=== PATIENT | male | born 1960 | race Caucasian/White ===

== ENCOUNTER 2016-09-08 17:23 | Inpatient (IN) | payer OTHER ==
[~2016-09-08] VITALS: Ht 182.9 cm; Wt 59.3 kg
[2016-09-08 17:25] VITALS: BP 160/113; PULSE 103; RESP 24; TEMP 98; O2SAT 96
[2016-09-08] MEDS ORDERED: SODIUM CHLORIDE 0.9% FLUSH 5 ML FLUSH IVF PRN (20:30)
--- NOTE | 2016-09-08 20:49 | PD ---
HPI Chief Complaint: Abnormal Results Time Seen by Provider: 20:26 Travel History International Travel<30 days: No Contact w/Intl Traveler<30days: No Traveled to known affect area: No History of Present Illness HPI 55-year-old male presents to the emergency department for complaint of hoarseness and painful swallowing difficulty swallowing chest pain congestion shortness of breath and weight loss progressively worsening over the past 4 months. Patient estimates that he's lost at least 20 pounds in the past 2 months. Patient states that he has no chronic medical conditions that he is aware of it she has not seen a physician since childhood. Patient takes no medications on a regular basis. Patient's had previous tonsillectomy but no other surgeries. Patient does admit to tobacco use on a daily basis and alcohol use on a daily basis. PFSH Past Medical History Medical History: Denies Significant Hx Past Surgical History Tonsillectomy: Yes Social History Alcohol Use: Yes Tobacco Use: Yes (1PPD) Substance Use: No Allergies-Medications (Allergen,Severity, Reaction): Coded Allergies: No Known Allergies (Unverified , 09/08/16) Reported Meds & Prescriptions Reported Meds & Active Scripts Active No Active Prescriptions or Reported Medications Review of Systems Except as stated in HPI: all other systems reviewed are Neg General / Constitutional: Positive: Weight Loss, No: Fever Eyes: No: Visual changes HENT: Positive: Neck Pain, No: Headaches Cardiovascular: No: Chest Pain or Discomfort Respiratory: Positive: Shortness of Breath Gastrointestinal: Positive: Dysphagia, No: Vomiting Genitourinary: No: Flank Pain Musculoskeletal: No: Myalgias, Arthralgias Skin: No Rash Neurologic: No: Weakness Psychiatric: Positive: Anxiety Hematologic/Lymphatic: Positive: Lymph Node Enlargement Physical Exam Narrative GENERAL: Well-developed well-nourished pleasant male in no acute distress no respiratory distress with hoarseness without stridor SKIN: Warm and dry. HEAD: Normocephalic. EYES: No scleral icterus. No injection or drainage. NECK: Supple, trachea midline. No JVD; mild palpable lymphadenopathy. No thyromegaly. CARDIOVASCULAR: Regular rate and rhythm without murmurs, gallops, or rubs. RESPIRATORY: Breath sounds equal bilaterally. No accessory muscle use. GASTROINTESTINAL: Abdomen soft, non-tender, nondistended. MUSCULOSKELETAL: No cyanosis, or edema. BACK: Nontender without obvious deformity. No CVA tenderness. Data Data Last Documented VS Vital Signs Date Time Temp Pulse Resp B/P Pulse Ox O2 Delivery O2 Flow Rate FiO2 09/08/16 19:59 85 16 99 Room Air 09/08/16 17:25 98.0 160/113 Orders Complete Blood Count With Diff (09/08/16 20:26) Comprehensive Metabolic Panel (09/08/16 20:26) Act Partial Throm Time (Ptt) (09/08/16 20:26) Prothrombin Time / Inr (Pt) (09/08/16 20:26) Magnesium (Mg) (09/08/16 20:26) Troponin I (09/08/16 20:26) Urinalysis - C+S If Indicated (09/08/16 20:26) Iv Access Insert/Monitor (09/08/16 20:26) Electrocardiogram (09/08/16 20:26) Ecg Monitoring (09/08/16 20:26) Oximetry (09/08/16 20:26) Oxygen Administration (09/08/16 20:26) Chest, Single Ap (09/08/16 20:26) Sodium Chloride 0.9% Flush (Ns Flush) (09/08/16 20:30) Thyroid Stimulating Hormone (09/08/16 20:26) Albuterol-Ipratropium Neb (Duoneb Neb) (09/08/16 22:00) Pantoprazole Inj (Protonix Inj) (09/08/16 22:00) Ct Soft Tiss Neck W Iv Cont (09/08/16 ) Iohexol 350 Inj (Omnipaque 350 Inj) (09/08/16 22:56) Place In Observation (09/09/16 ) Vital Signs (Adult) Q4H (09/09/16 01:00) Activity Oob With Assistance (09/09/16 01:00) ^ Glove Stitcher / Telemetry .CONTINUOUS (09/09/16 01:00) Diet Npo (09/09/16 Breakfast) D5-1/2 Ns + Kcl 20 Meq Inj (D5-1/2 Ns + (09/09/16 01:00) Sodium Chloride 0.9% Flush (Ns Flush) (09/09/16 01:00) Sodium Chloride 0.9% Flush (Ns Flush) (09/09/16 09:00) Case Management Consult (09/09/16 01:00) Enoxaparin Inj (Lovenox Inj) (09/09/16 09:00) Naloxone Inj (Narcan Inj) (09/09/16 01:00) Consult Ent (09/09/16 ) Albuterol-Ipratropium Neb (Duoneb Neb) (09/09/16 01:15) Dexamethasone Inj (Decadron Inj) (09/09/16 01:30) Admit Order (Ed Use Only) (09/09/16 ) ^ Saline Lock (09/09/16 01:27) Resp Oxygen Wilmer C Titrat 1-4 L (09/09/16 ) ^ Notify Dr: Other (09/09/16 01:27) Sodium Chloride 0.9% Flush (Ns Flush) (09/09/16 09:00) Sodium Chloride 0.9% Flush (Ns Flush) (09/09/16 01:30) Labs Laboratory Tests Test 09/08/16 20:32 White Blood Count 11.5 TH/MM3 Red Blood Count 4.67 MIL/MM3 Hemoglobin 14.2 GM/DL Hematocrit 42.8 % Mean Corpuscular Volume 91.7 FL Mean Corpuscular Hemoglobin 30.5 PG Mean Corpuscular Hemoglobin 33.3 % Concent Red Cell Distribution Width 13.3 % Platelet Count 297 TH/MM3 Mean Platelet Volume 8.4 FL Neutrophils (%) (Auto) 78.7 % Lymphocytes (%) (Auto) 11.3 % Monocytes (%) (Auto) 8.7 % Eosinophils (%) (Auto) 0.8 % Basophils (%) (Auto) 0.5 % Neutrophils # (Auto) 9.1 TH/MM3 Lymphocytes # (Auto) 1.3 TH/MM3 Monocytes # (Auto) 1.0 TH/MM3 Eosinophils # (Auto) 0.1 TH/MM3 Basophils # (Auto) 0.1 TH/MM3 CBC Comment DIFF FINAL Differential Comment Prothrombin Time 10.5 SEC Prothromb Time International 1.0 RATIO Ratio Activated Partial 26.9 SEC Thromboplast Time Sodium Level 139 MEQ/L Potassium Level 4.2 MEQ/L Chloride Level 99 MEQ/L Carbon Dioxide Level 31.8 MEQ/L Anion Gap 8 MEQ/L Blood Urea Nitrogen 23 MG/DL Creatinine 0.77 MG/DL Estimat Glomerular Filtration 105 ML/MIN Rate Random Glucose 89 MG/DL Calcium Level 10.1 MG/DL Magnesium Level 2.1 MG/DL Total Bilirubin 0.4 MG/DL Aspartate Amino Transf 14 U/L (AST/SGOT) Alanine Aminotransferase 24 U/L (ALT/SGPT) Alkaline Phosphatase 67 U/L Troponin I LESS THAN 0.02 NG/ML Total Protein 8.7 GM/DL Albumin 3.9 GM/DL Thyroid Stimulating Hormone 1.170 uIU/ML 3rd [facility] Medical Decision Making Medical Screen Exam Complete: Yes Emergency Medical Condition: Yes Medical Record Reviewed: Yes Interpretation(s) Last Impressions Chest X-Ray 09/08/162025 Signed Impressions: Service Date/Time: Thursday, September 08, 2016 20:33 - CONCLUSION: Hyperinflation suggesting COPD. No acute infiltrate or effusion. Graham Ayoub Jr., MD Neck CT 09/08/16 0000 Signed Impressions: Service Date/Time: Thursday, September 08, 2016 22:53 - CONCLUSION: Large malignant appearing mass or in the region of the false vocal cord on the right side with necrotic lymph nodes in bilateral neck highly suspicious for metastatic adenopathy. Cielo Lassiter MD Differential Diagnosis Laryngitis, paratracheal mass, esophageal mass, abscess, COPD Narrative Course IV access obtained specimens collected and sent for resulting Chest x-ray reveals no acute abnormality CT soft tissue of the neck with IV contrast ordered CT soft tissue of the neck identifies large mass with necrotic lymph nodes concerning for malignancy with metastatic disease Case discussed with on-call medicine for admission to expedite resources involving ENT, GI, oncology Case discussed with on-call ENT will see patient in consultation Physician Communication Physician Communication discussed with Dr Sofia --admission-obs; discussed with Dr Saab will see in consultation agrees w steroid therapy, rec notifying anesthesiology about patient as may require their airway assistance overnight; discussed with anesthesiology, Dr Hanson, regarding possible elective intubation ---aware; rec's defer at this time as clinically asymptomatic Diagnosis Primary Impression: Neck malignant neoplasm Scripts No Active Prescriptions or Reported Meds Paige Hernandez MD Sep 08, 2016 20:49
[2016-09-08 21:08] LABS: APTT (PATIENT) 26.9 SEC (24.3-30.1); PROTHROMBIN TIME - PATIENT 10.5 SEC (9.8-11.6)
[2016-09-08 21:09] LABS: AUTOMATED NEUTROPHIL # 9.1 TH/MM3 (1.8-7.7); BASOPHIL # 0.1 TH/MM3 (0-0.2); BASOPHIL % 0.5 % (0.0-2.0); EOSINOPHIL # 0.1 TH/MM3 (0-0.4); EOSINOPHIL % 0.8 % (0.0-4.0); HEMATOCRIT 42.8 % (39.0-51.0); HEMO FLAGS DIFF FINAL; LYMPH % 11.3 % (9.0-44.0); LYMPHOCYTE # 1.3 TH/MM3 (1.0-4.8); MEAN CELL VOLUME 91.7 FL (80.0-100.0); MEAN CORPUSCULAR HEMOGLOBIN 30.5 PG (27.0-34.0); MEAN CORPUSCULAR HGB CONC 33.3 % (32.0-36.0); MONO % 8.7 % (0.0-8.0); NEUT % 78.7 % (16.0-70.0); PLATELET COUNT 297 TH/MM3 (150-450); RED BLOOD COUNT 4.67 MIL/MM3 (4.50-5.90); RED CELL DISTRIBUTION WIDTH 13.3 % (11.6-17.2); WHITE BLOOD COUNT 11.5 TH/MM3 (4.0-11.0)
--- NOTE | 2016-09-08 21:15 | RADRPT ---
EXAM DATE/TIME: 09/08/2016 20:33 [facility] COMPARISON: No previous studies available for comparison. INDICATIONS : Chest and throat pain. Congestion. MEDICAL HISTORY : None. SURGICAL HISTORY : None. ENCOUNTER: Initial ACUITY: 3 days PAIN SCORE: 5/10 LOCATION: chest FINDINGS: 2 frontal views of the chest show the lungs to be hyperaerated. No infiltrate or effusion. Heart norm al in size. Old left-sided rib fractures noted. CONCLUSION: Hyperinflation suggesting COPD. No acute infiltrate or effusion. Graham Ayoub Jr., MD on September 08, 2016 at 21:13 Board Certified Radiologist. This report was verified electronically.
[2016-09-08 21:16] LABS: ANION GAP 8 MEQ/L (5-15); AST (GOT) 14 U/L (15-37); BICARBONATE 31.8 MEQ/L (21.0-32.0); BLOOD UREA NITROGEN 23 MG/DL (7-18); CHLORIDE 99 MEQ/L (98-107); GLOMERULAR FILTRATION RATE 105 ML/MIN (>89); MAGNESIUM 2.1 MG/DL (1.5-2.5); POTASSIUM 4.2 MEQ/L (3.5-5.1); SODIUM (NA) 139 MEQ/L (136-145)
[2016-09-08 21:28] LABS: ALKALINE PHOSPHATASE 67 U/L (45-117); ALT (GPT) 24 U/L (12-78); TOTAL BILIRUBIN ADULT 0.4 MG/DL (0.2-1.0)
[2016-09-08] MEDS ORDERED: RESP: ALBUTEROL 2.5 MG/IPRATROPIUM 0.5 MG NEB (SCH) NEB ONE (22:00)
[2016-09-08] MEDS ORDERED: PANTOPRAZOLE SODIUM 40 MG VIAL IV PUSH ONE (22:00)
[2016-09-08] MEDS ORDERED: IOHEXOL 350 MG/ML 10 ML VIAL (for RAD DIAG) IV ONE (22:56)
--- NOTE | 2016-09-08 23:29 | RADRPT ---
EXAM DATE/TIME: 09/08/2016 22:53 [facility] COMPARISON: No previous studies available for comparison. INDICATIONS : Sore throat, cough, congestion and weight loss past 5 months. IV CONTRAST: 60 cc Omnipaque 350 (iohexol) IV RADIATION DOSE: 14.51 CTDIvol (mGy) MEDICAL HISTORY : None SURGICAL HISTORY : Tonsillectomy. ENCOUNTER: Initial ACUITY: 4 - 6 months PAIN SCALE: 5/10 LOCATION: Bilateral neck TECHNIQUE: Volumetric scanning of the neck was performed. Using automated exposure control and adjustment of th e mA and/or kV according to patient size, radiation dose was kept as low as reasonably achievable to obtain optimal diagnostic quality images. FINDINGS: There is mild mucoperiosteal thickening within the maxillary sinuses. There is a large mass epic entered in the region of the false vocal cord on the right side compromising the lumen measuring almo st 3 cm in size highly suspicious for a malignant mass. There are necrotic lymph nodes in bilateral n beverly. On the right side the largest one measures 1.8 cm in size and on the left side the largest one m easures 1.1 cm in size. There are 2 separate necrotic lymph nodes on each side and there are tiny sub centimeter lymph nodes within the superior mediastinum. These latter lymph nodes are nonspecific. The re is scarring in bilateral lung apices. CONCLUSION: Large malignant appearing mass or in the region of the false vocal cord on the right side with necrot ic lymph nodes in bilateral neck highly suspicious for metastatic adenopathy. Cielo Lassiter MD on September 08, 2016 at 23:23 Board Certified Radiologist. This report was verified electronically.
[2016-09-09] VITALS (10 sets, daily range): BP systolic 132–151; BP diastolic 68–82; PULSE 77–99; RESP 16–20; TEMP 97.1–98.4; O2SAT 97–99
[2016-09-09] MEDS ORDERED: NALOXONE HCL 0.4 MG/ML AMP IV PRN (01:00)
[2016-09-09] MEDS ORDERED: SODIUM CHLORIDE 0.9% FLUSH 5 ML FLUSH FLUSH PRN (01:00)
[2016-09-09] MEDS ORDERED: RESP: ALBUTEROL 2.5 MG/IPRATROPIUM 0.5 MG NEB (PRN) NEB (01:15)
[2016-09-09] MEDS ORDERED: DEXAMETHASONE SOD PHOS 4 MG/ML VIAL IV PUSH ONE (01:30)
[2016-09-09] MEDS: D5-1/2 NS + KCL 20 MEQ INJ 1,000 ML IV SCH ×3 (02:21→21:09)
[2016-09-09] MEDS: DEXAMETHASONE SOD PHOS 4 MG/ML VIAL IV PUSH SCH ×3 (07:50→17:50)
[2016-09-09] MEDS: ENOXAPARIN SODIUM 40 MG/0.4 ML SYRINGE SQ SCH (08:03)
[2016-09-09] MEDS: SODIUM CHLORIDE 0.9% FLUSH 5 ML FLUSH IVF SCH ×2 (08:54→21:10)
[2016-09-09] MEDS ORDERED: SODIUM CHLORIDE 0.9% FLUSH 5 ML FLUSH FLUSH SCH (09:00)
[2016-09-09 10:52] LABS: BLOOD, URINE TRACE (NEG); GLUCOSE,URINE NEG (NEG); KETONE, URINE 40 mg/dL (NEG); MUCUS URINE FEW /lpf (OCC); NITRITE,URINE NEG (NEG); PH, URINE 5.5 (5.0-8.5); URINE COLOR YELLOW (YELLW/STRAW)
[2016-09-09 10:53] LABS: COMMENT (UR) CULT NOT INDICATED; CULTURE IF INDICATED CULT NOT INDICATED
--- NOTE | 2016-09-09 11:13 | HHI.HP ---
none [facility] No Primary Care Physician Admission Diagnosis neck mass/malignancy; copd Diagnoses: Chief Complaint: Hoarseness and weight loss Travel History International Travel<30 Days: No Contact w/Intl Traveler <30 Da: No Traveled to Known Affected Are: No History of Present Illness This patient is a 55-year-old gentleman with minimal past history who over the last 4 months has been having increased weight loss of about 45 pounds, increased hoarseness and chest congestion. Patient has not had any fevers or chills but did come to the emergency room several months ago for evaluation and was given a proton pump inhibitor for treatment of presumed dyspepsia. Patient' s symptoms never subsided and he became worse so he came to the hospital again. CT of the next was done and did show a rather large malignant-appearing mass on the right side with some necrotic lymph nodes. On my review it is quite suspicious for malignancy. Patient has not been hypoxemic, he has difficulty swallowing and has been quite dehydrated. For these reasons the patient was recommended for further evaluation and treatment in the hospital. Review of Systems Constitutional: COMPLAINS OF: Fatigue, Weight loss, Dizziness, DENIES: Diaphoretic episodes, Fever, Weight gain, Chills, Change in appetite, Night Sweats Endocrine: DENIES: Heat/cold intolerance, Polydipsia, Polyuria, Polyphagia Eyes: DENIES: Blurred vision, Diplopia, Eye inflammation, Eye pain, Vision loss , Photosensitivity, Double Vision Ears, nose, mouth, throat: DENIES: Tinnitus, Hearing loss, Vertigo, Nasal discharge, Oral lesions, Throat pain, Hoarseness, Ear Pain, Running Nose, Epistaxis, Sinus Pain, Toothache, Odynophagia Respiratory: COMPLAINS OF: Cough, DENIES: Apneas, Snoring, Wheezing, Hemoptysis, Sputum production, Shortness of breath Cardiovascular: DENIES: Chest pain, Palpitations, Syncope, Dyspnea on Exertion , PND, Lower Extremity Edema, Orthopnea, Claudication Gastrointestinal: DENIES: Abdominal pain, Black stools, Bloody stools, Constipation, Diarrhea, Nausea, Vomiting, Difficulty Swallowing, Anorexia Genitourinary: DENIES: Sexual dysfunction, Urinary frequency, Urinary incontinence, Urgency, Hematuria, Dysuria, Nocturia, Penile Discharge, Testicular Pain, Testicular Swelling Musculoskeletal: DENIES: Joint pain, Muscle aches, Stiffness, Joint Swelling, Back pain, Neck pain Integumentary: DENIES: Abnormal pigmentation, Nail changes, Pruritus, Rash Hematologic/lymphatic: DENIES: Bruising, Lymphadenopathy Immunologic/allergic: DENIES: Eczema, Urticaria Neurologic: DENIES: Abnormal gait, Headache, Localized weakness, Paresthesias, Seizures, Speech Problems, Tremor, Poor Balance Past Family Social History Past Medical History None Past Surgical History Tonsillectomy Reported Medications Omeprazole twice daily Allergies: Coded Allergies: No Known Allergies (Unverified , 09/08/16) Active Ordered Medications Reviewed in the medical record Family History Father of coronary related injuries, mother is healthy at 84, no malignancies Social History Patient smokes a pack a day, drinks beer frequently, lives alone, 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 Physical Exam Vital Signs Vital Signs Date Time Temp Pulse Resp B/P Pulse Ox O2 Delivery O2 Flow Rate FiO2 09/09/16 10:24 98.1 82 17 137/78 98 Room Air 09/09/16 09:57 99 Nasal Cannula 2.00 09/09/16 07:30 97 Room Air 09/09/16 07:30 20 97 Room Air 09/09/16 07:30 98.1 80 20 151/73 97 Room Air 09/09/16 07:30 20 97 Room Air 09/09/16 06:37 81 16 138/78 97 Room Air 09/09/16 02:48 16 09/09/16 02:48 89 16 141/82 97 Room Air 09/09/16 02:48 96 Room Air 09/09/16 01:41 21 09/08/16 19:59 85 16 99 Room Air 09/08/16 17:25 98.0 103 24 160/113 96 Room Air Physical Exam GENERAL: This is a thin, well-developed, hoarse gentleman SKIN: No rashes, ecchymoses or lesions. Cool and dry. HEAD: Atraumatic. Normocephalic. No temporal or scalp tenderness. EYES: Pupils equal round and reactive. Extraocular motions intact. No scleral icterus. No injection or drainage. ENT: Nose without bleeding, purulent drainage or septal hematoma. Throat without erythema, tonsillar hypertrophy or exudate. Uvula midline. Airway patent. NECK: Trachea midline. No JVD or lymphadenopathy. Supple, nontender, no meningeal signs. CARDIOVASCULAR: Regular rate and rhythm without murmurs, gallops, or rubs. RESPIRATORY: Clear to auscultation. Breath sounds equal bilaterally. No wheezes , rales, or rhonchi. GASTROINTESTINAL: Abdomen soft, non-tender, nondistended. No hepato-splenomegaly , or palpable masses. No guarding. MUSCULOSKELETAL: Extremities without clubbing, cyanosis, or edema. No joint tenderness, effusion, or edema noted. No calf tenderness. Negative Homans sign bilaterally. NEUROLOGICAL: Awake and alert. Cranial nerves II through XII intact. Motor and sensory grossly within normal limits. Five out of 5 muscle strength in all muscle groups. Normal speech. Laboratory Laboratory Tests Test 09/08/16 09/09/16 20:32 09:50 White Blood Count 11.5 Red Blood Count 4.67 Hemoglobin 14.2 Hematocrit 42.8 Mean Corpuscular Volume 91.7 Mean Corpuscular Hemoglobin 30.5 Mean Corpuscular Hemoglobin 33.3 Concent Red Cell Distribution Width 13.3 Platelet Count 297 Mean Platelet Volume 8.4 Neutrophils (%) (Auto) 78.7 Lymphocytes (%) (Auto) 11.3 Monocytes (%) (Auto) 8.7 Eosinophils (%) (Auto) 0.8 Basophils (%) (Auto) 0.5 Neutrophils # (Auto) 9.1 Lymphocytes # (Auto) 1.3 Monocytes # (Auto) 1.0 Eosinophils # (Auto) 0.1 Basophils # (Auto) 0.1 CBC Comment DIFF FINAL Differential Comment Prothrombin Time 10.5 Prothromb Time International 1.0 Ratio Activated Partial 26.9 Thromboplast Time Sodium Level 139 Potassium Level 4.2 Chloride Level 99 Carbon Dioxide Level 31.8 Anion Gap 8 Blood Urea Nitrogen 23 Creatinine 0.77 Estimat Glomerular Filtration 105 Rate Random Glucose 89 Calcium Level 10.1 Magnesium Level 2.1 Total Bilirubin 0.4 Aspartate Amino Transf 14 (AST/SGOT) Alanine Aminotransferase 24 (ALT/SGPT) Alkaline Phosphatase 67 Troponin I LESS THAN 0.02 Total Protein 8.7 Albumin 3.9 Thyroid Stimulating Hormone 1.170 3rd Gen Urine Color YELLOW Urine Turbidity CLEAR Urine pH 5.5 Urine Specific Ingalls 1.050 Urine Protein 30 Urine Glucose (UA) NEG Urine Ketones 40 Urine Occult Blood TRACE Urine Nitrite NEG Urine Bilirubin NEG Urine Urobilinogen LESS THAN 2.0 Urine Leukocyte Esterase NEG Urine RBC 1 Urine WBC 1 Urine Mucus FEW Microscopic Urinalysis Comment CULT NOT INDICATED Result Diagram: 09/08/16203109/08/162031 Assessment and Plan Problem List: (1) Neck malignant neoplasm ICD Code: C76.0 Status: Acute Plan: ENT follow-up pending Continue steroids IV hydration, speech therapy for swallow assessment CT chest abdomen and thorax rule out further spread Physician Certification 2 Midnight Certification Type: Admission for Inpatient Services Order for Inpatient Services The services are ordered in accordance with Medicare regulations or non- Medicare payer requirements, as applicable. In the case of services not specified as inpatient-only, they are appropriately provided as inpatient services in accordance with the 2-midnight benchmark. Estimated LOS (days): 4 4 days is the estimated time the patient will need to remain in the hospital, assuming treatment plan goals are met and no additional complications. Post-Hospital Plan: Home Anita Mathis MD Sep 09, 2016 11:12
[2016-09-09] MEDS: NICOTINE 21 MG/24 HR PATCH TD SCH (17:50)
[2016-09-09] MEDS ORDERED: MAGNESIUM HYDROXIDE SUSP 30 ML CUP PO PRN (18:30)
[2016-09-09] MEDS ORDERED: DOCUSATE SODIUM 100 MG CAP PO PRN (18:30)
[2016-09-09] MEDS ORDERED: ALUMINUM/MAGNESIUM/SIMETH 30 ML CUP PO PRN (18:30)
[2016-09-09] MEDS ORDERED: ONDANSETRON HCL 4 MG/2 ML VIAL IV PRN (18:30)
[2016-09-09] MEDS ORDERED: CALCIUM CARBONATE 500 MG CHEWABLE TAB CHEW PRN (18:30)
[2016-09-09] MEDS ORDERED: ACETAMINOPHEN 325 MG TAB PO PRN (18:30)
--- NOTE | 2016-09-09 20:37 | EKG ---
Date Performed: 09/08/2016 Time Performed: 20:45:12 PTAGE: 55 years EKG: Sinus rhythm WITH OCCASIONAL SUPRAVENTRICULAR PREMATURE COMPLEXES BORDERLINE ECG NO PREVIOUS TRACING DOCTOR: Qi Clinton Interpretating Date/Time 09/09/2016 20:35:03
--- NOTE | 2016-09-09 22:29 | MB ---
cc: PITER SAAB MD DATE OF CONSULTATION 09/09/16 CHIEF COMPLAINT Airway compromise Of note, my full dictation seems to have been lost in the system (Doc #[id number]). Of note, the patient is a pleasant 55 year old male who seemed otherwise healthy prior to the last four months where he has been having increased weight loss of approximately 40 pounds and increased throat hoarseness and chest tightness. Symptoms have worsened prior to being admitted to the emergency room. The CAT scan was done in the emergency room which showed a large malignant appearing right laryngeal mass obstructing the airway. Of note, the patient is a pack a day smoker. When I saw him this morning, he was in no acute distress on room air. However, on my flexible fiberoptic laryngeal examination his airway was quite severely compromised with a large fungating laryngeal malignant appearing lesion blocking the majority of his airway and there was only a small actual airway present at his laryngeal introitus with the airway being open on the left aspect of the larynx. There was a large amount of pooling of secretions and debris in his hypopharynx and his laryngeal area as well. However, after reintroducing the flexible fiberoptic laryngoscope into the left nasal cavity looking from this position, I was able to visualize the airway more definitively. However, even with this good visualization he did have severe airway compromise physically, although not clinically. Because of the extensiveness of his airway compromise, it was our recommendation this morning that the patient be admitted and to have general surgery consulted for possible bedside tracheostomy with the effective beside technique that they employ. 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 Once the airway was stable, with the tracheostomy performed by general surgery, then I would perform a controlled laryngeal biopsy, if needed by the oncologist. Of note, throughout the day the patient has improved considerably with the dosage of steroids. However, my recommendations remain the same as for the level of severity of his airway compromise. I see that anesthesia has already been consulted for assisting with the airway as able as well. I just spoke with the evening ____ who are attempting to retrieve my morning notes. I shall standby for further recommendations from the oncologist as well. Piter Saab MD CCP/ /9:58 PM /10:09 PM
[2016-09-10] VITALS (16 sets, daily range): BP systolic 122–164; BP diastolic 65–98; PULSE 60–98; RESP 16–36; TEMP 97.9–99.1; O2SAT 95–100
[2016-09-10] MEDS: DEXAMETHASONE SOD PHOS 4 MG/ML VIAL IV PUSH SCH ×4 (00:03→17:42)
[2016-09-10] MEDS ORDERED: CHLORHEXIDINE GLUCONATE 2 % 1 PACK (2 CLOTHS)(extra cloths) TOP PRN (00:15)
[2016-09-10] MEDS: CHLORHEXIDINE GLUCONATE 2 % 1 PACK (2 CLOTHS)(taper/protocol) TOP SCH (00:38)
[2016-09-10 05:00] LABS: HEMATOCRIT 38.6 % (39.0-51.0); MEAN CELL VOLUME 90.8 FL (80.0-100.0); MEAN CORPUSCULAR HGB CONC 34.1 % (32.0-36.0); PLATELET COUNT 283 TH/MM3 (150-450); RED BLOOD COUNT 4.25 MIL/MM3 (4.50-5.90); RED CELL DISTRIBUTION WIDTH 13.1 % (11.6-17.2); REVIEW FLAG FINAL; WHITE BLOOD COUNT 10.8 TH/MM3 (4.0-11.0)
[2016-09-10] MEDS ORDERED: IOHEXOL 350 MG/ML 10 ML VIAL (for RAD DIAG) IV ONE (05:38)
--- NOTE | 2016-09-10 06:19 | RADRPT ---
EXAM DATE/TIME: 09/10/2016 05:36 [facility] COMPARISON: No previous studies available for comparison. INDICATIONS : Weightloss for four months. Evaluate for mass. IV CONTRAST: 100 cc Omnipaque 350 (iohexol) IV ; Cumulative dose for multiple exams. ORAL CONTRAST: No oral contrast ingested. RADIATION DOSE: 5.02 CTDIvol (mGy) ; Combined studies - Thorax/Abdomen/Pelvis MEDICAL HISTORY : Chronic obstructive pulmonary disease. SURGICAL HISTORY : None. ENCOUNTER: Initial ACUITY: 4 - 6 months PAIN SCALE: 0/10 LOCATION: abdomen TECHNIQUE: Volumetric scanning of the abdomen and pelvis was performed. Using automated exposure control and ad justment of the mA and/or kV according to patient size, radiation dose was kept as low as reasonably achievable to obtain optimal diagnostic quality images. FINDINGS: LOWER LUNGS: The visualized lower lungs are clear. LIVER: There are a few subcentimeter low density masses in the liver likely represent cysts or small hemangi omas. The gallbladder is not distended. SPLEEN: Normal size without lesion. PANCREAS: Within normal limits. KIDNEYS: Normal in size and shape. There is no solid mass, stone or hydronephrosis. There is some cystic mao ge in the upper left kidney. ADRENAL GLANDS: The adrenal glands appear prominent likely resents a rib hypertrophy versus mild adenomas. VASCULAR: There is no aortic aneurysm. Scattered vascular calcifications are seen. BOWEL/MESENTERY: There does appear to be a target appearance to the small bowel in the right lower quadrant likely rep resents a degree of intussusception. Areas of intussusception frequently can have a lead mass. Signif icant dilatation of the bowels not seen. Evaluation of the small bowel would be recommended. ABDOMINAL WALL: Within normal limits. RETROPERITONEUM: There is no lymphadenopathy. BLADDER: No wall thickening or mass. REPRODUCTIVE: Within normal limits. INGUINAL: There is no lymphadenopathy or hernia. MUSCULOSKELETAL: Within normal limits for patient age. CONCLUSION: Suspected area of small bowel intussusception in the right lower quadrant. This is likely intermitten t as there is no associated dilatation of the small bowel. Intussusception can frequently had a lead mass. Evaluation of the small bowel would be recommended. Anjel Scanlon MD on September 10, 2016 at 6:10 Board Certified Radiologist. This report was verified electronically.
--- NOTE | 2016-09-10 06:23 | RADRPT ---
EXAM DATE/TIME: 09/10/2016 05:36 [facility] COMPARISON: No previous studies available for comparison. INDICATIONS : Short of breath for four months. Weightloss. Evaluate for mass. IV CONTRAST: 100 cc Omnipaque 350 (iohexol) IV ; Cumulative dose for multiple exams. RADIATION DOSE: 5.02 CTDIvol (mGy) ; Combined studies - Thorax/Abdomen/Pelvis MEDICAL HISTORY : Chronic obstructive pulmonary disease. SURGICAL HISTORY : None. ENCOUNTER: Initial ACUITY: 4 - 6 months PAIN SCALE: 0/10 LOCATION: chest TECHNIQUE: Volumetric scanning of the chest was performed. Using automated exposure control and adjustment of t he mA and/or kV according to patient size, radiation dose was kept as low as reasonably achievable to obtain optimal diagnostic quality images. FINDINGS: LUNGS: The lungs are hyperinflated. There some patchy areas of increased density seen at the lateral right u pper lung. There is minimal patchy density in the posterior lung apices. There is a calcified granulo ma at the left lung base. There is a small 4 mm nodule at the lateral left lower lung. PLEURA: There is no pleural thickening or pleural effusion. MEDIASTINUM: The heart and great vessels demonstrate no acute abnormality. There is no mediastinal or hilar lymph adenopathy. There is some increased density in the posterior right lateral aspect of the trachea just above kevin likely representing mucus. AXILLAE: Within normal limits. No lymphadenopathy. SKELETAL: Within normal limits for patient age. MISCELLANEOUS: The visualized upper abdominal organs demonstrate no acute abnormality. CONCLUSION: 1. Patchy areas of peripheral density in the upper lungs being more prominent right. These are nonspe cific. 2. 4 mm noncalcified nodule in the left lower lung. 3. It is thought both these above findings should be followed up with a noncontrast CT examination in 3-6 months. 4. Calcified granuloma right lung base. 5. Hyperinflated lungs. Anjel Scanlon MD on September 10, 2016 at 6:17 Board Certified Radiologist. This report was verified electronically.
[2016-09-10] MEDS: D5-1/2 NS + KCL 20 MEQ INJ 1,000 ML IV SCH ×2 (07:37→16:41)
[2016-09-10] MEDS: SODIUM CHLORIDE 0.9% FLUSH 5 ML FLUSH IVF SCH ×2 (08:47→20:24)
[2016-09-10] MEDS: NICOTINE 21 MG/24 HR PATCH TD SCH (08:47)
[2016-09-10] MEDS: REMOVE OLD NICODERM (NICOTINE) PATCH TD SCH (08:48)
[2016-09-10] MEDS ORDERED: PROPOFOL 200 MG/20 ML AMP IV ONE (11:46)
[2016-09-10] MEDS ORDERED: KETAMINE HCL 500 MG/5 ML VIAL ONE (14:13)
[2016-09-10] MEDS ORDERED: BUPIVACAINE/EPINEPHRINE 0.5% PF 30 ML VIAL ONE (14:18)
[2016-09-10] MEDS ORDERED: LIDOCAINE HCL 1% 50 ML VIAL ONE (14:18)
[2016-09-10] MEDS ORDERED: SODIUM BICARBONATE 8.4% INJ 50 ML ONE (14:18)
--- NOTE | 2016-09-10 15:10 | HHI.PR ---
Subjective Remarks Patient seen perioperatively for tracheostomy. No new complaints. Case discussed with Dr. So this morning. Objective Vitals Vital Signs Date Time Temp Pulse Resp B/P Pulse Ox O2 Delivery O2 Flow Rate FiO2 09/10/16 12:00 98.4 88 18 130/65 95 09/10/16 12:00 88 09/10/16 10:00 98 09/10/16 08:33 100 21 09/10/16 08:00 89 09/10/16 08:00 98.0 89 36 149/82 98 09/10/16 06:00 72 09/10/16 04:00 98.7 73 16 122/70 97 09/10/16 04:00 73 09/10/16 02:00 69 09/10/16 00:30 98.7 82 20 136/72 97 09/10/16 00:30 82 09/10/16 00:28 98.5 85 16 164/81 96 09/09/16 20:59 98.4 94 18 133/68 98 09/09/16 20:00 95 09/09/16 19:30 98 09/09/16 15:34 97.5 84 18 132/69 98 I/O 09/09/16 09/09/16 09/09/16 09/10/16 09/10/16 09/10/16 07:00 15:00 23:00 07:00 15:00 23:00 Intake Total 300 ml 450 ml Output Total 400 ml 400 ml Balance -100 ml 50 ml Intake Oral 300 ml IV Total 450 ml Output Urine Total 400 ml 400 ml Stool Total 0 ml # Voids 2 # Bowel Movements 0 Result Diagram: 09/10/1639909/08/162031 Imaging Last Impressions Chest CT 09/10/16599 Signed Impressions: Service Date/Time: Saturday, September 10, 2016 05:36 - CONCLUSION: 1. Patchy areas of peripheral density in the upper lungs being more prominent right. These are nonspecific. 2. 4 mm noncalcified nodule in the left lower lung. 3. It is thought both these above findings should be followed up with a noncontrast CT examination in 3-6 months. 4. Calcified granuloma right lung base. 5. Hyperinflated lungs. Anjel Scanlon MD Abdomen/Pelvis CT 09/10/16599 Signed Impressions: Service Date/Time: Saturday, September 10, 2016 05:36 - CONCLUSION: Suspected area of small bowel intussusception in the right lower quadrant. This is likely intermittent as there is no associated dilatation of the small bowel. Intussusception can frequently had a lead mass. Evaluation of the small bowel would be recommended. Anjel Scanlon MD Chest X-Ray 09/08/162025 Signed Impressions: Service Date/Time: Thursday, September 08, 2016 20:33 - CONCLUSION: Hyperinflation suggesting COPD. No acute infiltrate or effusion. Graham Ayoub Jr., MD Neck CT 09/08/16 0000 Signed Impressions: Service Date/Time: Thursday, September 08, 2016 22:53 - CONCLUSION: Large malignant appearing mass or in the region of the false vocal cord on the right side with necrotic lymph nodes in bilateral neck highly suspicious for metastatic adenopathy. Cielo Lassiter MD Objective Remarks GENERAL: This is a well-nourished, well-developed patient, in no apparent distress. CARDIOVASCULAR: Regular rate and rhythm without murmurs, gallops, or rubs. RESPIRATORY: Clear to auscultation. Breath sounds equal bilaterally. No wheezes , rales, or rhonchi. GASTROINTESTINAL: Abdomen soft, non-tender, nondistended. Normal active bowel sounds MUSCULOSKELETAL: Extremities without clubbing, cyanosis, or edema. NEURO: Alert & Oriented x4 to person, place, time, situation. 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
[2016-09-10] MEDS ORDERED: DO NOT ADM ANY ANTICOAGULANT DRUGS XX PRN (15:11)
[2016-09-10] MEDS ORDERED: MIDAZOLAM HCL 2 MG/2 ML VIAL ONE (15:17)
--- NOTE | 2016-09-10 17:11 | MB ---
cc: ANCELMO ESCOABR M.D. DATE OF CONSULTATION: 09/10/2016 REASON FOR CONSULTATION: Obstructing airway. CONSULTING PHYSICIAN: Dr. Dumas Ear, nose, and throat, HISTORY: This is a pleasant 55-year-old gentleman who was recently into the hospital. He has a airway compromise. He had admission to the intensive care unit. ENT is evaluated the patient and suggested a tracheostomy tube because of this obstructing laryngeal tumor. The patient states he has been having this problem for sometime be getting progressively worse to take a deep breath. He has had A fair amount of weight loss about 45 pounds over the last four or five months. His major complaint, presently he has a raspy voice, but he is able to talk. He is in minimal distress. PAST MEDICAL HISTORY: Negative for any other chronic medical problems except he says hypertension. PAST SURGICAL HISTORY: He has had a tonsillectomy in the past. MEDICATIONS: He takes some reflux medicine. PHYSICAL EXAMINATION: IN GENERAL: He is a very thin, hoarse gentleman. NECK: The neck is supple, palpable neck mass is appreciated, his trachea is easily palpated. He has no dilatation or enlargement of the thyroid, the chest is fairly clear. HEART: Regular rate, slightly tachycardic. ABDOMEN: Thin, soft, without rebound or guarding. EXTREMITIES: Moves all extremities well with no clubbing, cyanosis or edema. NEUROLOGIC: He is alert and oriented, again he has hoarse speech. LABORATORY DATA He had a white count of 10, H&H 13, 38. Chemistries essentially normal. Coags were normal. Urinalysis fairly clear. IMAGING STUDIES CT of the neck shows large malignant appearing mass and a with necrotic lymph nodes. 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 PLAN: This will be done in the operating room under controlled situation. This was discussed in detail with the patient. He appeared to understand and wishes to proceed. MD MAGY Street/kade /3:10 PM /4:48 PM
--- NOTE | 2016-09-10 19:21 | MB ---
cc: SRIKANTH PRITCHETT MD DATE OF CONSULTATION 09/10/16 DATE OF 58. REQUESTING PHYSICIAN Consult requested by the [facility] hospitalist service. REASON FOR CONSULTATION Patient with an obstructive laryngeal mass associated with cervical lymphadenopathy; findings concerning for a laryngeal malignancy. The oncology service has been consulted to coordinate further workup and treatment. Mr. Guzman communicated to me by writing down his answers. He is unable to speak. CHIEF COMPLAINT The patient reports having pain in his throat and difficulty speaking for the past 4-5 months. He reports having lost 35 pounds over this period of time due to difficulty swallowing as well. HISTORY OF PRESENT ILLNESS Mr. Guzman is a 55-year-old male who reports smoking a pack a day since the age of 13. He also reports being a heavy drinker. Mr. Guzman reports being in his usual state of health up until about four and a half months ago when he began to notice hoarseness in the voice and pain in his throat. He reports progressively not being able to speak and, on some days, was completely mute. He began to notice, in addition to this, difficulty swallowing. He reports attempting to swallow food, but it would immediately be regurgitated. Due to this, he lost about 35 pounds over the past four months. He presented to [place] emergency department last night with the above complaints. He underwent imaging studies including CT scan of the soft tissues of the neck, CT scan of the chest and CT scan of the abdomen and pelvis. The CT scan of the soft tissues of the neck revealed a near obstructing mass involving the larynx. The tumor appeared to be originating in the region of the false vocal cords and the bulk of the disease was on the right side. Necrotic and enlarged appearing lymph nodes appeared bilaterally on the neck which were concerning for metastatic adenopathy. CT scan of the chest and abdomen revealed no definite evidence of metastatic disease, although he did appear to have some inflammatory changes in his lungs. Due to his hoarseness and radiographic evidence of airway compromise, he did undergo tracheostomy earlier today. An ENT evaluation is pending at this time. PAST MEDICAL HISTORY The patient denies previous medical diagnoses. He reports being a smoker, one pack a day for the past 40 years almost. He also reports a history of heavy alcohol consumption. PAST SURGICAL HISTORY None. FAMILY HISTORY Denies oncologic diagnoses in the family. SOCIAL HISTORY He is not . He has a girlfriend. He is originally from [place], [place] and moved to [place] in the mid . He has no children of his own. 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 ALLERGIES NO KNOWN DRUG ALLERGIES. MEDICATIONS Current inpatient 1. Tylenol 650 mg q.6 h as needed for fever. 2. Zofran 4 mg IV q.6 h needed for nausea and vomiting. 3. Senna Colace one tablet p.o. b.i.d. as needed for constipation. 4. Calcium carbonate 1000 mg p.o. t.i.d. as needed for dyspepsia. 5. Nicotine patches 21 mg patch per 24 hours. 6. Dexamethasone 4 mg IV q.6 h. REVIEW OF SYSTEMS Review of systems as noted in HPI. He denies other complaints. Specifically, RAIL OPERATOR complaints, respiratory complaints, cardiovascular complaints, GI complaints. PHYSICAL EXAMINATION VITAL SIGNS: Temperature 97.9 degrees Fahrenheit, heart rate ranging between 60 and 80 beats a minute, blood pressure 138 x 98, O2 sats are 98% on trache collar. GENERAL APPEARANCE: Mr. Guzman is a middle-aged male. He is sitting up in bed. He has a tracheostomy. He is nonverbal. He appears to be emaciated. HEENT: Head atraumatic, normocephalic, conjunctivae are non pale, sclerae are anicteric, EOMI, PERRLA, oral exam no pharyngeal erythema. NECK: He does have prominent bilateral level II cervical lymph nodes. Recently created tracheostomy, no active bleeding noted. RESPIRATORY: Good air movement bilaterally. CARDIOVASCULAR: Regular rate and rhythm, S1-S2. No obvious murmurs, rubs or gallops. ABDOMEN: Thin belly, soft, nontender, nondistended, no palpable organ enlargement. EXTREMITIES: No pretibial edema, calf tenderness. RAIL OPERATOR: No focal sensory motor deficits. MUSCULOSKELETAL: Generally decreased muscle mass and tone. IMAGING STUDIES CT scan of the soft tissue neck dated 09/08/2016: Large malignant appearing mass in the region of the false vocal cord on the right side with necrotic lymph nodes on bilateral neck, concerning for metastatic disease. CT scan the chest dated 09/10/2016: Patchy areas of peripheral density in the upper lungs most prominent ON the right. These are nonspecific. A 4-mm noncalcified nodule in the right lower lung. Hyperinflated lungs. Calcific granuloma in the right lung base. CT scan of the abdomen dated 09/10/2016: Suspected area of small bowel intussusception in the right lower quadrant. This is likely intermittent. No associated dilatation. ASSESSMENT Mr. Guzman is a 55-year-old male with an extensive past history of tobaccoism and alcohol consumption. He presents to the hospital with a five-month history of increasing hoarseness of the voice, pain in the throat and difficulty swallowing. He has over the past several days been unable to talk at all and had increasing difficulty breathing. Imaging studies of his neck revealed a near obstruction of the upper airway at the level of the larynx. A large mass involving the false vocal cords appeared to be arising from the right side of the larynx and seemed to cross over the midline. Associated with this were multiple necrotic appearing lymph nodes along bilateral cervical lymph node chains. He has no definite evidence of pathologic disease within the lungs or mediastinum. Because of the impending upper airway obstruction, he did undergo a surgical airway creation on 09/10/2016. The oncology service has been consulted for further workup and management given the likely underlying diagnosis of a primary laryngeal malignancy. RECOMMENDATIONS 1. Laryngeal mass: Await ENT evaluation. We do need a tissue diagnosis. We have options when it comes to this. Specifically, he may undergo a biopsy of the laryngeal mass versus an image guided biopsy of one of the necrotic appearing lymph nodes. 2. Nutrition: He will require a feeding tube to be placed. He is quite protein calorie malnourished. 3. Given the likely diagnosis of laryngeal malignancy and lack of evidence of distal metastatic disease, I think this patient would be a good candidate for concurrent chemoradiotherapy. I will therefore request evaluation by radiation oncology early next week. The oncology service will follow along with you. MD LIZ Luque/ /6:28 PM /7:02 PM
[2016-09-11] VITALS (11 sets, daily range): BP systolic 112–151; BP diastolic 61–102; PULSE 52–75; RESP 18–24; TEMP 97.7–98.6; O2SAT 99–100
[2016-09-11] MEDS: DEXAMETHASONE SOD PHOS 4 MG/ML VIAL IV PUSH SCH ×4 (00:27→18:00)
[2016-09-11] MEDS: CHLORHEXIDINE GLUCONATE 2 % 1 PACK (2 CLOTHS)(taper/protocol) TOP SCH (04:00)
[2016-09-11] MEDS: REMOVE OLD NICODERM (NICOTINE) PATCH TD SCH (09:00)
--- NOTE | 2016-09-11 09:21 | HHI.PR ---
Subjective Remarks Patient seen and evaluated in follow-up for laryngeal mass. Case discussed with ENT yesterday. Patient did well post tracheostomy per general surgery. Seen in the room here and feeding tube discussed. 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 Objective Vitals Vital Signs Date Time Temp Pulse Resp B/P Pulse Ox O2 Delivery O2 Flow Rate FiO2 09/11/16 08:08 99 Trach Collar 28 09/11/16 06:00 54 09/11/16 04:00 53 09/11/16 04:00 98.0 54 18 114/61 99 09/11/16 02:00 61 09/11/16 00:00 100 Trach Collar 28 09/11/16 00:00 98.6 71 18 147/102 99 09/11/16 00:00 71 09/10/16 22:00 69 09/10/16 20:00 70 09/10/16 20:00 100 Trach Collar 28 09/10/16 20:00 99.1 70 18 144/72 100 09/10/16 19:55 98 Trach Collar 28 09/10/16 18:00 60 09/10/16 16:21 99 Trach Collar 6.00 28 09/10/16 16:00 91 16 137/79 99 Aerosol Mask 21 09/10/16 16:00 82 09/10/16 16:00 97.9 82 26 138/98 99 09/10/16 15:40 91 16 136/87 99 Aerosol Mask 09/10/16 15:25 87 16 130/75 99 Aerosol Mask 09/10/16 15:10 97.4 85 16 134/86 99 T-Piece 12 09/10/16 14:00 86 09/10/16 12:00 98.4 88 18 130/65 95 09/10/16 12:00 88 09/10/16 10:00 98 I/O 09/10/16 09/10/16 09/10/16 09/11/16 09/11/16 09/11/16 07:00 15:00 23:00 07:00 15:00 23:00 Intake Total 1234 ml 814 ml 406 ml Output Total 725 ml 235 ml 0 ml Balance 509 ml 579 ml 406 ml Intake Oral 150 ml 0 ml 0 ml IV Total 1084 ml 314 ml 406 ml Other 500 ml Output Urine Total 725 ml 225 ml 0 ml Stool Total 0 ml Estimated Blood Loss 10 ml # Bowel Movements 0 0 Result Diagram: 09/10/16 0400 09/08/162031 Imaging Last Impressions Chest CT 09/10/16599 Signed Impressions: Service Date/Time: Saturday, September 10, 2016 05:36 - CONCLUSION: 1. Patchy areas of peripheral density in the upper lungs being more prominent right. These are nonspecific. 2. 4 mm noncalcified nodule in the left lower lung. 3. It is thought both these above findings should be followed up with a noncontrast CT examination in 3-6 months. 4. Calcified granuloma right lung base. 5. Hyperinflated lungs. Anjel Scanlon MD Abdomen/Pelvis CT 09/10/16599 Signed Impressions: Service Date/Time: Saturday, September 10, 2016 05:36 - CONCLUSION: Suspected area of small bowel intussusception in the right lower quadrant. This is likely intermittent as there is no associated dilatation of the small bowel. Intussusception can frequently had a lead mass. Evaluation of the small bowel would be recommended. Anjel Scanlon MD Chest X-Ray 09/08/162025 Signed Impressions: Service Date/Time: Thursday, September 08, 2016 20:33 - CONCLUSION: Hyperinflation suggesting COPD. No acute infiltrate or effusion. Graham Ayoub Jr., MD Neck CT 09/08/16 0000 Signed Impressions: Service Date/Time: Thursday, September 08, 2016 22:53 - CONCLUSION: Large malignant appearing mass or in the region of the false vocal cord on the right side with necrotic lymph nodes in bilateral neck highly suspicious for metastatic adenopathy. Cielo Lassiter MD Objective Remarks GENERAL: This is a well-nourished, well-developed patient, in no apparent distress. CARDIOVASCULAR: Regular rate and rhythm without murmurs, gallops, or rubs. RESPIRATORY: Trach, Clear to auscultation. Breath sounds equal bilaterally. No wheezes, rales, or rhonchi. GASTROINTESTINAL: Abdomen soft, non-tender, nondistended. Normal active bowel sounds MUSCULOSKELETAL: Extremities without clubbing, cyanosis, or edema. NEURO: Alert & Oriented x4 to person, place, time, situation. 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
[2016-09-11] MEDS ORDERED: FLUMAZENIL 1 MG/10 ML VIAL IV PUSH PRN (12:15)
[2016-09-11] MEDS ORDERED: LORazepam 1 MG TAB PO PRN (12:15)
[2016-09-11] MEDS ORDERED: LORazepam 2 MG/ML VIAL IV PUSH PRN ×4 (12:15)
[2016-09-11] MEDS ORDERED: LORazepam 2 MG TAB PO PRN (12:15)
--- NOTE | 2016-09-11 12:30 | HHI.PR ---
Subjective Subjective Notes No issues with trach Objective Vitals/I&O Vital Signs Date Time Temp Pulse Resp B/P Pulse Ox O2 Delivery O2 Flow Rate FiO2 09/11/16 08:08 99 Trach Collar 28 09/11/16 06:00 54 09/11/16 04:00 98.0 18 114/61 09/10/16 16:21 6.00 Narrative Exam trach site clean without drainage; secure in place without leaks. A/P Assessment and Plan POD #1 tracheostomy; stable Plan Will sign off Gurmeet Miller MD Sep 11, 2016 12:30
[2016-09-11] MEDS: NICOTINE 21 MG/24 HR PATCH TD SCH (12:57)
[2016-09-11] MEDS: HYDROmorphone HCL PF 1 MG/ML VIAL IV PUSH PRN (12:57)
[2016-09-11] MEDS: SODIUM CHLORIDE 0.9% FLUSH 5 ML FLUSH IVF SCH (12:57)
[2016-09-11] MEDS: D5-1/2 NS + KCL 20 MEQ INJ 1,000 ML IV SCH ×2 (12:59→13:00)
--- NOTE | 2016-09-11 17:31 | MB ---
cc: PITER SAAB MD DATE OF CONSULTATION 09/09/16 DATE OF 58 CHIEF COMPLAINT Laryngeal throat mass. HISTORY OF PRESENT ILLNESS The patient is a 55 year old male who presented to the emergency room with hoarseness and difficulty swallowing, shortness of breath and 40 weight loss over two month period. The patient believed to have no other chronic medical illnesses that he was aware of. He does not see doctors very often. The patient is a positive heavy tobacco user as well as alcohol user. I was consulted after a greater than 3 cm mass was found on a CAT scan of right laryngeal area. The patient is currently in the emergency room breathing very well on no supplemental oxygen. His vital signs are currently stable. PHYSICAL EXAMINATION On examination, the patient is noted to have mild cervical adenopathy and bilateral level IV. Also on flexible fiberoptic laryngoscopy examination, he is noted to have a very large right laryngeal mass obstructing the laryngeal opening which is quite impressive. After doing the flexible fiberoptic laryngoscopy on the left nasal cavity of the larynx, I was able to get a good look. I should note that it was difficult to visualize the airway as there was copious secretions and mild debris as well in the hypopharyngeal as well as laryngeal area. However, I was able to see the opening of the laryngeal airway all the way to the extreme left lateral to where it should have been. The patient tolerated this examination which lasted roughly 90 seconds. 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 It is quite remarkable that the patient has minimal symptoms currently. However, I do recommend that patient get supplemental O2 to decrease the possibility of any sign of impending airway because of the level of obstruction present. I also recommend that consideration be made for the patient to be transferred to the Intensive Care Unit and have general surgery be consulted for a possible bedside tracheostomy using the Seldinger technique that is often used for this. Of course, I defer to the better judgment of the general surgeon regarding this. I also recommend to follow through with oncology who were consulted for the possible treatment of this. I am available for further consultation as well. Thank you for the consultation. Again, please consult general surgery for the possible bedside tracheotomy in the Intensive Care Unit. When patient is stable, I will certainly be available for doing a laryngeal biopsy of the lesion if definitive diagnosis is needed by the oncologist if there is not enough tissue available from the possible needle biopsy of the cervical adenopathy that was noted on CAT scan. Thank you very much for this consultation. Piter Saab MD CCP/ /8:47 AM /5:17 PM
--- NOTE | 2016-09-11 18:02 | RADRPT ---
EXAM DATE/TIME: 09/11/2016 16:47 [facility] COMPARISON: CHEST SINGLE AP, September 08, 2016, 20:33. INDICATIONS : Congestion. Verification of NG tube placement. MEDICAL HISTORY : Chronic obstructive pulmonary disease. SURGICAL HISTORY : None. ENCOUNTER: Subsequent ACUITY: 4 - 6 days PAIN SCORE: 0/10 LOCATION: Chest. FINDINGS: Tracheostomy tube is present in satisfactory position. NG tube is present with tip in the stomach. Th ere are old healed rib fractures in the left chest. The lungs are clear without infiltrate, nodule, o r mass. There is no appreciable pleural effusion for technique. Heart and mediastinum are unremarka ble. CONCLUSION: No acute cardiopulmonary disease. Cielo Lassiter MD on September 11, 2016 at 18:01 Board Certified Radiologist. This report was verified electronically.
[2016-09-12] VITALS (14 sets, daily range): BP systolic 124–179; BP diastolic 69–86; PULSE 49–84; RESP 17–23; TEMP 97.5–98.6; O2SAT 95–100
[2016-09-12] MEDS: SODIUM CHLORIDE 0.9% FLUSH 5 ML FLUSH IVF SCH ×3 (01:13→20:16)
[2016-09-12] MEDS: DEXAMETHASONE SOD PHOS 4 MG/ML VIAL IV PUSH SCH ×5 (01:14→23:23)
[2016-09-12] MEDS: D5-1/2 NS + KCL 20 MEQ INJ 1,000 ML IV SCH ×3 (03:45→14:22)
[2016-09-12] MEDS: CHLORHEXIDINE GLUCONATE 2 % 1 PACK (2 CLOTHS)(taper/protocol) TOP SCH (03:45)
[2016-09-12] MEDS: HYDROmorphone HCL PF 1 MG/ML VIAL IV PUSH PRN (05:53)
[2016-09-12] MEDS: REMOVE OLD NICODERM (NICOTINE) PATCH TD SCH (08:05)
[2016-09-12] MEDS: NICOTINE 21 MG/24 HR PATCH TD SCH (08:05)
--- NOTE | 2016-09-12 08:08 | HHI.PR ---
Subjective Remarks 55-year-old gentleman with several months of dysphasia and throat pain and hoarseness. Now found to have laryngeal mass with necrotic lymph nodes. Status post tracheostomy. Awaiting biopsy 09/12 Seen and evaluated in follow-up for laryngeal mass with dysphasia. No complaints. Resting well. Tube feeds without difficulty . Care plan discussed with patient and with TRANSCRIPTION TYPIST. Objective Vitals Vital Signs Date Time Temp Pulse Resp B/P Pulse Ox O2 Delivery O2 Flow Rate FiO2 09/12/16 07:30 16 09/12/16 06:00 70 09/12/16 04:00 97.6 49 23 124/71 99 09/12/16 04:00 49 09/12/16 02:00 49 09/12/16 00:00 97.5 51 17 125/69 100 09/12/16 00:00 51 09/11/16 22:00 52 09/11/16 20:12 99 Trach Collar 28 09/11/16 20:00 97.8 53 21 151/75 100 09/11/16 20:00 53 09/11/16 19:00 100 Trach Collar 28 09/11/16 16:00 75 24 151/74 100 09/11/16 12:00 98.0 53 24 129/70 99 09/11/16 08:08 99 Trach Collar 28 I/O 09/11/16 09/11/16 09/11/16 09/12/16 09/12/16 09/12/16 06:59 14:59 22:59 06:59 14:59 22:59 Intake Total 406 ml 906 ml 1052 ml Output Total 0 ml 850 ml 350 ml Balance 406 ml 56 ml 702 ml Intake Oral 0 ml IV Total 406 ml 782 ml 686 ml Tube Feeding 124 ml 366 ml Output Urine Total 0 ml 850 ml 350 ml # Bowel Movements 0 0 0 Result Diagram: 09/10/1639909/08/162031 Objective Remarks GENERAL: This is a well-nourished, well-developed patient, in no apparent distress. CARDIOVASCULAR: Regular rate and rhythm without murmurs, gallops, or rubs. RESPIRATORY: Trach, Clear to auscultation. Breath sounds equal bilaterally. No wheezes, rales, or rhonchi. GASTROINTESTINAL: Abdomen soft, non-tender, nondistended. Normal active bowel sounds MUSCULOSKELETAL: Extremities without clubbing, cyanosis, or edema. NEURO: Alert & Oriented x4 to person, place, time, situation. 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
[2016-09-13] VITALS (12 sets, daily range): BP systolic 117–140; BP diastolic 64–86; PULSE 53–97; RESP 19–23; TEMP 97.6–98.9; O2SAT 97–99
[2016-09-13] MEDS: CHLORHEXIDINE GLUCONATE 2 % 1 PACK (2 CLOTHS)(taper/protocol) TOP SCH (04:00)
[2016-09-13] MEDS: DEXAMETHASONE SOD PHOS 4 MG/ML VIAL IV PUSH SCH ×4 (05:07→23:07)
[2016-09-13] MEDS: D5-1/2 NS + KCL 20 MEQ INJ 1,000 ML IV SCH ×3 (05:07→23:08)
[2016-09-13] MEDS: REMOVE OLD NICODERM (NICOTINE) PATCH TD SCH (08:09)
[2016-09-13] MEDS: SODIUM CHLORIDE 0.9% FLUSH 5 ML FLUSH IVF SCH ×2 (08:09→21:00)
[2016-09-13] MEDS: NICOTINE 21 MG/24 HR PATCH TD SCH (08:10)
--- NOTE | 2016-09-13 10:53 | HHI.PR ---
Subjective Remarks Patient sitting in bed awake alert he is nonverbal due to tracheostomy and laryngeal cancer He waved to me as he is doing okay, and he was told about doing biopsy today Afebrile, NG tube in place, ENT has been consulted, oncology following Objective Vitals Vital Signs Date Time Temp Pulse Resp B/P Pulse Ox O2 Delivery O2 Flow Rate FiO2 09/13/16 08:08 99 Trach Collar 28 09/13/16 06:00 61 09/13/16 04:00 97 23 131/86 99 09/13/16 04:00 97 09/13/16 00:00 63 09/13/16 00:00 98.5 63 19 140/68 98 09/12/16 22:00 67 09/12/16 20:00 98.6 63 20 140/78 99 09/12/16 19:47 100 Trach Collar 28 09/12/16 19:47 95 09/12/16 19:00 Trach Collar 28 09/12/16 18:00 78 09/12/16 16:00 75 09/12/16 16:00 97.9 75 17 140/70 99 09/12/16 14:00 84 09/12/16 12:00 67 09/12/16 12:00 98.5 67 17 179/86 100 I/O 09/12/16 09/12/16 09/12/16 09/13/16 09/13/16 09/13/16 07:00 15:00 23:00 07:00 15:00 23:00 Intake Total 1052 ml 1338 ml 1269 ml 700 ml Output Total 350 ml 875 ml 250 ml 1000 ml Balance 702 ml 463 ml 1019 ml -300 ml IV Total 686 ml 846 ml 750 ml 700 ml Tube Feeding 366 ml 492 ml 519 ml Output Urine Total 350 ml 875 ml 250 ml 1000 ml # Bowel Movements 0 Result Diagram: 09/10/16 0400 Objective Remarks GENERAL: This is a well-nourished, well-developed patient, in no apparent distress. NECK: In place CARDIOVASCULAR: Regular rate and rhythm without murmurs, gallops, or rubs. RESPIRATORY: Fair air entry bilaterally. No wheezes, rales, or rhonchi. Tracheostomy in place GASTROINTESTINAL: Abdomen soft, non-tender, nondistended. Positive bowel sounds MUSCULOSKELETAL: Extremities without clubbing, cyanosis, or edema. Pedal pulses appreciated NEUROLOGICAL: Awake and alert. Moves all extremity. 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
[2016-09-13] MEDS ORDERED: fentaNYL CITRATE 250 MCG/5 ML AMP ONE ×2 (11:04→11:54)
[2016-09-13] MEDS ORDERED: MIDAZOLAM HCL 5 MG/5 ML VIAL ONE ×2 (11:04→11:55)
[2016-09-13] MEDS ORDERED: ceFAZolin 2 GM PREMIX 50 ML ONE (11:08)
[2016-09-13] MEDS ORDERED: GLUCAGON 1 MG/ML VIAL ONE (11:18)
--- NOTE | 2016-09-13 11:35 | PD.RAD ---
Post Procedure Progress Note Pre Procedure Diagnosis: (1) Neck malignant neoplasm Post Procedure Diagnosis: (1) Neck malignant neoplasm Procedure Date: Sep 13, 2016 Supervising Radiologist: Reginald Nolen Proceduralist/Assist: Dee Morris RT(R), RT Michael(R) Anesthesia: Conscious Sedation Plan of Activity Patient to Unit: Nursing Unit Patient Condition: Good See PACS Report for procedural detail/treatment Feeding Tube Gastrostomy Placement Reginald Nolen MD Sep 13, 2016 11:35
--- NOTE | 2016-09-13 13:41 | PD.ONC.PN ---
Subjective Subjective Remarks Afebrile overnight. Just back from CT guided LN biopsy as well as PEG tube placement. He is heavily sedated. Objective Data Date Time Temp Pulse Resp B/P Pulse Ox O2 Delivery O2 Flow Rate FiO2 09/13/16 10:00 86 09/13/16 08:08 99 Trach Collar 28 09/13/16 08:00 97.9 61 20 122/79 99 09/13/16 08:00 61 09/13/16 07:00 100 Trach Collar 28 09/13/16 06:00 61 09/13/16 04:00 97 23 131/86 99 09/13/16 04:00 97 09/13/16 00:00 63 09/13/16 00:00 98.5 63 19 140/68 98 09/12/16 22:00 67 09/12/16 20:00 98.6 63 20 140/78 99 09/12/16 19:47 100 Trach Collar 28 09/12/16 19:47 95 09/12/16 19:00 Trach Collar 28 09/12/16 18:00 78 09/12/16 16:00 75 09/12/16 16:00 97.9 75 17 140/70 99 09/12/16 14:00 84 Result Diagram: 09/10/16 0400 Imaging Studies Last Impressions Chest X-Ray 09/11/16 0000 Signed Impressions: Service Date/Time: Sunday, September 11, 2016 16:47 - CONCLUSION: No acute cardiopulmonary disease. Cielo Lassiter MD Chest CT 09/10/16 06 Signed Impressions: Service Date/Time: Saturday, September 10, 2016 05:36 - CONCLUSION: 1. Patchy areas of peripheral density in the upper lungs being more prominent right. These are nonspecific. 2. 4 mm noncalcified nodule in the left lower lung. 3. It is thought both these above findings should be followed up with a noncontrast CT examination in 3-6 months. 4. Calcified granuloma right lung base. 5. Hyperinflated lungs. Anjel Scanlon MD Abdomen/Pelvis CT 09/10/16 06 Signed Impressions: Service Date/Time: Saturday, September 10, 2016 05:36 - CONCLUSION: Suspected area of small bowel intussusception in the right lower quadrant. This is likely intermittent as there is no associated dilatation of the small bowel. Intussusception can frequently had a lead mass. Evaluation of the small bowel would be recommended. Anjel Scanlon MD Neck CT 09/08/16 0000 Signed Impressions: Service Date/Time: Thursday, September 08, 2016 22:53 - CONCLUSION: Large malignant appearing mass or in the region of the false vocal cord on the right side with necrotic lymph nodes in bilateral neck highly suspicious for metastatic adenopathy. Cielo Lassiter MD Administered Medications Medications (Trade) Dose Ordered Sig/Susan Route PRN Reason Start Time Stop Time Status Last Admin Dose Admin Potassium Chloride/Dextrose/ Sod Cl (D5-1/2 NS + KCl 20 Meq Inj) 1,000 ml @ 100 mls/hr Q10H IV 09/09/16 01:00 09/13/16 05:07 Enoxaparin Sodium (Lovenox Inj) 40 mg Q24H SQ 09/09/16 09:00 Hold 09/09/16 08:03 IV Flush (NS Flush) 2 ml BID IVF 09/09/16 09:00 09/13/16 08:09 Dexamethasone Sodium Phosphate (Decadron Inj) 4 mg Q6HR IV PUSH 09/09/16 07:15 09/13/16 05:07 Nicotine (Habitrol 21 Mg Patch.24 Hr) 1 patch DAILY TD 09/09/16 16:00 09/13/16 08:10 Miscellaneous Information 1 DAILY TD 09/10/16 09:00 09/13/16 08:09 Miscellaneous Information Patient in critical care unit? Ass... [id number] XX 09/10/16 00:15 09/10/16 00:15 Chlorhexidine Gluconate (Chlorhexidine 2% Cloth) 3 pack DAILY@04 TOP 09/10/16 04:00 09/14/16 04:01 09/12/16 03:45 Lorazepam (Ativan Inj) 1 mg Q4H PRN IV PUSH CIWA 8 - 10 09/11/16 12:15 09/11/16 13:27 Hydromorphone HCl (Dilaudid Pf Inj) 0.5 mg Q4H PRN IV PUSH pain 09/11/16 12:15 09/12/16 05:53 Objective Remarks GENERAL: Chronically ill appearing older male lying in bed sedated post- procedure. SKIN: Warm and dry. HEAD: Normocephalic. EYES: No injection or drainage. NECK: Tracheostomy midline. No oozing. Trach collar with 28% FiO2 CARDIOVASCULAR: +S1/S2. RESPIRATORY: anterior cuevas clear. GASTROINTESTINAL: soft, non-distended. G-tube in place. EXTREMITIES: No edema. NEUROLOGICAL: sedated. Assessment/Plan Problem List: (1) Laryngeal mass Status: Acute Plan: 09/13/16: PEG tube placement today as well as CT guided LN biopsy History/Workup --pain in his throat and difficulty speaking for the past 4-5 months. --35 pound weight loss + difficulty swallowing --42 pack year tobacco history + heavy alcohol use --CT soft tissues neck-->near obstructing mass involving the larynx. The tumor appeared to be originating in the region of the false vocal cords and the bulk of the disease was on the right side. Necrotic and enlarged appearing lymph nodes appeared bilaterally on the neck which were concerning for metastatic adenopathy. --CT C/A/P: no definite metastatic disease, --s/p trach placement --Given the likely diagnosis of laryngeal malignancy and lack of evidence of distal metastatic disease-->patient will likely be a good candidate for concurrent chemoradiotherapy. --fs faxed to new patient referrals. (2) Malnutrition Status: Acute Plan: 09/13/16: PEG tube placement today Assessment 55y/o male with obstructive laryngeal mass associated with cervical lymphadenopathy concerning for a laryngeal malignancy. Plan 1. await pathology 2. fs faxed to new patient referrals for follow up. Will need case management assistance with this as patient is self pay. 3. will need to consult invasive radiology for port placement as well as radiation oncology once biopsy returns. Tata Hopper Sep 13, 2016 13:41
[2016-09-13] MEDS ORDERED: fentaNYL CITRATE 250 MCG/5 ML AMP IV PUSH ONE (14:00)
[2016-09-13] MEDS ORDERED: MIDAZOLAM HCL 5 MG/ML VIAL (1 ML) IVP ONE (14:00)
[2016-09-13] MEDS ORDERED: IOHEXOL 350 MG/ML 50 ML BTL (for RAD DIAG) G-TUBE ONE (14:18)
[2016-09-13] MEDS ORDERED: IOHEXOL 350 MG/ML 10 ML VIAL (for RAD DIAG) IV ONE (14:38)
--- NOTE | 2016-09-13 15:43 | RADRPT ---
EXAM DATE/TIME: 09/13/2016 12:30 [facility] COMPARISON: No previous studies available for comparison. INDICATIONS : Right laryngeal mass. CONTRAST: 50 cc Omnipaque (iohexanol) 350 IV SEDATION TIME: 30 minutes BIOPSY SITE: Right neck lymph node MEDICATION(S): 1.) 3 mg midazolam (Versed) IV 2.) 150 mcg fentanyl (Sublimaze) PERFUSIONIST(s): Maren Villagran RN DEVICE(S): 1.) 18 gauge Temno core biopsy needle MEDICAL HISTORY : None. SURGICAL HISTORY : Tonsillectomy. ENCOUNTER: Initial ACUITY: 1 day PAIN SCORE: 0/10 LOCATION: Bilateral neck A total of two core specimen(s) were obtained and sent to the laboratory for pathologic evaluation. PROCEDURE: 1. CT guided lymph node biopsy. 2. Conscious sedation with continuous EKG and oximetry monitoring. 3. EKG and oximetry remained stable throughout the procedure. Prior to the procedure informed consent was obtained. Any appropriate prior imaging studies were rev iewed. The site was prepped in a sterile fashion. Full sterile technique was used, including cap, mask, che rile gloves and gown and a large sterile sheet. Hand hygiene and 2% chlorhexidine and/or betadine/al cohol prep was utilized per protocol for cutaneous antisepsis. The skin and subcutaneous tissues wer e infiltrated with local anesthetic solution. With CT guidance the previously identified target was localized. Biopsy was performed using the presc ribed needle as above. Adequate hemostasis was obtained with compression at the puncture site. Follow-up CT scan reveals no hemorrhage. The patient tolerated the procedure well and there were no complications. The patient was returned to the Radiology Outpatient Unit in stable condition. CONCLUSION: Uncomplicated CT guided biopsy. Hesham Mar MD on September 13, 2016 at 15:41 Board Certified Radiologist. This report was verified electronically.
--- NOTE | 2016-09-13 16:07 | RADRPT ---
EXAM DATE/TIME: 09/13/2016 11:53 [facility] COMPARISON: No previous studies available for comparison. INDICATIONS : Patient with laryngeal mass in need of G-tube placement. MEDICAL HISTORY : HTN COPD SURGICAL HISTORY : Tonsillectomy Tracheostomy ENCOUNTER: Initial ACUITY: 4-6 days PAIN SCORE: 0/10 FLUORO TIME: 1.2 minutes SEDATION TIME: 30 minutes CONTRAST: 15 cc Omnipaque (iohexol) 350 MEDICATION(S): 1.) 2 mg midazolam (Versed) IV 2.) 100 mcg Fentanyl (Sublimaze) IV DEVICE(S): 1.) 18 Fr gastrostomy tube PROCEDURE : 1. Limited abdominal ultrasound. 2. Fluoroscopically guided gastrostomy tube placement. 3. Conscious sedation with continuous EKG and oximetry monitoring. The risks, benefits and alternatives to the procedure were explained and verbal and written consent w as obtained. The site was prepped in sterile fashion. Full sterile technique was used, including ca p, mask, sterile gloves and gown and a large sterile sheet. Hand hygiene and 2% chlorhexidine and/or betadine/alcohol prep was utilized per protocol for cutaneous antisepsis. The skin and subcutaneous tissues were infiltrated with local anesthetic solution. Ultrasound was used to joanne the position of the liver. The stomach was insufflated with room air. Th ree percutaneous fasteners were placed to secure the anterior gastric wall. A small incision was made between the fasteners. The stomach was accessed with an 18 gauge needle. A n 0.035 wire was advanced into the small bowel. The tract was dilated. The gastrostomy tube was int roduced through a peel-away sheath. The position was confirmed with an injection of contrast. Conscious sedation was performed with the prescribed dosages and duration as above. The patient waqar ated the procedure well and there were no complications. EKG and oximetry remained stable throughout the procedure. The patient was sent to post anesthesia recovery in stable condition. CONCLUSION: Uncomplicated gastrostomy tube placement as above. Reginald Nolen MD on September 13, 2016 at 16:05 Board Certified Radiologist. This report was verified electronically.
[2016-09-13] MEDS: SODIUM CHLORIDE 0.9% FLUSH 5 ML FLUSH IVF PRN (23:07)
[2016-09-14] VITALS (15 sets, daily range): BP systolic 119–152; BP diastolic 61–75; PULSE 50–85; RESP 18–24; TEMP 97.5–99.4; O2SAT 93–100
[2016-09-14] MEDS: CHLORHEXIDINE GLUCONATE 2 % 1 PACK (2 CLOTHS)(taper/protocol) TOP SCH (04:00)
[2016-09-14] MEDS: DEXAMETHASONE SOD PHOS 4 MG/ML VIAL IV PUSH SCH ×4 (05:18→23:31)
[2016-09-14] MEDS: SODIUM CHLORIDE 0.9% FLUSH 5 ML FLUSH IVF PRN ×2 (05:18→23:31)
[2016-09-14] MEDS: REMOVE OLD NICODERM (NICOTINE) PATCH TD SCH (09:20)
[2016-09-14] MEDS: NICOTINE 21 MG/24 HR PATCH TD SCH (09:20)
[2016-09-14] MEDS: D5-1/2 NS + KCL 20 MEQ INJ 1,000 ML IV SCH ×2 (09:20→19:23)
[2016-09-14] MEDS: SODIUM CHLORIDE 0.9% FLUSH 5 ML FLUSH IVF SCH ×2 (09:20→19:23)
--- NOTE | 2016-09-14 10:01 | HHI.PR ---
Subjective Remarks resting comfortably on a chair he had PEG placement and CT guided bx of the LN afebrile , no sob , cp oncology ff for the path Objective Vitals Vital Signs Date Time Temp Pulse Resp B/P Pulse Ox O2 Delivery O2 Flow Rate FiO2 09/14/16 08:32 94 Trach Collar 5.00 28 09/14/16 06:00 52 09/14/16 04:00 98.6 53 21 127/70 93 09/14/16 04:00 55 09/14/16 02:00 64 09/14/16 00:00 57 09/14/16 00:00 97.5 58 20 119/65 94 09/13/16 22:00 58 09/13/16 20:22 97 Trach Collar 28 09/13/16 20:00 58 09/13/16 20:00 98.9 58 21 117/64 99 09/13/16 19:00 99 Trach Collar 28 09/13/16 18:00 64 09/13/16 16:00 97.6 61 22 134/64 98 09/13/16 16:00 61 09/13/16 14:00 53 09/13/16 10:00 86 I/O 09/13/16 09/13/16 09/13/16 09/14/16 09/14/16 09/14/16 06:59 14:59 22:59 06:59 14:59 22:59 Intake Total 700 ml 635 ml 919 ml 605 ml Output Total 1000 ml 1200 ml 750 ml 525 ml Balance -300 ml -565 ml 169 ml 80 ml IV Total 700 ml 555 ml 919 ml 605 ml Tube Feeding 80 ml Output Urine Total 1000 ml 1200 ml 750 ml 525 ml # Bowel Movements 0 0 Result Diagram: 09/10/16 0400 Objective Remarks GENERAL: This is a well-nourished, well-developed patient, in no apparent distress. NECK: In place CARDIOVASCULAR: Regular rate and rhythm without murmurs, gallops, or rubs. RESPIRATORY: Fair air entry bilaterally. No wheezes, rales, or rhonchi. Tracheostomy in place GASTROINTESTINAL: Abdomen soft, non-tender, nondistended. Positive bowel sounds MUSCULOSKELETAL: Extremities without clubbing, cyanosis, or edema. Pedal pulses appreciated NEUROLOGICAL: Awake and alert. Moves all extremity. 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
--- NOTE | 2016-09-14 13:42 | HHI.PR ---
Subjective Subjective Notes DAILY PROGRESS NOTE FOR SURGICAL ATTENDING, DR. STEFAN BILLY Up to chair Able to write questions Objective Vitals/I&O Vital Signs Date Time Temp Pulse Resp B/P Pulse Ox O2 Delivery O2 Flow Rate FiO2 09/14/16 12:00 100 Trach Collar 28 09/14/16 12:00 98.7 71 20 140/66 09/14/16 08:32 5.00 Cardiovascular: Regular Lungs: Clear Abdomen: Other (PEG in place ) Extremities: No edema Narrative Exam Trach in place without any complications A/P Assessment and Plan 55 year old male with laryngeal mass -S/p trach placement -Sputum culture -Plan to place port tomorrow -Obtain consents -Hold Lovenox -Okay to resume TF and hold at [place] for procedure -Discussed with AURORA Betancur Attending Statement NOTE FOR SURGICAL ATTENDING, DR. STEFAN BILLY I agree with above assessment and plan. Kari Stockton Sep 14, 2016 13:42 Stefan Billy MD Sep 15, 2016 21:08
--- NOTE | 2016-09-14 14:16 | MP ---
cc: ANCELMO BILLY M.D. DATE OF SURGERY: 09/10/2016 PREOPERATIVE DIAGNOSIS: Obstructing laryngeal cancer, needs protection of airway with an emergent tracheostomy. POSTOPERATIVE DIAGNOSIS: Obstructing laryngeal cancer, needs protection of airway with an emergent tracheostomy. OPERATION: Placement of a 8 Shiley percutaneous tracheostomy, using the blue rhino kit. ANESTHESIA Sedation SURGEON Dr. Billy TREE DRILLER: Miss Kari Stockton, advanced nurse practitioner. INDICATIONS A 55-year-old gentleman who recently admitted to the hospital with a airways compromise. Ear, nose, and throat is asking to place a tracheostomy to protect his airway. PROCEDURE The patient and placed in the position after sedation by anesthesia his neck is prepped with Betadine. He is very thin, two fingerbreadths above the sternal notch. After prepping and anesthetized the care with the Marcaine contained with the blue rhino kit. We are able to cannulate the trachea without difficulty. A guide wire is advanced causing coughing spell. The dilator is then place and over the guidewire and this was removed the blue rhino is placed without difficulty. This is removed and the tracheostomy tube is placed with the dilator over the guidewire with minimal difficulty into the trachea. We placed him on the ventilator, he has good CO2 and o2 oxygenation and we are in the trachea. Minimal if any bleeding. We then secure the trache with nylon suture contained within the CT scan the plate placed the tracheal tape to hold the trachea place. The patient tolerated procedure well had no immediate postop complication. MD MAGY Street/kade /3:07 PM /2:11 PM
[2016-09-15] VITALS (14 sets, daily range): BP systolic 130–144; BP diastolic 66–77; PULSE 52–79; RESP 18–25; TEMP 98.2–98.9; O2SAT 92–98
[2016-09-15 04:25] LABS: AUTOMATED NEUTROPHIL # 18.8 TH/MM3 (1.8-7.7); EOSINOPHIL % 0.1 % (0.0-4.0); HEMATOCRIT 35.5 % (39.0-51.0); HEMO FLAGS DIFF FINAL; LYMPH % 3.3 % (9.0-44.0); LYMPHOCYTE # 0.7 TH/MM3 (1.0-4.8); MEAN CELL VOLUME 88.8 FL (80.0-100.0); MEAN CORPUSCULAR HEMOGLOBIN 30.5 PG (27.0-34.0); MEAN CORPUSCULAR HGB CONC 34.4 % (32.0-36.0); MONO % 5.6 % (0.0-8.0); PLATELET COUNT 301 TH/MM3 (150-450); RED CELL DISTRIBUTION WIDTH 13.1 % (11.6-17.2); WHITE BLOOD COUNT 20.7 TH/MM3 (4.0-11.0)
[2016-09-15 04:45] LABS: BICARBONATE 28.3 MEQ/L (21.0-32.0)
[2016-09-15] MEDS: SODIUM CHLORIDE 0.9% FLUSH 5 ML FLUSH IVF PRN ×2 (05:20→23:39)
[2016-09-15] MEDS: D5-1/2 NS + KCL 20 MEQ INJ 1,000 ML IV SCH ×2 (05:20→16:53)
[2016-09-15] MEDS: DEXAMETHASONE SOD PHOS 4 MG/ML VIAL IV PUSH SCH ×4 (05:20→23:39)
[2016-09-15] MEDS ORDERED: LEVOFLOXACIN 750 MG/DEXTROSE 150 ML IV ONE (08:00)
--- NOTE | 2016-09-15 08:24 | RADRPT ---
EXAM DATE/TIME: 09/15/2016 07:52 [facility] COMPARISON: CHEST SINGLE AP, September 11, 2016, 16:47. INDICATIONS : Difficulty breathing. Increase in secretions from the tracheostomy. MEDICAL HISTORY : None. SURGICAL HISTORY : Tonsillectomy. Tracheostomy. ENCOUNTER: Subsequent ACUITY: 1 day PAIN SCORE: 0/10 LOCATION: Bilateral chest FINDINGS: The cardiac silhouette is enlarged in transverse diameter. The lungs are free of acute parenchymal op acity. No effusions are identified. A tracheostomy tube is in place in the midline. Old left rib frac tures are present. CONCLUSION: 1. No acute cardiopulmonary disease. Reginald Nolen MD on September 15, 2016 at 8:21 Board Certified Radiologist. This report was verified electronically.
[2016-09-15] MEDS: SODIUM CHLORIDE 0.9% FLUSH 5 ML FLUSH IVF SCH ×2 (08:53→21:00)
[2016-09-15] MEDS: NICOTINE 21 MG/24 HR PATCH TD SCH (08:53)
[2016-09-15] MEDS: REMOVE OLD NICODERM (NICOTINE) PATCH TD SCH (08:53)
--- NOTE | 2016-09-15 09:52 | HHI.PR ---
Subjective Remarks I was called earlier by the nurse informing about leukocytosis of 20 K with neutrophils of 90%, patient is afebrile no clear signs of infection except for acute or sputum from the track with changing color to greenish and brownish I ordered blood culture, chest x-ray, UA, 1 dose of Levaquin, patient has started on Decadron on the first, could be related to steroid or stress reaction post PEG tube placement, however due to the significant sputum changes , will workup to rule out any underlying infection, especially patient going for poor placement. Patient was laying in bed comfortably, he denied any chest anal fever or chills , sputum was dripping from the track, he was indeed thicker in consistency dark greenish Objective Vitals Vital Signs Date Time Temp Pulse Resp B/P Pulse Ox O2 Delivery O2 Flow Rate FiO2 09/15/16 08:47 98 Trach Collar 3.00 28 09/15/16 06:00 57 09/15/16 04:00 98.8 58 22 141/75 93 09/15/16 04:00 58 09/15/16 04:00 96 Trach Collar 21 09/15/16 02:00 57 09/15/16 00:00 96 Trach Collar 21 09/15/16 00:00 58 09/15/16 00:00 98.9 58 21 132/66 93 09/14/16 22:00 72 09/14/16 20:06 96 Trach Collar 6.00 28 09/14/16 20:00 96 Trach Collar 21 09/14/16 20:00 99.4 77 24 130/75 96 09/14/16 20:00 77 09/14/16 18:00 59 09/14/16 16:00 95 Trach Collar 21 09/14/16 16:00 69 09/14/16 16:00 98.8 69 20 152/66 95 09/14/16 14:45 97 Trach Collar 5.00 21 09/14/16 14:00 85 09/14/16 12:00 100 Trach Collar 28 09/14/16 12:00 98.7 71 20 140/66 100 09/14/16 12:00 71 09/14/16 10:00 58 I/O 09/14/16 09/14/16 09/14/16 09/15/16 09/15/16 09/15/16 07:00 15:00 23:00 07:00 15:00 23:00 Intake Total 605 ml 993 ml 808 ml 779 ml Output Total 525 ml 500 ml 625 ml 650 ml Balance 80 ml 493 ml 183 ml 129 ml IV Total 605 ml 873 ml 659 ml 733 ml Tube Feeding 149 ml 46 ml Other 120 ml Output Urine Total 525 ml 500 ml 625 ml 650 ml # Bowel Movements 0 0 0 Result Diagram: 09/15/1633909/15/16339 Objective Remarks GENERAL: This is a well-nourished, well-developed patient, in no apparent distress. NECK: In place CARDIOVASCULAR: Regular rate and rhythm without murmurs, gallops, or rubs. RESPIRATORY: Fair air entry bilaterally. No wheezes, rales, or rhonchi. Tracheostomy in place GASTROINTESTINAL: Abdomen soft, non-tender, nondistended. Positive bowel sounds MUSCULOSKELETAL: Extremities without clubbing, cyanosis, or edema. Pedal pulses appreciated NEUROLOGICAL: Awake and alert. Moves all extremity. 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 Status: Acute (2) Dysphagia ICD Code: R13.10 Status: Acute (3) ETOHism ICD Code: F10.20 Status: Acute Assessment and Plan - Neck malignant neoplasm Mostly laryngeal neoplasm Appreciate ENT consultation, and oncology follow up, may benefit short of chemotherapy and radiation Continue IV steroids, Tracheostomy placed he had PEG placement and CT guided bx of the LN on 09/13 Pathology for the lymph node showed fibroadipose tissue with skeletal muscles, did not show malignancy -Worsening leukocytosis with left shift Could be stress versus steroid-induced Will rule out underlying infection considering thicker and darker with a smell sputum Check chest x-ray, blood culture, UA Give 1 dose of Levaquin 750 mg, 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
--- NOTE | 2016-09-15 17:20 | HHI.PR ---
Subjective Subjective Notes DAILY PROGRESS NOTE FOR SURGICAL ATTENDING, DR. STEFAN BILLY Doing well; no complaints Objective Vitals/I&O Vital Signs Date Time Temp Pulse Resp B/P Pulse Ox O2 Delivery O2 Flow Rate FiO2 09/15/16 14:00 77 09/15/16 12:00 98.7 20 144/77 98 09/15/16 12:00 Trach Collar 28 09/15/16 08:47 3.00 Labs Laboratory Tests Test 09/15/16 03:40 White Blood Count 20.7 Red Blood Count 4.00 Hemoglobin 12.2 Hematocrit 35.5 Mean Corpuscular Volume 88.8 Mean Corpuscular Hemoglobin 30.5 Mean Corpuscular Hemoglobin 34.4 Concent Red Cell Distribution Width 13.1 Platelet Count 301 Mean Platelet Volume 8.5 Neutrophils (%) (Auto) 91.0 Lymphocytes (%) (Auto) 3.3 Monocytes (%) (Auto) 5.6 Eosinophils (%) (Auto) 0.1 Basophils (%) (Auto) 0.0 Neutrophils # (Auto) 18.8 Lymphocytes # (Auto) 0.7 Monocytes # (Auto) 1.2 Eosinophils # (Auto) 0.0 Basophils # (Auto) 0.0 CBC Comment DIFF FINAL Differential Comment Sodium Level 132 Potassium Level 4.0 Chloride Level 97 Carbon Dioxide Level 28.3 Anion Gap 7 Blood Urea Nitrogen 13 Creatinine 0.53 Estimat Glomerular Filtration 161 Rate Random Glucose 143 Calcium Level 8.7 Date/Time Procedure Status Source Growth 09/15/16 10:15 Urine Culture Received Urine Clean Catch Pending 09/15/16 07:53 Aerobic Blood Culture Received Blood Peripheral Pending 09/15/16 07:53 Anaerobic Blood Culture Received Blood Peripheral Pending 09/14/16 14:10 Gram Stain - Final Resulted Sputum Oral Tracheal Aspirate 09/14/16 14:10 Sputum Culture - Preliminary Resulted Sputum Oral Tracheal Aspirate HEAVY GROWTH NORMAL RESPIRATORY LUKAS... 09/14/16 14:10 Cancelled Sputum Oral Tracheal Aspirate Cardiovascular: Regular Lungs: Clear Abdomen: Other (PEG in place ) Narrative Exam Trach in place without any complications A/P Assessment and Plan 55 year old male with laryngeal mass -S/p trach placement -Sputum culture -Port on hold until infection cleared up -Restart TF and Lovenox -Discussed with AURORA Betancur Attending Statement NOTE FOR SURGICAL ATTENDING, DR. STEFAN BILLY I agree with above assessment and plan. Kari Stockton Sep 15, 2016 17:20 Stefan Billy MD Sep 15, 2016 21:08
--- NOTE | 2016-09-15 20:18 | MB ---
cc: LORI SANDOVAL M.D. DATE OF CONSULTATION: 09/15/2016 REASON FOR CONSULTATION: Head and neck cancer, post tracheostomy. HISTORY OF PRESENT ILLNESS Mr. Guzman is a 55-year-old male who presented to the emergency room with increasing hoarseness of voice, congestion and weight loss. CT of the neck had revealed large laryngeal mass. Because of airway compromise a tracheostomy was placed. The patient had a history of dysphagia for several weeks prior to his presenting to the emergency room. PAST MEDICAL HISTORY: No diabetes, no hypertension, no heart disease. History of acid reflux. T&A as a child. ALLERGIES None known to medication. MEDICATIONS AT HOME None. FAMILY HISTORY Father had coronary artery disease, . Mother age 84, "old age." SOCIAL HISTORY Smoked a pack a day for over 30 years. Drinks alcohol socially. 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 REVIEW OF SYSTEMS 12-point review of systems as per HPI and past history otherwise negative. PHYSICAL EXAMINATION: VITAL SIGNS: Temperature 98 degrees Fahrenheit. Pulse 80, respiratory rate 18, blood pressure 140/70. Oxygen saturation 98% on 28% inspired oxygen fraction. HEENT: Unremarkable. Neck: Tracheostomy in place, trache collar in place as well. Chest: Few scattered rhonchi bilaterally. Cardiac: PMI distant. S1-S2 audible. No murmur, no rub. Abdomen: Lax, bowel sounds audible. Extremities: No clubbing, cyanosis or edema. Skin: Normal. No lymphadenopathy. LABORATORY DATA White count 20,000, hemoglobin 12, hematocrit 35, platelets 301,000, sodium 132, potassium 4.0, BUN 13, creatinine 0.5, oxygen saturation 98% to 28% inspired oxygen fraction. IMPRESSION 1. Laryngeal cancer. 2. Status post tracheostomy. 3. Probable COPD. PLAN: 1. The patient will be maintained on oxygen therapy as needed. 2. Bronchodilator therapy will be given. 3. Pulmonary toilet undertaken. 4. Chest x-ray will be followed. Worthy to note, is that the chest CT done upon presentation revealed small nodularities subcentimeter which may be followed subsequently as needed. I do thank you for asking me to partake in Mr. Guzman's care. Lori Sandoval MD WWW/ZEINAB /5:20 PM /8:06 PM
[2016-09-16] VITALS (12 sets, daily range): BP systolic 112–145; BP diastolic 64–78; PULSE 51–82; RESP 19–24; TEMP 98.2–98.8; O2SAT 92–96
[2016-09-16] MEDS: D5-1/2 NS + KCL 20 MEQ INJ 1,000 ML IV SCH ×3 (03:38→23:28)
[2016-09-16 04:35] LABS: AUTOMATED NEUTROPHIL # 16.1 TH/MM3 (1.8-7.7); BASOPHIL # 0.1 TH/MM3 (0-0.2); BASOPHIL % 0.4 % (0.0-2.0); HEMATOCRIT 37.5 % (39.0-51.0); HEMO FLAGS DIFF FINAL; LYMPH % 3.1 % (9.0-44.0); LYMPHOCYTE # 0.5 TH/MM3 (1.0-4.8); MEAN CELL VOLUME 89.9 FL (80.0-100.0); MEAN CORPUSCULAR HEMOGLOBIN 29.9 PG (27.0-34.0); MEAN CORPUSCULAR HGB CONC 33.2 % (32.0-36.0); MONO % 3.7 % (0.0-8.0); NEUT % 92.8 % (16.0-70.0); PLATELET COUNT 329 TH/MM3 (150-450); RED BLOOD COUNT 4.17 MIL/MM3 (4.50-5.90); RED CELL DISTRIBUTION WIDTH 13.5 % (11.6-17.2); WHITE BLOOD COUNT 17.3 TH/MM3 (4.0-11.0)
[2016-09-16] MEDS: DEXAMETHASONE SOD PHOS 4 MG/ML VIAL IV PUSH SCH ×4 (05:38→23:29)
[2016-09-16] MEDS: SODIUM CHLORIDE 0.9% FLUSH 5 ML FLUSH IVF PRN (05:38)
[2016-09-16] MEDS: REMOVE OLD NICODERM (NICOTINE) PATCH TD SCH (09:00)
[2016-09-16] MEDS: SODIUM CHLORIDE 0.9% FLUSH 5 ML FLUSH IVF SCH ×2 (09:43→23:29)
[2016-09-16] MEDS: NICOTINE 21 MG/24 HR PATCH TD SCH (09:43)
--- NOTE | 2016-09-16 17:19 | PD.ONC.PN ---
Subjective Subjective Remarks The patient denies acute complaints. He's producing significant amounts of phlegm from his trach. He denies pain related to the trach or to the PEG tube. He is now on tube feeds. Objective Data Date Time Temp Pulse Resp B/P Pulse Ox O2 Delivery O2 Flow Rate FiO2 09/16/16 12:00 T-Piece 28 09/16/16 08:00 T-Piece 28 09/16/16 06:00 54 09/16/16 04:00 98.2 67 22 123/64 94 09/16/16 04:00 94 Trach Collar 28 09/16/16 04:00 67 09/16/16 02:00 51 09/16/16 00:00 61 09/16/16 00:00 98.6 61 21 112/71 92 09/16/16 00:00 92 Trach Collar 28 09/15/16 22:00 79 09/15/16 21:22 95 T-piece 5.00 28 09/15/16 20:00 92 Trach Collar 28 09/15/16 20:00 98.9 70 25 131/68 92 09/15/16 20:00 70 09/15/16 18:00 74 09/16/16 09/16/16 09/16/16 06:59 14:59 22:59 Intake Total 960 ml Output Total 350 ml Balance 610 ml Result Diagram: 09/16/16 0354 09/15/16 0340 Laboratory Results Laboratory Tests Test 09/16/16 03:54 White Blood Count 17.3 TH/MM3 Red Blood Count 4.17 MIL/MM3 Hemoglobin 12.4 GM/DL Hematocrit 37.5 % Mean Corpuscular Volume 89.9 FL Mean Corpuscular Hemoglobin 29.9 PG Mean Corpuscular Hemoglobin 33.2 % Concent Red Cell Distribution Width 13.5 % Platelet Count 329 TH/MM3 Mean Platelet Volume 8.4 FL Neutrophils (%) (Auto) 92.8 % Lymphocytes (%) (Auto) 3.1 % Monocytes (%) (Auto) 3.7 % Eosinophils (%) (Auto) 0.0 % Basophils (%) (Auto) 0.4 % Neutrophils # (Auto) 16.1 TH/MM3 Lymphocytes # (Auto) 0.5 TH/MM3 Monocytes # (Auto) 0.6 TH/MM3 Eosinophils # (Auto) 0.0 TH/MM3 Basophils # (Auto) 0.1 TH/MM3 CBC Comment DIFF FINAL Differential Comment Culture Results Microbiology Date/Time Procedure Status Source Growth 09/14/16 14:10 Cancelled Sputum Oral Tracheal Aspirate 09/14/16 14:10 Gram Stain - Final Complete Sputum Oral Tracheal Aspirate 09/14/16 14:10 Sputum Culture - Final Complete Moraxella Catarrahalis Beta Strep Not Group A 09/15/16 07:44 Aerobic Blood Culture - Preliminary Resulted Blood Peripheral NO GROWTH IN 1 DAY 09/15/16 07:44 Anaerobic Blood Culture - Preliminary Resulted Blood Peripheral NO GROWTH IN 1 DAY 09/15/16 07:53 Aerobic Blood Culture - Preliminary Resulted Blood Peripheral NO GROWTH IN 1 DAY 09/15/16 07:53 Anaerobic Blood Culture - Preliminary Resulted Blood Peripheral NO GROWTH IN 1 DAY 09/15/16 10:15 Urine Culture - Preliminary Resulted Urine Clean Catch NO GROWTH IN 24 HOURS. Administered Medications Medications (Trade) Dose Ordered Sig/Susan Route PRN Reason Start Time Stop Time Status Last Admin Dose Admin Potassium Chloride/Dextrose/ Sod Cl (D5-1/2 NS + KCl 20 Meq Inj) 1,000 ml @ 100 mls/hr Q10H IV 09/09/16 01:00 09/16/16 13:14 Enoxaparin Sodium (Lovenox Inj) 40 mg Q24H SQ 09/09/16 09:00 Hold 09/09/16 08:03 IV Flush (NS Flush) 2 ml BID IVF 09/09/16 09:00 09/16/16 09:43 IV Flush (NS Flush) 2 ml UNSCH PRN IVF FLUSH AFTER USING IV ACCESS 09/09/16 01:30 09/16/16 05:38 Dexamethasone Sodium Phosphate (Decadron Inj) 4 mg Q6HR IV PUSH 09/09/16 07:15 09/16/16 13:14 Nicotine (Habitrol 21 Mg Patch.24 Hr) 1 patch DAILY TD 09/09/16 16:00 09/16/16 09:43 Miscellaneous Information 1 DAILY TD 09/10/16 09:00 09/16/16 09:00 Acetaminophen (Tylenol) 650 mg Q4H PRN PO Temp > 100.4 09/09/16 18:30 09/14/16 14:31 Magnesium Hydroxide (Milk Of Magnesia Liq) 30 ml DAILY PRN PO for Severe Constipation 09/09/16 18:30 09/16/16 13:51 Miscellaneous Information Patient in critical care unit? Ass... [id number] XX 09/10/16 00:15 09/10/16 00:15 Lorazepam (Ativan Inj) 1 mg Q4H PRN IV PUSH CIWA 8 - 10 09/11/16 12:15 09/11/16 13:27 Hydromorphone HCl (Dilaudid Pf Inj) 0.5 mg Q4H PRN IV PUSH pain 09/11/16 12:15 09/12/16 05:53 Objective Remarks GENERAL APPEARANCE: Mr. Guzman is a middle-aged male. He is sitting up in bed. He has a tracheostomy. He is nonverbal. He appears to be emaciated. Strong odor consistent with anaerobic bacteria/infection in the room. HEENT: Head atraumatic, normocephalic, conjunctivae are non pale, sclerae are anicteric, EOMI, PERRLA, oral exam no pharyngeal erythema. NECK: He does have prominent bilateral level II cervical lymph nodes. Recently created tracheostomy, no active bleeding noted. RESPIRATORY: Good air movement bilaterally. CARDIOVASCULAR: Regular rate and rhythm, S1-S2. No obvious murmurs, rubs or gallops. ABDOMEN: Thin belly, soft, nontender, nondistended, no palpable organ enlargement. EXTREMITIES: No pretibial edema, calf tenderness. CHIEF ENTERPRISE ARCHITECT: No focal sensory motor deficits. MUSCULOSKELETAL: Generally decreased muscle mass and tone. Assessment/Plan Problem List: (1) Laryngeal mass Status: Acute Plan: 09/13/16: PEG tube placement today as well as CT guided LN biopsy History/Workup --pain in his throat and difficulty speaking for the past 4-5 months. --35 pound weight loss + difficulty swallowing --42 pack year tobacco history + heavy alcohol use --CT soft tissues neck-->near obstructing mass involving the larynx. The tumor appeared to be originating in the region of the false vocal cords and the bulk of the disease was on the right side. Necrotic and enlarged appearing lymph nodes appeared bilaterally on the neck which were concerning for metastatic adenopathy. --CT C/A/P: no definite metastatic disease, --s/p trach placement --Given the likely diagnosis of laryngeal malignancy and lack of evidence of distal metastatic disease-->patient will likely be a good candidate for concurrent chemoradiotherapy. --fs faxed to new patient referrals. (2) Malnutrition Status: Acute Plan: 09/13/16: PEG tube placement today Assessment Mr. Guzman is a 55-year-old male with an extensive past history of tobaccoism and alcohol consumption. He presents to the hospital with a five-month history of increasing hoarseness of the voice, pain in the throat and difficulty swallowing. He has over the past several days been unable to talk at all and had increasing difficulty breathing. Imaging studies of his neck revealed a near obstruction of the upper airway at the level of the larynx. A large mass involving the false vocal cords appeared to be arising from the right side of the larynx and seemed to cross over the midline. Associated with this were multiple necrotic appearing lymph nodes along bilateral cervical lymph node chains. He has no definite evidence of pathologic disease within the lungs or mediastinum. Because of the impending upper airway obstruction, he did undergo a surgical airway creation on 09/10/2016. The oncology service has been consulted for further workup and management given the likely underlying diagnosis of a primary laryngeal malignancy. Plan 1. CT-guided biopsy of a right-sided upper cervical lymph node was nondiagnostic. 2. I did talk to the patient about the results of this biopsy, I explained to him that this is most likely a false negative. At this point he has options with regards to how best to obtain a diagnostic biopsy. We can certainly reattempt a CT-guided needle biopsy of the right cervical lymph node however we will likely end up with the same nondiagnostic results. Alternatively we can attempt an excisional biopsy of the right upper cervical lymph node or a biopsy of the primary lesion within the larynx. I will be in contact directly with Dr. Saab of ENT surgery to discuss potential approaches. 3. Nutrition: Now status post feeding tube placement, tube feedings are going without complication. 4. I will request radiation oncology evaluation. Miguel Angel So MD Sep 16, 2016 17:19
--- NOTE | 2016-09-16 23:20 | HHI.PR ---
Subjective Remarks Patient awake alert resting in bed Continue to have excessive amount of phlegm from the track I discussed with surgery and with oncology regarding proceeding with poor placement, oncology recommending holding off for now until reassessment, I notified surgery Objective Vitals Vital Signs Date Time Temp Pulse Resp B/P Pulse Ox O2 Delivery O2 Flow Rate FiO2 09/16/16 22:15 67 09/16/16 20:30 T-Piece 28 09/16/16 20:30 78 09/16/16 20:00 98.7 82 24 145/77 94 09/16/16 19:48 95 T-piece 6.00 28 09/16/16 16:00 98.8 79 24 140/78 94 09/16/16 16:00 T-Piece 28 09/16/16 12:30 96 T-piece 5.00 28 09/16/16 12:00 98.5 75 19 123/73 95 09/16/16 12:00 T-Piece 28 09/16/16 08:00 T-Piece 28 09/16/16 08:00 98.3 52 19 128/72 96 09/16/16 06:00 54 09/16/16 04:00 98.2 67 22 123/64 94 09/16/16 04:00 94 Trach Collar 28 09/16/16 04:00 67 09/16/16 02:00 51 09/16/16 00:00 61 09/16/16 00:00 98.6 61 21 112/71 92 09/16/16 00:00 92 Trach Collar 28 I/O 09/15/16 09/15/16 09/15/16 09/16/16 09/16/16 09/16/16 07:00 15:00 23:00 07:00 15:00 23:00 Intake Total 779 ml 999 ml 790 ml 960 ml 1070 ml 1265 ml Output Total 650 ml 850 ml 250 ml 350 ml 600 ml 500 ml Balance 129 ml 149 ml 540 ml 610 ml 470 ml 765 ml Intake Oral 0 ml IV Total 733 ml 939 ml 626 ml 739 ml 810 ml 820 ml Tube Feeding 46 ml 164 ml 221 ml 260 ml 445 ml Other 60 ml 0 ml Output Urine Total 650 ml 850 ml 250 ml 350 ml 600 ml 500 ml Gastric Drainage Total 0 ml # Bowel Movements 0 0 0 0 0 Result Diagram: 09/16/16 0354 09/15/16 0340 Objective Remarks GENERAL: This is a well-nourished, well-developed patient, in no apparent distress. NECK: In place CARDIOVASCULAR: Regular rate and rhythm without murmurs, gallops, or rubs. RESPIRATORY: Fair air entry bilaterally. No wheezes, rales, or rhonchi. Tracheostomy in place GASTROINTESTINAL: Abdomen soft, non-tender, nondistended. Positive bowel sounds MUSCULOSKELETAL: Extremities without clubbing, cyanosis, or edema. Pedal pulses appreciated NEUROLOGICAL: Awake and alert. Moves all extremity. 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 Status: Acute (2) Dysphagia ICD Code: R13.10 Status: Acute (3) ETOHism ICD Code: F10.20 Status: Acute Assessment and Plan - Neck malignant neoplasm Mostly laryngeal neoplasm Appreciate ENT consultation, and oncology follow up, may benefit short of chemotherapy and radiation Continue IV steroids, Tracheostomy placed he had PEG placement and CT guided bx of the LN on 09/13 Pathology for the lymph node showed fibroadipose tissue with skeletal muscles, did not show malignancy D/W oncology Dr. So, he would like to reassess and discuss with the patient further workup for diagnostic measures since the biopsy was nondiagnostic Plan for port late and by surgery has been hold I discussed with surgery GEOPHYSICIST, notify them about this -Acute leukocytosis with left shift: Started to trend down Could be stress versus steroid-induced Will rule out underlying infection considering thicker and darker with a smell sputum which came back positive for Moraxella catarrhalis and nongroup Streptococcus Negative chest x-ray, blood culture, UA Continue Levaquin 750 mg, - Dysphagia s/p PEG 09/13 , start feeding , monitor Monitor BMP - -ETOHism On CIWA protocol minimal use of mediations at this time Julissa Santizo MD Sep 16, 2016 23:20
[2016-09-16] MEDS: LEVOFLOXACIN 750 MG PREMIX INJ 150 ML IV SCH (23:29)
[2016-09-16] MEDS ORDERED: Custom Consult Pharmacy 1 EA OTHER SCH (23:30)
[2016-09-17] VITALS (12 sets, daily range): BP systolic 127–157; BP diastolic 67–78; PULSE 52–80; RESP 18–25; TEMP 98.1–98.9; O2SAT 95–98
[2016-09-17] MEDS: DEXAMETHASONE SOD PHOS 4 MG/ML VIAL IV PUSH SCH ×4 (06:00→23:34)
[2016-09-17 07:29] LABS: AUTOMATED NEUTROPHIL # 13.2 TH/MM3 (1.8-7.7); BASOPHIL % 0.2 % (0.0-2.0); HEMATOCRIT 34.9 % (39.0-51.0); HEMO FLAGS DIFF FINAL; LYMPH % 4.5 % (9.0-44.0); LYMPHOCYTE # 0.7 TH/MM3 (1.0-4.8); MEAN CELL VOLUME 89.1 FL (80.0-100.0); MEAN CORPUSCULAR HEMOGLOBIN 30.2 PG (27.0-34.0); MEAN CORPUSCULAR HGB CONC 33.9 % (32.0-36.0); NEUT % 84.3 % (16.0-70.0); PLATELET COUNT 339 TH/MM3 (150-450); RED BLOOD COUNT 3.92 MIL/MM3 (4.50-5.90); RED CELL DISTRIBUTION WIDTH 13.3 % (11.6-17.2); WHITE BLOOD COUNT 15.6 TH/MM3 (4.0-11.0)
[2016-09-17] MEDS: REMOVE OLD NICODERM (NICOTINE) PATCH TD SCH (09:00)
[2016-09-17] MEDS: DOCUSATE SODIUM 50 MG/SENNA 8.6 MG TAB PO PRN (09:28)
[2016-09-17] MEDS: NICOTINE 21 MG/24 HR PATCH TD SCH (09:29)
[2016-09-17] MEDS: D5-1/2 NS + KCL 20 MEQ INJ 1,000 ML IV SCH ×2 (09:29→18:42)
[2016-09-17] MEDS: SODIUM CHLORIDE 0.9% FLUSH 5 ML FLUSH IVF SCH ×2 (09:29→23:39)
--- NOTE | 2016-09-17 13:34 | HHI.PR ---
Subjective Remarks Patient sleeping in bed, woke up to verbal stimuli Still having profuse secretion through the track grew Moraxella catarrhalis Afebrile, reviewed old records and notes by oncology and surgery Plan for direct biopsy from the primary source by ENT on 09/21 Objective Vitals Vital Signs Date Time Temp Pulse Resp B/P Pulse Ox O2 Delivery O2 Flow Rate FiO2 09/17/16 12:00 T-Piece 28 09/17/16 11:44 96 T-piece 28.00 09/17/16 08:00 T-Piece 28 09/17/16 06:00 56 09/17/16 04:15 60 09/17/16 04:15 T-Piece 28 09/17/16 04:00 98.2 54 21 157/71 96 09/17/16 02:00 59 09/17/16 00:00 98.4 63 25 136/67 96 09/17/16 00:00 64 09/17/16 00:00 T-Piece 28 09/16/16 22:15 67 09/16/16 20:30 T-Piece 28 09/16/16 20:30 78 09/16/16 20:00 98.7 82 24 145/77 94 09/16/16 19:48 95 T-piece 6.00 28 09/16/16 16:00 98.8 79 24 140/78 94 09/16/16 16:00 T-Piece 28 I/O 09/16/16 09/16/16 09/16/16 09/17/16 09/17/16 09/17/16 07:00 15:00 23:00 07:00 15:00 23:00 Intake Total 960 ml 1070 ml 1265 ml 1102 ml Output Total 350 ml 600 ml 500 ml 400 ml Balance 610 ml 470 ml 765 ml 702 ml Intake Oral 0 ml 0 ml IV Total 739 ml 810 ml 820 ml 708 ml Tube Feeding 221 ml 260 ml 445 ml 394 ml Other 0 ml 0 ml Output Urine Total 350 ml 600 ml 500 ml 400 ml Gastric Drainage Total 0 ml # Bowel Movements 0 0 0 0 Result Diagram: 09/17/16 0649 09/15/16 7760 Objective Remarks GENERAL: This is a well-nourished, well-developed patient, in no apparent distress. NECK: In place CARDIOVASCULAR: Regular rate and rhythm without murmurs, gallops, or rubs. RESPIRATORY: Fair air entry bilaterally. No wheezes, rales, or rhonchi. Tracheostomy in place GASTROINTESTINAL: Abdomen soft, non-tender, nondistended. Positive bowel sounds MUSCULOSKELETAL: Extremities without clubbing, cyanosis, or edema. Pedal pulses appreciated NEUROLOGICAL: Awake and alert. Moves all extremity. 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 Status: Acute (2) Dysphagia ICD Code: R13.10 Status: Acute (3) ETOHism ICD Code: F10.20 Status: Acute Assessment and Plan - Neck malignant neoplasm Mostly laryngeal neoplasm Appreciate ENT consultation, and oncology follow up, may benefit short of chemotherapy and radiation Continue IV steroids, Tracheostomy placed he had PEG placement and CT guided bx of the LN on 09/13 Pathology for the lymph node showed fibroadipose tissue with skeletal muscles, did not show malignancy D/W oncology Dr. So, who did discuss with the ENT, plan for direct biopsy from the source on 09/21 Hold off on port placement until other recommendation by oncology -Acute leukocytosis with left shift: Trending down Could be stress versus steroid-induced Will rule out underlying infection considering thicker and darker with a smell sputum which came back positive for Moraxella catarrhalis and nongroup Streptococcus Negative chest x-ray, blood culture, UA Continue Levaquin 750 mg, - Dysphagia s/p PEG 09/13 , start feeding , monitor Monitor BMP - -ETOHism On CIWA protocol minimal use of mediations at this time Julissa Santizo MD Sep 17, 2016 13:34
[2016-09-17] MEDS: LEVOFLOXACIN 750 MG PREMIX INJ 150 ML IV SCH (23:34)
[2016-09-18] VITALS (14 sets, daily range): BP systolic 123–153; BP diastolic 65–80; PULSE 54–79; RESP 19–26; TEMP 98–98.9; O2SAT 93–97
[2016-09-18] MEDS: DEXAMETHASONE SOD PHOS 4 MG/ML VIAL IV PUSH SCH ×4 (05:21→23:03)
[2016-09-18] MEDS: D5-1/2 NS + KCL 20 MEQ INJ 1,000 ML IV SCH ×2 (05:21→23:03)
[2016-09-18] MEDS: SODIUM CHLORIDE 0.9% FLUSH 5 ML FLUSH IVF SCH ×2 (09:00→23:03)
[2016-09-18] MEDS: REMOVE OLD NICODERM (NICOTINE) PATCH TD SCH (09:00)
[2016-09-18] MEDS: NICOTINE 21 MG/24 HR PATCH TD SCH (10:58)
--- NOTE | 2016-09-18 12:15 | HHI.PR ---
Subjective Remarks Sitting on the chair resting comfortably He continued to have fused dark greenish phlegm Is concerned about the future plan, explained to him in the presence of the nurse in details and extensively, and explain why the biopsy from the source is the third then going to the lymph node. He is grateful for the explanation Objective Vitals Vital Signs Date Time Temp Pulse Resp B/P Pulse Ox O2 Delivery O2 Flow Rate FiO2 09/18/16 10:27 57 09/18/16 08:12 96 Trach Collar 6.00 28 09/18/16 08:00 98.0 58 22 153/70 94 09/18/16 08:00 58 09/18/16 08:00 T-Piece 28 09/18/16 06:00 56 09/18/16 04:00 98.4 54 19 123/65 93 09/18/16 04:00 T-Piece 28 09/18/16 04:00 63 09/18/16 02:00 60 09/18/16 00:00 T-Piece 28 09/18/16 00:00 98.9 73 26 137/80 97 09/18/16 00:00 77 09/17/16 22:00 73 09/17/16 20:30 80 09/17/16 20:30 T-Piece 28 09/17/16 20:00 98.8 73 23 127/75 96 09/17/16 16:00 98.8 78 25 132/77 98 09/17/16 16:00 T-Piece 28 I/O 09/17/16 09/17/16 09/17/16 09/18/16 09/18/16 09/18/16 06:59 14:59 22:59 06:59 14:59 22:59 Intake Total 1102 ml 1350 ml 1338 ml 1238 ml Output Total 400 ml 900 ml 0 ml Balance 702 ml 450 ml 1338 ml 1238 ml Intake Oral 0 ml 0 ml 0 ml IV Total 708 ml 825 ml 869 ml 677 ml Tube Feeding 394 ml 425 ml 469 ml 561 ml Tube Irrigant 100 ml Other 0 ml 0 ml Output Urine Total 400 ml 900 ml 0 ml # Voids 2 # Bowel Movements 0 0 1 0 Result Diagram: 09/17/16 0649 09/15/16 0340 Objective Remarks GENERAL: This is a well-nourished, well-developed patient, in no apparent distress. NECK: In place CARDIOVASCULAR: Regular rate and rhythm without murmurs, gallops, or rubs. RESPIRATORY: Fair air entry bilaterally. No wheezes, rales, or rhonchi. Tracheostomy in place GASTROINTESTINAL: Abdomen soft, non-tender, nondistended. Positive bowel sounds MUSCULOSKELETAL: Extremities without clubbing, cyanosis, or edema. Pedal pulses appreciated NEUROLOGICAL: Awake and alert. Moves all extremity. 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 Status: Acute (2) Dysphagia ICD Code: R13.10 Status: Acute (3) ETOHism ICD Code: F10.20 Status: Acute Assessment and Plan 09/18: Continue current management, Levaquin, trach management per pulmonology, plan for laryngeal biopsy on 09/21 A/P: - Neck malignant neoplasm Mostly laryngeal neoplasm Appreciate ENT consultation, and oncology follow up, may benefit short of chemotherapy and radiation Continue IV steroids, Tracheostomy placed he had PEG placement and CT guided bx of the LN on 09/13 Pathology for the lymph node showed fibroadipose tissue with skeletal muscles, did not show malignancy D/W oncology Dr. So, who did discuss with the ENT, plan for direct biopsy from the laryngeal source on 09/21 Hold off on port placement until other recommendation by oncology -Acute leukocytosis with left shift: Mostly acute bronchitis with Moraxella WBC Trending down Could be stress versus steroid-induced Sputum positive for Moraxella catarrhalis and nongroup Streptococcus Negative chest x-ray, blood culture, UA Continue Levaquin 750 mg, - Dysphagia s/p PEG 09/13 , start feeding , monitor Monitor BMP - -ETOHism On CIWA protocol minimal use of mediations at this time Julissa Santizo MD Sep 18, 2016 12:15
[2016-09-18] MEDS: LEVOFLOXACIN 750 MG PREMIX INJ 150 ML IV SCH (23:03)
[2016-09-19] VITALS (13 sets, daily range): BP systolic 117–143; BP diastolic 68–79; PULSE 57–89; RESP 18–24; TEMP 98.2–99; O2SAT 94–99
[2016-09-19] MEDS: DEXAMETHASONE SOD PHOS 4 MG/ML VIAL IV PUSH SCH ×4 (06:00→23:24)
[2016-09-19] MEDS: NICOTINE 21 MG/24 HR PATCH TD SCH (07:46)
[2016-09-19] MEDS: SODIUM CHLORIDE 0.9% FLUSH 5 ML FLUSH IVF SCH ×2 (07:46→21:00)
[2016-09-19] MEDS: REMOVE OLD NICODERM (NICOTINE) PATCH TD SCH (07:46)
--- NOTE | 2016-09-19 10:58 | HHI.PR ---
Subjective Remarks Resting in bed comfortably, he seems to be disappointed Thick greenish sputum still coming out of the track Awaiting laryngeal biopsy on Tuesday Objective Vitals Vital Signs Date Time Temp Pulse Resp B/P Pulse Ox O2 Delivery O2 Flow Rate FiO2 09/19/16 08:08 95 T-piece 6.00 35 09/19/16 08:00 98.7 61 20 117/74 94 09/19/16 08:00 61 09/19/16 08:00 94 T-Piece 40 09/19/16 06:00 57 09/19/16 04:00 98 T-Piece 40 09/19/16 04:00 80 09/19/16 04:00 98.6 80 20 127/79 98 09/19/16 02:00 73 09/19/16 00:00 98.2 89 20 124/77 97 09/19/16 00:00 97 T-Piece 40 09/19/16 00:00 89 09/18/16 22:34 95 T-piece 40.00 09/18/16 22:00 74 09/18/16 20:14 96 T-piece 28 09/18/16 20:00 98.6 79 24 132/73 96 09/18/16 20:00 79 09/18/16 20:00 96 T-Piece 28 09/18/16 18:18 72 09/18/16 16:18 98.3 58 22 134/72 94 09/18/16 16:18 57 09/18/16 16:17 T-Piece 28 09/18/16 14:00 59 I/O 09/18/16 09/18/16 09/18/16 09/19/16 09/19/16 09/19/16 07:00 15:00 23:00 07:00 15:00 23:00 Intake Total 1238 ml 1043 ml 1241 ml 755 ml Output Total 700 ml 600 ml 275 ml Balance 1238 ml 343 ml 641 ml 480 ml Intake Oral 0 ml 0 ml 0 ml 0 ml IV Total 677 ml 555 ml 285 ml 267 ml Tube Feeding 561 ml 488 ml 956 ml 488 ml Other 0 ml Output Urine Total 700 ml 600 ml 275 ml # Voids 2 6 # Bowel Movements 0 0 0 0 Result Diagram: 09/17/16 0649 09/15/16 0340 Objective Remarks GENERAL: This is a well-nourished, well-developed patient, in no apparent distress. NECK: In place CARDIOVASCULAR: Regular rate and rhythm without murmurs, gallops, or rubs. RESPIRATORY: Fair air entry bilaterally. No wheezes, rales, or rhonchi. Tracheostomy in place GASTROINTESTINAL: Abdomen soft, non-tender, nondistended. Positive bowel sounds MUSCULOSKELETAL: Extremities without clubbing, cyanosis, or edema. Pedal pulses appreciated NEUROLOGICAL: Awake and alert. Moves all extremity. 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 Status: Acute (2) Dysphagia ICD Code: R13.10 Status: Acute (3) ETOHism ICD Code: F10.20 Status: Acute Assessment and Plan 09/18: Continue current management, Levaquin, trach management per pulmonology, plan for laryngeal biopsy on 09/21 09/19: Continue to have profuse thick greenish phlegm, CBC pending today, no fever, continue Levaquin and aggressive pulmonary toileting, laryngeal biopsy on Tuesday by ENT, oncology following, pulmonology also following for trach management A/P: - Neck malignant neoplasm Mostly laryngeal neoplasm Appreciate ENT consultation, and oncology follow up, may benefit short of chemotherapy and radiation Continue IV steroids, Tracheostomy placed he had PEG placement and CT guided bx of the LN on 09/13 Pathology for the lymph node showed fibroadipose tissue with skeletal muscles, did not show malignancy D/W oncology Dr. So, who did discuss with the ENT, plan for direct biopsy from the laryngeal source on 09/21 Hold off on port placement until other recommendation by oncology -Acute leukocytosis with left shift: Mostly acute bronchitis with Moraxella WBC Trending down Could be stress versus steroid-induced Sputum positive for Moraxella catarrhalis and nongroup Streptococcus Negative chest x-ray, blood culture, UA Continue Levaquin 750 mg, - Dysphagia s/p PEG 09/13 , start feeding , monitor Monitor BMP - -ETOHism On CIWA protocol minimal use of mediations at this time Julissa Santizo MD Sep 19, 2016 10:58
[2016-09-19] MEDS: D5-1/2 NS + KCL 20 MEQ INJ 1,000 ML IV SCH ×3 (11:00→23:24)
[2016-09-19 13:09] LABS: AUTOMATED NEUTROPHIL # 11.8 TH/MM3 (1.8-7.7); BASOPHIL % 0.1 % (0.0-2.0); HEMATOCRIT 38.2 % (39.0-51.0); HEMO FLAGS DIFF FINAL; LYMPH % 3.9 % (9.0-44.0); LYMPHOCYTE # 0.5 TH/MM3 (1.0-4.8); MEAN CELL VOLUME 90.3 FL (80.0-100.0); MEAN CORPUSCULAR HGB CONC 34.3 % (32.0-36.0); PLATELET COUNT 330 TH/MM3 (150-450); RED BLOOD COUNT 4.23 MIL/MM3 (4.50-5.90); RED CELL DISTRIBUTION WIDTH 13.5 % (11.6-17.2); WHITE BLOOD COUNT 13.1 TH/MM3 (4.0-11.0)
[2016-09-19] MEDS: LEVOFLOXACIN 750 MG PREMIX INJ 150 ML IV SCH (23:24)
[2016-09-20] VITALS (14 sets, daily range): BP systolic 121–144; BP diastolic 65–83; PULSE 60–93; RESP 14–20; TEMP 97.8–98.5; O2SAT 96–100
[2016-09-20] MEDS: DEXAMETHASONE SOD PHOS 4 MG/ML VIAL IV PUSH SCH ×3 (05:25→17:49)
[2016-09-20 06:22] LABS: BASOPHIL # 0.1 TH/MM3 (0-0.2); BASOPHIL % 0.6 % (0.0-2.0); HEMATOCRIT 34.1 % (39.0-51.0); HEMO FLAGS DIFF FINAL; LYMPH % 3.7 % (9.0-44.0); LYMPHOCYTE # 0.4 TH/MM3 (1.0-4.8); MEAN CELL VOLUME 89.3 FL (80.0-100.0); MEAN CORPUSCULAR HEMOGLOBIN 30.2 PG (27.0-34.0); MEAN CORPUSCULAR HGB CONC 33.8 % (32.0-36.0); MONO % 11.5 % (0.0-8.0); NEUT % 84.2 % (16.0-70.0); PLATELET COUNT 328 TH/MM3 (150-450); RED BLOOD COUNT 3.82 MIL/MM3 (4.50-5.90); RED CELL DISTRIBUTION WIDTH 13.4 % (11.6-17.2); WHITE BLOOD COUNT 10.7 TH/MM3 (4.0-11.0)
[2016-09-20 07:34] LABS: BICARBONATE 27.3 MEQ/L (21.0-32.0); POTASSIUM 4.1 MEQ/L (3.5-5.1)
[2016-09-20] MEDS: REMOVE OLD NICODERM (NICOTINE) PATCH TD SCH (08:20)
[2016-09-20] MEDS: SODIUM CHLORIDE 0.9% FLUSH 5 ML FLUSH IVF SCH ×2 (08:20→20:43)
[2016-09-20] MEDS: NICOTINE 21 MG/24 HR PATCH TD SCH (08:20)
[2016-09-20] MEDS: DOCUSATE SODIUM 50 MG/SENNA 8.6 MG TAB PO PRN (08:20)
[2016-09-20] MEDS: D5-1/2 NS + KCL 20 MEQ INJ 1,000 ML IV SCH ×2 (08:21→17:49)
--- NOTE | 2016-09-20 15:58 | HHI.PR ---
Subjective Remarks Awaiting laryngeal biopsy home No acute issue Resting comfortably in bed Objective Vitals Vital Signs Date Time Temp Pulse Resp B/P Pulse Ox O2 Delivery O2 Flow Rate FiO2 09/20/16 14:00 93 09/20/16 12:00 97.9 71 18 133/83 97 09/20/16 12:00 73 09/20/16 12:00 97 T-Piece 40 09/20/16 10:00 80 09/20/16 08:00 75 09/20/16 08:00 97.8 73 16 125/74 100 09/20/16 08:00 100 T-Piece 40 09/20/16 07:56 97 T-piece 28 09/20/16 06:00 71 09/20/16 04:00 T-Piece 40 09/20/16 04:00 98.0 77 14 121/65 97 09/20/16 04:00 77 09/20/16 02:00 76 09/20/16 00:00 97 T-Piece 40 09/20/16 00:00 98.1 81 20 134/65 97 09/20/16 00:00 81 09/19/16 22:00 65 09/19/16 22:00 99 T-piece 6.00 28 09/19/16 20:00 99 T-Piece 40 09/19/16 20:00 81 09/19/16 20:00 99.0 81 24 138/75 99 09/19/16 18:00 89 09/19/16 16:00 77 09/19/16 16:00 97 T-Piece 40 09/19/16 16:00 98.2 79 18 143/70 97 I/O 09/19/16 09/19/16 09/19/16 09/20/16 09/20/16 09/20/16 07:00 15:00 23:00 07:00 15:00 23:00 Intake Total 755 ml 1554 ml 1156 ml 993 ml 1322 ml Output Total 275 ml 1350 ml 425 ml 600 ml 550 ml Balance 480 ml 204 ml 731 ml 393 ml 772 ml Intake Oral 0 ml 0 ml 0 ml IV Total 267 ml 994 ml 465 ml 661 ml 785 ml Tube Feeding 488 ml 560 ml 691 ml 332 ml 477 ml Other 60 ml Output Urine Total 275 ml 1350 ml 425 ml 600 ml 550 ml # Bowel Movements 0 0 0 0 1 Result Diagram: 09/20/1652309/20/16523 Objective Remarks GENERAL: This is a well-nourished, well-developed patient, in no apparent distress. NECK: In place CARDIOVASCULAR: Regular rate and rhythm without murmurs, gallops, or rubs. RESPIRATORY: Fair air entry bilaterally. No wheezes, rales, or rhonchi. Tracheostomy in place GASTROINTESTINAL: Abdomen soft, non-tender, nondistended. Positive bowel sounds MUSCULOSKELETAL: Extremities without clubbing, cyanosis, or edema. Pedal pulses appreciated NEUROLOGICAL: Awake and alert. Moves all extremity. 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 Status: Acute (2) Dysphagia ICD Code: R13.10 Status: Acute (3) ETOHism ICD Code: F10.20 Status: Acute Assessment and Plan 09/18: Continue current management, Levaquin, trach management per pulmonology, plan for laryngeal biopsy on 09/21 09/19: Continue to have profuse thick greenish phlegm, CBC pending today, no fever, continue Levaquin and aggressive pulmonary toileting, laryngeal biopsy on Tuesday by ENT, oncology following, pulmonology also following for trach management 09/20: Awaiting laryngeal biopsy, leukocytosis resolved A/P: - Neck malignant neoplasm Mostly laryngeal neoplasm Appreciate ENT consultation, and oncology follow up, may benefit short of chemotherapy and radiation Continue IV steroids, Tracheostomy placed he had PEG placement and CT guided bx of the LN on 09/13 Pathology for the lymph node showed fibroadipose tissue with skeletal muscles, did not show malignancy D/W oncology Dr. So, who did discuss with the ENT, plan for direct biopsy from the laryngeal source on 09/21 Hold off on port placement until other recommendation by oncology -Acute leukocytosis with left shift: Resolved Mostly acute bronchitis with Moraxella WBC Trending down Could be stress versus steroid-induced Sputum positive for Moraxella catarrhalis and nongroup Streptococcus Negative chest x-ray, blood culture, UA Continue Levaquin 750 mg, - Dysphagia s/p PEG 09/13 , start feeding , monitor Monitor BMP - -ETOHism On CIWA protocol minimal use of mediations at this time Julissa Santizo MD Sep 20, 2016 15:58
[2016-09-21] VITALS (11 sets, daily range): BP systolic 116–153; BP diastolic 62–106; PULSE 59–82; RESP 16–20; TEMP 97.8–98.9; O2SAT 97–100
[2016-09-21] MEDS: DEXAMETHASONE SOD PHOS 4 MG/ML VIAL IV PUSH SCH ×5 (00:27→23:25)
[2016-09-21] MEDS: D5-1/2 NS + KCL 20 MEQ INJ 1,000 ML IV SCH ×3 (00:28→21:47)
[2016-09-21] MEDS: LEVOFLOXACIN 750 MG PREMIX INJ 150 ML IV SCH ×2 (00:28→23:25)
[2016-09-21] MEDS: NICOTINE 21 MG/24 HR PATCH TD SCH (07:55)
[2016-09-21] MEDS: SODIUM CHLORIDE 0.9% FLUSH 5 ML FLUSH IVF SCH ×2 (07:56→21:00)
[2016-09-21] MEDS: REMOVE OLD NICODERM (NICOTINE) PATCH TD SCH (07:56)
--- NOTE | 2016-09-21 07:58 | PD.ONC.PN ---
Objective Data Date Time Temp Pulse Resp B/P Pulse Ox O2 Delivery O2 Flow Rate FiO2 09/21/16 06:00 82 09/21/16 04:00 98.4 61 18 116/71 97 09/21/16 04:00 61 09/21/16 04:00 99 T-Piece 40 09/21/16 02:00 77 09/21/16 00:00 97 T-Piece 40 09/21/16 00:00 98.1 62 18 144/76 97 09/21/16 00:00 62 09/20/16 22:00 60 09/20/16 20:15 99 T-piece 28 09/20/16 20:00 80 09/20/16 20:00 96 T-Piece 40 09/20/16 20:00 98.5 80 20 144/76 96 09/20/16 18:00 72 09/20/16 16:00 98.3 79 18 136/67 98 09/20/16 16:00 87 09/20/16 16:00 97 T-Piece 40 09/20/16 14:00 93 09/20/16 12:00 97.9 71 18 133/83 97 09/20/16 12:00 73 09/20/16 12:00 97 T-Piece 40 09/20/16 10:00 80 09/20/16 08:00 75 09/20/16 08:00 97.8 73 16 125/74 100 09/20/16 08:00 100 T-Piece 40 09/20/16 07:56 97 T-piece 28 09/21/16 09/21/16 09/21/16 06:59 14:59 22:59 Intake Total 671 ml Output Total 825 ml Balance -154 ml Result Diagram: 09/20/1652309/20/16523 Administered Medications Medications (Trade) Dose Ordered Sig/Susan Route PRN Reason Start Time Stop Time Status Last Admin Dose Admin Potassium Chloride/Dextrose/ Sod Cl (D5-1/2 NS + KCl 20 Meq Inj) 1,000 ml @ 100 mls/hr Q10H IV 09/09/16 01:00 09/21/16 00:28 Enoxaparin Sodium (Lovenox Inj) 40 mg Q24H SQ 09/09/16 09:00 Hold 09/09/16 08:03 IV Flush (NS Flush) 2 ml BID IVF 09/09/16 09:00 09/20/16 20:43 IV Flush (NS Flush) 2 ml UNSCH PRN IVF FLUSH AFTER USING IV ACCESS 09/09/16 01:30 09/16/16 05:38 Dexamethasone Sodium Phosphate (Decadron Inj) 4 mg Q6HR IV PUSH 09/09/16 07:15 09/21/16 06:13 Nicotine (Habitrol 21 Mg Patch.24 Hr) 1 patch DAILY TD 09/09/16 16:00 09/20/16 08:20 Miscellaneous Information 1 DAILY TD 09/10/16 09:00 09/19/16 07:46 Acetaminophen (Tylenol) 650 mg Q4H PRN PO Temp > 100.4 09/09/16 18:30 09/14/16 14:31 Senna/Docusate Sodium (Lula-Colace) 1 tab BID PRN PO CONSTIPATION 09/09/16 18:30 09/20/16 08:20 Magnesium Hydroxide (Milk Of Magnesia Liq) 30 ml DAILY PRN PO for Severe Constipation 09/09/16 18:30 09/16/16 13:51 Miscellaneous Information Patient in critical care unit? Ass... Q361D XX 09/10/16 00:15 09/10/16 00:15 Lorazepam (Ativan Inj) 1 mg Q4H PRN IV PUSH CIWA 8 - 10 09/11/16 12:15 09/11/16 13:27 Hydromorphone HCl 0.5 mg 0.5 mg Q4H PRN IV PUSH pain 09/11/16 12:15 09/12/16 05:53 Levofloxacin/ Dextrose (Levaquin 750 Mg Premix Inj) 150 ml @ 100 mls/hr Q24H IV 09/16/16 23:30 09/21/16 00:28 Objective Remarks GENERAL: Well-nourished, well-developed patient. SKIN: Warm and dry. HEAD: Normocephalic. EYES: No scleral icterus. No injection or drainage. NECK: Supple, trachea midline. No JVD or lymphadenopathy. LYMPHATIC: No adenopathy. CARDIOVASCULAR: Regular rate and rhythm without murmurs. RESPIRATORY: Breath sounds equal bilaterally. No accessory muscle use. GASTROINTESTINAL: Abdomen soft, non-tender, nondistended. EXTREMITIES: No cyanosis, or edema. MUSCULOSKELETAL: Adequate muscle tone. NEUROLOGICAL: No obvious focal deficit. Awake, alert, and oriented x3. PSYCHIATRIC: Appropriate mood and affect; insight and judgment normal. Assessment/Plan Problem List: (1) Laryngeal mass Status: Acute Plan: 09/20/2016: He will undergo direct laryngoscopy and port later today. 09/13/16: PEG tube placement today as well as CT guided LN biopsy. History/Workup --pain in his throat and difficulty speaking for the past 4-5 months. --35 pound weight loss + difficulty swallowing --42 pack year tobacco history + heavy alcohol use --CT soft tissues neck-->near obstructing mass involving the larynx. The tumor appeared to be originating in the region of the false vocal cords and the bulk of the disease was on the right side. Necrotic and enlarged appearing lymph nodes appeared bilaterally on the neck which were concerning for metastatic adenopathy. --CT C/A/P: no definite metastatic disease, --s/p trach placement --Given the likely diagnosis of laryngeal malignancy and lack of evidence of distal metastatic disease-->patient will likely be a good candidate for concurrent chemoradiotherapy. --fs faxed to new patient referrals. (2) Malnutrition Status: Acute Plan: 09/13/16: PEG tube placement today Assessment Mr. Guzman is a 55-year-old male with an extensive past history of tobaccoism and alcohol consumption. He presents to the hospital with a five-month history of increasing hoarseness of the voice, pain in the throat and difficulty swallowing. He has over the past several days been unable to talk at all and had increasing difficulty breathing. Imaging studies of his neck revealed a near obstruction of the upper airway at the level of the larynx. A large mass involving the false vocal cords appeared to be arising from the right side of the larynx and seemed to cross over the midline. Associated with this were multiple necrotic appearing lymph nodes along bilateral cervical lymph node chains. He has no definite evidence of pathologic disease within the lungs or mediastinum. Because of the impending upper airway obstruction, he did undergo a surgical airway creation on 09/10/2016. The oncology service has been consulted for further workup and management given the likely underlying diagnosis of a primary laryngeal malignancy. Plan 1. Laryngeal mass: Direct laryngoscopy today with biopsy of the primary tumor , for pathologic confirmation. 2. He may be transferred out of the ICU after the procedures. 3. Nutrition: Now status post feeding tube placement, tube feedings are going without complication. 4. The patient has been evaluated by Rad Onc, dental clearance has been recommended, a consult was placed last week for dental eval (pt has not been seen yet). I will reconsult today, the office of the Human Resources Benefits Manager may need to be involved if the covering dentist continue to refuse to evaluate him. 5. Constipation: Start lactulose via peg. Miguel Angel So MD Sep 21, 2016 07:58
[2016-09-21] MEDS: LACTULOSE SYRUP 20 GM/30 ML CUP PEG SCH (08:20)
[2016-09-21] MEDS ORDERED: HEPARIN SODIUM - SQ 10,000 UNITS/ML VIAL ONE (10:03)
[2016-09-21] MEDS ORDERED: SODIUM BICARBONATE 8.4% INJ 50 MEQ/50 ML SYR ONE (10:03)
[2016-09-21] MEDS ORDERED: BUPIVACAINE/EPINEPHRINE 0.5% PF 30 ML VIAL ONE (10:03)
[2016-09-21] MEDS ORDERED: VANCOMYCIN 500 MG VIAL ONE (10:04)
[2016-09-21] MEDS ORDERED: LIDOCAINE 1%/EPINEPHrine 1:100,000 SOLN 20 ML VIAL ONE (10:04)
[2016-09-21] MEDS ORDERED: SODIUM BICARBONATE 8.4% INJ 50 ML ONE (10:10)
[2016-09-21] MEDS ORDERED: HEPARIN SODIUM - IV 10,000 UNITS/10 ML VIAL ONE (10:10)
[2016-09-21] MEDS ORDERED: NEOSTIGMINE 3 MG/3 ML SYR IV ONE (12:00)
[2016-09-21] MEDS ORDERED: PROPOFOL 200 MG/20 ML AMP IV ONE (12:00)
[2016-09-21] MEDS ORDERED: LACTATED RINGER'S 1000 ML INJ 1,000 ML IV ONE (12:00)
[2016-09-21] MEDS ORDERED: ONDANSETRON HCL 4 MG/2 ML VIAL IV PUSH ONE (12:00)
[2016-09-21] MEDS ORDERED: ePHEDrine/NS 50 MG/5 ML SYR IV ONE (12:00)
--- NOTE | 2016-09-21 12:20 | HHI.PR ---
cc: Stefan Billy MD Immediate Post Op Note Procedure Date: Sep 21, 2016 Pre Op Diagnosis: (1) Neck malignant neoplasm (2) Dysphagia (3) ETOHism (4) Laryngeal mass (5) Malnutrition Post Op Diagnosis: (1) Neck malignant neoplasm (2) Dysphagia (3) ETOHism (4) Laryngeal mass (5) Malnutrition Surgeon: Stefan Billy Shaping Machine Tender(s): Please refer to OR record Procedure: Placement of left-sided Skcrem-u-Jslg 9.6 Citizen [place] under fluoroscopic guidance Anesthesia: General Drains: None IVF Patient to: PACU Patient Condition: Good Implant/Devices: SEE IMPLANT LOG (if applicable) Date/Time of Procedure: SEE SURGICAL CARE RECORD Stefan Billy MD Sep 21, 2016 12:20
[2016-09-21] MEDS ORDERED: DO NOT ADM ANY ANTICOAGULANT DRUGS XX PRN (12:45)
--- NOTE | 2016-09-21 12:58 | RADRPT ---
EXAM DATE/TIME: 09/21/2016 12:30 [facility] COMPARISON: CHEST SINGLE AP, September 15, 2016, 7:52. INDICATIONS : Post port placement. MEDICAL HISTORY : Chronic obstructive pulmonary disease. neck mass SURGICAL HISTORY : Tonsillectomy. tracheostomy, port ENCOUNTER: Initial ACUITY: 1 day PAIN SCORE: Non-responsive. LOCATION: Bilateral chest FINDINGS: Portable semiupright AP view of the chest demonstrates a normal-sized cardiac silhouette. Tracheostom y remains present. Left chest wall Aizada-u-Bkbp is now present and has been placed through subclavia n approach. Distal tip is in the superior vena cava. No pneumothorax is visualized. Lungs are hyperin flated. CONCLUSION: Left chest wall Ottwcm-l-Fvgf distal tip is in appropriate position within the SVC. No pneumothorax i s visualized. Anjel Dixon MD on September 21, 2016 at 12:55 Board Certified Radiologist. This report was verified electronically.
--- NOTE | 2016-09-21 13:50 | MB ---
cc: CHIQUIS BEGUM MD, BRENDA H. M.D. LATIF, ZAFAR MD ALVAREZ-FARINETTI, ALVARO NEMOU, KHALIL MD WAHBA,[place] uJarez M.D. DATE OF CONSULTATION: 09/16/[address] 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 CHIEF COMPLAINT Increased hoarseness of voice, pain in the throat, difficulty swallowing, loss of weight. REASON FOR CONSULTATION The patient is being evaluated for eventual possible concomitant chemoradiotherapy for cure. HISTORY OF PRESENT ILLNESS This is a 55-year male who according to the patient and the records started experiencing issues with increased hoarseness, pain in the throat area and difficulty swallowing. The patient says that a few times he coughed up a little bit of blood but not much. The patient stated that he has lost about 30 pounds of weight in the last 3-4 months. As a result of these symptoms which were progressive and the fact that the patient was not able to talk and had difficulty breathing, he came to the emergency room where he was evaluated and noted to have a large mass within the neck area with necrotic lymph nodes. As a result the patient was admitted and has undergone a biopsy which appears to be non-diagnostic. The patient also underwent a tracheostomy and is awaiting ENT evaluation. I have been requested to see the patient in consult for evaluation regarding possible radiotherapy treatment options. PAST MEDICAL HISTORY As above. Otherwise unremarkable. MEDICATIONS As per hospital chart. ALLERGIES No known drug allergies. SOCIAL HISTORY The patient admits to smoking one pack of cigarettes per day for last 40 years. Also apparent heavy alcohol consumption. The patient says that he quit smoking and drinking on 09/06/2016. FAMILY HISTORY No apparent history of carcinoma in the family. REVIEW OF SYSTEMS A 14-point review of systems was evaluated with the patient. CONSTITUTIONAL: Loss of appetite. Unintentional weight loss of about 30 pounds in the last 3-4 months. ALLERGIES: The patient has not had an allergic reaction recently. EYES: Unremarkable. ENT: The patient has difficulty and pain with swallowing, pain of the neck area. Denies any masses to self-examination within the neck. No mouth sores. NECK: The patient admits to pain of the neck. Says that he does not feel any masses. INTEGUMENTARY: Unremarkable. CARDIOVASCULAR: Unremarkable. The patient denies any chest pain or clinical signs of IL. No arrhythmias or palpitations. RESPIRATORY: The patient says that he has had sometimes a cough which is intermittent, does not have any hemoptysis per se, but says when he coughs hard sometimes he has brought up a little bit of blood but this is intermittent and rare. Denies any wheezing, although he says that his respiratory condition has improved dramatically since being admitted to the hospital and having the tracheostomy as he was having respiratory difficulty when he came into the hospital. GASTROINTESTINAL: Has a PEG tube in place. GENITOURINARY: Unremarkable. MUSCULOSKELETAL: Unremarkable. NEUROLOGIC: The patient says that he has been getting some headaches which are intermittent. Denies any seizures. No increased intracranial pressure. No neurological deficits. No changes in cognitive functions or memory. The patient says that the headaches are just since being admitted to the hospital. PSYCHIATRIC: The patient denies any suicidal thoughts or depression. ENDOCRINE: Unremarkable. HEMATOLOGIC: Unremarkable. DERMATOLOGIC: Unremarkable. PHYSICAL EXAMINATION GENERAL: The patient is oriented x3. No major acute distress or discomfort at the time of evaluation. Pain rating scale at the time of evaluation was 1-2/10, under control. VITAL SIGNS: Vital signs were stable per the hospitalist' chart. LUNGS: To auscultation the bilateral lungs have decreased ventilatory inspiratory effort which is equal and bilateral. No wheezing, rhonchi or crackles were detected. HEART: Regular in rate and rhythm with no murmurs. NECK: On palpation of the neck I could not really palpate any nodes due to the position of the patient, although on review of Dr. So's note he says that he felt bilateral level II lymph nodes. Tracheostomy in situ with no signs of bleeding or active discharge. ORAL CAVITY: Unremarkable. ABDOMEN: Palpation of the abdomen reveals no hepatosplenomegaly. No pain is elicited. PEG tube in place. EXTREMITIES: No lower extremity edema detected. NEUROLOGIC: No neurologic deficit detected. Cognitive functions preserved. Motor functions are preserved. No other positive findings. PATHOLOGY DATA Surgical pathology 09/13/2016: CT-guided needle biopsy right neck lymph node: Fibroadipose tissue and skeletal muscle. IMAGING DATA CT 09/08/2016, Impression: Large malignant-appearing mass in the region of the false vocal cord on the right side with necrotic lymph nodes in bilateral neck highly suspicious for metastatic adenopathy. CT of the chest 09/10/2016, Impression: Patchy areas of peripheral density in the upper lungs, more prominent on the right. They are nonspecific. A 2.4 mm noncalcified nodule in the left lower lung. CT of the abdomen and pelvis 09/10/2016, Impression: Suspected area of small bowel intussusception in the right lower quadrant. This is likely intermittent as there is no associated dilation of the small bowel. Intussusception can frequently have a lead mass. Evaluation of the small bowel will be recommended. ASSESSMENT A 55-year-old white male with the probable diagnosis of locally advanced laryngeal carcinoma. The patient is being evaluated for possible radiotherapy treatment options. PLAN I had an extensive discussion with the patient in regards to his present disease setting and condition. I reviewed Dr. So's note from 09/10/2016. I agree with his recommendations for a PEG tube placement which the patient has undergone. I agree that we will have to wait for a true diagnosis of carcinoma before we can proceed forward with treatments. I would like to have the patient get a dental evaluation while he is in the hospital if possible and one will be requested. The patient will need to have dental extractions if necessary before he can start the radiation therapy. Will also like to obtain a PET scan once the patient is discharged. I discussed the merits of the radiation therapy as well as possible techniques with the patient. I also discussed possible side effects and complications of radiation therapy in detail with the patient. We discussed side effects and complications include but are not limited to weakness and fatigue, decreased blood counts, edema of the skin, necrosis of the skin, difficulty and pain with swallowing, esophageal strictures which may require dilation, laryngeal edema with hoarseness that may take up to 2 years to resolve, decreased ability to swallow and the patient can become dependent on the PEG tube, jaw damage and bone necrosis, nerve damage, spinal cord damage, Lhermitte's syndrome, bone damage and fracture, lung damage, lung fibrosis, lung pneumonitis, brachial plexus damage, fibrosis of the neck, telangiectasia, loss and change of taste which could be permanent, dry mouth and salivary gland damage which could be permanent. The patient was advised that any dental extractions following radiation therapy would require hyperbaric oxygen. Also, loss of hair which could be permanent in the facial area and occipital area, decreased hearing and loss of hearing. After the discussion the patient understood everything that was explained. The patient will be given an appointment to return as an outpatient for further evaluation. I will place a call to discuss the case with Dr. So. The patient was advised if I could be of any further assistance to please let me know. Otherwise will proceed as above. Dr. So, thank you very much for this consult and allowing me to participate in the care of your patient. Should you have any further questions or concerns, please do not hesitate to contact me. MD SIXTO Aviles/YODIT /7:26 PM /1:08 PM MTDD
--- NOTE | 2016-09-21 15:15 | HHI.PR ---
Subjective Remarks Seen and examined today, he is sleepy in bed Discussed with the nurse an excessive dark greenish phlegm dripping from the trach, pulmonary on board Objective Vitals Vital Signs Date Time Temp Pulse Resp B/P Pulse Ox O2 Delivery O2 Flow Rate FiO2 09/21/16 13:00 97.8 59 16 153/106 100 09/21/16 13:00 100 T-Piece 28 09/21/16 12:44 98.1 60 16 144/79 99 T-Piece 4 09/21/16 12:30 55 16 151/78 99 T-Piece 4 09/21/16 12:20 98.0 63 16 142/74 100 T-Piece 4 09/21/16 10:00 71 09/21/16 08:00 100 T-Piece 40 09/21/16 08:00 69 09/21/16 08:00 98.9 66 16 131/72 100 09/21/16 06:00 82 09/21/16 04:00 98.4 61 18 116/71 97 09/21/16 04:00 61 09/21/16 04:00 99 T-Piece 40 09/21/16 02:00 77 09/21/16 00:00 97 T-Piece 40 09/21/16 00:00 98.1 62 18 144/76 97 09/21/16 00:00 62 09/20/16 22:00 60 09/20/16 20:15 99 T-piece 28 09/20/16 20:00 80 09/20/16 20:00 96 T-Piece 40 09/20/16 20:00 98.5 80 20 144/76 96 09/20/16 18:00 72 09/20/16 16:00 98.3 79 18 136/67 98 09/20/16 16:00 87 09/20/16 16:00 97 T-Piece 40 I/O 09/20/16 09/20/16 09/20/16 09/21/16 09/21/16 09/21/16 06:59 14:59 22:59 06:59 14:59 22:59 Intake Total 993 ml 1322 ml 1264 ml 671 ml 1774 ml Output Total 600 ml 550 ml 400 ml 825 ml 900 ml Balance 393 ml 772 ml 864 ml -154 ml 874 ml Intake Oral 0 ml IV Total 661 ml 785 ml 790 ml 671 ml 674 ml Tube Feeding 332 ml 477 ml 474 ml 0 ml 0 ml Other 60 ml 1100 ml Output Urine Total 600 ml 550 ml 400 ml 825 ml 900 ml # Bowel Movements 0 1 0 0 Result Diagram: 09/20/1652309/20/16523 Objective Remarks GENERAL: This is a well-nourished, well-developed patient, in no apparent distress. NECK: In place CARDIOVASCULAR: Regular rate and rhythm without murmurs, gallops, or rubs. RESPIRATORY: Fair air entry bilaterally. No wheezes, rales, or rhonchi. Tracheostomy in place GASTROINTESTINAL: Abdomen soft, non-tender, nondistended. Positive bowel sounds MUSCULOSKELETAL: Extremities without clubbing, cyanosis, or edema. Pedal pulses appreciated NEUROLOGICAL: Awake and alert. Moves all extremity. 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 Status: Acute (2) Dysphagia ICD Code: R13.10 Status: Acute (3) ETOHism ICD Code: F10.20 Status: Acute Assessment and Plan 09/18: Continue current management, Levaquin, trach management per pulmonology, plan for laryngeal biopsy on 09/21 09/19: Continue to have profuse thick greenish phlegm, CBC pending today, no fever, continue Levaquin and aggressive pulmonary toileting, laryngeal biopsy on Tuesday by ENT, oncology following, pulmonology also following for trach management 09/20: Awaiting laryngeal biopsy, leukocytosis resolved 09/21: Plan for laryngeal biopsy today, leukocytosis resolved however still with excessive dark greenish/brownish phlegm from the track, will consult ID, check chest x-ray, continue Levaquin, 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 So, who did discuss with the ENT, plan for direct biopsy from the laryngeal source on 09/21 Hold off on port placement until other recommendation by oncology -Acute leukocytosis with left shift: Resolved Mostly acute bronchitis with Moraxella WBC Trending down Could be stress versus steroid-induced Sputum positive for Moraxella catarrhalis and nongroup Streptococcus Negative chest x-ray, blood culture, UA Continue Levaquin 750 mg, - Dysphagia s/p PEG 12/5 , start feeding , monitor Monitor BMP - -ETOHism On CIWA protocol minimal use of mediations at this time Julissa Santizo MD Sep 21, 2016 15:15
[2016-09-22] VITALS (8 sets, daily range): BP systolic 122–146; BP diastolic 60–75; PULSE 64–81; RESP 16–20; TEMP 97.3–98.6; O2SAT 94–100
[2016-09-22] MEDS: DEXAMETHASONE SOD PHOS 4 MG/ML VIAL IV PUSH SCH ×4 (05:32→23:44)
[2016-09-22 07:20] LABS: AUTOMATED NEUTROPHIL # 15.3 TH/MM3 (1.8-7.7); BASOPHIL % 0.1 % (0.0-2.0); HEMATOCRIT 35.7 % (39.0-51.0); HEMO FLAGS DIFF FINAL; LYMPH % 3.1 % (9.0-44.0); LYMPHOCYTE # 0.5 TH/MM3 (1.0-4.8); MEAN CELL VOLUME 88.5 FL (80.0-100.0); MEAN CORPUSCULAR HEMOGLOBIN 29.8 PG (27.0-34.0); MEAN CORPUSCULAR HGB CONC 33.6 % (32.0-36.0); MONO % 9.3 % (0.0-8.0); NEUT % 87.5 % (16.0-70.0); PLATELET COUNT 347 TH/MM3 (150-450); RED BLOOD COUNT 4.03 MIL/MM3 (4.50-5.90); RED CELL DISTRIBUTION WIDTH 13.3 % (11.6-17.2); WHITE BLOOD COUNT 17.5 TH/MM3 (4.0-11.0)
[2016-09-22 07:48] LABS: BICARBONATE 28.7 MEQ/L (21.0-32.0); POTASSIUM 3.8 MEQ/L (3.5-5.1)
[2016-09-22] MEDS: SODIUM CHLORIDE 0.9% FLUSH 5 ML FLUSH IVF SCH ×2 (08:42→23:44)
[2016-09-22] MEDS: REMOVE OLD NICODERM (NICOTINE) PATCH TD SCH (08:45)
[2016-09-22] MEDS: LACTULOSE SYRUP 20 GM/30 ML CUP PEG SCH (08:45)
[2016-09-22] MEDS: NICOTINE 21 MG/24 HR PATCH TD SCH (08:46)
--- NOTE | 2016-09-22 10:09 | HHI.PR ---
Subjective Remarks Afebrile, resting comfortably in bed, mother at the bedside Patient status post laryngeal biopsy yesterday Lengthy discussion with the patient and his mother regarding his diagnosis and management and post discharge management, however unfortunately patient still on tracheostomy and T-tube, discussed with rn case mgr, will be difficulty discharging to home at this point Objective Vitals Vital Signs Date Time Temp Pulse Resp B/P Pulse Ox O2 Delivery O2 Flow Rate FiO2 09/22/16 07:58 98.1 81 20 122/70 100 09/22/16 04:05 97 T-piece 28 09/22/16 04:00 97.3 69 18 146/75 98 09/22/16 00:00 97.9 64 16 123/66 99 09/21/16 22:00 97.8 73 16 121/66 97 09/21/16 21:00 97 Trach Collar 4.00 28 09/21/16 21:00 97 T-Piece 4.00 28 09/21/16 17:30 97.9 81 20 129/62 99 09/21/16 16:00 100 Trach Collar 28 09/21/16 16:00 98.5 70 16 153/94 100 09/21/16 16:00 100 T-Piece 28 09/21/16 13:00 97.8 59 16 153/106 100 09/21/16 13:00 100 T-Piece 28 09/21/16 12:44 98.1 60 16 144/79 99 T-Piece 4 09/21/16 12:30 55 16 151/78 99 T-Piece 4 09/21/16 12:20 98.0 63 16 142/74 100 T-Piece 4 I/O 09/21/16 09/21/16 09/21/16 09/22/16 09/22/16 09/22/16 06:59 14:59 22:59 06:59 14:59 22:59 Intake Total 671 ml 1774 ml 253 ml Output Total 825 ml 900 ml 200 ml 400 ml Balance -154 ml 874 ml 53 ml -400 ml IV Total 671 ml 674 ml 253 ml Tube Feeding 0 ml 0 ml Other 1100 ml Output Urine Total 825 ml 900 ml 200 ml 400 ml # Voids 0 # Bowel Movements 0 Result Diagram: 09/22/16 0635 09/22/1635 Objective Remarks GENERAL: This is a well-nourished, well-developed patient, in no apparent distress. NECK: In place CARDIOVASCULAR: Regular rate and rhythm without murmurs, gallops, or rubs. RESPIRATORY: Fair air entry bilaterally. No wheezes, rales, or rhonchi. Tracheostomy in place GASTROINTESTINAL: Abdomen soft, non-tender, nondistended. Positive bowel sounds MUSCULOSKELETAL: Extremities without clubbing, cyanosis, or edema. Pedal pulses appreciated NEUROLOGICAL: Awake and alert. Moves all extremity. 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 Status: Acute (2) Dysphagia ICD Code: R13.10 Status: Acute (3) ETOHism ICD Code: F10.20 Status: Acute Assessment and Plan 09/18: Continue current management, Levaquin, trach management per pulmonology, plan for laryngeal biopsy on 09/21 09/19: Continue to have profuse thick greenish phlegm, CBC pending today, no fever, continue Levaquin and aggressive pulmonary toileting, laryngeal biopsy on Tuesday by ENT, oncology following, pulmonology also following for trach management 09/20: Awaiting laryngeal biopsy, leukocytosis resolved 09/21: Plan for laryngeal biopsy today, leukocytosis resolved however still with excessive dark greenish/brownish phlegm from the track, will consult ID, check chest x-ray, continue Levaquin, 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 09/22: Status post laryngeal biopsy, appreciate radiation therapy consult, will need teeth extraction, Moraxella tracheitis, chest x-ray did not show infiltrate , pending ID consult, pulmonary following, as well as oncology Discussed with patient, his mother, rn case mgr in length regarding discharge planning, due to having the tracheostomy, and no source of payer, will mostly have some difficulty discharging A/P: - Neck malignant neoplasm Mostly laryngeal neoplasm Appreciate ENT consultation, and oncology follow up, may benefit short of chemotherapy and radiation Continue IV steroids, Tracheostomy placed he had PEG placement and CT guided bx of the LN on 09/13 Pathology for the lymph node showed fibroadipose tissue with skeletal muscles, did not show malignancy D/W oncology Dr. So, who did discuss with the ENT, plan for direct biopsy from the laryngeal source on 09/21 Hold off on port placement until other recommendation by oncology -Acute leukocytosis with left shift: Resolved Mostly acute bronchitis with Moraxella WBC Trending down Could be stress versus steroid-induced Sputum positive for Moraxella catarrhalis and nongroup Streptococcus Negative chest x-ray, blood culture, UA Continue Levaquin 750 mg, - Dysphagia s/p PEG 09/13 , start feeding , monitor Monitor BMP - -ETOHism On CIWA protocol minimal use of mediations at this time Discharge Planning Patient with tracheostomy, no payer source, rn case mgr following for rehabilitation placement if possible Julissa Santizo MD Sep 22, 2016 10:08
[2016-09-22] MEDS: DOCUSATE SODIUM 50 MG/SENNA 8.6 MG TAB PO PRN (13:59)
--- NOTE | 2016-09-22 14:58 | PD.ID.CON ---
History of Present Illness Service ID Consult Requested By Dr Santizo Reason for Consult Moraxella catarrhalis in sputum Primary Care Physician Unknown Diagnoses: History of Present Illness 55 yo male with malignant neck mass, appears to be laryngeal ca; awaiting bx result Pt presented 2 weeks ago with productive cough, throat pain weight loss, dysphagia and hoarseness Pt afebrile, but WBC is 17 K Pt has very heavy and foul smelling secretions He initially grew out GAP, MORAXELLA CATARRAHALIS His repeat sputum clx from yday has HEAVY MIXED LUKAS WITH PREDOMINANT GRAM NEGATIVE RODS He is on levaquine, vancomycin Review of Systems Other as per history of present illness, the rest of 12 point review is negative Past Family Social History Allergies: Coded Allergies: No Known Allergies (Unverified , 09/08/16) Past Medical History none Past Surgical History tonsillectomy Active Ordered Medications levaquine vancomycin Family History Non-Contributory. Social History + Tobacco 1 ppd + ETOH, beer No Illicit Drugs. Physical Exam Vital Signs Vital Signs Date Time Temp Pulse Resp B/P Pulse Ox O2 Delivery O2 Flow Rate FiO2 09/22/16 12:00 98.6 72 16 128/60 94 09/22/16 07:58 98.1 81 20 122/70 100 09/22/16 04:05 97 T-piece 28 09/22/16 04:00 97.3 69 18 146/75 98 09/22/16 00:00 97.9 64 16 123/66 99 09/21/16 22:00 97.8 73 16 121/66 97 09/21/16 21:00 97 Trach Collar 4.00 28 09/21/16 21:00 97 T-Piece 4.00 28 09/21/16 17:30 97.9 81 20 129/62 99 09/21/16 16:00 100 Trach Collar 28 09/21/16 16:00 98.5 70 16 153/94 100 09/21/16 16:00 100 T-Piece 28 Physical Exam CONSTITUTIONAL/GENERAL: This is a malnourished thin male patient, ill appearing in no apparent distress. TUBES/LINES/DRAINS: PORT in place L chest side SKIN: No jaundice, rashes, or lesions. Skin temperature appropriate. Not diaphoretic. HEAD: Atraumatic. Normocephalic. EYES: Pupils equal and round and reactive. Extraocular motions intact. No scleral icterus. No injection or drainage. Fundi not examined. ENT: Hearing grossly normal. Nose without bleeding or purulent drainage. Throat without visible erythema, exudates, masses, or lesions. dentition is poor NECK: Trachea midline. Trach innplace draining large amount of blood tinged putrulent foul ssmelling secretions CARDIOVASCULAR: Regular rate and rhythm without murmurs, gallops, or rubs. No JVD. Peripheral pulses symmetric. RESPIRATORY/CHEST: Symmetric, unlabored respirations. Clear to auscultation. Breath sounds equal bilaterally. No wheezes, rales, or rhonchi. GASTROINTESTINAL: Abdomen soft, non-tender, nondistended. No hepato-splenomegaly , or palpable masses. No guarding. Bowel sounds present. PEG in place site OK GENITOURINARY: Without palpable bladder distension. MUSCULOSKELETAL: Extremities without clubbing, cyanosis, or edema. No joint tenderness or effusion noted. No calf tenderness. No mottling or clubbing. LYMPHATICS: No palpable cervical axillae or supraclavicular adenopathy. NEUROLOGICAL: Awake and alert. Motor and sensory grossly within normal limits. Follows commands. Moves all extremities. PSYCHIATRIC: No obvious anxiety/depression. no apparent hallucinations or other psychotic thought process. Laboratory Laboratory Tests Test 09/22/16 06:35 White Blood Count 17.5 Red Blood Count 4.03 Hemoglobin 12.0 Hematocrit 35.7 Mean Corpuscular Volume 88.5 Mean Corpuscular Hemoglobin 29.8 Mean Corpuscular Hemoglobin 33.6 Concent Red Cell Distribution Width 13.3 Platelet Count 347 Mean Platelet Volume 7.9 Neutrophils (%) (Auto) 87.5 Lymphocytes (%) (Auto) 3.1 Monocytes (%) (Auto) 9.3 Eosinophils (%) (Auto) 0.0 Basophils (%) (Auto) 0.1 Neutrophils # (Auto) 15.3 Lymphocytes # (Auto) 0.5 Monocytes # (Auto) 1.6 Eosinophils # (Auto) 0.0 Basophils # (Auto) 0.0 CBC Comment DIFF FINAL Differential Comment Sodium Level 132 Potassium Level 3.8 Chloride Level 93 Carbon Dioxide Level 28.7 Anion Gap 10 Blood Urea Nitrogen 17 Creatinine 0.72 Estimat Glomerular Filtration 113 Rate Random Glucose 137 Calcium Level 8.6 Date/Time Procedure Status Source Growth 09/21/16 16:00 Gram Stain - Final Resulted Sputum Expectorated Sputum 09/21/16 16:00 Sputum Culture - Preliminary Resulted Sputum Expectorated Sputum HEAVY GROWTH NORMAL RESPIRATORY LUKAS... Result Diagram: 09/22/16 0635 09/22/16 0635 Imaging Last Impressions Chest X-Ray 09/21/16 1218 Signed Impressions: Service Date/Time: Wednesday, September 21, 2016 12:30 - CONCLUSION: Left chest wall Mwuozy-d-Lorp distal tip is in appropriate position within the SVC. No pneumothorax is visualized. Anjel Dixon MD Lymph Node Biopsy CT 09/13/16 1209 Signed Impressions: Service Date/Time: Tuesday, September 13, 2016 12:30 - CONCLUSION: Uncomplicated CT guided biopsy. Hesham Mar MD Gastrostomy Tube Placement 09/13/16 0000 Signed Impressions: Service Date/Time: Tuesday, September 13, 2016 11:53 - CONCLUSION: Uncomplicated gastrostomy tube placement as above. Reginald Nolen MD Chest CT 09/10/16 0600 Signed Impressions: Service Date/Time: Saturday, September 10, 2016 05:36 - CONCLUSION: 1. Patchy areas of peripheral density in the upper lungs being more prominent right. These are nonspecific. 2. 4 mm noncalcified nodule in the left lower lung. 3. It is thought both these above findings should be followed up with a noncontrast CT examination in 3-6 months. 4. Calcified granuloma right lung base. 5. Hyperinflated lungs. Anjel Scanlon MD Abdomen/Pelvis CT 09/10/16 0600 Signed Impressions: Service Date/Time: Saturday, September 10, 2016 05:36 - CONCLUSION: Suspected area of small bowel intussusception in the right lower quadrant. This is likely intermittent as there is no associated dilatation of the small bowel. Intussusception can frequently had a lead mass. Evaluation of the small bowel would be recommended. Anjel Scanlon MD Neck CT 09/08/16 0000 Signed Impressions: Service Date/Time: Thursday, September 08, 2016 22:53 - CONCLUSION: Large malignant appearing mass or in the region of the false vocal cord on the right side with necrotic lymph nodes in bilateral neck highly suspicious for metastatic adenopathy. Cielo Lassiter MD Assessment and Plan Assessment and Plan Laringeal CA, P bx confirmation Sp trach Prurulent tracheobronchitis Leukocytosis - dc levaquine - zosyn - cont vancomycin Hortensia Villa MD Sep 22, 2016 14:58
[2016-09-22] MEDS: D5-1/2 NS + KCL 20 MEQ INJ 1,000 ML IV SCH ×2 (16:21→23:45)
--- NOTE | 2016-09-22 16:44 | HHI.PR ---
Subjective Subjective Notes NOTE FOR SURGICAL ATTENDING, DR. ANCELMO BILLY I Objective Vitals/I&O Vital Signs Date Time Temp Pulse Resp B/P Pulse Ox O2 Delivery O2 Flow Rate FiO2 09/22/16 15:18 T-Piece 4.00 28 09/22/16 12:00 98.6 72 16 128/60 94 Labs Laboratory Tests Test 09/22/16 06:35 White Blood Count 17.5 Red Blood Count 4.03 Hemoglobin 12.0 Hematocrit 35.7 Mean Corpuscular Volume 88.5 Mean Corpuscular Hemoglobin 29.8 Mean Corpuscular Hemoglobin 33.6 Concent Red Cell Distribution Width 13.3 Platelet Count 347 Mean Platelet Volume 7.9 Neutrophils (%) (Auto) 87.5 Lymphocytes (%) (Auto) 3.1 Monocytes (%) (Auto) 9.3 Eosinophils (%) (Auto) 0.0 Basophils (%) (Auto) 0.1 Neutrophils # (Auto) 15.3 Lymphocytes # (Auto) 0.5 Monocytes # (Auto) 1.6 Eosinophils # (Auto) 0.0 Basophils # (Auto) 0.0 CBC Comment DIFF FINAL Differential Comment Sodium Level 132 Potassium Level 3.8 Chloride Level 93 Carbon Dioxide Level 28.7 Anion Gap 10 Blood Urea Nitrogen 17 Creatinine 0.72 Estimat Glomerular Filtration 113 Rate Random Glucose 137 Calcium Level 8.6 Date/Time Procedure Status Source Growth 09/21/16 16:00 Gram Stain - Final Resulted Sputum Expectorated Sputum 09/21/16 16:00 Sputum Culture - Preliminary Resulted Sputum Expectorated Sputum HEAVY GROWTH NORMAL RESPIRATORY LUKAS... Cardiovascular: Regular Lungs: Clear Abdomen: Other (PEG in place with TF ) Extremities: No edema Narrative Exam Trach in place ---dressing with some secretions Port in place without complications A/P Assessment and Plan 55 year old male with laryngeal mass -S/p trach placement -S/p port placement---okay to use if needed -Await pathology from ENT bx -Discussed with RN -GS will see PRN Discharge Planning NOTE FOR SURGICAL ATTENDING, DR. ANCELMO BILLY I agree with above assessment and plan. Kari Stockton Sep 22, 2016 16:44 Ancelmo Billy MD Sep 22, 2016 17:05
[2016-09-22] MEDS: PIPERACIL-TAZO 4.5 GM PREMIX 100 ML IV SCH ×2 (17:32→23:44)
[2016-09-23] VITALS (7 sets, daily range): BP systolic 122–148; BP diastolic 65–84; PULSE 68–88; RESP 16–20; TEMP 97–98.5; O2SAT 94–100
[2016-09-23] MEDS: PIPERACIL-TAZO 4.5 GM PREMIX 100 ML IV SCH ×4 (05:35→23:40)
[2016-09-23] MEDS: DEXAMETHASONE SOD PHOS 4 MG/ML VIAL IV PUSH SCH ×4 (05:35→23:40)
[2016-09-23] MEDS: REMOVE OLD NICODERM (NICOTINE) PATCH TD SCH (07:57)
[2016-09-23] MEDS: NICOTINE 21 MG/24 HR PATCH TD SCH (07:57)
[2016-09-23] MEDS: LACTULOSE SYRUP 20 GM/30 ML CUP PEG SCH (07:57)
[2016-09-23] MEDS: SODIUM CHLORIDE 0.9% FLUSH 5 ML FLUSH IVF SCH ×2 (07:57→19:54)
--- NOTE | 2016-09-23 08:19 | HHI.PR ---
Addendum to Inpatient Note Addendum Reason: Corrected Documentation Additional Information pt has no e/o MRSA no need fore vancomycin at this point dw Hortensia Guevara MD Sep 23, 2016 08:19
--- NOTE | 2016-09-23 09:10 | MP ---
cc: ANCELMO BILLY M.D. DATE OF PROCEDURE 09/21/2016 PREOPERATIVE DIAGNOSIS Laryngeal cancer in need of Idtodg-M-Zavm for chemotherapy. POSTOPERATIVE DIAGNOSIS Laryngeal cancer in need of Ntymsx-Z-Dpjb for chemotherapy. PROCEDURE Placement of left side Taxusc-G-Bwbv under fluoroscopic guidance. ANESTHESIA General. SURGEON Dr. Billy. INDICATIONS FOR PROCEDURE An unfortunate 55-year-old gentleman who was found to have a head and neck cancer. He is in need of IV access for chemotherapy. PROCEDURE The patient is already in the operating room. Dr. Wilkins has done a biopsy of the necrotic laryngeal mass. New instruments and trays are set up. His neck is prepped with Betadine, avoiding prepping out the tracheostomy site. He is very thin. After prepping and draping we did do a time-out. We cannulate the subclavian vein with ease after anesthetizing the skin with a Marcaine solution, advance a guidewire into the superior vena cava under fluoroscopic guidance. A subcutaneous pocket is then made. A 9.6 Danish Envfon-A-Lrwq is then brought out to the field, cut at 21 cm so it lays in the superior vena cava. The introducer and dilator are then placed over the guidewire in Seldinger technique. The guidewire and the dilator are then removed and the catheters threaded through the introducer. The introducer is removed so it lays in the superior vena cava under fluoroscopic guidance. It is sutured to the deep layer with a 3-0 Vicryl, the deep layer is closed with 3-0 Vicryl and the skin is closed with a 4-0 Vicryl. Steri-Strips applied. Sterile bandage applied. The patient tolerated the procedure well. A STAT portable chest x-ray is pending at the time of this dictation. Ancelmo Billy MD JDB/HUEY /12:32 PM /8:58 AM
--- NOTE | 2016-09-23 10:45 | HHI.PR ---
Subjective Remarks Follow up on laryngeal squamous cell carcinoma, with tracheobronchitis with Moraxella Patient had many questions, he is frustrated he wants to know when are they going to extract his teeth I explained to him that this is up to the oral surgeon on the OR schedule I discussed with the nurse she will call and get the patient answer Objective Vitals Vital Signs Date Time Temp Pulse Resp B/P Pulse Ox O2 Delivery O2 Flow Rate FiO2 09/23/16 09:38 T-Piece 4.00 28 09/23/16 08:00 98.2 68 20 136/74 98 09/23/16 05:00 97.4 68 16 128/65 96 09/23/16 04:00 98 T-Piece 4.00 28 09/23/16 00:00 T-Piece 4.00 28 09/23/16 00:00 97.0 71 16 129/71 98 09/22/16 23:30 98 T-Piece 4.00 28 09/22/16 20:00 97.9 79 16 123/71 98 09/22/16 16:00 98.1 73 18 130/61 94 09/22/16 15:18 T-Piece 4.00 28 09/22/16 12:00 98.6 72 16 128/60 94 I/O 09/22/16 09/22/16 09/22/16 09/23/16 09/23/16 09/23/16 07:00 15:00 23:00 07:00 15:00 23:00 Intake Total 253 ml 1300 ml Output Total 200 ml 400 ml 400 ml 950 ml Balance 53 ml -400 ml -400 ml 350 ml IV Total 253 ml 800 ml Tube Feeding 440 ml Other 60 ml Output Urine Total 200 ml 400 ml 400 ml 950 ml # Voids 2 # Bowel Movements 1 Result Diagram: 09/22/16 0635 09/22/16 0635 Objective Remarks GENERAL: This is a well-nourished, well-developed patient, in no apparent distress. NECK: In place CARDIOVASCULAR: Regular rate and rhythm without murmurs, gallops, or rubs. RESPIRATORY: Fair air entry bilaterally. No wheezes, rales, or rhonchi. Tracheostomy in place GASTROINTESTINAL: Abdomen soft, non-tender, nondistended. Positive bowel sounds MUSCULOSKELETAL: Extremities without clubbing, cyanosis, or edema. Pedal pulses appreciated NEUROLOGICAL: Awake and alert. Moves all extremity. 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 Status: Acute (2) Dysphagia ICD Code: R13.10 Status: Acute (3) ETOHism ICD Code: F10.20 Status: Acute Assessment and Plan 09/18: Continue current management, Levaquin, trach management per pulmonology, plan for laryngeal biopsy on 09/21 09/19: Continue to have profuse thick greenish phlegm, CBC pending today, no fever, continue Levaquin and aggressive pulmonary toileting, laryngeal biopsy on Tuesday by ENT, oncology following, pulmonology also following for trach management 09/20: Awaiting laryngeal biopsy, leukocytosis resolved 09/21: Plan for laryngeal biopsy today, leukocytosis resolved however still with excessive dark greenish/brownish phlegm from the track, will consult ID, check chest x-ray, continue Levaquin, send sputum for VAMP THROATER and culture 09/22: Status post laryngeal biopsy, appreciate radiation therapy consult, will need teeth extraction, Moraxella tracheitis, chest x-ray did not show infiltrate , pending ID consult, pulmonary following, as well as oncology Discussed with patient, his mother, immigration case worker in length regarding discharge planning, due to having the tracheostomy, and no source of payer, will mostly have some difficulty discharging 09/23: 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 Appreciate ID consultation, switched level and Zosyn for Moraxella tracheal bronchitis A/P: - Neck malignant neoplasm Mostly laryngeal neoplasm Appreciate ENT consultation, and oncology follow up, may benefit short of chemotherapy and radiation Continue IV steroids, Tracheostomy placed he had PEG placement and CT guided bx of the LN on 09/13 Pathology for the lymph node showed fibroadipose tissue with skeletal muscles, did not show malignancy D/W oncology Dr. So, who did discuss with the ENT, plan for direct biopsy from the laryngeal source on 09/21 Hold off on port placement until other recommendation by oncology -Acute leukocytosis with left shift: Resolved Moraxella purulent tracheobronchitis Could be stress versus steroid-induced Sputum positive for Moraxella catarrhalis and nongroup Streptococcus Negative chest x-ray, blood culture, UA Status post Levaquin and switched to Zosyn by ID - Dysphagia s/p PEG / , start feeding , monitor Monitor BMP - -ETOHism On CIWA protocol minimal use of mediations at this time Discharge Planning Patient with tracheostomy, no payer source, immigration case worker following for rehabilitation placement if possible Julissa Santizo MD Sep 23, 2016 10:45
--- NOTE | 2016-09-23 16:18 | PD.ONC.PN ---
Subjective Subjective Remarks Denies complaints. Reports constipation has resolved. Breathing comfortably. Objective Data Date Time Temp Pulse Resp B/P Pulse Ox O2 Delivery O2 Flow Rate FiO2 09/23/16 15:49 99 T-piece 28.00 09/23/16 12:00 97.6 88 20 148/84 100 09/23/16 09:38 T-Piece 4.00 28 09/23/16 08:00 98.2 68 20 136/74 98 09/23/16 05:00 97.4 68 16 128/65 96 09/23/16 04:00 98 T-Piece 4.00 28 09/23/16 00:00 T-Piece 4.00 28 09/23/16 00:00 97.0 71 16 129/71 98 09/22/16 23:30 98 T-Piece 4.00 28 09/22/16 20:00 97.9 79 16 123/71 98 09/23/16 09/23/16 09/23/16 06:59 14:59 22:59 Intake Total 1300 ml 0 ml Output Total 950 ml 600 ml Balance 350 ml -600 ml Result Diagram: 09/22/16 0635 09/22/16 0635 Culture Results Microbiology Date/Time Procedure Status Source Growth 09/21/16 16:00 Gram Stain - Final Complete Sputum Expectorated Sputum 09/21/16 16:00 Sputum Culture - Final Complete Sputum Expectorated Sputum HEAVY GROWTH NORMAL RESPIRATORY LUKAS Administered Medications Medications (Trade) Dose Ordered Sig/Susan Route PRN Reason Start Time Stop Time Status Last Admin Dose Admin Potassium Chloride/Dextrose/ Sod Cl (D5-1/2 NS + KCl 20 Meq Inj) 1,000 ml @ 100 mls/hr Q10H IV 09/09/16 01:00 09/22/16 23:45 Enoxaparin Sodium (Lovenox Inj) 40 mg Q24H SQ 09/09/16 09:00 Hold 09/09/16 08:03 IV Flush (NS Flush) 2 ml BID IVF 09/09/16 09:00 09/22/16 23:44 IV Flush (NS Flush) 2 ml UNSCH PRN IVF FLUSH AFTER USING IV ACCESS 09/09/16 01:30 09/16/16 05:38 Dexamethasone Sodium Phosphate (Decadron Inj) 4 mg Q6HR IV PUSH 09/09/16 07:15 09/23/16 12:43 Nicotine (Habitrol 21 Mg Patch.24 Hr) 1 patch DAILY TD 09/09/16 16:00 09/23/16 07:57 Miscellaneous Information 1 DAILY TD 09/10/16 09:00 09/23/16 07:57 Acetaminophen (Tylenol) 650 mg Q4H PRN PO Temp > 100.4 09/09/16 18:30 09/14/16 14:31 Senna/Docusate Sodium (Lula-Colace) 1 tab BID PRN PO CONSTIPATION 09/09/16 18:30 09/22/16 13:59 Magnesium Hydroxide (Milk Of Magnmirna Lipedro luis) 30 ml DAILY PRN PO for Severe Constipation 09/09/16 18:30 09/16/16 13:51 Miscellaneous Information Patient in critical care unit? Ass... Q361D XX 09/10/16 00:15 09/10/16 00:15 Lorazepam (Ativan Inj) 1 mg Q4H PRN IV PUSH CIWA 8 - 10 09/11/16 12:15 09/11/16 13:27 Hydromorphone HCl (Dilaudid Pf Inj) 0.5 mg Q4H PRN IV PUSH pain 09/11/16 12:15 09/12/16 05:53 Lactulose 30 ml 30 ml DAILY PEG 09/21/16 09:00 09/22/16 08:45 Piperacillin Sod/ Tazobactam Sod (Zosyn 4.5 Gm Premix) 100 ml @ 200 mls/hr Q6H IV 09/22/16 17:00 09/23/16 12:43 Objective Remarks GENERAL: Well-nourished, well-developed patient. SKIN: Warm and dry. HEAD: Normocephalic. EYES: No scleral icterus. No injection or drainage. NECK: Supple, trachea midline. No JVD or lymphadenopathy. LYMPHATIC: No adenopathy. CARDIOVASCULAR: Regular rate and rhythm without murmurs. RESPIRATORY: Breath sounds equal bilaterally. No accessory muscle use. GASTROINTESTINAL: Abdomen soft, non-tender, nondistended. EXTREMITIES: No cyanosis, or edema. MUSCULOSKELETAL: Adequate muscle tone. NEUROLOGICAL: No obvious focal deficit. Awake, alert, and oriented x3. PSYCHIATRIC: Appropriate mood and affect; insight and judgment normal. Assessment/Plan Problem List: (1) Laryngeal mass Status: Acute Plan: 09/20/2016: He will undergo direct laryngoscopy and port later today. 09/13/16: PEG tube placement today as well as CT guided LN biopsy. History/Workup --pain in his throat and difficulty speaking for the past 4-5 months. --35 pound weight loss + difficulty swallowing --42 pack year tobacco history + heavy alcohol use --CT soft tissues neck-->near obstructing mass involving the larynx. The tumor appeared to be originating in the region of the false vocal cords and the bulk of the disease was on the right side. Necrotic and enlarged appearing lymph nodes appeared bilaterally on the neck which were concerning for metastatic adenopathy. --CT C/A/P: no definite metastatic disease, --s/p trach placement --Given the likely diagnosis of laryngeal malignancy and lack of evidence of distal metastatic disease-->patient will likely be a good candidate for concurrent chemoradiotherapy. --fs faxed to new patient referrals. (2) Malnutrition Status: Acute Plan: 09/13/16: PEG tube placement today Assessment Mr. Guzman is a 55-year-old male with an extensive past history of tobaccoism and alcohol consumption. He presents to the hospital with a five-month history of increasing hoarseness of the voice, pain in the throat and difficulty swallowing. He has over the past several days been unable to talk at all and had increasing difficulty breathing. Imaging studies of his neck revealed a near obstruction of the upper airway at the level of the larynx. A large mass involving the false vocal cords appeared to be arising from the right side of the larynx and seemed to cross over the midline. Associated with this were multiple necrotic appearing lymph nodes along bilateral cervical lymph node chains. He has no definite evidence of pathologic disease within the lungs or mediastinum. Because of the impending upper airway obstruction, he did undergo a surgical airway creation on 09/10/2016. The oncology service has been consulted for further workup and management given the likely underlying diagnosis of a primary laryngeal malignancy. Plan 1. 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 2. On TFs. 3. Dental evaluation is pending. 4. The patient has been evaluated by Rad Onc. 5. I will request respiratory therapy to begin weaning him off oxygen and to room air to facilitate discharge. Miguel Angel So MD Sep 23, 2016 16:18
[2016-09-23] MEDS: D5-1/2 NS + KCL 20 MEQ INJ 1,000 ML IV SCH (23:41)
[2016-09-24] VITALS (8 sets, daily range): BP systolic 114–157; BP diastolic 62–82; PULSE 57–80; RESP 16–22; TEMP 96.3–98.3; O2SAT 96–100
[2016-09-24] MEDS: PIPERACIL-TAZO 4.5 GM PREMIX 100 ML IV SCH ×3 (04:35→17:09)
[2016-09-24] MEDS: DEXAMETHASONE SOD PHOS 4 MG/ML VIAL IV PUSH SCH ×4 (04:35→23:43)
[2016-09-24] MEDS: SODIUM CHLORIDE 0.9% FLUSH 5 ML FLUSH IVF SCH ×2 (08:21→21:00)
[2016-09-24] MEDS: LACTULOSE SYRUP 20 GM/30 ML CUP PEG SCH (08:21)
[2016-09-24] MEDS: REMOVE OLD PATCH TD SCH (08:23)
[2016-09-24] MEDS: NICOTINE 14 MG/24 HR PATCH TD SCH ×2 (08:23→09:00)
[2016-09-24] MEDS: D5-1/2 NS + KCL 20 MEQ INJ 1,000 ML IV SCH ×2 (10:52→21:37)
--- NOTE | 2016-09-24 13:34 | HHI.PR ---
Subjective Remarks Patient seen this morning around 11:30 AM. Says he feels well. Denies any chest pain or shortness of breath. Denies nausea or vomiting. Denies lightheadedness or dizziness. Objective Vital Signs Date Time Temp Pulse Resp B/P Pulse Ox O2 Delivery O2 Flow Rate FiO2 09/24/16 08:45 T-Piece 4.00 28 09/24/16 07:50 96.6 78 20 123/63 96 09/24/16 04:00 96.8 69 18 114/62 99 09/24/16 00:07 97.3 57 16 118/71 97 09/23/16 20:30 T-Piece 28 09/23/16 20:00 98.3 75 18 142/77 97 09/23/16 17:15 T-Piece 28 09/23/16 16:00 98.5 74 20 122/68 94 09/23/16 15:49 99 T-piece 28.00 I/O 09/23/16 09/23/16 09/23/16 09/24/16 09/24/16 09/24/16 07:00 15:00 23:00 07:00 15:00 23:00 Intake Total 1300 ml 789 ml 0 ml 0 ml 0 ml Output Total 950 ml 600 ml 300 ml 700 ml Balance 350 ml 189 ml -300 ml -700 ml 0 ml Intake Oral 0 ml 0 ml 0 ml 0 ml IV Total 800 ml 789 ml Tube Feeding 440 ml Other 60 ml Output Urine Total 950 ml 600 ml 300 ml 700 ml # Bowel Movements 2 0 Result Diagram: 09/22/16 0635 09/22/16 0635 Procedures 09/13:PEG tube , CT guided bx 09/21. Laryngeal biopsy Objective Remarks GENERAL: Sitting up in bed. Alert. Appears comfortable. SKIN: Warm and dry. HEAD: Normocephalic. EYES: No scleral icterus. No injection or drainage. NECK: Tracheostomy in place. No JVD. CARDIOVASCULAR: Regular rate and rhythm without murmurs, gallops, or rubs. RESPIRATORY: Breath sounds equal bilaterally. No accessory muscle use. GASTROINTESTINAL: Abdomen soft, non-tender, nondistended. PEG tube in place. No leakage or surrounding erythema. MUSCULOSKELETAL: No cyanosis, or edema. BACK: Nontender without obvious deformity. No CVA tenderness. A/P Assessment and Plan 09/18: Continue current management, Levaquin, trach management per pulmonology, plan for laryngeal biopsy on 09/21 09/19: Continue to have profuse thick greenish phlegm, CBC pending today, no fever, continue Levaquin and aggressive pulmonary toileting, laryngeal biopsy on Tuesday by ENT, oncology following, pulmonology also following for trach management 09/20: Awaiting laryngeal biopsy, leukocytosis resolved 09/21: Plan for laryngeal biopsy today, leukocytosis resolved however still with excessive dark greenish/brownish phlegm from the track, will consult ID, check chest x-ray, continue Levaquin, send sputum for CROP RESEARCH SCIENTIST and culture 09/22: Status post laryngeal biopsy, appreciate radiation therapy consult, will need teeth extraction, Moraxella tracheitis, chest x-ray did not show infiltrate , pending ID consult, pulmonary following, as well as oncology Discussed with patient, his mother, shoe parts caser in length regarding discharge planning, due to having the tracheostomy, and no source of payer, will mostly have some difficulty discharging 09/23: Laryngeal biopsy showed invasive moderately differentiated squamous cell carcinoma, plan has been made for radiation therapy, with extraction prior to that, chemotherapy per oncology, previously discussed with shoe parts caser there will be difficulties to discharge patient with his trech, working on placement and rehabilitation. Appreciate ID consultation, switched level and Zosyn for Moraxella tracheal bronchitis 09/24. Patient feeling well. Waiting tooth extraction. With radiation therapy , chemotherapy to follow. Continue Zosyn for tracheobronchitis as per infectious disease. A/P: //Neck malignant neoplasm //Mostly laryngeal neoplasm Appreciate ENT consultation, and oncology follow up, may benefit short of chemotherapy and radiation Continue IV steroids, Tracheostomy placed -s/pPEG placement and CT guided bx of the LN on 09/13 -Laryngeal biopsy done on 09/21 showed invasive moderately differentiated squamous cell carcinoma, plan has been made for radiation therapy, with extraction prior to that, chemotherapy per oncology Hold off on port placement until other recommendation by oncology -Plan tooth extraction prior to radiation and chemotherapy. Plan per oncology. //Acute leukocytosis with left shift: Resolved //Moraxella purulent tracheobronchitis Could be stress versus steroid-induced Sputum positive for Moraxella catarrhalis and nongroup Streptococcus Negative chest x-ray, blood culture, UA Status post Levaquin and switched to Zosyn by ID. Continue Zosyn. No need for vancomycin. //Dysphagia s/p PEG 09/13 , continue feeding , monitor Monitor BMP //Alcoholism On CIWA protocol minimal use of mediations at this time //Tobaccoism. Continue nicotine patch. //Prophylaxis. Lovenox on hold. As per surgical service. Discharge Planning Patient with tracheostomy, no payer source, shoe parts caser following for rehabilitation placement if possible Francis Mcfarlane MD Sep 24, 2016 13:34
--- NOTE | 2016-09-24 22:58 | HHI.IDPN ---
Subjective Subjective Remarks feels better less secretions path came back + for mod diff adenoca afebrile Antibiotics zosyn Allergies: Coded Allergies: No Known Allergies (Unverified , 09/08/16) Objective . Vital Signs Date Time Temp Pulse Resp B/P Pulse Ox O2 Delivery O2 Flow Rate FiO2 09/24/16 20:00 98.3 59 18 157/71 100 09/24/16 18:10 100 T-piece 6.00 28 09/24/16 17:00 T-Piece 4.00 28 09/24/16 16:03 97.7 80 22 148/82 100 09/24/16 13:34 98 T-piece 28 09/24/16 12:00 96.3 68 18 155/77 100 09/24/16 08:45 T-Piece 4.00 09/24/16 07:50 96.6 78 20 123/63 96 09/24/16 04:00 96.8 69 18 114/62 99 09/24/16 00:07 97.3 57 16 118/71 97 09/23/16 09/23/16 09/24/16 14:59 22:59 06:59 Intake Total 789 ml 0 ml 0 ml Output Total 600 ml 300 ml 700 ml Balance 189 ml -300 ml -700 ml Intake Oral 0 ml 0 ml 0 ml IV Total 789 ml Output Urine Total 600 ml 300 ml 700 ml # Bowel Movements 2 0 Imaging Last Impressions Chest X-Ray 09/21/16 1218 Signed Impressions: Service Date/Time: Wednesday, September 21, 2016 12:30 - CONCLUSION: Left chest wall Erewmo-l-Uyef distal tip is in appropriate position within the SVC. No pneumothorax is visualized. Anjel Dixon MD Lymph Node Biopsy CT 09/13/16 1209 Signed Impressions: Service Date/Time: Tuesday, September 13, 2016 12:30 - CONCLUSION: Uncomplicated CT guided biopsy. Hesham Mar MD Gastrostomy Tube Placement 09/13/16 0000 Signed Impressions: Service Date/Time: Tuesday, September 13, 2016 11:53 - CONCLUSION: Uncomplicated gastrostomy tube placement as above. Reginald Nolen MD Chest CT 09/10/16 0600 Signed Impressions: Service Date/Time: Saturday, September 10, 2016 05:36 - CONCLUSION: 1. Patchy areas of peripheral density in the upper lungs being more prominent right. These are nonspecific. 2. 4 mm noncalcified nodule in the left lower lung. 3. It is thought both these above findings should be followed up with a noncontrast CT examination in 3-6 months. 4. Calcified granuloma right lung base. 5. Hyperinflated lungs. Anjel Scanlon MD Abdomen/Pelvis CT 09/10/16 0600 Signed Impressions: Service Date/Time: Saturday, September 10, 2016 05:36 - CONCLUSION: Suspected area of small bowel intussusception in the right lower quadrant. This is likely intermittent as there is no associated dilatation of the small bowel. Intussusception can frequently had a lead mass. Evaluation of the small bowel would be recommended. Anjel Scanlon MD Neck CT 09/08/16 0000 Signed Impressions: Service Date/Time: Thursday, September 08, 2016 22:53 - CONCLUSION: Large malignant appearing mass or in the region of the false vocal cord on the right side with necrotic lymph nodes in bilateral neck highly suspicious for metastatic adenopathy. Cielo Lassiter MD Physical Exam CONSTITUTIONAL/GENERAL: This is a malnourished thin male patient, ill appearing in no apparent distress. PORT in place L chest side SKIN: No jaundice, rashes, or lesions. Skin temperature appropriate. Not diaphoretic. EYES: PNo scleral icterus. ENT: . Throat without visible erythema, exudates, masses, or lesions. dentition is poor NECK: Trachea midline. Trach in place draining moderate amount of purulent secretions. Odor is much less prominent CARDIOVASCULAR: Regular rate and rhythm without murmurs, gallops, or rubs. No JVD. Peripheral pulses symmetric. RESPIRATORY/CHEST: Symmetric, unlabored respirations. Clear to auscultation. Breath sounds equal bilaterally. No wheezes, rales, or rhonchi. GASTROINTESTINAL: Abdomen soft, non-tender, nondistended. PEG in place site [place] MUSCULOSKELETAL: Extremities without clubbing, cyanosis, or edema. NEUROLOGICAL: Awake and alert. Non focal Assessment & Plan Remarks [place] CA, P bx confirmation Sp trach Prurulent tracheobronchitis Leukocytosis - dc zosyn - start unasyn - dc vancomycin dw Hortensia Guevara MD Sep 24, 2016 22:58
[2016-09-24] MEDS: AMPICILLIN-SULBACTAM INJ 3 GM in SODIUM CHLORIDE 0.9% INJ 100 ML IV SCH (23:43)
[2016-09-25] VITALS (7 sets, daily range): BP systolic 112–142; BP diastolic 61–72; PULSE 53–74; RESP 16–18; TEMP 96.7–98.1; O2SAT 97–100
[2016-09-25] MEDS: DEXAMETHASONE SOD PHOS 4 MG/ML VIAL IV PUSH SCH ×4 (04:46→23:08)
[2016-09-25] MEDS: AMPICILLIN-SULBACTAM INJ 3 GM in SODIUM CHLORIDE 0.9% INJ 100 ML IV SCH ×4 (04:46→23:08)
[2016-09-25 05:33] LABS: AUTOMATED NEUTROPHIL # 6.7 TH/MM3 (1.8-7.7); BASOPHIL % 0.1 % (0.0-2.0); HEMO FLAGS DIFF FINAL; LYMPH % 5.3 % (9.0-44.0); LYMPHOCYTE # 0.4 TH/MM3 (1.0-4.8); MEAN CELL VOLUME 88.2 FL (80.0-100.0); MEAN CORPUSCULAR HEMOGLOBIN 30.2 PG (27.0-34.0); MEAN CORPUSCULAR HGB CONC 34.3 % (32.0-36.0); MONO % 7.6 % (0.0-8.0); PLATELET COUNT 289 TH/MM3 (150-450); RED BLOOD COUNT 3.74 MIL/MM3 (4.50-5.90); RED CELL DISTRIBUTION WIDTH 13.3 % (11.6-17.2); WHITE BLOOD COUNT 7.7 TH/MM3 (4.0-11.0)
[2016-09-25 05:59] LABS: BICARBONATE 31.7 MEQ/L (21.0-32.0); POTASSIUM 3.9 MEQ/L (3.5-5.1)
[2016-09-25] MEDS: D5-1/2 NS + KCL 20 MEQ INJ 1,000 ML IV SCH ×3 (07:00→20:46)
[2016-09-25] MEDS: SODIUM CHLORIDE 0.9% FLUSH 5 ML FLUSH IVF SCH ×2 (07:21→20:42)
[2016-09-25] MEDS: LACTULOSE SYRUP 20 GM/30 ML CUP PEG SCH (08:30)
[2016-09-25] MEDS: NICOTINE 14 MG/24 HR PATCH TD SCH (08:31)
[2016-09-25] MEDS: REMOVE OLD PATCH TD SCH (08:31)
--- NOTE | 2016-09-25 19:15 | MP ---
cc: TORI WILKINS M.D. DATE OF SURGERY: 09/21/2016. PREOPERATIVE DIAGNOSIS: Malignant neoplasm of hypopharynx and larynx. POSTOPERATIVE DIAGNOSIS: Malignant neoplasm of hypopharynx and larynx. OPERATIVE PROCEDURE PERFORMED: Direct laryngoscopy with biopsies. SURGEON: Tori Wilkins MD. INDICATIONS FOR THE PROCEDURE: Documented in the inpatient consultation. DESCRIPTION OF THE PROCEDURE IN DETAIL: The patient was taken to OR #6 and placed in the supine position. Following induction of general anesthesia via the intravenous route and through the existing tracheotomy tube, a shoulder roll was placed and a Antony head drape was put in place and a dental guard was put in place. Using an anterior commissure scope, the hypopharynx and larynx were brought into view. There was extensive necrosis of the right supraglottic larynx and right hypopharyngeal wall. There is gross neoplasm erupting on the superior tip of the epiglottis. This extended down into the endolarynx. Several biopsies were obtained from the superior tip of the epiglottis. These were passed off the field for histological examination. The scope was then removed and the procedure was terminated. The patient remained under general anesthesia for a second procedure to be formed by general surgery. MD MAYNOR Butler/BRINA /4:34 PM /7:10 PM
--- NOTE | 2016-09-25 23:37 | HHI.PR ---
Subjective Remarks Patient seen this morning around noon.Says he's feeling well. Denies any chest pain or shortness of breath. Denies any nausea or vomiting. Objective Vital Signs Date Time Temp Pulse Resp B/P Pulse Ox O2 Delivery O2 Flow Rate FiO2 09/25/16 20:00 98.1 61 18 129/62 100 09/25/16 17:31 T-Piece 5.00 28 09/25/16 15:57 97.2 74 16 130/72 100 09/25/16 15:17 97 T-piece 28 09/25/16 13:33 T-Piece 5.00 28 09/25/16 12:00 97.4 68 18 142/68 100 09/25/16 08:49 T-Piece 5.00 09/25/16 08:00 97.6 59 18 114/66 100 09/25/16 04:00 96.7 55 18 112/61 99 09/25/16 01:14 T-Piece 5.00 09/25/16 00:00 98.0 53 17 132/72 99 I/O 09/24/16 09/24/16 09/24/16 09/25/16 09/25/16 09/25/16 07:00 15:00 23:00 07:00 15:00 23:00 Intake Total 0 ml 0 ml 897 ml 0 ml 1238 ml 0 ml Output Total 700 ml 475 ml 1050 ml 400 ml Balance -700 ml 0 ml 422 ml -1050 ml 1238 ml -400 ml Intake Oral 0 ml 0 ml 0 ml 0 ml 0 ml IV Total 897 ml 1238 ml Output Urine Total 700 ml 475 ml 1050 ml 400 ml # Voids 1 4 # Bowel Movements 0 3 2 Result Diagram: 09/25/16 0500 09/25/16 0500 Procedures 09/13:PEG tube , CT guided bx 09/21. Laryngeal biopsy Objective Remarks GENERAL: Sitting up in bed. Alert. Appears comfortable. SKIN: Warm and dry. HEAD: Normocephalic. EYES: No scleral icterus. No injection or drainage. NECK: Tracheostomy in place. No JVD. CARDIOVASCULAR: Regular rate and rhythm without murmurs, gallops, or rubs. RESPIRATORY: Breath sounds equal bilaterally. No accessory muscle use. GASTROINTESTINAL: Abdomen soft, non-tender, nondistended. PEG tube in place. No leakage or surrounding erythema. MUSCULOSKELETAL: No cyanosis, or edema. BACK: Nontender without obvious deformity. No CVA tenderness. A/P Assessment and Plan 09/18: Continue current management, Levaquin, trach management per pulmonology, plan for laryngeal biopsy on 09/21 09/19: Continue to have profuse thick greenish phlegm, CBC pending today, no fever, continue Levaquin and aggressive pulmonary toileting, laryngeal biopsy on Tuesday by ENT, oncology following, pulmonology also following for trach management 09/20: Awaiting laryngeal biopsy, leukocytosis resolved 09/21: Plan for laryngeal biopsy today, leukocytosis resolved however still with excessive dark greenish/brownish phlegm from the track, will consult ID, check chest x-ray, continue Levaquin, send sputum for THERAPEUTIC SPECIALIST and culture 09/22: Status post laryngeal biopsy, appreciate radiation therapy consult, will need teeth extraction, Moraxella tracheitis, chest x-ray did not show infiltrate , pending ID consult, pulmonary following, as well as oncology Discussed with patient, his mother, manager of case management in length regarding discharge planning, due to having the tracheostomy, and no source of payer, will mostly have some difficulty discharging 09/23: Laryngeal biopsy showed invasive moderately differentiated squamous cell carcinoma, plan has been made for radiation therapy, with extraction prior to that, chemotherapy per oncology, previously discussed with manager of case management there will be difficulties to discharge patient with his trech, working on placement and rehabilitation. Appreciate ID consultation, switched level and Zosyn for Moraxella tracheal bronchitis 09/24. Patient feeling well. Waiting tooth extraction. With radiation therapy , chemotherapy to follow. Continue Zosyn for tracheobronchitis as per infectious disease. 09/25. patient seen and examined. Continue antibiotics as per infectious disease. Difficult discharge. Pending Medicaid. Will need tracheostomy care at home, followup with oncology as outpatient. A/P: //Neck malignant neoplasm //Mostly laryngeal neoplasm Appreciate ENT consultation, and oncology follow up, may benefit short of chemotherapy and radiation Continue IV steroids, Tracheostomy placed -s/pPEG placement and CT guided bx of the LN on 09/13 -Laryngeal biopsy done on 09/21 showed invasive moderately differentiated squamous cell carcinoma, plan has been made for radiation therapy, with extraction prior to that, chemotherapy per oncology Hold off on port placement until other recommendation by oncology -Plan tooth extraction prior to radiation and chemotherapy. Plan per oncology. //Acute leukocytosis with left shift: Resolved //Moraxella purulent tracheobronchitis Could be stress versus steroid-induced Sputum positive for Moraxella catarrhalis and nongroup Streptococcus Negative chest x-ray, blood culture, UA Status post Levaquin and switched to Zosyn, now Unasyn by ID. Continue Unasyn. //Dysphagia s/p PEG 09/13 , continue feeding , monitor Monitor BMP //Alcoholism On CIWA protocol minimal use of mediations at this time //Tobaccoism. Continue nicotine patch. //Prophylaxis. SCDs. Patient is ambulatory.Lovenox on hold. As per surgical service. Discharge Planning Patient with tracheostomy, no payer source, manager of case management following for rehabilitation placement if possible Francis Mcfarlane MD Sep 25, 2016 23:37
[2016-09-26] VITALS (7 sets, daily range): BP systolic 112–135; BP diastolic 63–75; PULSE 50–69; RESP 17–20; TEMP 96.7–97.8; O2SAT 99–100
[2016-09-26] MEDS: DEXAMETHASONE SOD PHOS 4 MG/ML VIAL IV PUSH SCH ×4 (05:18→22:56)
[2016-09-26] MEDS: AMPICILLIN-SULBACTAM INJ 3 GM in SODIUM CHLORIDE 0.9% INJ 100 ML IV SCH ×4 (05:18→22:34)
[2016-09-26] MEDS: NICOTINE 14 MG/24 HR PATCH TD SCH (07:30)
[2016-09-26] MEDS: REMOVE OLD PATCH TD SCH (07:30)
[2016-09-26] MEDS: LACTULOSE SYRUP 20 GM/30 ML CUP PEG SCH (07:30)
[2016-09-26] MEDS: SODIUM CHLORIDE 0.9% FLUSH 5 ML FLUSH IVF SCH ×2 (07:30→21:00)
[2016-09-26 07:40] LABS: AUTOMATED NEUTROPHIL # 8.4 TH/MM3 (1.8-7.7); HEMATOCRIT 35.2 % (39.0-51.0); HEMO FLAGS DIFF FINAL; LYMPH % 4.7 % (9.0-44.0); LYMPHOCYTE # 0.4 TH/MM3 (1.0-4.8); MEAN CELL VOLUME 89.3 FL (80.0-100.0); MEAN CORPUSCULAR HEMOGLOBIN 30.4 PG (27.0-34.0); MEAN CORPUSCULAR HGB CONC 34.1 % (32.0-36.0); MONO % 6.7 % (0.0-8.0); NEUT % 88.6 % (16.0-70.0); PLATELET COUNT 308 TH/MM3 (150-450); RED BLOOD COUNT 3.95 MIL/MM3 (4.50-5.90); RED CELL DISTRIBUTION WIDTH 13.5 % (11.6-17.2); WHITE BLOOD COUNT 9.5 TH/MM3 (4.0-11.0)
[2016-09-26 07:57] LABS: BICARBONATE 30.1 MEQ/L (21.0-32.0)
[2016-09-26] MEDS: D5-1/2 NS + KCL 20 MEQ INJ 1,000 ML IV SCH ×2 (10:47→22:56)
--- NOTE | 2016-09-26 22:02 | HHI.PR ---
Subjective Remarks patient seen this afternoon around 2 PM. Says he is feeling well. Denies any chest pain, shortness of breath, nausea, vomiting. patient does request something for sleep at night.we discussed potential side effects of confusion from sleep medication, however he would like to try it. discussed with nursing. Tracheostomy did accidentally come out of this morning, however has been replaced. Objective Vital Signs Date Time Temp Pulse Resp B/P Pulse Ox O2 Delivery O2 Flow Rate FiO2 09/26/16 20:00 97.8 60 18 129/71 100 09/26/16 16:00 97.2 62 20 112/63 100 09/26/16 15:26 T-Piece 5.00 28 09/26/16 12:27 100 T-piece 5.00 28 09/26/16 11:30 97.1 69 20 130/72 100 09/26/16 08:26 T-Piece 5.00 28 09/26/16 07:09 97.1 50 20 135/75 100 09/26/16 04:00 96.7 54 17 131/74 99 09/26/16 00:45 T-Piece 5.00 28 09/26/16 00:00 97.8 59 17 114/67 100 I/O 09/25/16 09/25/16 09/25/16 09/26/16 09/26/16 09/26/16 07:00 15:00 23:00 07:00 15:00 23:00 Intake Total 0 ml 1238 ml 0 ml 0 ml 900 ml Output Total 1050 ml 400 ml 750 ml 1050 ml Balance -1050 ml 1238 ml -400 ml -750 ml -150 ml Intake Oral 0 ml 0 ml 0 ml 0 ml 0 ml IV Total 1238 ml 900 ml Output Urine Total 1050 ml 400 ml 750 ml 1050 ml # Voids 4 # Bowel Movements 2 1 Result Diagram: 09/26/16 0531 09/26/16 0531 Procedures 09/13:PEG tube , CT guided bx 09/21. Laryngeal biopsy Objective Remarks GENERAL: Sitting upOnsite in bed. Alert. Appears comfortable. SKIN: Warm and dry. HEAD: Normocephalic. EYES: No scleral icterus. No injection or drainage. NECK: Tracheostomy in place. No JVD. CARDIOVASCULAR: Regular rate and rhythm without murmurs, gallops, or rubs. RESPIRATORY: Breath sounds equal bilaterally. No accessory muscle use. GASTROINTESTINAL: Abdomen soft, non-tender, nondistended. PEG tube in place. No leakage or surrounding erythema.unchanged. MUSCULOSKELETAL: No cyanosis, or edema. BACK: Nontender without obvious deformity. No CVA tenderness. A/P Assessment and Plan 09/18: Continue current management, Levaquin, trach management per pulmonology, plan for laryngeal biopsy on 09/21 09/19: Continue to have profuse thick greenish phlegm, CBC pending today, no fever, continue Levaquin and aggressive pulmonary toileting, laryngeal biopsy on Tuesday by ENT, oncology following, pulmonology also following for trach management 09/20: Awaiting laryngeal biopsy, leukocytosis resolved 09/21: Plan for laryngeal biopsy today, leukocytosis resolved however still with excessive dark greenish/brownish phlegm from the track, will consult ID, check chest x-ray, continue Levaquin, send sputum for PAPER CONTROL CLERK and culture 09/22: Status post laryngeal biopsy, appreciate radiation therapy consult, will need teeth extraction, Moraxella tracheitis, chest x-ray did not show infiltrate , pending ID consult, pulmonary following, as well as oncology Discussed with patient, his mother, rehabilitation caseworker in length regarding discharge planning, due to having the tracheostomy, and no source of payer, will mostly have some difficulty discharging 09/23: 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 Appreciate ID consultation, switched level and Zosyn for Moraxella tracheal bronchitis 09/24. Patient feeling well. Waiting tooth extraction. With radiation therapy , chemotherapy to follow. Continue Zosyn for tracheobronchitis as per infectious disease. 09/25. patient seen and examined. Continue antibiotics as per infectious disease. Difficult discharge. Pending Medicaid. Will need tracheostomy care at home, followup with oncology as outpatient. 09/26. patient requesting sleep medication. Ordered temazepam. Continue antibiotics as per infectious disease. Pending dental consult. Still awaiting Medicaidper home care of tracheostomy. A/P: //Neck malignant neoplasm //Mostly laryngeal neoplasm Appreciate ENT consultation, and oncology follow up, may benefit short of chemotherapy and radiation Continue IV steroids, Tracheostomy placed -s/pPEG placement and CT guided bx of the LN on 09/13 -Laryngeal biopsy done on 09/21 showed invasive moderately differentiated squamous cell carcinoma, plan has been made for radiation therapy, with extraction prior to that, chemotherapy per oncology Hold off on port placement until other recommendation by oncology -Plan tooth extraction prior to radiation and chemotherapy. Plan per oncology. //Acute leukocytosis with left shift: Resolved //Moraxella purulent tracheobronchitis Could be stress versus steroid-induced Sputum positive for Moraxella catarrhalis and nongroup Streptococcus Negative chest x-ray, blood culture, UA Status post Levaquin and switched to Zosyn, now Unasyn by ID. Continue Unasyn. //Dysphagia s/p PEG 09/13 , continue feeding , monitor Monitor BMP //Alcoholism On CIWA protocol minimal use of mediations at this time //Tobaccoism. Continue nicotine patch. //insomnia. - 09/26. Started temazepam as needed -Monitor. //Prophylaxis. SCDs. Patient is ambulatory.Lovenox on hold. As per surgical service. Discharge Planning Patient with tracheostomy, no payer source, rehabilitation caseworker following for rehabilitation placement if possible Francis Mcfarlane MD Sep 26, 2016 22:01
[2016-09-26] MEDS: TEMAZEPAM 7.5 MG CAP PO PRN (22:33)
[2016-09-27] VITALS (8 sets, daily range): BP systolic 106–128; BP diastolic 61–73; PULSE 52–73; RESP 16–19; TEMP 97.3–99.4; O2SAT 96–100
[2016-09-27] MEDS: DEXAMETHASONE SOD PHOS 4 MG/ML VIAL IV PUSH SCH (05:19)
[2016-09-27] MEDS: AMPICILLIN-SULBACTAM INJ 3 GM in SODIUM CHLORIDE 0.9% INJ 100 ML IV SCH ×4 (05:19→22:52)
[2016-09-27] MEDS: SODIUM CHLORIDE 0.9% FLUSH 5 ML FLUSH IVF SCH ×2 (09:00→22:53)
[2016-09-27] MEDS: REMOVE OLD PATCH TD SCH (09:00)
[2016-09-27] MEDS: D5-1/2 NS + KCL 20 MEQ INJ 1,000 ML IV SCH (09:00)
[2016-09-27] MEDS: NICOTINE 14 MG/24 HR PATCH TD SCH (09:44)
[2016-09-27] MEDS: LACTULOSE SYRUP 20 GM/30 ML CUP PEG SCH (09:44)
--- NOTE | 2016-09-27 13:27 | PD.ONC.PN ---
Subjective Subjective Remarks Afebrile overnight. Patient resting comfortably. He denies pain. he states he is tolerating tube feeds. He is concerned about how much weight he has lost. Objective Data Date Time Temp Pulse Resp B/P Pulse Ox O2 Delivery O2 Flow Rate FiO2 09/27/16 08:00 97.6 54 18 128/73 100 09/27/16 05:42 T-Piece 5.00 28 09/27/16 04:00 97.6 52 18 109/62 99 09/27/16 00:30 T-Piece 5.00 28 09/27/16 00:00 97.3 57 19 120/72 96 09/26/16 20:45 T-Piece 5.00 28 09/26/16 20:00 97.8 60 18 129/71 100 09/26/16 16:00 97.2 62 20 112/63 100 09/26/16 15:26 T-Piece 5.00 28 Result Diagram: 09/26/1653009/26/16530 Administered Medications Medications (Trade) Dose Ordered Sig/Susan Route PRN Reason Start Time Stop Time Status Last Admin Dose Admin Potassium Chloride/Dextrose/ Sod Cl (D5-1/2 NS + KCl 20 Meq Inj) 1,000 ml @ 100 mls/hr Q10H IV 09/09/16 01:00 09/26/16 22:56 Enoxaparin Sodium (Lovenox Inj) 40 mg Q24H SQ 09/09/16 09:00 Hold 09/09/16 08:03 IV Flush (NS Flush) 2 ml BID IVF 09/09/16 09:00 09/22/16 23:44 IV Flush (NS Flush) 2 ml UNSCH PRN IVF FLUSH AFTER USING IV ACCESS 09/09/16 01:30 09/16/16 05:38 Dexamethasone Sodium Phosphate (Decadron Inj) 4 mg Q6HR IV PUSH 09/09/16 07:15 09/27/16 05:19 Acetaminophen (Tylenol) 650 mg Q4H PRN PO Temp > 100.4 09/09/16 18:30 09/14/16 14:31 Senna/Docusate Sodium (Lula-Colace) 1 tab BID PRN PO CONSTIPATION 09/09/16 18:30 09/22/16 13:59 Magnesium Hydroxide (Milk Of Magnesia Liq) 30 ml DAILY PRN PO for Severe Constipation 09/09/16 18:30 09/16/16 13:51 Miscellaneous Information Patient in critical care unit? Ass... [id number] XX 09/10/16 00:15 09/10/16 00:15 Lorazepam (Ativan Inj) 1 mg Q4H PRN IV PUSH CIWA 8 - 10 09/11/16 12:15 09/11/16 13:27 Hydromorphone HCl (Dilaudid Pf Inj) 0.5 mg Q4H PRN IV PUSH pain 09/11/16 12:15 09/12/16 05:53 Lactulose (Lactulose Liq) 30 ml DAILY PEG 09/21/16 09:00 09/27/16 09:44 Nicotine (Habitrol 14 Mg Patch.24 Hr) 1 patch DAILY TD 09/23/16 18:52 09/27/16 09:44 Miscellaneous Information 1 1 DAILY TD 09/24/16 09:00 09/27/16 09:00 Ampicillin Sodium/ Sulbactam Sodium/ Sodium Chloride (Unasyn Inj/NS Inj) 100 ml @ 200 mls/hr Q6H IV 09/24/16 23:00 09/27/16 05:19 Temazepam (Restoril) 7.5 mg HS PRN PO INSOMNIA 09/26/16 19:15 09/26/16 22:33 Objective Remarks GENERAL: Middle aged malnourished male, sitting up in bed, on O2 via t-piece. SKIN: Warm and dry. HEAD: Normocephalic. EYES: No injection or drainage. NECK: Supple, trachea midline. CARDIOVASCULAR: Regular rate and rhythm RESPIRATORY: Breath sounds equal bilaterally. No accessory muscle use. GASTROINTESTINAL: Abdomen soft, non-tender, nondistended. G-tube in place, receiving TF at 55cc/hour EXTREMITIES: No cyanosis. SCD's in place, bilateral lower extremities. NEUROLOGICAL: No obvious focal deficit. Awake, alert, and oriented x3. Assessment/Plan Problem List: (1) Malnutrition Status: Acute Plan: 09/27/16: receiving Jevity 1.5 @ 55cc/hour. will increase to 70cc/hr as was dietary recommendations and ask them to re-evaluate to make sure we are on the right track. 09/13/16: PEG tube placement today (2) Squamous cell carcinoma of larynx Status: Acute Plan: --plan for concurrent chemoradiotherapy once dental exam complete History/Workup --pain in his throat and difficulty speaking for the past 4-5 months. --35 pound weight loss + difficulty swallowing --42 pack year tobacco history + heavy alcohol use --CT soft tissues neck-->near obstructing mass involving the larynx. The tumor appeared to be originating in the region of the false vocal cords and the bulk of the disease was on the right side. Necrotic and enlarged appearing lymph nodes appeared bilaterally on the neck which were concerning for metastatic adenopathy. --CT C/A/P: no definite metastatic disease, --s/p trach placement, PEG tube placement, port placement and mass biopsy by ENT. --Given the likely diagnosis of laryngeal malignancy and lack of evidence of distal metastatic disease-->patient will likely be a good candidate for concurrent chemoradiotherapy. --fs faxed to new patient referrals. --Pathology showed invasive, moderately differentiated squamous cell carcinoma. Assessment 55y/o with Stage AYSE squamous cell carcinoma of the larynx. Plan 1. increase tube feeds to 70cc/hour 2. discussed with case management patient is stage AYSE. 3. consult builder's labourer for weight loss 4. await dental evaluation--this may have to be done outpatient as they have been consulted twice and will not see patient inpatient. 5. change Decadron to PO (G-tube), reduce to 2mg BID and add protonix for GI prophylaxis 6. resume Lovenox prophylaxis 7. consult ST for swallow evaluation. d/w patient, case resolution specialist, Dr. So. Tata Hopper Sep 27, 2016 13:27
[2016-09-27] MEDS ORDERED: PANTOPRAZOLE SODIUM 40 MG VIAL IV PUSH ONE (14:00)
[2016-09-27] MEDS: DEXAMETHASONE 4 MG TAB PO SCH (22:52)
--- NOTE | 2016-09-27 23:43 | HHI.PR ---
Subjective Remarks patient seen this afternoon around 1 PM. Again says he is feeling well. No complaints. Discussed with hematology. Transition to dexamethasone, PPI by mouth/peg. Swallow evaluation by speech therapy Objective Vital Signs Date Time Temp Pulse Resp B/P Pulse Ox O2 Delivery O2 Flow Rate FiO2 09/27/16 20:08 99 T-piece 5.00 28 09/27/16 20:00 98.1 61 16 107/61 97 09/27/16 16:00 99.4 71 18 115/67 100 09/27/16 12:00 97.9 73 18 106/66 100 09/27/16 11:50 100 T-piece 5.00 28 09/27/16 08:45 T-Piece 5.00 28 09/27/16 08:00 97.6 54 18 128/73 100 09/27/16 05:42 T-Piece 5.00 09/27/16 04:00 97.6 52 18 109/62 99 09/27/16 00:30 T-Piece 5.00 09/27/16 00:00 97.3 57 19 120/72 96 I/O 09/26/16 09/26/16 09/26/16 09/27/16 09/27/16 09/27/16 07:00 15:00 23:00 07:00 15:00 23:00 Intake Total 0 ml 900 ml 0 ml 2358 ml Output Total 750 ml 1050 ml 800 ml 625 ml Balance -750 ml -150 ml 0 ml 1558 ml -625 ml Intake Oral 0 ml 0 ml 0 ml IV Total 900 ml 1523 ml Tube Feeding 715 ml Other 120 ml Output Urine Total 750 ml 1050 ml 800 ml 625 ml # Voids 2 1 # Bowel Movements 1 1 1 Result Diagram: 09/26/16 0531 09/26/16 0531 Procedures 09/13:PEG tube , CT guided bx 09/21. Laryngeal biopsy Objective Remarks GENERAL: Sitting up On side of bed. Alert. Appears comfortable. SKIN: Warm and dry. HEAD: Normocephalic. EYES: No scleral icterus. No injection or drainage. NECK: Tracheostomy in place. no surrounding erythema.No JVD. CARDIOVASCULAR: Regular rate and rhythm without murmurs, gallops, or rubs. RESPIRATORY: Breath sounds equal bilaterally. No accessory muscle use. GASTROINTESTINAL: Abdomen soft, non-tender, nondistended. PEG tube in place. No leakage or surrounding erythema.unchanged. MUSCULOSKELETAL: No cyanosis, or edema. BACK: Nontender without obvious deformity. No CVA tenderness. A/P Assessment and Plan 09/18: Continue current management, Levaquin, trach management per pulmonology, plan for laryngeal biopsy on 09/21 09/19: Continue to have profuse thick greenish phlegm, CBC pending today, no fever, continue Levaquin and aggressive pulmonary toileting, laryngeal biopsy on Tuesday by ENT, oncology following, pulmonology also following for trach management 09/20: Awaiting laryngeal biopsy, leukocytosis resolved 09/21: Plan for laryngeal biopsy today, leukocytosis resolved however still with excessive dark greenish/brownish phlegm from the track, will consult ID, check chest x-ray, continue Levaquin, send sputum for SALES AND SERVICE CHANGE LEADER and culture 09/22: Status post laryngeal biopsy, appreciate radiation therapy consult, will need teeth extraction, Moraxella tracheitis, chest x-ray did not show infiltrate , pending ID consult, pulmonary following, as well as oncology Discussed with patient, his mother, case work aide in length regarding discharge planning, due to having the tracheostomy, and no source of payer, will mostly have some difficulty discharging 09/23: 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 Appreciate ID consultation, switched level and Zosyn for Moraxella tracheal bronchitis 09/24. Patient feeling well. Waiting tooth extraction. With radiation therapy , chemotherapy to follow. Continue Zosyn for tracheobronchitis as per infectious disease. 09/25. patient seen and examined. Continue antibiotics as per infectious disease. Difficult discharge. Pending Medicaid. Will need tracheostomy care at home, followup with oncology as outpatient. 09/26. patient requesting sleep medication. Ordered temazepam. Continue antibiotics as per infectious disease. Pending dental consult. Still awaiting Medicaidper home care of tracheostomy. 09/27. Patient doing well. Discussed with oncology. Transitioning to medications per PEG tube. Swallow evaluation pending. Discussed with case management. Working on obtaining outpatient supplies A/P: //Neck malignant neoplasm //Mostly laryngeal neoplasm Appreciate ENT consultation, and oncology follow up, may benefit short of chemotherapy and radiation Continue IV steroids, Tracheostomy placed -s/pPEG placement and CT guided bx of the LN on 09/13 -Laryngeal biopsy done on 09/21 showed invasive moderately differentiated squamous cell carcinoma, plan has been made for radiation therapy, with extraction prior to that, chemotherapy per oncology Hold off on port placement until other recommendation by oncology -Plan tooth extraction prior to radiation and chemotherapy. Plan per oncology. //Acute leukocytosis with left shift: Resolved //Moraxella purulent tracheobronchitis Could be stress versus steroid-induced Sputum positive for Moraxella catarrhalis and nongroup Streptococcus Negative chest x-ray, blood culture, UA Status post Levaquin and switched to Zosyn, now Unasyn by ID. Continue Unasyn. //Dysphagia s/p PEG 09/13 , continue feeding , monitor Monitor BMP //Alcoholism On CIWA protocol minimal use of mediations at this time //Tobaccoism. Continue nicotine patch. //insomnia. - 09/26. Started temazepam as needed -Monitor. //Prophylaxis. SCDs. Patient is ambulatory.Lovenox on hold. As per surgical service. Discharge Planning Patient with tracheostomy, no payer source, case work aide following for rehabilitation placement if possible. stage IV cancer. manager hospice working on outpatient assistance. Francis Mcfarlane MD Sep 27, 2016 23:43
[2016-09-28] VITALS (7 sets, daily range): BP systolic 93–118; BP diastolic 55–69; PULSE 55–76; RESP 16–18; TEMP 97.5–98.4; O2SAT 95–100
[2016-09-28] MEDS: AMPICILLIN-SULBACTAM INJ 3 GM in SODIUM CHLORIDE 0.9% INJ 100 ML IV SCH ×4 (04:55→22:32)
[2016-09-28] MEDS: LACTULOSE SYRUP 20 GM/30 ML CUP PEG SCH (09:00)
[2016-09-28] MEDS: ENOXAPARIN SODIUM 40 MG/0.4 ML SYRINGE SQ SCH (09:00)
[2016-09-28] MEDS: SODIUM CHLORIDE 0.9% FLUSH 5 ML FLUSH IVF SCH ×2 (09:00→22:32)
[2016-09-28] MEDS: PANTOPRAZOLE SOD 20 MG DELAYED RELEASE TAB PO SCH (09:00)
[2016-09-28] MEDS: REMOVE OLD PATCH TD SCH (09:00)
[2016-09-28] MEDS: NICOTINE 14 MG/24 HR PATCH TD SCH (10:00)
[2016-09-28] MEDS: DEXAMETHASONE 4 MG TAB PO SCH ×2 (10:01→22:31)
[2016-09-28] MEDS ORDERED: LORazepam 2 MG/ML VIAL IV PUSH ONE (19:45)
[2016-09-28] MEDS: TEMAZEPAM 7.5 MG CAP PO PRN (23:16)
--- NOTE | 2016-09-28 23:39 | HHI.PR ---
Subjective Remarks patient seen this afternoon around 11 AM. patient says he feels well. Denies any chest pain or shortness of breath. Discussed with hematology. failed swallow without.Tube feeds have been increased. Objective Vital Signs Date Time Temp Pulse Resp B/P Pulse Ox O2 Delivery O2 Flow Rate FiO2 09/28/16 20:00 98.2 76 18 106/65 99 09/28/16 18:13 Trach Collar 5.00 28 09/28/16 16:00 98.4 76 18 118/69 100 09/28/16 12:00 97.8 70 16 116/68 97 09/28/16 10:10 T-Piece 5.00 28 09/28/16 09:55 98 T-piece 28 09/28/16 08:00 97.9 61 18 106/57 99 09/28/16 04:00 97.5 55 16 93/55 95 09/28/16 00:00 97.5 59 16 108/59 95 09/28/16 00:00 T-Piece 5.00 28 I/O 09/27/16 09/27/16 09/27/16 09/28/16 09/28/16 09/28/16 07:00 15:00 23:00 07:00 15:00 23:00 Intake Total 2358 ml 2613 ml 0 ml Output Total 800 ml 625 ml 600 ml 500 ml Balance 1558 ml -625 ml 2013 ml -500 ml Intake Oral 480 ml 0 ml IV Total 1523 ml 1500 ml Tube Feeding 715 ml 633 ml Other 120 ml Output Urine Total 800 ml 625 ml 600 ml 500 ml # Voids 1 # Bowel Movements 1 2 Result Diagram: 09/26/16 0531 09/26/16 0531 Procedures 09/13:PEG tube , CT guided bx 09/21. Laryngeal biopsy Objective Remarks GENERAL: Sitting up On side of bed. Alert. Appears comfortable.patient appears in good mood. SKIN: Warm and dry. HEAD: Normocephalic. EYES: No scleral icterus. No injection or drainage. NECK: Tracheostomy in place. no surrounding erythema.No JVD. CARDIOVASCULAR: Regular rate and rhythm without murmurs, gallops, or rubs. RESPIRATORY: Breath sounds equal bilaterally. No accessory muscle use. GASTROINTESTINAL: Abdomen soft, non-tender, nondistended. PEG tube in place. No leakage or surrounding erythema. MUSCULOSKELETAL: No cyanosis, or edema. BACK: Nontender without obvious deformity. No CVA tenderness. A/P Assessment and Plan 09/18: Continue current management, Levaquin, trach management per pulmonology, plan for laryngeal biopsy on 09/21 09/19: Continue to have profuse thick greenish phlegm, CBC pending today, no fever, continue Levaquin and aggressive pulmonary toileting, laryngeal biopsy on Tuesday by ENT, oncology following, pulmonology also following for trach management 09/20: Awaiting laryngeal biopsy, leukocytosis resolved 09/21: Plan for laryngeal biopsy today, leukocytosis resolved however still with excessive dark greenish/brownish phlegm from the track, will consult ID, check chest x-ray, continue Levaquin, send sputum for DIRECTOR PROCESS ENGINEERING and culture 09/22: Status post laryngeal biopsy, appreciate radiation therapy consult, will need teeth extraction, Moraxella tracheitis, chest x-ray did not show infiltrate , pending ID consult, pulmonary following, as well as oncology Discussed with patient, his mother, disease case manager in length regarding discharge planning, due to having the tracheostomy, and no source of payer, will mostly have some difficulty discharging 09/23: 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 Appreciate ID consultation, switched level and Zosyn for Moraxella tracheal bronchitis 09/24. Patient feeling well. Waiting tooth extraction. With radiation therapy , chemotherapy to follow. Continue Zosyn for tracheobronchitis as per infectious disease. 09/25. patient seen and examined. Continue antibiotics as per infectious disease. Difficult discharge. Pending Medicaid. Will need tracheostomy care at home, followup with oncology as outpatient. 09/26. patient requesting sleep medication. Ordered temazepam. Continue antibiotics as per infectious disease. Pending dental consult. Still awaiting Medicaidper home care of tracheostomy. 09/27. Patient doing well. Discussed with oncology. Transitioning to medications per PEG tube. Swallow evaluation pending. Discussed with case management. Working on obtaining outpatient supplies 09/28. Increase tube feeds to goal rate. Waiting on Medicaid application. Appreciate case management assistance. A/P: //Neck malignant neoplasm //Mostly laryngeal neoplasm Appreciate ENT consultation, and oncology follow up, may benefit short of chemotherapy and radiation Continue IV steroids, Tracheostomy placed -s/pPEG placement and CT guided bx of the LN on 09/13 -Laryngeal biopsy done on 09/21 showed invasive moderately differentiated squamous cell carcinoma, plan has been made for radiation therapy, with extraction prior to that, chemotherapy per oncology Hold off on port placement until other recommendation by oncology - Patient will obtain dental evaluation prior to starting radiation therapy as outpatient. Plan per oncology. //Acute leukocytosis with left shift: Resolved //Moraxella purulent tracheobronchitis Could be stress versus steroid-induced Sputum positive for Moraxella catarrhalis and nongroup Streptococcus Negative chest x-ray, blood culture, UA Status post Levaquin and switched to Zosyn 09/22, now Unasyn by ID. Continue Unasyn. -Patient can be transitioned to Augmentin at discharge with stop date 10/06. //Dysphagia s/p PEG 09/13 , continue feeding , monitor Monitor BMP //Alcoholism On CIWA protocol minimal use of mediations at this time //Tobaccoism. Continue nicotine patch. //insomnia. - 09/26. Started temazepam as needed -Monitor. //Prophylaxis. SCDs. Patient is ambulatory.Lovenox on hold. As per surgical service. Discharge Planning Patient with tracheostomy, no payer source, disease case manager following for rehabilitation placement if possible. stage IV cancer. cancer registry manager working on outpatient assistance. Francis Mcfarlane MD Sep 28, 2016 23:39
[2016-09-29] VITALS (8 sets, daily range): BP systolic 101–136; BP diastolic 56–73; PULSE 54–76; RESP 18–20; TEMP 96.5–98; O2SAT 96–100
[2016-09-29] MEDS: AMPICILLIN-SULBACTAM INJ 3 GM in SODIUM CHLORIDE 0.9% INJ 100 ML IV SCH ×4 (04:53→23:39)
[2016-09-29 06:40] LABS: ALKALINE PHOSPHATASE 68 U/L (45-117); ALT (GPT) 51 U/L (12-78); ANION GAP 7 MEQ/L (5-15); AST (GOT) 10 U/L (15-37); BICARBONATE 31.7 MEQ/L (21.0-32.0); BLOOD UREA NITROGEN 18 MG/DL (7-18); CHLORIDE 97 MEQ/L (98-107); GLOMERULAR FILTRATION RATE 145 ML/MIN (>89); POTASSIUM 3.7 MEQ/L (3.5-5.1); SODIUM (NA) 136 MEQ/L (136-145); TOTAL BILIRUBIN ADULT 0.4 MG/DL (0.2-1.0)
[2016-09-29] MEDS: NICOTINE 14 MG/24 HR PATCH TD SCH (08:37)
[2016-09-29] MEDS: ENOXAPARIN SODIUM 40 MG/0.4 ML SYRINGE SQ SCH ×2 (08:38→08:42)
[2016-09-29] MEDS: DEXAMETHASONE 4 MG TAB PO SCH ×2 (08:39→20:26)
[2016-09-29] MEDS: PANTOPRAZOLE SOD 20 MG DELAYED RELEASE TAB PO SCH (08:39)
[2016-09-29] MEDS: HYDROmorphone HCL PF 1 MG/ML VIAL IV PUSH PRN (08:49)
[2016-09-29] MEDS: SODIUM CHLORIDE 0.9% FLUSH 5 ML FLUSH IVF SCH ×2 (09:00→20:26)
[2016-09-29] MEDS: REMOVE OLD PATCH TD SCH (09:00)
[2016-09-29] MEDS: LACTULOSE SYRUP 20 GM/30 ML CUP PEG SCH (09:00)
--- NOTE | 2016-09-29 22:08 | HHI.PR ---
Subjective Remarks Patient seen in the afternoon around 1 PM. Says he is feeling all right. Denies any pain. Denies any nausea or vomiting. Patient. Concerned about his weight going down during admission. We went over his weight, which has gone from 128 pounds to 126 pounds. Continued bowel movements. Objective Vital Signs Date Time Temp Pulse Resp B/P Pulse Ox O2 Delivery O2 Flow Rate FiO2 09/29/16 20:00 97.4 69 18 110/66 100 09/29/16 19:55 100 Trach Collar 5.00 28 09/29/16 15:30 97.7 76 20 121/66 100 09/29/16 12:05 99 Trach Collar 28 09/29/16 11:30 96.8 71 20 114/67 100 09/29/16 09:15 Trach Collar 5.00 09/29/16 08:00 98.0 63 20 136/73 100 09/29/16 04:00 96.5 71 18 101/56 96 09/29/16 00:00 98.0 54 18 115/60 98 I/O 09/28/16 09/28/16 09/28/16 09/29/16 09/29/16 09/29/16 07:00 15:00 23:00 07:00 15:00 23:00 Intake Total 2613 ml 0 ml 0 ml Output Total 600 ml 500 ml 400 ml 450 ml Balance 2013 ml -500 ml -400 ml -450 ml Intake Oral 480 ml 0 ml 0 ml IV Total 1500 ml Tube Feeding 633 ml Output Urine Total 600 ml 500 ml 400 ml 450 ml # Bowel Movements 2 2 Result Diagram: 09/26/16 0531 09/29/16 0455 Procedures 09/13:PEG tube , CT guided bx 09/21. Laryngeal biopsy Objective Remarks GENERAL: Sitting up On side of bed. Alert. Appears comfortable as before. SKIN: Warm and dry. HEAD: Normocephalic. EYES: No scleral icterus. No injection or drainage. NECK: Tracheostomy in place. no surrounding erythema.No JVD. CARDIOVASCULAR: Regular rate and rhythm without murmurs, gallops, or rubs. RESPIRATORY: Breath sounds equal bilaterally. No accessory muscle use. GASTROINTESTINAL: Abdomen soft, non-tender, nondistended. PEG tube in place. No leakage or surrounding erythema. MUSCULOSKELETAL: No cyanosis, or edema. BACK: Nontender without obvious deformity. No CVA tenderness. A/P Assessment and Plan 09/18: Continue current management, Levaquin, trach management per pulmonology, plan for laryngeal biopsy on 09/21 09/19: Continue to have profuse thick greenish phlegm, CBC pending today, no fever, continue Levaquin and aggressive pulmonary toileting, laryngeal biopsy on Tuesday by ENT, oncology following, pulmonology also following for trach management 09/20: Awaiting laryngeal biopsy, leukocytosis resolved 09/21: Plan for laryngeal biopsy today, leukocytosis resolved however still with excessive dark greenish/brownish phlegm from the track, will consult ID, check chest x-ray, continue Levaquin, send sputum for BAKER HEAD and culture 09/22: Status post laryngeal biopsy, appreciate radiation therapy consult, will need teeth extraction, Moraxella tracheitis, chest x-ray did not show infiltrate , pending ID consult, pulmonary following, as well as oncology Discussed with patient, his mother, renal case manager in length regarding discharge planning, due to having the tracheostomy, and no source of payer, will mostly have some difficulty discharging 09/23: 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 Appreciate ID consultation, switched level and Zosyn for Moraxella tracheal bronchitis 09/24. Patient feeling well. Waiting tooth extraction. With radiation therapy , chemotherapy to follow. Continue Zosyn for tracheobronchitis as per infectious disease. 09/25. patient seen and examined. Continue antibiotics as per infectious disease. Difficult discharge. Pending Medicaid. Will need tracheostomy care at home, followup with oncology as outpatient. 09/26. patient requesting sleep medication. Ordered temazepam. Continue antibiotics as per infectious disease. Pending dental consult. Still awaiting Medicaidper home care of tracheostomy. 09/27. Patient doing well. Discussed with oncology. Transitioning to medications per PEG tube. Swallow evaluation pending. Discussed with case management. Working on obtaining outpatient supplies 09/28. Increase tube feeds to goal rate. Waiting on Medicaid application. Appreciate case management assistance. 09/29. Patient seen and examined. No appreciable changes. Continue antibiotics with stop date of 10/06. Discussed with case management and oncology. A/P: //Neck malignant neoplasm //Mostly laryngeal neoplasm Appreciate ENT consultation, and oncology follow up, may benefit short of chemotherapy and radiation Continue IV steroids, Tracheostomy placed -s/pPEG placement and CT guided bx of the LN on 09/13 -Laryngeal biopsy done on 09/21 showed invasive moderately differentiated squamous cell carcinoma, plan has been made for radiation therapy, with extraction prior to that, chemotherapy per oncology Hold off on port placement until other recommendation by oncology - Patient will obtain dental evaluation prior to starting radiation therapy as outpatient. Plan per oncology. //Acute leukocytosis with left shift: Resolved //Moraxella purulent tracheobronchitis Could be stress versus steroid-induced Sputum positive for Moraxella catarrhalis and nongroup Streptococcus Negative chest x-ray, blood culture, UA Status post Levaquin and switched to Zosyn 09/22, now Unasyn by ID. Continue Unasyn. -Patient can be transitioned to Augmentin at discharge with stop date 10/06. //Dysphagia s/p PEG 09/13 , continue feeding , monitor Monitor BMP //Alcoholism Discontinue CIWA protocol. //Tobaccoism. Continue nicotine patch. //insomnia. - 09/26. Started temazepam as needed -Monitor. //Prophylaxis. SCDs. Patient is ambulatory, however effectively and mobile most of the day..Lovenox . Discharge Planning Patient with tracheostomy, no payer source, renal case manager following for rehabilitation placement if possible. stage IV cancer. retail branch manager working on outpatient assistance. Francis Mcfarlane MD Sep 29, 2016 22:07
[2016-09-29] MEDS: TEMAZEPAM 7.5 MG CAP PO PRN (23:39)
[2016-09-30] VITALS (7 sets, daily range): BP systolic 101–132; BP diastolic 57–74; PULSE 61–97; RESP 16–20; TEMP 97–98.3; O2SAT 97–100
[2016-09-30] MEDS: AMPICILLIN-SULBACTAM INJ 3 GM in SODIUM CHLORIDE 0.9% INJ 100 ML IV SCH ×4 (04:55→23:11)
[2016-09-30] MEDS: PANTOPRAZOLE SOD 20 MG DELAYED RELEASE TAB PO SCH (09:00)
[2016-09-30] MEDS: REMOVE OLD PATCH TD SCH (09:00)
[2016-09-30] MEDS: LACTULOSE SYRUP 20 GM/30 ML CUP PEG SCH (09:00)
[2016-09-30] MEDS: ENOXAPARIN SODIUM 40 MG/0.4 ML SYRINGE SQ SCH (09:00)
[2016-09-30] MEDS: NICOTINE 14 MG/24 HR PATCH TD SCH (09:53)
[2016-09-30] MEDS: SODIUM CHLORIDE 0.9% FLUSH 5 ML FLUSH IVF SCH ×2 (09:54→20:17)
[2016-09-30] MEDS: DEXAMETHASONE 4 MG TAB PO SCH ×2 (09:54→20:12)
[2016-09-30] MEDS ORDERED: LORazepam 0.5 MG TAB PO PRN (15:15)
[2016-09-30] MEDS ORDERED: LORazepam 1 MG TAB PO ONE (15:15)
[2016-09-30] MEDS: TEMAZEPAM 7.5 MG CAP PO PRN (23:06)
[2016-10-01] VITALS (8 sets, daily range): BP systolic 102–135; BP diastolic 59–79; PULSE 66–95; RESP 16–20; TEMP 96.7–98.6; O2SAT 95–100
--- NOTE | 2016-10-01 02:05 | HHI.PR ---
Subjective Remarks date of service 09/30/16 Patient seen around 4 PM 09/30/16. He says he is becoming very anxious in the hospital. Would like something for anxiety. He is also not sleeping well at night, would like increase in temazepam. Objective Vital Signs Date Time Temp Pulse Resp B/P Pulse Ox O2 Delivery O2 Flow Rate FiO2 10/01/16 00:00 96.7 95 16 120/74 95 10/01/16 00:00 Room Air 5.00 21 09/30/16 20:19 Room Air 5.00 21 09/30/16 20:00 97.1 97 16 123/70 98 09/30/16 17:00 98.3 64 20 116/69 99 09/30/16 16:00 99 Room Air 21 09/30/16 13:00 97.8 72 18 122/69 100 09/30/16 09:55 Trach Collar 5.00 21 09/30/16 08:00 98.3 77 18 101/65 98 09/30/16 07:45 98 Trach Collar 09/30/16 04:00 97.0 75 18 118/57 97 09/30/16 04:00 Trach Collar 5.00 28 I/O 09/30/16 09/30/16 09/30/16 10/01/16 10/01/16 10/01/16 07:00 15:00 23:00 07:00 15:00 23:00 Intake Total 710 ml 747 ml 110 ml Output Total 300 ml 815.0 ml Balance 410 ml 747 ml -705.0 ml Intake Oral 0 ml IV Total 110 ml 115 ml 110 ml Tube Feeding 600 ml 602 ml Tube Irrigant 30 ml Output Urine Total 300 ml 800 ml Tube Feeding Residual Discard 15.0 ml # Voids 1 # Bowel Movements 1 1 Result Diagram: 09/29/16 0455 Procedures 09/13:PEG tube , CT guided bx 09/21. Laryngeal biopsy Objective Remarks GENERAL: Sitting up On side of bed. Alert. Appears comfortable as before.no change on exam. SKIN: Warm and dry. HEAD: Normocephalic. EYES: No scleral icterus. No injection or drainage. NECK: Tracheostomy in place. no surrounding erythema.No JVD. CARDIOVASCULAR: Regular rate and rhythm without murmurs, gallops, or rubs. RESPIRATORY: Breath sounds equal bilaterally. No accessory muscle use. GASTROINTESTINAL: Abdomen soft, non-tender, nondistended. PEG tube in place. No leakage or surrounding erythema. MUSCULOSKELETAL: No cyanosis, or edema. BACK: Nontender without obvious deformity. No CVA tenderness. A/P Assessment and Plan 09/18: Continue current management, Levaquin, trach management per pulmonology, plan for laryngeal biopsy on 09/21 09/19: Continue to have profuse thick greenish phlegm, CBC pending today, no fever, continue Levaquin and aggressive pulmonary toileting, laryngeal biopsy on Tuesday by ENT, oncology following, pulmonology also following for trach management 09/20: Awaiting laryngeal biopsy, leukocytosis resolved 09/21: Plan for laryngeal biopsy today, leukocytosis resolved however still with excessive dark greenish/brownish phlegm from the track, will consult ID, check chest x-ray, continue Levaquin, send sputum for TOE LASTER and culture 09/22: Status post laryngeal biopsy, appreciate radiation therapy consult, will need teeth extraction, Moraxella tracheitis, chest x-ray did not show infiltrate , pending ID consult, pulmonary following, as well as oncology Discussed with patient, his mother, shoe caser in length regarding discharge planning, due to having the tracheostomy, and no source of payer, will mostly have some difficulty discharging 09/23: 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 Appreciate ID consultation, switched level and Zosyn for Moraxella tracheal bronchitis 09/24. Patient feeling well. Waiting tooth extraction. With radiation therapy , chemotherapy to follow. Continue Zosyn for tracheobronchitis as per infectious disease. 09/25. patient seen and examined. Continue antibiotics as per infectious disease. Difficult discharge. Pending Medicaid. Will need tracheostomy care at home, followup with oncology as outpatient. 09/26. patient requesting sleep medication. Ordered temazepam. Continue antibiotics as per infectious disease. Pending dental consult. Still awaiting Medicaidper home care of tracheostomy. 09/27. Patient doing well. Discussed with oncology. Transitioning to medications per PEG tube. Swallow evaluation pending. Discussed with case management. Working on obtaining outpatient supplies 09/28. Increase tube feeds to goal rate. Waiting on Medicaid application. Appreciate case management assistance. 09/29. Patient seen and examined. No appreciable changes. Continue antibiotics with stop date of 10/06. Discussed with case management and oncology. 12/01. Patient reports increase in anxiety. Requests medication for anxiety. Start as needed Ativan. Increase temazepam to 15 mg at night. A/P: //Neck malignant neoplasm //Mostly laryngeal neoplasm Appreciate ENT consultation, and oncology follow up, may benefit short of chemotherapy and radiation Continue IV steroids, Tracheostomy placed -s/pPEG placement and CT guided bx of the LN on 09/13 -Laryngeal biopsy done on 09/21 showed invasive moderately differentiated squamous cell carcinoma, plan has been made for radiation therapy, with extraction prior to that, chemotherapy per oncology Hold off on port placement until other recommendation by oncology - Patient will obtain dental evaluation prior to starting radiation therapy as outpatient. Plan per oncology. //Acute leukocytosis with left shift: Resolved //Moraxella purulent tracheobronchitis Could be stress versus steroid-induced Sputum positive for Moraxella catarrhalis and nongroup Streptococcus Negative chest x-ray, blood culture, UA Status post Levaquin and switched to Zosyn 09/22, now Unasyn by ID. Continue Unasyn. -Patient can be transitioned to Augmentin at discharge with stop date 10/06. //Dysphagia s/p PEG 09/13 , continue feeding , monitor Monitor BMP //Alcoholism Discontinue CIWA protocol. //Tobaccoism. Continue nicotine patch. //insomnia. - 09/26. Started temazepam as needed -Monitor. //Prophylaxis. SCDs. Patient is ambulatory, however effectively immobile most of the day..Lovenox . Discharge Planning Patient with tracheostomy, no payer source, shoe caser following for rehabilitation placement if possible. stage IV cancer. manager operations and procurement working on outpatient assistance. Francis Mcfarlane MD Oct 01, 2016 02:04
[2016-10-01] MEDS: AMPICILLIN-SULBACTAM INJ 3 GM in SODIUM CHLORIDE 0.9% INJ 100 ML IV SCH ×4 (05:00→23:16)
[2016-10-01] MEDS ORDERED: PILL SPLITTER OTHER PRN (08:30)
[2016-10-01] MEDS: PANTOPRAZOLE SOD 20 MG DELAYED RELEASE TAB PO SCH (08:40)
[2016-10-01] MEDS: LACTULOSE SYRUP 20 GM/30 ML CUP PEG SCH (08:40)
[2016-10-01] MEDS: SODIUM CHLORIDE 0.9% FLUSH 5 ML FLUSH IVF SCH ×2 (08:40→23:15)
[2016-10-01] MEDS: DEXAMETHASONE 4 MG TAB PO SCH ×2 (08:41→23:15)
[2016-10-01] MEDS: ENOXAPARIN SODIUM 40 MG/0.4 ML SYRINGE SQ SCH (08:41)
[2016-10-01] MEDS: NICOTINE 14 MG/24 HR PATCH TD SCH (08:42)
[2016-10-01] MEDS: REMOVE OLD PATCH TD SCH (08:42)
--- NOTE | 2016-10-01 09:30 | PD.ONC.PN ---
Subjective Subjective Remarks Afebrile overnight. Mr. Guzman is very frustrated that he is still in the hospital and that he is losing weight. He is angry that he cannot go home. Objective Data Date Time Temp Pulse Resp B/P Pulse Ox O2 Delivery O2 Flow Rate FiO2 10/01/16 07:00 97.1 68 20 135/67 99 10/01/16 05:36 96.7 66 16 116/63 96 10/01/16 04:00 Room Air 10/01/16 00:00 96.7 95 16 120/74 95 10/01/16 00:00 Room Air 5.00 21 09/30/16 20:19 Room Air 5.00 21 09/30/16 20:00 97.1 97 16 123/70 98 09/30/16 17:00 98.3 64 20 116/69 99 09/30/16 16:00 99 Room Air 21 09/30/16 13:00 97.8 72 18 122/69 100 09/30/16 09:55 Trach Collar 5.00 21 10/01/16 10/01/16 10/01/16 07:00 15:00 23:00 Intake Total 710 ml Output Total 300 ml Balance 410 ml Result Diagram: 09/29/16 0455 Administered Medications Medications (Trade) Dose Ordered Sig/Susan Route PRN Reason Start Time Stop Time Status Last Admin Dose Admin Enoxaparin Sodium (Lovenox Inj) 40 mg Q24H SQ 09/09/16 09:00 10/01/16 08:41 IV Flush (NS Flush) 2 ml BID IVF 09/09/16 09:00 09/30/16 20:17 IV Flush (NS Flush) 2 ml UNSCH PRN IVF FLUSH AFTER USING IV ACCESS 09/09/16 01:30 09/16/16 05:38 Acetaminophen (Tylenol) 650 mg Q4H PRN PO Temp > 100.4 09/09/16 18:30 09/14/16 14:31 Senna/Docusate Sodium (Lula-Colace) 1 tab BID PRN PO CONSTIPATION 09/09/16 18:30 09/22/16 13:59 Magnesium Hydroxide (Milk Of Magnesia Liq) 30 ml DAILY PRN PO for Severe Constipation 09/09/16 18:30 09/16/16 13:51 Miscellaneous Information Patient in critical care unit? Ass... [id number] XX 09/10/16 00:15 09/10/16 00:15 Hydromorphone HCl (Dilaudid Pf Inj) 0.5 mg Q4H PRN IV PUSH pain 09/11/16 12:15 09/29/16 08:49 Lactulose (Lactulose Liq) 30 ml DAILY PEG 09/21/16 09:00 10/01/16 08:40 Nicotine (Habitrol 14 Mg Patch.24 Hr) 1 patch DAILY TD 09/23/16 18:52 10/01/16 08:42 Miscellaneous Information 1 1 DAILY TD 09/24/16 09:00 10/01/16 08:42 Ampicillin Sodium/ Sulbactam Sodium/ Sodium Chloride (Unasyn Inj/NS Inj) 100 ml @ 200 mls/hr Q6H IV 09/24/16 23:00 10/01/16 05:00 Pantoprazole Sodium (Protonix) 20 mg DAILY PO 09/28/16 09:00 09/29/16 08:39 Lorazepam (Ativan) 0.5 mg Q8H PRN PO ANXIETY 09/30/16 15:15 10/01/16 08:40 Temazepam (Restoril) 15 mg HS PRN PO INSOMNIA 09/30/16 19:00 09/30/16 23:06 Dexamethasone (Decadron) 2 mg Q12HR PO 10/01/16 09:00 10/01/16 08:41 Objective Remarks GENERAL: Middle aged malnourished male, sitting up in bed, irritable. On room air. SKIN: Warm and dry. HEAD: Normocephalic. EYES: No injection or drainage. NECK: Supple, trachea midline. CARDIOVASCULAR: Regular rate and rhythm RESPIRATORY: Breath sounds equal bilaterally. No accessory muscle use. GASTROINTESTINAL: Abdomen soft, non-tender, nondistended. G-tube in place, receiving TF at 75cc/hour EXTREMITIES: No cyanosis. SCD's in place, bilateral lower extremities. NEUROLOGICAL: awake and alert, normal speech. ambulatory in room without assistance. Assessment/Plan Problem List: (1) Malnutrition Status: Acute Plan: 10/01/16; tolerating Jevity 1.5 @ 75cc/hr. continue 09/27/16: receiving Jevity 1.5 @ 55cc/hour. will increase to 70cc/hr as was dietary recommendations and ask them to re-evaluate to make sure we are on the right track. 09/13/16: PEG tube placement today (2) Squamous cell carcinoma of larynx Status: Acute Plan: --plan for concurrent chemoradiotherapy once dental exam complete History/Workup --pain in his throat and difficulty speaking for the past 4-5 months. --35 pound weight loss + difficulty swallowing --42 pack year tobacco history + heavy alcohol use --CT soft tissues neck-->near obstructing mass involving the larynx. The tumor appeared to be originating in the region of the false vocal cords and the bulk of the disease was on the right side. Necrotic and enlarged appearing lymph nodes appeared bilaterally on the neck which were concerning for metastatic adenopathy. --CT C/A/P: no definite metastatic disease, --s/p trach placement, PEG tube placement, port placement and mass biopsy by ENT. --Given the likely diagnosis of laryngeal malignancy and lack of evidence of distal metastatic disease-->patient will likely be a good candidate for concurrent chemoradiotherapy. --fs faxed to new patient referrals. --Pathology showed invasive, moderately differentiated squamous cell carcinoma. Assessment 55y/o with Stage AYSE squamous cell carcinoma of the larynx. Plan 1. continue TF at 75cc/hour 2. reduce Decadron to 2mg PO BID. plan to taper off steroids in next few days. 3. continue Lovenox prophylaxis 4. O2 walk test d/w patient, correctional casework specialist Tata Hopper Oct 01, 2016 09:30
[2016-10-01] MEDS ORDERED: DIAZEPAM 5 MG TAB PO ONE (14:00)
[2016-10-01] MEDS ORDERED: LORazepam 1 MG TAB PO PRN (16:00)
--- NOTE | 2016-10-01 20:00 | HHI.PR ---
Subjective Remarks patient seen today around 3 PM. He says that he is very anxious, muscle, he is upset that he is becoming annoyed at his mother, her and her feelings. He has for something to help him calm down. We discussed antidepressants such as Remeron, and he refuses. Will start Valium twice daily, with Ativan as needed. Objective Vital Signs Date Time Temp Pulse Resp B/P Pulse Ox O2 Delivery O2 Flow Rate FiO2 10/01/16 18:17 99 21 10/01/16 15:45 Room Air 10/01/16 15:00 98.6 86 20 102/60 100 10/01/16 11:45 98.0 83 20 113/59 100 10/01/16 10:57 98 Trach Collar 21 10/01/16 08:50 Room Air 10/01/16 07:00 97.1 68 20 135/67 99 10/01/16 05:36 96.7 66 16 116/63 96 10/01/16 04:00 Room Air 10/01/16 00:00 96.7 95 16 120/74 95 10/01/16 00:00 Room Air 5.00 21 09/30/16 20:19 Room Air 5.00 21 09/30/16 20:00 97.1 97 16 123/70 98 I/O 09/30/16 09/30/16 09/30/16 10/01/16 10/01/16 10/01/16 07:00 15:00 23:00 07:00 15:00 23:00 Intake Total 710 ml 747 ml 110 ml 710 ml 0 ml Output Total 300 ml 815.0 ml 300 ml 450 ml Balance 410 ml 747 ml -705.0 ml 410 ml -450 ml Intake Oral 0 ml 0 ml 0 ml IV Total 110 ml 115 ml 110 ml 110 ml Tube Feeding 600 ml 602 ml 600 ml Tube Irrigant 30 ml Output Urine Total 300 ml 800 ml 300 ml 450 ml Tube Feeding Residual Discard 15.0 ml # Voids 1 3 # Bowel Movements 1 1 0 2 Result Diagram: 09/29/16 0455 Procedures 09/13:PEG tube , CT guided bx 09/21. Laryngeal biopsy Objective Remarks GENERAL: Sitting up On side of bed. Alert. Appears comfortable as before.patient is breathing comfortably. SKIN: Warm and dry. HEAD: Normocephalic. EYES: No scleral icterus. No injection or drainage. NECK: Tracheostomy in place. no surrounding erythema.No JVD. CARDIOVASCULAR: Regular rate and rhythm without murmurs, gallops, or rubs. RESPIRATORY: Breath sounds equal bilaterally. No accessory muscle use. GASTROINTESTINAL: Abdomen soft, non-tender, nondistended. PEG tube in place. No leakage or surrounding erythema. MUSCULOSKELETAL: No cyanosis, or edema. BACK: Nontender without obvious deformity. No CVA tenderness. A/P Assessment and Plan 09/18: Continue current management, Levaquin, trach management per pulmonology, plan for laryngeal biopsy on 09/21 09/19: Continue to have profuse thick greenish phlegm, CBC pending today, no fever, continue Levaquin and aggressive pulmonary toileting, laryngeal biopsy on Tuesday by ENT, oncology following, pulmonology also following for trach management 09/20: Awaiting laryngeal biopsy, leukocytosis resolved 09/21: Plan for laryngeal biopsy today, leukocytosis resolved however still with excessive dark greenish/brownish phlegm from the track, will consult ID, check chest x-ray, continue Levaquin, send sputum for LABORATORY CHEMICAL ASSISTANT and culture 09/22: Status post laryngeal biopsy, appreciate radiation therapy consult, will need teeth extraction, Moraxella tracheitis, chest x-ray did not show infiltrate , pending ID consult, pulmonary following, as well as oncology Discussed with patient, his mother, showcase maker in length regarding discharge planning, due to having the tracheostomy, and no source of payer, will mostly have some difficulty discharging 09/23: 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 Appreciate ID consultation, switched level and Zosyn for Moraxella tracheal bronchitis 09/24. Patient feeling well. Waiting tooth extraction. With radiation therapy , chemotherapy to follow. Continue Zosyn for tracheobronchitis as per infectious disease. 09/25. patient seen and examined. Continue antibiotics as per infectious disease. Difficult discharge. Pending Medicaid. Will need tracheostomy care at home, followup with oncology as outpatient. 09/26. patient requesting sleep medication. Ordered temazepam. Continue antibiotics as per infectious disease. Pending dental consult. Still awaiting Medicaidper home care of tracheostomy. 09/27. Patient doing well. Discussed with oncology. Transitioning to medications per PEG tube. Swallow evaluation pending. Discussed with case management. Working on obtaining outpatient supplies 09/28. Increase tube feeds to goal rate. Waiting on Medicaid application. Appreciate case management assistance. 09/29. Patient seen and examined. No appreciable changes. Continue antibiotics with stop date of 10/06. Discussed with case management and oncology. 12/01. Patient reports increase in anxiety. Requests medication for anxiety. Start as needed Ativan. Increase temazepam to 15 mg at night. 10/01. Patient says that Ativan is not working. We will switch to deny him 5 mg twice daily, with Ativan as needed. Continue temazepam for sleep at night. A/P: //Neck malignant neoplasm //Mostly laryngeal neoplasm Appreciate ENT consultation, and oncology follow up, may benefit short of chemotherapy and radiation Continue IV steroids, Tracheostomy placed -s/pPEG placement and CT guided bx of the LN on 09/13 -Laryngeal biopsy done on 09/21 showed invasive moderately differentiated squamous cell carcinoma, plan has been made for radiation therapy, with extraction prior to that, chemotherapy per oncology Hold off on port placement until other recommendation by oncology - Patient will obtain dental evaluation prior to starting radiation therapy as outpatient. Plan per oncology. //Acute leukocytosis with left shift: Resolved //Moraxella purulent tracheobronchitis Could be stress versus steroid-induced Sputum positive for Moraxella catarrhalis and nongroup Streptococcus Negative chest x-ray, blood culture, UA Status post Levaquin and switched to Zosyn 09/22, now Unasyn by ID. Continue Unasyn. -Patient can be transitioned to Augmentin at discharge with stop date 10/06. //Dysphagia s/p PEG 09/13 , continue feeding , monitor Monitor BMP //Alcoholism Discontinue CIWA protocol. //Tobaccoism. Continue nicotine patch. //insomnia. - 09/26. Started temazepam as needed -Monitor. //anxiety. Continue patient on benzodiazepines, Valium scheduled, Ativan as needed. Continue monitor. //Prophylaxis. SCDs. Patient is ambulatory, however effectively immobile most of the day..Lovenox . Discharge Planning Patient with tracheostomy, no payer source, showcase maker following for rehabilitation placement if possible. stage IV cancer. assistant import manager working on outpatient assistance.possibly discharge in a few days when assistance in place Francis Mcfarlane MD Oct 01, 2016 20:00
[2016-10-01] MEDS: DIAZEPAM 5 MG TAB PO SCH (23:15)
[2016-10-02] VITALS (7 sets, daily range): BP systolic 92–116; BP diastolic 60–68; PULSE 68–92; RESP 18–20; TEMP 96.5–98.3; O2SAT 97–100
[2016-10-02] MEDS: TEMAZEPAM 7.5 MG CAP PO PRN (02:47)
[2016-10-02] MEDS: LORazepam 0.5 MG TAB PO PRN ×4 (03:22→21:33)
[2016-10-02] MEDS: AMPICILLIN-SULBACTAM INJ 3 GM in SODIUM CHLORIDE 0.9% INJ 100 ML IV SCH ×4 (05:39→22:47)
[2016-10-02] MEDS: REMOVE OLD PATCH TD SCH (09:00)
[2016-10-02] MEDS: LACTULOSE SYRUP 20 GM/30 ML CUP PEG SCH (09:00)
[2016-10-02] MEDS: DIAZEPAM 5 MG TAB PO SCH ×2 (09:39→20:39)
[2016-10-02] MEDS: SODIUM CHLORIDE 0.9% FLUSH 5 ML FLUSH IVF SCH ×2 (09:39→20:39)
[2016-10-02] MEDS: DEXAMETHASONE 0.5 MG TAB PO SCH ×2 (09:39→20:38)
[2016-10-02] MEDS: PANTOPRAZOLE SOD 20 MG DELAYED RELEASE TAB PO SCH (09:39)
[2016-10-02] MEDS: NICOTINE 14 MG/24 HR PATCH TD SCH (09:40)
[2016-10-02] MEDS: ENOXAPARIN SODIUM 40 MG/0.4 ML SYRINGE SQ SCH (09:40)
--- NOTE | 2016-10-02 10:53 | HHI.PR ---
Subjective Remarks Patient sitting on the edge of the bed, reported no complain Follow up for laryngeal cancer, awaiting dentist evaluation prior to radiation therapy Objective Vitals Vital Signs Date Time Temp Pulse Resp B/P Pulse Ox O2 Delivery O2 Flow Rate FiO2 10/02/16 08:15 96.5 92 18 92/64 100 10/02/16 06:52 97.1 73 20 116/67 98 10/02/16 00:00 98.3 68 18 110/61 97 10/01/16 23:00 98 Room Air 5.00 21 10/01/16 20:00 97.8 86 18 127/79 98 10/01/16 18:17 99 21 10/01/16 15:45 Room Air 10/01/16 15:00 98.6 86 20 102/60 100 10/01/16 11:45 98.0 83 20 113/59 100 10/01/16 10:57 98 Trach Collar 21 I/O 10/01/16 10/01/16 10/01/16 10/02/16 10/02/16 10/02/16 07:00 15:00 23:00 07:00 15:00 23:00 Intake Total 710 ml 0 ml 0 ml 0 ml 0 ml Output Total 300 ml 450 ml 800 ml Balance 410 ml -450 ml 0 ml -800 ml 0 ml Intake Oral 0 ml 0 ml 0 ml 0 ml 0 ml IV Total 110 ml Tube Feeding 600 ml Output Urine Total 300 ml 450 ml 800 ml # Voids 3 0 1 # Bowel Movements 0 2 0 0 1 Result Diagram: 09/29/16 0455 Objective Remarks GENERAL: This is a well-nourished, well-developed patient, in no apparent distress. NECK: Trachea in place CARDIOVASCULAR: Regular rate and rhythm without murmurs, gallops, or rubs. RESPIRATORY: Fair air entry bilaterally. No wheezes, rales, or rhonchi. Tracheostomy in place GASTROINTESTINAL: Abdomen soft, non-tender, nondistended. Positive bowel sounds MUSCULOSKELETAL: Extremities without clubbing, cyanosis, or edema. Pedal pulses appreciated NEUROLOGICAL: Awake and alert. Moves all extremity. 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 Status: Acute (2) Dysphagia ICD Code: R13.10 Status: Acute (3) ETOHism ICD Code: F10.20 Status: Acute Assessment and Plan 09/18: Continue current management, Levaquin, trach management per pulmonology, plan for laryngeal biopsy on 09/21 09/19: Continue to have profuse thick greenish phlegm, CBC pending today, no fever, continue Levaquin and aggressive pulmonary toileting, laryngeal biopsy on Tuesday by ENT, oncology following, pulmonology also following for trach management 09/20: Awaiting laryngeal biopsy, leukocytosis resolved 09/21: Plan for laryngeal biopsy today, leukocytosis resolved however still with excessive dark greenish/brownish phlegm from the track, will consult ID, check chest x-ray, continue Levaquin, send sputum for PROFESSOR OF LANGUAGES and culture 09/22: Status post laryngeal biopsy, appreciate radiation therapy consult, will need teeth extraction, Moraxella tracheitis, chest x-ray did not show infiltrate , pending ID consult, pulmonary following, as well as oncology Discussed with patient, his mother, case supervisor in length regarding discharge planning, due to having the tracheostomy, and no source of payer, will mostly have some difficulty discharging 09/23: 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 Appreciate ID consultation, switched level and Zosyn for Moraxella tracheal bronchitis 09/24. Patient feeling well. Waiting tooth extraction. With radiation therapy , chemotherapy to follow. Continue Zosyn for tracheobronchitis as per infectious disease. 09/25. patient seen and examined. Continue antibiotics as per infectious disease. Difficult discharge. Pending Medicaid. Will need tracheostomy care at home, followup with oncology as outpatient. 09/26. patient requesting sleep medication. Ordered temazepam. Continue antibiotics as per infectious disease. Pending dental consult. Still awaiting Medicaidper home care of tracheostomy. 09/27. Patient doing well. Discussed with oncology. Transitioning to medications per PEG tube. Swallow evaluation pending. Discussed with case management. Working on obtaining outpatient supplies 09/28. Increase tube feeds to goal rate. Waiting on Medicaid application. Appreciate case management assistance. 09/29. Patient seen and examined. No appreciable changes. Continue antibiotics with stop date of 10/06. Discussed with case management and oncology. 12/01. Patient reports increase in anxiety. Requests medication for anxiety. Start as needed Ativan. Increase temazepam to 15 mg at night. 10/01. Patient says that Ativan is not working. We will switch to deny him 5 mg twice daily, with Ativan as needed. Continue temazepam for sleep at night. 10/02: Continue current care, discharge pending home care A/P: *Neck malignant neoplasm *Mostly laryngeal neoplasm Appreciate ENT consultation, and oncology follow up, may benefit short of chemotherapy and radiation Continue IV steroids, Tracheostomy placed -s/pPEG placement and CT guided bx of the LN on 09/13 -Laryngeal biopsy done on 09/21 showed invasive moderately differentiated squamous cell carcinoma, plan has been made for radiation therapy, with extraction prior to that, chemotherapy per oncology Hold off on port placement until other recommendation by oncology - Patient will obtain dental evaluation prior to starting radiation therapy as outpatient. Plan per oncology. *Acute leukocytosis with left shift: Resolved *Moraxella purulent tracheobronchitis Could be stress versus steroid-induced Sputum positive for Moraxella catarrhalis and nongroup Streptococcus Negative chest x-ray, blood culture, UA Status post Levaquin and switched to Zosyn 09/22, now Unasyn by ID. Continue Unasyn. -Patient can be transitioned to Augmentin at discharge with stop date 10/06. *Dysphagia s/p PEG 09/13 , continue feeding , monitor Monitor BMP *Alcoholism Discontinue CIWA protocol. *Tobaccoism. Continue nicotine patch. *insomnia. - 09/26. Started temazepam as needed -Monitor. * //anxiety. Continue patient on benzodiazepines, Valium scheduled, Ativan as needed. Continue monitor. * Prophylaxis. SCDs. Patient is ambulatory, however effectively immobile most of the day..Lovenox . Discharge Planning Patient with tracheostomy, no payer source, case supervisor following for rehabilitation placement if possible Julissa Santizo MD Oct 02, 2016 10:53
[2016-10-03] VITALS (8 sets, daily range): BP systolic 95–119; BP diastolic 58–73; PULSE 69–108; RESP 16–20; TEMP 97.2–98.3; O2SAT 97–100
[2016-10-03] MEDS: TEMAZEPAM 7.5 MG CAP PO PRN (00:50)
[2016-10-03] MEDS: LORazepam 0.5 MG TAB PO PRN ×3 (04:25→23:49)
[2016-10-03] MEDS: AMPICILLIN-SULBACTAM INJ 3 GM in SODIUM CHLORIDE 0.9% INJ 100 ML IV SCH ×4 (04:26→22:48)
[2016-10-03] MEDS: LACTULOSE SYRUP 20 GM/30 ML CUP PEG SCH (09:00)
[2016-10-03] MEDS: REMOVE OLD PATCH TD SCH (09:00)
[2016-10-03] MEDS: NICOTINE 14 MG/24 HR PATCH TD SCH (09:44)
[2016-10-03] MEDS: PANTOPRAZOLE SOD 20 MG DELAYED RELEASE TAB PO SCH (09:45)
[2016-10-03] MEDS: DIAZEPAM 5 MG TAB PO SCH ×2 (09:45→21:43)
[2016-10-03] MEDS: ENOXAPARIN SODIUM 40 MG/0.4 ML SYRINGE SQ SCH (09:45)
[2016-10-03] MEDS: DEXAMETHASONE 0.5 MG TAB PO SCH ×2 (09:45→21:43)
[2016-10-03] MEDS: SODIUM CHLORIDE 0.9% FLUSH 5 ML FLUSH IVF SCH ×2 (09:46→21:48)
[2016-10-03] MEDS: HYDROmorphone HCL PF 1 MG/ML VIAL IV PUSH PRN ×3 (10:51→22:46)
--- NOTE | 2016-10-03 10:51 | HHI.PR ---
Subjective Remarks Patient seen on the edge of the bed, he is on pleasant, had many questions about when that he got a new discharge, and when the dentist will be seeing him I explained to him that today is the , will try to get more answers tomorrow Objective Vitals Vital Signs Date Time Temp Pulse Resp B/P Pulse Ox O2 Delivery O2 Flow Rate FiO2 10/03/16 09:36 99 21 10/03/16 08:00 97.2 83 20 95/60 100 10/03/16 04:00 97.2 71 16 107/62 98 10/03/16 00:00 98.2 69 16 115/73 99 10/02/16 20:38 Room Air 5.00 21 10/02/16 20:00 97.7 75 18 106/64 99 10/02/16 16:00 98.1 85 18 106/68 100 10/02/16 12:00 97.0 88 18 105/60 98 I/O 10/02/16 10/02/16 10/02/16 10/03/16 10/03/16 10/03/16 06:59 14:59 22:59 06:59 14:59 22:59 Intake Total 0 ml 142 ml Output Total 800 ml 300 ml Balance -800 ml -158 ml Intake Oral 0 ml 0 ml IV Total 142 ml Output Urine Total 800 ml 300 ml # Voids 1 2 1 # Bowel Movements 0 2 1 Result Diagram: 09/29/16 0455 Objective Remarks GENERAL: This is a well-nourished, well-developed patient, in no apparent distress. NECK: Trachea in place CARDIOVASCULAR: Regular rate and rhythm without murmurs, gallops, or rubs. RESPIRATORY: Fair air entry bilaterally. No wheezes, rales, or rhonchi. Tracheostomy in place GASTROINTESTINAL: Abdomen soft, non-tender, nondistended. Positive bowel sounds MUSCULOSKELETAL: Extremities without clubbing, cyanosis, or edema. Pedal pulses appreciated NEUROLOGICAL: Awake and alert. Moves all extremity. 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 Status: Acute (2) Dysphagia ICD Code: R13.10 Status: Acute (3) ETOHism ICD Code: F10.20 Status: Acute Assessment and Plan 09/18: Continue current management, Levaquin, trach management per pulmonology, plan for laryngeal biopsy on 09/21 09/19: Continue to have profuse thick greenish phlegm, CBC pending today, no fever, continue Levaquin and aggressive pulmonary toileting, laryngeal biopsy on Tuesday by ENT, oncology following, pulmonology also following for trach management 09/20: Awaiting laryngeal biopsy, leukocytosis resolved 09/21: Plan for laryngeal biopsy today, leukocytosis resolved however still with excessive dark greenish/brownish phlegm from the track, will consult ID, check chest x-ray, continue Levaquin, send sputum for LENS FINISHER and culture 09/22: Status post laryngeal biopsy, appreciate radiation therapy consult, will need teeth extraction, Moraxella tracheitis, chest x-ray did not show infiltrate , pending ID consult, pulmonary following, as well as oncology Discussed with patient, his mother, director case in length regarding discharge planning, due to having the tracheostomy, and no source of payer, will mostly have some difficulty discharging 09/23: 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 Appreciate ID consultation, switched level and Zosyn for Moraxella tracheal bronchitis 09/24. Patient feeling well. Waiting tooth extraction. With radiation therapy , chemotherapy to follow. Continue Zosyn for tracheobronchitis as per infectious disease. 09/25. patient seen and examined. Continue antibiotics as per infectious disease. Difficult discharge. Pending Medicaid. Will need tracheostomy care at home, followup with oncology as outpatient. 09/26. patient requesting sleep medication. Ordered temazepam. Continue antibiotics as per infectious disease. Pending dental consult. Still awaiting Medicaidper home care of tracheostomy. 09/27. Patient doing well. Discussed with oncology. Transitioning to medications per PEG tube. Swallow evaluation pending. Discussed with case management. Working on obtaining outpatient supplies 09/28. Increase tube feeds to goal rate. Waiting on Medicaid application. Appreciate case management assistance. 09/29. Patient seen and examined. No appreciable changes. Continue antibiotics with stop date of 10/06. Discussed with case management and oncology. 2/22. Patient reports increase in anxiety. Requests medication for anxiety. Start as needed Ativan. Increase temazepam to 15 mg at night. 10/01. Patient says that Ativan is not working. We will switch to deny him 5 mg twice daily, with Ativan as needed. Continue temazepam for sleep at night. 10/02: Continue current care, discharge pending home care 10/03: No acute issue continue current care, awaiting dental evaluation followed by radiation therapy, discharged effort ongoing A/P: *Neck malignant neoplasm *Mostly laryngeal neoplasm Appreciate ENT consultation, and oncology follow up, may benefit short of chemotherapy and radiation Continue IV steroids, Tracheostomy placed -s/pPEG placement and CT guided bx of the LN on 09/13 -Laryngeal biopsy done on 09/21 showed invasive moderately differentiated squamous cell carcinoma, plan has been made for radiation therapy, with extraction prior to that, chemotherapy per oncology Hold off on port placement until other recommendation by oncology - Patient will obtain dental evaluation prior to starting radiation therapy as outpatient. Plan per oncology. *Acute leukocytosis with left shift: Resolved *Moraxella purulent tracheobronchitis Could be stress versus steroid-induced Sputum positive for Moraxella catarrhalis and nongroup Streptococcus Negative chest x-ray, blood culture, UA Status post Levaquin and switched to Zosyn 09/22, now Unasyn by ID. Continue Unasyn. -Patient can be transitioned to Augmentin at discharge with stop date 10/06. *Dysphagia s/p PEG 09/13 , continue feeding , monitor Monitor BMP *Alcoholism Discontinue CIWA protocol. *Tobaccoism. Continue nicotine patch. *insomnia. - 09/26. Started temazepam as needed -Monitor. * //anxiety. Continue patient on benzodiazepines, Valium scheduled, Ativan as needed. Continue monitor. * Prophylaxis. SCDs. Patient is ambulatory, however effectively immobile most of the day..Lovenox . Discharge Planning Patient with tracheostomy, no payer source, director case following for rehabilitation placement if possible Julissa Santizo MD Oct 03, 2016 10:51
[2016-10-03] MEDS: SODIUM CHLORIDE 0.9% FLUSH 5 ML FLUSH IVF PRN (10:52)
[2016-10-03] MEDS: Infusaport/Implanted VAD PRN NS Lock Flush IVF (23:44)
[2016-10-04] VITALS (8 sets, daily range): BP systolic 103–122; BP diastolic 53–61; PULSE 84–100; RESP 16–18; TEMP 96.6–98.7; O2SAT 94–97
[2016-10-04] MEDS: AMPICILLIN-SULBACTAM INJ 3 GM in SODIUM CHLORIDE 0.9% INJ 100 ML IV SCH ×4 (05:36→23:12)
[2016-10-04] MEDS: HYDROmorphone HCL PF 1 MG/ML VIAL IV PUSH PRN ×2 (05:48→13:30)
[2016-10-04] MEDS: LORazepam 0.5 MG TAB PO PRN (05:48)
[2016-10-04] MEDS: Infusaport/Implanted VAD PRN NS Lock Flush IVF (06:43)
[2016-10-04 07:04] LABS: AUTOMATED NEUTROPHIL # 10.7 TH/MM3 (1.8-7.7); BASOPHIL % 0.1 % (0.0-2.0); EOSINOPHIL % 0.4 % (0.0-4.0); HEMATOCRIT 32.7 % (39.0-51.0); HEMO FLAGS DIFF FINAL; LYMPH % 5.2 % (9.0-44.0); LYMPHOCYTE # 0.6 TH/MM3 (1.0-4.8); MEAN CELL VOLUME 90.4 FL (80.0-100.0); MEAN CORPUSCULAR HEMOGLOBIN 30.9 PG (27.0-34.0); MEAN CORPUSCULAR HGB CONC 34.2 % (32.0-36.0); MONO % 3.3 % (0.0-8.0); PLATELET COUNT 176 TH/MM3 (150-450); RED BLOOD COUNT 3.62 MIL/MM3 (4.50-5.90); RED CELL DISTRIBUTION WIDTH 14.6 % (11.6-17.2); WHITE BLOOD COUNT 11.7 TH/MM3 (4.0-11.0)
[2016-10-04] MEDS: LACTULOSE SYRUP 20 GM/30 ML CUP PEG SCH (07:27)
[2016-10-04] MEDS: PANTOPRAZOLE SOD 20 MG DELAYED RELEASE TAB PO SCH (07:27)
[2016-10-04 07:55] LABS: POTASSIUM 3.7 MEQ/L (3.5-5.1)
[2016-10-04] MEDS: REMOVE OLD PATCH TD SCH (09:00)
[2016-10-04] MEDS: ENOXAPARIN SODIUM 40 MG/0.4 ML SYRINGE SQ SCH (09:21)
[2016-10-04] MEDS: NICOTINE 14 MG/24 HR PATCH TD SCH (09:21)
[2016-10-04] MEDS: DIAZEPAM 5 MG TAB PO SCH ×2 (09:21→20:38)
[2016-10-04] MEDS: SODIUM CHLORIDE 0.9% FLUSH 5 ML FLUSH IVF SCH ×2 (09:21→20:38)
--- NOTE | 2016-10-04 14:06 | HHI.PR ---
Subjective Remarks Complain of some muscle spasm Afebrile D/W nurse Objective Vitals Vital Signs Date Time Temp Pulse Resp B/P Pulse Ox O2 Delivery O2 Flow Rate FiO2 10/04/16 12:00 98.7 97 16 113/59 95 10/04/16 08:00 98.6 100 16 104/53 94 10/04/16 05:50 97.7 84 18 111/60 97 10/04/16 05:30 Trach Collar 10/04/16 00:00 96.6 88 18 118/61 97 10/04/16 00:00 Trach Collar 10/03/16 21:55 Room Air 10/03/16 20:07 98 Trach Collar 28 10/03/16 20:00 98.3 91 16 107/63 97 10/03/16 16:22 Room Air 10/03/16 16:00 98.2 108 20 119/66 100 I/O 10/03/16 10/03/16 10/03/16 10/04/16 10/04/16 10/04/16 07:00 15:00 23:00 07:00 15:00 23:00 Intake Total 0 ml 2397 ml 995 ml Output Total 400 ml Balance 0 ml 2397 ml 595 ml Intake Oral 0 ml IV Total 50 ml 220 ml Tube Feeding 2227 ml 535 ml Other 120 ml 240 ml Output Urine Total 400 ml # Voids 1 3 2 # Bowel Movements 1 Result Diagram: 10/04/16 0550 10/04/16 0550 Objective Remarks GENERAL: This is a well-nourished, well-developed patient, in no apparent distress. NECK: Trachea in place CARDIOVASCULAR: Regular rate and rhythm without murmurs, gallops, or rubs. RESPIRATORY: Fair air entry bilaterally. No wheezes, rales, or rhonchi. Tracheostomy in place GASTROINTESTINAL: Abdomen soft, non-tender, nondistended. Positive bowel sounds MUSCULOSKELETAL: Extremities without clubbing, cyanosis, or edema. Pedal pulses appreciated NEUROLOGICAL: Awake and alert. Moves all extremity. 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 Status: Acute (2) Dysphagia ICD Code: R13.10 Status: Acute (3) ETOHism ICD Code: F10.20 Status: Acute Assessment and Plan 09/18: Continue current management, Levaquin, trach management per pulmonology, plan for laryngeal biopsy on 09/21 09/19: Continue to have profuse thick greenish phlegm, CBC pending today, no fever, continue Levaquin and aggressive pulmonary toileting, laryngeal biopsy on Tuesday by ENT, oncology following, pulmonology also following for trach management 09/20: Awaiting laryngeal biopsy, leukocytosis resolved 09/21: Plan for laryngeal biopsy today, leukocytosis resolved however still with excessive dark greenish/brownish phlegm from the track, will consult ID, check chest x-ray, continue Levaquin, send sputum for HEALTH CARE ANALYST and culture 09/22: Status post laryngeal biopsy, appreciate radiation therapy consult, will need teeth extraction, Moraxella tracheitis, chest x-ray did not show infiltrate , pending ID consult, pulmonary following, as well as oncology Discussed with patient, his mother, case management manager in length regarding discharge planning, due to having the tracheostomy, and no source of payer, will mostly have some difficulty discharging 09/23: 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 Appreciate ID consultation, switched level and Zosyn for Moraxella tracheal bronchitis 09/24. Patient feeling well. Waiting tooth extraction. With radiation therapy , chemotherapy to follow. Continue Zosyn for tracheobronchitis as per infectious disease. 09/25. patient seen and examined. Continue antibiotics as per infectious disease. Difficult discharge. Pending Medicaid. Will need tracheostomy care at home, followup with oncology as outpatient. 09/26. patient requesting sleep medication. Ordered temazepam. Continue antibiotics as per infectious disease. Pending dental consult. Still awaiting Medicaidper home care of tracheostomy. 09/27. Patient doing well. Discussed with oncology. Transitioning to medications per PEG tube. Swallow evaluation pending. Discussed with case management. Working on obtaining outpatient supplies 09/28. Increase tube feeds to goal rate. Waiting on Medicaid application. Appreciate case management assistance. 09/29. Patient seen and examined. No appreciable changes. Continue antibiotics with stop date of 10/06. Discussed with case management and oncology. 12/01. Patient reports increase in anxiety. Requests medication for anxiety. Start as needed Ativan. Increase temazepam to 15 mg at night. 10/01. Patient says that Ativan is not working. We will switch to deny him 5 mg twice daily, with Ativan as needed. Continue temazepam for sleep at night. 10/02: Continue current care, discharge pending home care 10/03: No acute issue continue current care, awaiting dental evaluation followed by radiation therapy, discharged effort ongoing 10/04: Complain of muscle spasm>> Flexeril A/P: *Neck malignant neoplasm *Mostly laryngeal neoplasm Appreciate ENT consultation, and oncology follow up, may benefit short of chemotherapy and radiation Continue IV steroids, Tracheostomy placed -s/pPEG placement and CT guided bx of the LN on 09/13 -Laryngeal biopsy done on 09/21 showed invasive moderately differentiated squamous cell carcinoma, plan has been made for radiation therapy, with extraction prior to that, chemotherapy per oncology Hold off on port placement until other recommendation by oncology - Patient will obtain dental evaluation prior to starting radiation therapy as outpatient. Plan per oncology. *Acute leukocytosis with left shift: Resolved *Moraxella purulent tracheobronchitis Could be stress versus steroid-induced Sputum positive for Moraxella catarrhalis and nongroup Streptococcus Negative chest x-ray, blood culture, UA Status post Levaquin and switched to Zosyn 09/22, now Unasyn by ID. Continue Unasyn. -Patient can be transitioned to Augmentin at discharge with stop date 10/06. *Dysphagia s/p PEG 09/13 , continue feeding , monitor Monitor BMP *Alcoholism Discontinue CIWA protocol. *Tobaccoism. Continue nicotine patch. *insomnia. - 09/26. Started temazepam as needed -Monitor. * //anxiety. Continue patient on benzodiazepines, Valium scheduled, Ativan as needed. Continue monitor. * Prophylaxis. SCDs. Patient is ambulatory, however effectively immobile most of the day..Lovenox . Discharge Planning Patient with tracheostomy, no payer source, case management manager following for rehabilitation placement if possible Julissa Santizo MD Oct 04, 2016 14:06
[2016-10-04] MEDS ORDERED: PILL SPLITTER OTHER PRN (14:15)
[2016-10-04] MEDS: CYCLOBENZAPRINE HCL 10 MG TAB PO PRN (18:02)
[2016-10-04] MEDS: TEMAZEPAM 7.5 MG CAP PO PRN (23:12)
[2016-10-05] VITALS (8 sets, daily range): BP systolic 91–110; BP diastolic 54–64; PULSE 67–105; RESP 16–20; TEMP 97.1–99.3; O2SAT 94–98
[2016-10-05] MEDS: Infusaport/Implanted VAD PRN NS Lock Flush IVF ×3 (00:43→22:53)
[2016-10-05] MEDS: SODIUM CHLORIDE 0.9% FLUSH 5 ML FLUSH IVF PRN (05:25)
[2016-10-05] MEDS: AMPICILLIN-SULBACTAM INJ 3 GM in SODIUM CHLORIDE 0.9% INJ 100 ML IV SCH ×4 (05:25→22:10)
[2016-10-05] MEDS: NICOTINE 14 MG/24 HR PATCH TD SCH (08:48)
[2016-10-05] MEDS: REMOVE OLD PATCH TD SCH (08:48)
[2016-10-05] MEDS: SODIUM CHLORIDE 0.9% FLUSH 5 ML FLUSH IVF SCH ×2 (08:49→21:55)
[2016-10-05] MEDS: PANTOPRAZOLE SOD 20 MG DELAYED RELEASE TAB PO SCH (08:49)
[2016-10-05] MEDS: DIAZEPAM 5 MG TAB PO SCH ×2 (08:49→21:48)
[2016-10-05] MEDS: LACTULOSE SYRUP 20 GM/30 ML CUP PEG SCH (08:49)
[2016-10-05] MEDS: LORazepam 0.5 MG TAB PO PRN ×2 (08:53→17:46)
[2016-10-05] MEDS: ENOXAPARIN SODIUM 40 MG/0.4 ML SYRINGE SQ SCH (08:54)
[2016-10-05] MEDS: HYDROmorphone HCL PF 1 MG/ML VIAL IV PUSH PRN ×2 (14:09→21:55)
--- NOTE | 2016-10-05 17:34 | HHI.PR ---
Subjective Remarks Sitting on the edge of the bed, is not talking, discussed with the nurse, he is not happy, a bit frustrated Objective Vitals Vital Signs Date Time Temp Pulse Resp B/P Pulse Ox O2 Delivery O2 Flow Rate FiO2 10/05/16 12:00 99.1 105 18 103/58 98 10/05/16 08:45 Room Air 5.00 10/05/16 08:26 97 21 10/05/16 08:00 99.0 84 20 110/61 97 10/05/16 04:45 97.1 10/05/16 04:45 67 16 91/54 94 10/05/16 04:13 Room Air 10/05/16 00:00 97.8 84 16 102/57 97 10/05/16 00:00 Trach Collar 10/04/16 20:25 97 21 10/04/16 20:15 98.0 87 16 103/59 97 10/04/16 18:11 96 Trach Collar 28 10/04/16 17:33 Room Air I/O 10/04/16 10/04/16 10/04/16 10/05/16 10/05/16 10/05/16 07:00 15:00 23:00 07:00 15:00 23:00 Intake Total 995 ml 730 ml 895 ml 1095 ml Output Total 400 ml Balance 595 ml 730 ml 895 ml 1095 ml Intake Oral 480 ml IV Total 220 ml 250 ml 225 ml Tube Feeding 535 ml 895 ml 750 ml Other 240 ml 120 ml Output Urine Total 400 ml # Voids 4 2 1 # Bowel Movements 1 1 Result Diagram: 10/04/16 0550 10/04/16 0550 Objective Remarks GENERAL: This is a well-nourished, well-developed patient, in no apparent distress. NECK: Trachea in place CARDIOVASCULAR: Regular rate and rhythm without murmurs, gallops, or rubs. RESPIRATORY: Fair air entry bilaterally. No wheezes, rales, or rhonchi. Tracheostomy in place GASTROINTESTINAL: Abdomen soft, non-tender, nondistended. Positive bowel sounds MUSCULOSKELETAL: Extremities without clubbing, cyanosis, or edema. Pedal pulses appreciated NEUROLOGICAL: Awake and alert. Moves all extremity. 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 Status: Acute (2) Dysphagia ICD Code: R13.10 Status: Acute (3) ETOHism ICD Code: F10.20 Status: Acute Assessment and Plan 09/18: Continue current management, Levaquin, trach management per pulmonology, plan for laryngeal biopsy on 09/21 09/19: Continue to have profuse thick greenish phlegm, CBC pending today, no fever, continue Levaquin and aggressive pulmonary toileting, laryngeal biopsy on Tuesday by ENT, oncology following, pulmonology also following for trach management 09/20: Awaiting laryngeal biopsy, leukocytosis resolved 09/21: Plan for laryngeal biopsy today, leukocytosis resolved however still with excessive dark greenish/brownish phlegm from the track, will consult ID, check chest x-ray, continue Levaquin, send sputum for EXAMINATION SCORER and culture 09/22: Status post laryngeal biopsy, appreciate radiation therapy consult, will need teeth extraction, Moraxella tracheitis, chest x-ray did not show infiltrate , pending ID consult, pulmonary following, as well as oncology Discussed with patient, his mother, correctional case manager in length regarding discharge planning, due to having the tracheostomy, and no source of payer, will mostly have some difficulty discharging 09/23: 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 Appreciate ID consultation, switched level and Zosyn for Moraxella tracheal bronchitis 09/24. Patient feeling well. Waiting tooth extraction. With radiation therapy , chemotherapy to follow. Continue Zosyn for tracheobronchitis as per infectious disease. 09/25. patient seen and examined. Continue antibiotics as per infectious disease. Difficult discharge. Pending Medicaid. Will need tracheostomy care at home, followup with oncology as outpatient. 09/26. patient requesting sleep medication. Ordered temazepam. Continue antibiotics as per infectious disease. Pending dental consult. Still awaiting Medicaidper home care of tracheostomy. 09/27. Patient doing well. Discussed with oncology. Transitioning to medications per PEG tube. Swallow evaluation pending. Discussed with case management. Working on obtaining outpatient supplies 09/28. Increase tube feeds to goal rate. Waiting on Medicaid application. Appreciate case management assistance. 09/29. Patient seen and examined. No appreciable changes. Continue antibiotics with stop date of 10/06. Discussed with case management and oncology. 12/01. Patient reports increase in anxiety. Requests medication for anxiety. Start as needed Ativan. Increase temazepam to 15 mg at night. 10/01. Patient says that Ativan is not working. We will switch to deny him 5 mg twice daily, with Ativan as needed. Continue temazepam for sleep at night. 10/02: Continue current care, discharge pending home care 10/03: No acute issue continue current care, awaiting dental evaluation followed by radiation therapy, discharged effort ongoing 10/04: Complain of muscle spasm>> Flexeril 10/05: Continue current care A/P: *Neck malignant neoplasm *Mostly laryngeal neoplasm Appreciate ENT consultation, and oncology follow up, may benefit short of chemotherapy and radiation Continue IV steroids, Tracheostomy placed -s/pPEG placement and CT guided bx of the LN on 09/13 -Laryngeal biopsy done on 09/21 showed invasive moderately differentiated squamous cell carcinoma, plan has been made for radiation therapy, with extraction prior to that, chemotherapy per oncology Hold off on port placement until other recommendation by oncology - Patient will obtain dental evaluation prior to starting radiation therapy as outpatient. Plan per oncology. *Acute leukocytosis with left shift: Resolved *Moraxella purulent tracheobronchitis Could be stress versus steroid-induced Sputum positive for Moraxella catarrhalis and nongroup Streptococcus Negative chest x-ray, blood culture, UA Status post Levaquin and switched to Zosyn 09/22, now Unasyn by ID. Continue Unasyn. -Patient can be transitioned to Augmentin at discharge with stop date 10/06. *Dysphagia s/p PEG 09/13 , continue feeding , monitor Monitor BMP *Alcoholism Discontinue CIWA protocol. *Tobaccoism. Continue nicotine patch. *insomnia. - 09/26. Started temazepam as needed -Monitor. * //anxiety. Continue patient on benzodiazepines, Valium scheduled, Ativan as needed. Continue monitor. * Prophylaxis. SCDs. Patient is ambulatory, however effectively immobile most of the day..Lovenox . Discharge Planning Patient with tracheostomy, no payer source, correctional case manager following for rehabilitation placement if possible Julissa Santizo MD Oct 05, 2016 17:34
[2016-10-05] MEDS: CYCLOBENZAPRINE HCL 10 MG TAB PO PRN (17:47)
[2016-10-06] VITALS (8 sets, daily range): BP systolic 94–172; BP diastolic 53–82; PULSE 82–94; RESP 16–18; TEMP 97.8–100.1; O2SAT 95–99
[2016-10-06] MEDS: TEMAZEPAM 7.5 MG CAP PO PRN ×2 (02:00→23:00)
[2016-10-06] MEDS: LORazepam 0.5 MG TAB PO PRN (04:39)
[2016-10-06] MEDS: AMPICILLIN-SULBACTAM INJ 3 GM in SODIUM CHLORIDE 0.9% INJ 100 ML IV SCH ×4 (04:53→23:01)
[2016-10-06] MEDS: SODIUM CHLORIDE 0.9% FLUSH 5 ML FLUSH IVF PRN (04:53)
[2016-10-06] MEDS: Infusaport/Implanted VAD PRN NS Lock Flush IVF (06:55)
[2016-10-06] MEDS: LACTULOSE SYRUP 20 GM/30 ML CUP PEG SCH (07:43)
[2016-10-06] MEDS: ENOXAPARIN SODIUM 40 MG/0.4 ML SYRINGE SQ SCH (07:43)
[2016-10-06] MEDS: SODIUM CHLORIDE 0.9% FLUSH 5 ML FLUSH IVF SCH ×2 (09:00→20:49)
[2016-10-06] MEDS: REMOVE OLD PATCH TD SCH (09:00)
[2016-10-06] MEDS: DIAZEPAM 5 MG TAB PO SCH ×2 (09:00→20:49)
[2016-10-06] MEDS: NICOTINE 14 MG/24 HR PATCH TD SCH (09:00)
[2016-10-06] MEDS: PANTOPRAZOLE SOD 20 MG DELAYED RELEASE TAB PO SCH (09:00)
[2016-10-06] MEDS: HYDROmorphone HCL PF 1 MG/ML VIAL IV PUSH PRN (12:19)
--- NOTE | 2016-10-06 13:03 | HHI.PR ---
Subjective Remarks Patient laying in bed time of the bedside He waved to me complained of continuing secretions going around the track Earlier I discussed with the nurse, he had an issue with tube feeds leaking but it was from the (tube connection) not the insertion site Objective Vitals Vital Signs Date Time Temp Pulse Resp B/P Pulse Ox O2 Delivery O2 Flow Rate FiO2 10/06/16 12:25 100.1 82 16 120/59 98 10/06/16 09:00 Room Air 10/06/16 05:00 100.0 94 18 122/59 95 10/06/16 00:00 98.3 94 16 96/72 99 10/06/16 00:00 Room Air 10/05/16 23:01 98 Trach Collar 28 10/05/16 20:00 99.1 86 16 106/56 96 10/05/16 16:00 99.3 95 18 107/64 95 I/O 10/05/16 10/05/16 10/05/16 10/06/16 10/06/16 10/06/16 07:00 15:00 23:00 07:00 15:00 23:00 Intake Total 1095 ml 444 ml 1050 ml 655 ml Output Total 300 ml 175 ml Balance 1095 ml 444 ml 750 ml 480 ml IV Total 225 ml 240 ml 110 ml Tube Feeding 750 ml 344 ml 630 ml 425 ml Other 120 ml 100 ml 180 ml 120 ml Output Urine Total 300 ml 175 ml # Voids 1 4 # Bowel Movements 1 2 Result Diagram: 10/04/16 0550 10/04/16 0550 Objective Remarks GENERAL: This is a well-nourished, well-developed patient, in no apparent distress. NECK: Trachea in place CARDIOVASCULAR: Regular rate and rhythm without murmurs, gallops, or rubs. RESPIRATORY: Fair air entry bilaterally. No wheezes, rales, or rhonchi. Tracheostomy in place GASTROINTESTINAL: Abdomen soft, non-tender, nondistended. Positive bowel sounds MUSCULOSKELETAL: Extremities without clubbing, cyanosis, or edema. Pedal pulses appreciated NEUROLOGICAL: Awake and alert. Moves all extremity. 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 Status: Acute (2) Dysphagia ICD Code: R13.10 Status: Acute (3) ETOHism ICD Code: F10.20 Status: Acute Assessment and Plan 09/18: Continue current management, Levaquin, trach management per pulmonology, plan for laryngeal biopsy on 09/21 09/19: Continue to have profuse thick greenish phlegm, CBC pending today, no fever, continue Levaquin and aggressive pulmonary toileting, laryngeal biopsy on Tuesday by ENT, oncology following, pulmonology also following for trach management 09/20: Awaiting laryngeal biopsy, leukocytosis resolved 09/21: Plan for laryngeal biopsy today, leukocytosis resolved however still with excessive dark greenish/brownish phlegm from the track, will consult ID, check chest x-ray, continue Levaquin, send sputum for GAME AGENT and culture 09/22: Status post laryngeal biopsy, appreciate radiation therapy consult, will need teeth extraction, Moraxella tracheitis, chest x-ray did not show infiltrate , pending ID consult, pulmonary following, as well as oncology Discussed with patient, his mother, case manager specialist in length regarding discharge planning, due to having the tracheostomy, and no source of payer, will mostly have some difficulty discharging 09/23: 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 Appreciate ID consultation, switched level and Zosyn for Moraxella tracheal bronchitis 09/24. Patient feeling well. Waiting tooth extraction. With radiation therapy , chemotherapy to follow. Continue Zosyn for tracheobronchitis as per infectious disease. 09/25. patient seen and examined. Continue antibiotics as per infectious disease. Difficult discharge. Pending Medicaid. Will need tracheostomy care at home, followup with oncology as outpatient. 09/26. patient requesting sleep medication. Ordered temazepam. Continue antibiotics as per infectious disease. Pending dental consult. Still awaiting Medicaidper home care of tracheostomy. 09/27. Patient doing well. Discussed with oncology. Transitioning to medications per PEG tube. Swallow evaluation pending. Discussed with case management. Working on obtaining outpatient supplies 09/28. Increase tube feeds to goal rate. Waiting on Medicaid application. Appreciate case management assistance. 09/29. Patient seen and examined. No appreciable changes. Continue antibiotics with stop date of 10/06. Discussed with case management and oncology. 12/01. Patient reports increase in anxiety. Requests medication for anxiety. Start as needed Ativan. Increase temazepam to 15 mg at night. 10/01. Patient says that Ativan is not working. We will switch to deny him 5 mg twice daily, with Ativan as needed. Continue temazepam for sleep at night. 10/02: Continue current care, discharge pending home care 10/03: No acute issue continue current care, awaiting dental evaluation followed by radiation therapy, discharged effort ongoing 10/04: Complain of muscle spasm>> Flexeril 10/05: Continue current care 10/06: Patient had leakage from the tube connection, which has been fixed by the nurse, discussed with case manager specialist, working on teaching patient how to do trach suctioning and tube feed management, difficulty getting home health care A/P: *Neck malignant neoplasm *Mostly laryngeal neoplasm Appreciate ENT consultation, and oncology follow up, may benefit short of chemotherapy and radiation Continue IV steroids, Tracheostomy placed -s/pPEG placement and CT guided bx of the LN on 09/13 -Laryngeal biopsy done on 09/21 showed invasive moderately differentiated squamous cell carcinoma, plan has been made for radiation therapy, with extraction prior to that, chemotherapy per oncology Hold off on port placement until other recommendation by oncology - Patient will obtain dental evaluation prior to starting radiation therapy as outpatient. Plan per oncology. *Acute leukocytosis with left shift: Resolved *Moraxella purulent tracheobronchitis Could be stress versus steroid-induced Sputum positive for Moraxella catarrhalis and nongroup Streptococcus Negative chest x-ray, blood culture, UA Status post Levaquin and switched to Zosyn 09/22, now Unasyn by ID. Continue Unasyn. -Patient can be transitioned to Augmentin at discharge with stop date 10/06. *Dysphagia s/p PEG 09/13 , continue feeding , monitor Monitor BMP *Alcoholism Discontinue CIWA protocol. *Tobaccoism. Continue nicotine patch. *insomnia. - 09/26. Started temazepam as needed -Monitor. * //anxiety. Continue patient on benzodiazepines, Valium scheduled, Ativan as needed. Continue monitor. * Prophylaxis. SCDs. Patient is ambulatory, however effectively immobile most of the day..Lovenox . Discharge Planning Patient with tracheostomy, no payer source, case manager specialist following for rehabilitation placement if possible Julissa Santizo MD Oct 06, 2016 13:03
[2016-10-07] VITALS (9 sets, daily range): BP systolic 92–115; BP diastolic 52–66; PULSE 72–91; RESP 16–18; TEMP 96–99.3; O2SAT 95–100
[2016-10-07] MEDS: AMPICILLIN-SULBACTAM INJ 3 GM in SODIUM CHLORIDE 0.9% INJ 100 ML IV SCH ×4 (05:53→22:42)
[2016-10-07] MEDS: CYCLOBENZAPRINE HCL 10 MG TAB PO PRN (05:53)
[2016-10-07] MEDS: HYDROmorphone HCL PF 1 MG/ML VIAL IV PUSH PRN ×2 (06:26→12:20)
[2016-10-07] MEDS: LACTULOSE SYRUP 20 GM/30 ML CUP PEG SCH (09:00)
[2016-10-07] MEDS: REMOVE OLD PATCH TD SCH (09:00)
[2016-10-07] MEDS: PANTOPRAZOLE SOD 20 MG DELAYED RELEASE TAB PO SCH (09:06)
[2016-10-07] MEDS: DIAZEPAM 5 MG TAB PO SCH ×2 (09:06→22:42)
[2016-10-07] MEDS: NICOTINE 14 MG/24 HR PATCH TD SCH (09:08)
[2016-10-07] MEDS: ENOXAPARIN SODIUM 40 MG/0.4 ML SYRINGE SQ SCH (09:11)
[2016-10-07] MEDS: SODIUM CHLORIDE 0.9% FLUSH 5 ML FLUSH IVF SCH ×2 (12:17→22:42)
--- NOTE | 2016-10-07 19:11 | HHI.PR ---
Subjective Remarks No acute issue, afebrile Follow up on laryngeal cancer on TP track which preclude discharge home at this point, no payer source Objective Vitals Vital Signs Date Time Temp Pulse Resp B/P Pulse Ox O2 Delivery O2 Flow Rate FiO2 10/07/16 16:49 99.3 91 16 104/55 95 10/07/16 12:51 98.6 80 16 101/57 100 10/07/16 10:29 96 Trach Collar 5.00 28 10/07/16 09:06 Room Air 5.00 28 10/07/16 08:00 96.0 80 16 115/66 95 10/07/16 07:00 92/53 10/07/16 06:30 80 101/55 10/07/16 05:50 98.7 72 16 94/52 10/07/16 00:02 96.2 85 16 106/59 95 10/06/16 20:00 Room Air 10/06/16 20:00 98.7 83 16 106/61 97 I/O 10/06/16 10/06/16 10/06/16 10/07/16 10/07/16 10/07/16 07:00 15:00 23:00 07:00 15:00 23:00 Intake Total 655 ml 630 ml 0 ml 550 ml 694 ml Output Total 175 ml 200 ml Balance 480 ml 630 ml 0 ml 350 ml 694 ml Intake Oral 480 ml 0 ml 0 ml IV Total 110 ml 150 ml 135 ml Tube Feeding 425 ml 550 ml 429 ml Other 120 ml 130 ml Output Urine Total 175 ml 200 ml # Voids 4 4 # Bowel Movements 3 0 Result Diagram: 10/04/16 0550 10/04/16 0550 Objective Remarks GENERAL: This is a well-nourished, well-developed patient, in no apparent distress. NECK: Trachea in place CARDIOVASCULAR: Regular rate and rhythm without murmurs, gallops, or rubs. RESPIRATORY: Fair air entry bilaterally. No wheezes, rales, or rhonchi. Tracheostomy in place GASTROINTESTINAL: Abdomen soft, non-tender, nondistended. Positive bowel sounds MUSCULOSKELETAL: Extremities without clubbing, cyanosis, or edema. Pedal pulses appreciated NEUROLOGICAL: Awake and alert. Moves all extremity. 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 Status: Acute (2) Dysphagia ICD Code: R13.10 Status: Acute (3) ETOHism ICD Code: F10.20 Status: Acute Assessment and Plan 09/18: Continue current management, Levaquin, trach management per pulmonology, plan for laryngeal biopsy on 09/21 09/19: Continue to have profuse thick greenish phlegm, CBC pending today, no fever, continue Levaquin and aggressive pulmonary toileting, laryngeal biopsy on Tuesday by ENT, oncology following, pulmonology also following for trach management 09/20: Awaiting laryngeal biopsy, leukocytosis resolved 09/21: Plan for laryngeal biopsy today, leukocytosis resolved however still with excessive dark greenish/brownish phlegm from the track, will consult ID, check chest x-ray, continue Levaquin, send sputum for LEGAL TRANSCRIBER and culture 09/22: Status post laryngeal biopsy, appreciate radiation therapy consult, will need teeth extraction, Moraxella tracheitis, chest x-ray did not show infiltrate , pending ID consult, pulmonary following, as well as oncology Discussed with patient, his mother, bilingual patient support caseworker in length regarding discharge planning, due to having the tracheostomy, and no source of payer, will mostly have some difficulty discharging 09/23: 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 Appreciate ID consultation, switched level and Zosyn for Moraxella tracheal bronchitis 09/24. Patient feeling well. Waiting tooth extraction. With radiation therapy , chemotherapy to follow. Continue Zosyn for tracheobronchitis as per infectious disease. 09/25. patient seen and examined. Continue antibiotics as per infectious disease. Difficult discharge. Pending Medicaid. Will need tracheostomy care at home, followup with oncology as outpatient. 09/26. patient requesting sleep medication. Ordered temazepam. Continue antibiotics as per infectious disease. Pending dental consult. Still awaiting Medicaidper home care of tracheostomy. 09/27. Patient doing well. Discussed with oncology. Transitioning to medications per PEG tube. Swallow evaluation pending. Discussed with case management. Working on obtaining outpatient supplies 09/28. Increase tube feeds to goal rate. Waiting on Medicaid application. Appreciate case management assistance. 09/29. Patient seen and examined. No appreciable changes. Continue antibiotics with stop date of 10/06. Discussed with case management and oncology. 12/01. Patient reports increase in anxiety. Requests medication for anxiety. Start as needed Ativan. Increase temazepam to 15 mg at night. 10/01. Patient says that Ativan is not working. We will switch to deny him 5 mg twice daily, with Ativan as needed. Continue temazepam for sleep at night. 10/02: Continue current care, discharge pending home care 10/03: No acute issue continue current care, awaiting dental evaluation followed by radiation therapy, discharged effort ongoing 10/04: Complain of muscle spasm>> Flexeril 10/05: Continue current care 10/06: Patient had leakage from the tube connection, which has been fixed by the nurse, discussed with bilingual patient support caseworker, working on teaching patient how to do trach suctioning and tube feed management, difficulty getting home health care 10/07: Continue current care no acute issue A/P: *Neck malignant neoplasm *Mostly laryngeal neoplasm Appreciate ENT consultation, and oncology follow up, may benefit short of chemotherapy and radiation Continue IV steroids, Tracheostomy placed -s/pPEG placement and CT guided bx of the LN on 09/13 -Laryngeal biopsy done on 09/21 showed invasive moderately differentiated squamous cell carcinoma, plan has been made for radiation therapy, with extraction prior to that, chemotherapy per oncology Hold off on port placement until other recommendation by oncology - Patient will obtain dental evaluation prior to starting radiation therapy as outpatient. Plan per oncology. *Acute leukocytosis with left shift: Resolved *Moraxella purulent tracheobronchitis Could be stress versus steroid-induced Sputum positive for Moraxella catarrhalis and nongroup Streptococcus Negative chest x-ray, blood culture, UA Status post Levaquin and switched to Zosyn 09/22, now Unasyn by ID. Continue Unasyn. -Patient can be transitioned to Augmentin at discharge with stop date 10/06. *Dysphagia s/p PEG 09/13 , continue feeding , monitor Monitor BMP *Alcoholism Discontinue CIWA protocol. *Tobaccoism. Continue nicotine patch. *insomnia. - 09/26. Started temazepam as needed -Monitor. * //anxiety. Continue patient on benzodiazepines, Valium scheduled, Ativan as needed. Continue monitor. * Prophylaxis. SCDs. Patient is ambulatory, however effectively immobile most of the day..Lovenox . Discharge Planning Patient with tracheostomy, no payer source, bilingual patient support caseworker following for rehabilitation placement if possible Julissa Santizo MD Oct 07, 2016 19:11
[2016-10-07] MEDS: TEMAZEPAM 7.5 MG CAP PO PRN (22:43)
[2016-10-08] VITALS (7 sets, daily range): BP systolic 88–105; BP diastolic 53–59; PULSE 61–88; RESP 16–18; TEMP 97.7–98.5; O2SAT 95–98
[2016-10-08] MEDS: AMPICILLIN-SULBACTAM INJ 3 GM in SODIUM CHLORIDE 0.9% INJ 100 ML IV SCH ×4 (05:06→23:32)
[2016-10-08] MEDS: CYCLOBENZAPRINE HCL 10 MG TAB PO PRN (05:36)
[2016-10-08] MEDS: NICOTINE 14 MG/24 HR PATCH TD SCH (08:58)
[2016-10-08] MEDS: PANTOPRAZOLE SOD 20 MG DELAYED RELEASE TAB PO SCH (08:58)
[2016-10-08] MEDS: LACTULOSE SYRUP 20 GM/30 ML CUP PEG SCH (08:58)
[2016-10-08] MEDS: ENOXAPARIN SODIUM 40 MG/0.4 ML SYRINGE SQ SCH (08:58)
[2016-10-08] MEDS: DIAZEPAM 5 MG TAB PO SCH ×2 (08:58→21:15)
[2016-10-08] MEDS: REMOVE OLD PATCH TD SCH (08:58)
[2016-10-08] MEDS: SODIUM CHLORIDE 0.9% FLUSH 5 ML FLUSH IVF SCH ×2 (09:01→21:16)
--- NOTE | 2016-10-08 10:21 | HHI.PR ---
Subjective Remarks This is a follow up on a lengthy hospital stay for patient with a laryngeal cancer on on tracheostomy and recent bronchiolitis, and the plan to be discharged home to start radiation therapy, difficulty discharging due to applying for Social Security to get home equipment for his tract, this blood bank business manager following, reviewed her input, consulted data communications analyst for assessment to switch patient to bolus tube feeding \ Today no change in clinical pic no new complain , except that he wants to be discharged Objective Vitals Vital Signs Date Time Temp Pulse Resp B/P Pulse Ox O2 Delivery O2 Flow Rate FiO2 10/08/16 08:20 96 21 10/08/16 08:00 98.0 71 16 105/58 98 10/08/16 04:58 97.7 61 18 88/53 97 10/08/16 01:09 Room Air Trach Collar 10/07/16 22:45 Room Air Trach Collar 10/07/16 20:00 98.4 86 18 100/62 96 10/07/16 16:49 99.3 91 16 104/55 95 10/07/16 12:51 98.6 80 16 101/57 100 10/07/16 10:29 96 Trach Collar 5.00 28 I/O 10/07/16 10/07/16 10/07/16 10/08/16 10/08/16 10/08/16 07:00 15:00 23:00 07:00 15:00 23:00 Intake Total 550 ml 694 ml Output Total 200 ml Balance 350 ml 694 ml Intake Oral 0 ml IV Total 135 ml Tube Feeding 550 ml 429 ml Other 130 ml Output Urine Total 200 ml # Voids 4 1 # Bowel Movements 0 0 Result Diagram: 10/04/16 0550 10/04/16 0550 Objective Remarks GENERAL: This is a well-nourished, well-developed patient, in no apparent distress. NECK: Trachea in place CARDIOVASCULAR: Regular rate and rhythm without murmurs, gallops, or rubs. RESPIRATORY: Fair air entry bilaterally. No wheezes, rales, or rhonchi. Tracheostomy in place GASTROINTESTINAL: Abdomen soft, non-tender, nondistended. Positive bowel sounds MUSCULOSKELETAL: Extremities without clubbing, cyanosis, or edema. Pedal pulses appreciated NEUROLOGICAL: Awake and alert. Moves all extremity. 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 Plan per oncology. *Acute leukocytosis with left shift: Resolved *Moraxella purulent tracheobronchitis Could be stress versus steroid-induced Sputum positive for Moraxella catarrhalis and nongroup Streptococcus Negative chest x-ray, blood culture, UA Status post Levaquin and switched to Zosyn 09/22, now Unasyn by ID. Continue Unasyn. -Patient can be transitioned to Augmentin at discharge with stop date 10/06. *Dysphagia s/p PEG 09/13 , continue feeding , monitor Monitor BMP *Alcoholism Discontinue CIWA protocol. *Tobaccoism. Continue nicotine patch. *insomnia. - 09/26. Started temazepam as needed -Monitor. * //anxiety. Continue patient on benzodiazepines, Valium scheduled, Ativan as needed. Continue monitor. * Prophylaxis. SCDs. Patient is ambulatory, however effectively immobile most of the day..Lovenox . Discharge Planning Patient with tracheostomy, needs home equipment, before he can be discharged home, in the process of Social Security patient, pillowcase maker following Julissa Santizo MD Oct 08, 2016 10:21
[2016-10-08] MEDS: LORazepam 0.5 MG TAB PO PRN (13:10)
[2016-10-09] VITALS (9 sets, daily range): BP systolic 99–109; BP diastolic 56–67; PULSE 79–93; RESP 16–20; TEMP 96.4–98.9; O2SAT 93–96
[2016-10-09] MEDS: TEMAZEPAM 7.5 MG CAP PO PRN ×2 (01:15→21:33)
[2016-10-09] MEDS: AMPICILLIN-SULBACTAM INJ 3 GM in SODIUM CHLORIDE 0.9% INJ 100 ML IV SCH ×3 (05:38→17:44)
[2016-10-09] MEDS: HYDROmorphone HCL PF 1 MG/ML VIAL IV PUSH PRN (05:58)
[2016-10-09] MEDS: NICOTINE 14 MG/24 HR PATCH TD SCH (09:00)
[2016-10-09] MEDS: LACTULOSE SYRUP 20 GM/30 ML CUP PEG SCH (09:00)
[2016-10-09] MEDS: SODIUM CHLORIDE 0.9% FLUSH 5 ML FLUSH IVF SCH ×2 (09:00→21:24)
[2016-10-09] MEDS: DIAZEPAM 5 MG TAB PO SCH ×2 (09:00→21:24)
[2016-10-09] MEDS: REMOVE OLD PATCH TD SCH (09:00)
--- NOTE | 2016-10-09 10:51 | HHI.PR ---
Subjective Remarks Follow up on lengthy stay patient with laryngeal cancer and tracheostomy Plan is to discharge him when able to secure home equipment for tracheostomy, changing his tube feeds to bolus which we consulted nutrition for this storage center manager working on this Post discharge plan is for radiation therapy and chemotherapy per oncology No acute issue today, afebrile Objective Vitals Vital Signs Date Time Temp Pulse Resp B/P Pulse Ox O2 Delivery O2 Flow Rate FiO2 10/09/16 07:16 96.4 79 20 109/61 95 10/09/16 05:42 98.9 83 18 101/67 94 10/09/16 01:15 97.0 90 18 109/61 96 10/09/16 00:00 97.0 90 18 96 10/08/16 21:55 97 Trach Collar 6.00 21 10/08/16 21:16 Room Air 10/08/16 20:00 98.5 88 18 100/56 95 10/08/16 16:00 98.2 70 16 98/56 98 10/08/16 13:10 Trach Collar 5.00 28 Humidified 10/08/16 12:00 98.2 74 18 103/59 97 I/O 10/08/16 10/08/16 10/08/16 10/09/16 10/09/16 10/09/16 07:00 15:00 23:00 07:00 15:00 23:00 Intake Total 763 ml 0 ml 0 ml Output Total 375 ml Balance 763 ml 0 ml -375 ml Intake Oral 0 ml 0 ml IV Total 143 ml Tube Feeding 450 ml Other 170 ml Output Urine Total 375 ml # Voids 1 # Bowel Movements 0 Objective Remarks GENERAL: This is a well-nourished, well-developed patient, in no apparent distress. NECK: Trachea in place NEUROLOGICAL: Awake and alert. Moves all extremity. 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 Plan per oncology. *Acute leukocytosis with left shift: Resolved *Moraxella purulent tracheobronchitis Could be stress versus steroid-induced Sputum positive for Moraxella catarrhalis and nongroup Streptococcus Negative chest x-ray, blood culture, UA Status post Levaquin and switched to Zosyn 09/22, now Unasyn by ID. Continue Unasyn. -Patient can be transitioned to Augmentin at discharge with stop date 10/06. *Dysphagia s/p PEG 09/13 , continue feeding , monitor Monitor BMP *Alcoholism Discontinue CIWA protocol. *Tobaccoism. Continue nicotine patch. *insomnia. - 09/26. Started temazepam as needed -Monitor. * //anxiety. Continue patient on benzodiazepines, Valium scheduled, Ativan as needed. Continue monitor. * Prophylaxis. SCDs. Patient is ambulatory, however effectively immobile most of the day..Lovenox . Discharge Planning Patient with tracheostomy, needs home equipment, before he can be discharged home, in the process of Social Security patient, case reviewer following Julissa Santizo MD Oct 09, 2016 10:51
[2016-10-09] MEDS: ENOXAPARIN SODIUM 40 MG/0.4 ML SYRINGE SQ SCH (10:52)
[2016-10-09] MEDS ORDERED: RESP: ALBUTEROL 1.25 MG/3 ML NEB (PRN) NEB (14:00)
[2016-10-09] MEDS: LORazepam 0.5 MG TAB PO PRN (15:20)
[2016-10-09] MEDS: PANTOPRAZOLE SODIUM 40 MG VIAL IV PUSH SCH (17:44)
--- NOTE | 2016-10-09 18:31 | HHI.IDPN ---
Subjective Subjective Remarks cont to have secretions which appear to be clearer afebrile path came back + for mod diff adenoca Antibiotics zosyn Allergies: Coded Allergies: No Known Allergies (Unverified , 09/08/16) Objective . Vital Signs Date Time Temp Pulse Resp B/P Pulse Ox O2 Delivery O2 Flow Rate FiO2 10/09/16 15:00 98.3 93 20 99/66 95 10/09/16 11:41 93 21 10/09/16 11:34 Room Air 10/09/16 11:00 98.6 89 20 99/56 96 10/09/16 07:16 96.4 79 20 109/61 95 10/09/16 05:42 98.9 83 18 101/67 94 10/09/16 01:15 97.0 90 18 109/61 96 10/09/16 00:00 97.0 90 18 96 10/08/16 21:55 97 Trach Collar 6.00 21 10/08/16 21:16 Room Air 10/08/16 20:00 98.5 88 18 100/56 95 10/08/16 10/08/16 10/09/16 15:00 23:00 07:00 Intake Total 763 ml 0 ml 0 ml Output Total 375 ml Balance 763 ml 0 ml -375 ml Intake Oral 0 ml 0 ml IV Total 143 ml Tube Feeding 450 ml Other 170 ml Output Urine Total 375 ml # Voids 1 # Bowel Movements 0 Imaging L Last Impressions Chest X-Ray 09/21/16 1218 Signed Impressions: Service Date/Time: Wednesday, September 21, 2016 12:30 - CONCLUSION: Left chest wall [id number]-[id number]-[id number] distal tip is in appropriate position within the SVC. No pneumothorax is visualized. Anjel Dixon MD Lymph Node Biopsy CT 09/13/16 1209 Signed Impressions: Service Date/Time: Tuesday, September 13, 2016 12:30 - CONCLUSION: Uncomplicated CT guided biopsy. Hesham Mar MD Gastrostomy Tube Placement 09/13/16 0000 Signed Impressions: Service Date/Time: Tuesday, September 13, 2016 11:53 - CONCLUSION: Uncomplicated gastrostomy tube placement as above. Reginald Nolen MD Chest CT 09/10/16 0600 Signed Impressions: Service Date/Time: Saturday, September 10, 2016 05:36 - CONCLUSION: 1. Patchy areas of peripheral density in the upper lungs being more prominent right. These are nonspecific. 2. 4 mm noncalcified nodule in the left lower lung. 3. It is thought both these above findings should be followed up with a noncontrast CT examination in 3-6 months. 4. Calcified granuloma right lung base. 5. Hyperinflated lungs. Anjel Scanlon MD Abdomen/Pelvis CT 09/10/16 0600 Signed Impressions: Service Date/Time: Saturday, September 10, 2016 05:36 - CONCLUSION: Suspected area of small bowel intussusception in the right lower quadrant. This is likely intermittent as there is no associated dilatation of the small bowel. Intussusception can frequently had a lead mass. Evaluation of the small bowel would be recommended. Anjel Scanlon MD Neck CT 09/08/16 0000 Signed Impressions: Service Date/Time: Thursday, September 08, 2016 22:53 - CONCLUSION: Large malignant appearing mass or in the region of the false vocal cord on the right side with necrotic lymph nodes in bilateral neck highly suspicious for metastatic adenopathy. Cielo Lassiter MD Physical Exam CONSTITUTIONAL/GENERAL: This is a malnourished thin male patient, ill appearing in no apparent distress. PORT in place L chest side SKIN: No jaundice, rashes, or lesions. Skin temperature appropriate. Not diaphoretic. ENT: . Throat without visible erythema, exudates, masses, or lesions. dentition is poor NECK: Trachea midline. Trach in place no active secretions. No odor NEUROLOGICAL: Awake and alert. Non focal Assessment & Plan Remarks L[place] CA, P bx confirmation Sp trach Prurulent tracheobronchitis sp 2 weeks of appropriate abx Leukocytosis - dc unasyn - restart abx if secretions gert worse and /or other sings of infx Hortensia Villa MD Oct 09, 2016 18:31
[2016-10-10] VITALS (7 sets, daily range): BP systolic 90–109; BP diastolic 52–65; PULSE 81–85; RESP 16–19; TEMP 96.4–98.9; O2SAT 93–98
[2016-10-10] MEDS: ENOXAPARIN SODIUM 40 MG/0.4 ML SYRINGE SQ SCH (09:00)
[2016-10-10] MEDS: LACTULOSE SYRUP 20 GM/30 ML CUP PEG SCH (09:00)
[2016-10-10] MEDS: REMOVE OLD PATCH TD SCH (09:00)
--- NOTE | 2016-10-10 09:00 | HHI.PR ---
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 Mr. Guzman is currently doing well. Tolerating tube feed well. Mother is at bedside. Patient is frustrated that he has lost a lot of weight prior to coming to the hospital as well as while he has been in the hospital. Denies any chest pain, shortness of breath, fever or chills. Objective Vitals Vital Signs Date Time Temp Pulse Resp B/P Pulse Ox O2 Delivery O2 Flow Rate FiO2 10/10/16 08:00 98.7 84 18 109/52 93 10/10/16 04:34 95 Trach Collar 5.00 10/10/16 04:00 96.4 85 19 90/52 93 10/10/16 00:00 Trach Collar 5.00 10/10/16 00:00 97.1 81 17 101/65 96 10/09/16 21:41 95 Trach Collar 5.00 21 10/09/16 20:54 95 Trach Collar 21 10/09/16 20:00 97.5 88 16 106/62 93 10/09/16 15:00 98.3 93 20 99/66 95 10/09/16 11:41 93 21 10/09/16 11:34 Room Air 10/09/16 11:00 98.6 89 20 99/56 96 I/O 10/09/16 10/09/16 10/09/16 10/10/16 10/10/16 10/10/16 07:00 15:00 23:00 07:00 15:00 23:00 Intake Total 0 ml 480 ml 1240 ml 720 ml Output Total 375 ml Balance -375 ml 480 ml 1240 ml 720 ml Intake Oral 0 ml 480 ml 480 ml IV Total 600 ml Tube Feeding 640 ml Other 120 ml 120 ml Output Urine Total 375 ml # Voids 2 2 1 # Bowel Movements 0 2 1 Imaging Last Impressions Chest X-Ray 09/21/16 1218 Signed Impressions: Service Date/Time: Wednesday, September 21, 2016 12:30 - CONCLUSION: Left chest wall Kkagpn-c-Rpha distal tip is in appropriate position within the SVC. No pneumothorax is visualized. Anjel Dixon MD Lymph Node Biopsy CT 09/13/16 1209 Signed Impressions: Service Date/Time: Tuesday, September 13, 2016 12:30 - CONCLUSION: Uncomplicated CT guided biopsy. Hesham Mar MD Gastrostomy Tube Placement 09/13/16 Signed Impressions: Service Date/Time: Tuesday, September 13, 2016 11:53 - CONCLUSION: Uncomplicated gastrostomy tube placement as above. Reginald Nolen MD Chest CT 09/10/16599 Signed Impressions: Service Date/Time: Saturday, September 10, 2016 05:36 - CONCLUSION: 1. Patchy areas of peripheral density in the upper lungs being more prominent right. These are nonspecific. 2. 4 mm noncalcified nodule in the left lower lung. 3. It is thought both these above findings should be followed up with a noncontrast CT examination in 3-6 months. 4. Calcified granuloma right lung base. 5. Hyperinflated lungs. Anjel Scanlon MD Abdomen/Pelvis CT 09/10/16599 Signed Impressions: Service Date/Time: Saturday, September 10, 2016 05:36 - CONCLUSION: Suspected area of small bowel intussusception in the right lower quadrant. This is likely intermittent as there is no associated dilatation of the small bowel. Intussusception can frequently had a lead mass. Evaluation of the small bowel would be recommended. Anjel Scanlon MD Neck CT 09/08/16 Signed Impressions: Service Date/Time: Thursday, September 08, 2016 22:53 - CONCLUSION: Large malignant appearing mass or in the region of the false vocal cord on the right side with necrotic lymph nodes in bilateral neck highly suspicious for metastatic adenopathy. Cielo Lassiter MD Objective Remarks GENERAL: Alert, oriented 3, NAD. Status post tracheostomy. SKIN: Warm and dry. HEAD: Normocephalic. EYES: No scleral icterus. No injection or drainage. NECK: Supple, trachea midline. No JVD or lymphadenopathy. CARDIOVASCULAR: Regular rate and rhythm without murmurs, gallops, or rubs. RESPIRATORY: Breath sounds equal bilaterally. No accessory muscle use. Status post tracheostomy, there is little drainage from the tracheostomy tube. GASTROINTESTINAL: Abdomen soft, non-tender, nondistended. MUSCULOSKELETAL: No cyanosis, or edema. BACK: Nontender without obvious deformity. No CVA tenderness. Procedures 09/10/2016 Placement of a 8 Shiley percutaneous tracheostomy, using the blue rhino kit 09/13/2016 gastrostomy tube placement by IR 09/21/2016 Placement of left side [id number]-[id number] under fluoroscopic guidance. 09/21/2016 Direct laryngoscopy with biopsies. A/P Problem List: (1) Squamous cell carcinoma of larynx ICD Code: C32.9 Status: Acute (2) Acute tracheobronchitis ICD Code: J20.9 Status: Acute (3) Dysphagia ICD Code: R13.10 Status: Acute (4) Malnutrition ICD Code: E46 Status: Acute Assessment and Plan Mr. Guzman is a 55-year-old male with a history of long-term alcohol and tobacco use who presented to the emergency department on 09/09/2016 due to weight loss of about 35 pounds as well as worsening hoarseness and chest congestion. About 4 and half months prior to this admission patient started experiencing worsening S in his voice and pain in his throat. Additionally he had dysphagia as well. CT soft tissue of the neck revealed a near obstructing mass involving the larynx and necrotic and enlarged-appearing lymph nodes bilaterally in the neck region. Patient underwent tracheostomy, biopsy of the neck mass which revealed squamous cell carcinoma. Patient has been treated for purulent tracheobronchitis with Unasyn by infectious disease. Radiation oncology has been consulted. 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 Hematology oncology is planning concurrent chemoradiation. - Radiation oncologist on board - Dental consult placed. However, Dentist refused to see patient in the hospital. - Oral/facial surgery was consulted on 09/21/2016. No notes or discussion found on the chart. - Acute purulent tracheobronchitis - status post treatment with Unasyn under the guidance of infectious disease. - Dysphagia - due to laryngeal cancer - Malnutrition - currently on Jevity 1.5 80cc/hour. Will consult bark press operator to recommend appropriate tube feed in the hospital and on discharge. - History of alcohol and tobacco abuse. Continue Nicotine patch. Full code. Dorita Alegre DO Oct 10, 2016 09:00
[2016-10-10] MEDS: DIAZEPAM 5 MG TAB PO SCH ×2 (10:09→21:19)
[2016-10-10] MEDS: PANTOPRAZOLE SODIUM 40 MG VIAL IV PUSH SCH (10:10)
[2016-10-10] MEDS: TIOTROPIUM BROMIDE 18 MCG INH INH SCH (10:10)
[2016-10-10] MEDS: NICOTINE 14 MG/24 HR PATCH TD SCH (10:14)
[2016-10-10] MEDS: SODIUM CHLORIDE 0.9% FLUSH 5 ML FLUSH IVF SCH ×2 (10:16→21:19)
[2016-10-10] MEDS: HYDROmorphone HCL PF 1 MG/ML VIAL IV PUSH PRN ×2 (10:26→18:37)
[2016-10-11] VITALS (8 sets, daily range): BP systolic 93–130; BP diastolic 49–80; PULSE 82–93; RESP 16–20; TEMP 96.8–99.4; O2SAT 92–99
[2016-10-11] MEDS: TEMAZEPAM 7.5 MG CAP PO PRN ×2 (00:17→23:24)
[2016-10-11] MEDS: REMOVE OLD PATCH TD SCH (09:00)
[2016-10-11] MEDS: ENOXAPARIN SODIUM 40 MG/0.4 ML SYRINGE SQ SCH (09:00)
[2016-10-11] MEDS: LACTULOSE SYRUP 20 GM/30 ML CUP PEG SCH (09:00)
[2016-10-11] MEDS: TIOTROPIUM BROMIDE 18 MCG INH INH SCH (09:49)
[2016-10-11] MEDS: DIAZEPAM 5 MG TAB PO SCH ×2 (09:49→20:14)
[2016-10-11] MEDS: SODIUM CHLORIDE 0.9% FLUSH 5 ML FLUSH IVF SCH ×2 (09:49→20:14)
[2016-10-11] MEDS: PANTOPRAZOLE SODIUM 40 MG VIAL IV PUSH SCH (09:50)
[2016-10-11] MEDS: NICOTINE 14 MG/24 HR PATCH TD SCH (09:51)
[2016-10-11] MEDS: HYDROmorphone HCL PF 1 MG/ML VIAL IV PUSH PRN ×3 (10:44→19:41)
--- NOTE | 2016-10-11 12:39 | RADRPT ---
EXAM DATE/TIME: 10/11/2016 12:07 [facility] COMPARISON: CHEST SINGLE AP, September 21, 2016, 12:30. INDICATIONS : Cough. MEDICAL HISTORY : Chronic obstructive pulmonary disease. neck mass SURGICAL HISTORY : Tonsillectomy. Tracheostomy. ENCOUNTER: Initial ACUITY: 1 day PAIN SCORE: 0/10 LOCATION: Bilateral chest FINDINGS: Hyperinflation. Heart size normal. Left sided port catheter tip overlies the SVC. PEG tube overlies l eft upper quadrant. Osseous structures are intact. CONCLUSION: No acute disease. Bismark Root MD on October 11, 2016 at 12:37 Board Certified Radiologist. This report was verified electronically.
[2016-10-11 14:03] LABS: BASOPHIL % 0.5 % (0.0-2.0); EOSINOPHIL # 0.2 TH/MM3 (0-0.4); EOSINOPHIL % 1.7 % (0.0-4.0); HEMATOCRIT 32.7 % (39.0-51.0); HEMO FLAGS DIFF FINAL; LYMPH % 14.7 % (9.0-44.0); LYMPHOCYTE # 1.3 TH/MM3 (1.0-4.8); MEAN CORPUSCULAR HEMOGLOBIN 30.5 PG (27.0-34.0); MEAN CORPUSCULAR HGB CONC 33.8 % (32.0-36.0); MONO % 6.1 % (0.0-8.0); PLATELET COUNT 240 TH/MM3 (150-450); RED BLOOD COUNT 3.63 MIL/MM3 (4.50-5.90); RED CELL DISTRIBUTION WIDTH 15.1 % (11.6-17.2); WHITE BLOOD COUNT 9.1 TH/MM3 (4.0-11.0)
[2016-10-11 14:23] LABS: BICARBONATE 28.7 MEQ/L (21.0-32.0); POTASSIUM 4.3 MEQ/L (3.5-5.1)
--- NOTE | 2016-10-11 15:30 | HHI.PR ---
Subjective Remarks Patient was seen earlier today. 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 He complains of being tired today despite getting adequate amount of sleep. Denies any chest pain, shortness of breath, fever, chills. Objective Vitals Vital Signs Date Time Temp Pulse Resp B/P Pulse Ox O2 Delivery O2 Flow Rate FiO2 10/11/16 11:50 98.0 89 20 95/49 96 10/11/16 09:46 Room Air 5.00 Trach Collar 10/11/16 07:55 98.4 82 20 107/59 96 10/11/16 07:45 96 Trach Collar 6.00 28 10/11/16 04:00 84 16 93/51 92 10/11/16 04:00 92 Trach Collar 5.00 28 10/11/16 00:07 Trach Collar 5.00 10/11/16 00:00 97.2 83 16 99/57 94 10/10/16 22:53 94 Trach Collar 5.00 28 10/10/16 21:19 95 21 10/10/16 20:00 98.9 84 17 92/53 94 10/10/16 16:00 98.7 82 16 105/56 98 I/O 10/10/16 10/10/16 10/10/16 10/11/16 10/11/16 10/11/16 06:59 14:59 22:59 06:59 14:59 22:59 Intake Total 720 ml 480 ml 4727 ml 1000 ml Output Total 300 ml 150 ml 250 ml Balance 720 ml 180 ml 4577 ml 750 ml Intake Oral 480 ml 240 ml IV Total 600 ml Tube Feeding 4377 ml 640 ml Other 120 ml 350 ml 120 ml Output Urine Total 300 ml 150 ml 250 ml # Voids 1 Result Diagram: 10/11/16 1330 10/11/16 1330 Imaging Last Impressions Chest X-Ray 09/21/16 1218 Signed Impressions: Service Date/Time: Wednesday, September 21, 2016 12:30 - CONCLUSION: Left chest wall Ipvyua-n-Dlqi distal tip is in appropriate position within the SVC. No pneumothorax is visualized. Anjel Dixon MD Lymph Node Biopsy CT 09/13/16 1209 Signed Impressions: Service Date/Time: Tuesday, September 13, 2016 12:30 - CONCLUSION: Uncomplicated CT guided biopsy. Hesham Mar MD Gastrostomy Tube Placement 09/13/16 0000 Signed Impressions: Service Date/Time: Tuesday, September 13, 2016 11:53 - CONCLUSION: Uncomplicated gastrostomy tube placement as above. Reginald Nolen MD Chest CT 09/10/16599 Signed Impressions: Service Date/Time: Saturday, September 10, 2016 05:36 - CONCLUSION: 1. Patchy areas of peripheral density in the upper lungs being more prominent right. These are nonspecific. 2. 4 mm noncalcified nodule in the left lower lung. 3. It is thought both these above findings should be followed up with a noncontrast CT examination in 3-6 months. 4. Calcified granuloma right lung base. 5. Hyperinflated lungs. Anjel Scanlon MD Abdomen/Pelvis CT 09/10/16599 Signed Impressions: Service Date/Time: Saturday, September 10, 2016 05:36 - CONCLUSION: Suspected area of small bowel intussusception in the right lower quadrant. This is likely intermittent as there is no associated dilatation of the small bowel. Intussusception can frequently had a lead mass. Evaluation of the small bowel would be recommended. Anjel Scanlon MD Neck CT 09/08/16 0000 Signed Impressions: Service Date/Time: Thursday, September 08, 2016 22:53 - CONCLUSION: Large malignant appearing mass or in the region of the false vocal cord on the right side with necrotic lymph nodes in bilateral neck highly suspicious for metastatic adenopathy. Cielo Lassiter MD Objective Remarks GENERAL: Alert, oriented 3, NAD. Status post tracheostomy. SKIN: Warm and dry. HEAD: Normocephalic. EYES: No scleral icterus. No injection or drainage. NECK: Supple, trachea midline. No JVD or lymphadenopathy. CARDIOVASCULAR: Regular rate and rhythm without murmurs, gallops, or rubs. RESPIRATORY: Breath sounds equal bilaterally. No accessory muscle use. Status post tracheostomy, there is little drainage from the tracheostomy tube. GASTROINTESTINAL: Abdomen soft, non-tender, nondistended. MUSCULOSKELETAL: No cyanosis, or edema. BACK: Nontender without obvious deformity. No CVA tenderness. Procedures 09/10/2016 Placement of a 8 Shiley percutaneous tracheostomy, using the blue rhino kit 09/13/2016 gastrostomy tube placement by IR 09/21/2016 Placement of left side Sufdwi-T-[id number] under fluoroscopic guidance. 09/21/2016 Direct laryngoscopy with biopsies. A/P Problem List: (1) Squamous cell carcinoma of larynx ICD Code: C32.9 Status: Acute (2) Acute tracheobronchitis ICD Code: J20.9 Status: Acute (3) Dysphagia ICD Code: R13.10 Status: Acute (4) Malnutrition ICD Code: E46 Status: Acute Assessment and Plan Mr. Guzman is a 55-year-old male with a history of long-term alcohol and tobacco use who presented to the emergency department on 09/09/2016 due to weight loss of about 35 pounds as well as worsening hoarseness and chest congestion. About 4 and half months prior to this admission patient started experiencing worsening S in his voice and pain in his throat. Additionally he had dysphagia as well. CT soft tissue of the neck revealed a near obstructing mass involving the larynx and necrotic and enlarged-appearing lymph nodes bilaterally in the neck region. Patient underwent tracheostomy, biopsy of the neck mass which revealed squamous cell carcinoma. Patient has been treated for purulent tracheobronchitis with Unasyn by infectious disease. Radiation oncology has been consulted. 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 Hematology oncology is planning concurrent chemoradiation. - Radiation oncologist on board - Dental consult placed. However, Dentist refused to see patient in the hospital. - Oral/facial surgery was consulted on 09/21/2016. No notes or discussion found on the chart. - Generalized fatigue - no clear etiology. Advised patient to move around and sit in his chair by the window. - We obtained CBC, BMP and CXR - no remarkable findings. - Acute purulent tracheobronchitis - status post treatment with Unasyn under the guidance of infectious disease. - Dysphagia - due to laryngeal cancer - Malnutrition - currently on Jevity 1.5 80cc/hour. Consulted stapler hand to recommend appropriate tube feed in the hospital and on discharge. - History of alcohol and tobacco abuse. Continue Nicotine patch. Full code. Dorita Alegre DO Oct 11, 2016 3:30 pm
[2016-10-11] MEDS: LORazepam 0.5 MG TAB PO PRN (18:13)
[2016-10-12] VITALS (7 sets, daily range): BP systolic 92–105; BP diastolic 51–60; PULSE 76–92; RESP 16–18; TEMP 97–99; O2SAT 91–98
--- NOTE | 2016-10-12 08:34 | PD.ONC.PN ---
Subjective Subjective Remarks Afebrile overnight. Patient resting comfortably. He was switched to bolus tube feeds this AM and has been tolerating them. He is concerned that he is still losing weight. Per nursing staff no overnight events. Objective Data Date Time Temp Pulse Resp B/P Pulse Ox O2 Delivery O2 Flow Rate FiO2 10/12/16 06:27 97.0 76 16 92/52 96 10/12/16 00:00 97.0 78 18 95/51 94 10/11/16 22:03 96 21 10/11/16 20:20 93 Room Air 10/11/16 20:00 97.7 84 18 105/57 93 10/11/16 15:45 99.4 93 20 104/62 95 10/11/16 11:50 98.0 89 20 95/49 96 10/11/16 09:46 Room Air 5.00 Trach Collar 10/12/16 10/12/16 10/12/16 07:00 15:00 23:00 Intake Total 610 ml Balance 610 ml Result Diagram: 10/11/16 1330 10/11/16 1330 Laboratory Results Laboratory Tests Test 10/11/16 13:30 White Blood Count 9.1 TH/MM3 Red Blood Count 3.63 MIL/MM3 Hemoglobin 11.1 GM/DL Hematocrit 32.7 % Mean Corpuscular Volume 90.0 FL Mean Corpuscular Hemoglobin 30.5 PG Mean Corpuscular Hemoglobin 33.8 % Concent Red Cell Distribution Width 15.1 % Platelet Count 240 TH/MM3 Mean Platelet Volume 8.6 FL Neutrophils (%) (Auto) 77.0 % Lymphocytes (%) (Auto) 14.7 % Monocytes (%) (Auto) 6.1 % Eosinophils (%) (Auto) 1.7 % Basophils (%) (Auto) 0.5 % Neutrophils # (Auto) 7.0 TH/MM3 Lymphocytes # (Auto) 1.3 TH/MM3 Monocytes # (Auto) 0.6 TH/MM3 Eosinophils # (Auto) 0.2 TH/MM3 Basophils # (Auto) 0.0 TH/MM3 CBC Comment DIFF FINAL Differential Comment Sodium Level 140 MEQ/L Potassium Level 4.3 MEQ/L Chloride Level 104 MEQ/L Carbon Dioxide Level 28.7 MEQ/L Anion Gap 7 MEQ/L Blood Urea Nitrogen 28 MG/DL Creatinine 0.58 MG/DL Estimat Glomerular Filtration 145 ML/MIN Rate Random Glucose 85 MG/DL Calcium Level 9.0 MG/DL Administered Medications Medications (Trade) Dose Ordered Sig/Susan Route PRN Reason Start Time Stop Time Status Last Admin Dose Admin Enoxaparin Sodium (Lovenox Inj) 40 mg Q24H SQ 09/09/16 09:00 10/09/16 10:52 IV Flush (NS Flush) 2 ml BID IVF 09/09/16 09:00 10/11/16 20:14 IV Flush (NS Flush) 2 ml UNSCH PRN IVF FLUSH AFTER USING IV ACCESS 09/09/16 01:30 10/06/16 04:53 Acetaminophen (Tylenol) 650 mg Q4H PRN PO Temp > 100.4 09/09/16 18:30 09/14/16 14:31 Senna/Docusate Sodium (Lula-Colace) 1 tab BID PRN PO CONSTIPATION 09/09/16 18:30 09/22/16 13:59 Magnesium Hydroxide (Milk Of Magnesia Liq) 30 ml DAILY PRN PO for Severe Constipation 09/09/16 18:30 09/16/16 13:51 Miscellaneous Information Patient in critical care unit? Ass... [id number] XX 09/10/16 00:15 09/10/16 00:15 Hydromorphone HCl (Dilaudid Pf Inj) 0.5 mg Q4H PRN IV PUSH pain 09/11/16 12:15 10/11/16 19:41 Lactulose (Lactulose Liq) 30 ml DAILY PEG 09/21/16 09:00 10/01/16 08:40 Nicotine (Habitrol 14 Mg Patch.24 Hr) 1 patch DAILY TD 09/23/16 18:52 10/11/16 09:51 Miscellaneous Information 1 DAILY TD 09/24/16 09:00 10/11/16 09:00 Temazepam (Restoril) 15 mg HS PRN PO INSOMNIA 09/30/16 19:00 10/11/16 23:24 Diazepam (Valium) 5 mg Q12HR PO 10/01/16 21:00 10/11/16 20:14 Lorazepam (Ativan) 0.5 mg Q6H PRN PO ANXIETY 10/01/16 14:00 10/11/16 18:13 IV Flush (NS Flush) 5 ml UNSCH PRN IVF SEE PROTOCOL TABLE 10/03/16 20:00 10/06/16 06:55 Heparin Sodium (Porcine) (Heparin Central Flush) 250 units UNSCH PRN IVF SEE PROTOCOL TABLE 10/03/16 20:00 10/06/16 06:56 Cyclobenzaprine HCl (Flexeril) 5 mg Q8H PRN PO muscle spasm 10/04/16 15:00 10/08/16 05:36 Tiotropium [place] (Spiriva Inh) 18 mcg DAILY INH 10/10/16 09:00 10/11/16 09:49 Pantoprazole Sodium (Protonix Inj) 20 mg DAILY IV PUSH 10/09/16 15:00 10/11/16 09:50 Objective Remarks GENERAL: Middle aged male, lying in bed in nad. SKIN: Warm and dry. HEAD: Normocephalic. EYES: No scleral icterus. No injection or drainage. NECK: Supple, trachea midline. trach in place. LYMPHATIC: No adenopathy. CARDIOVASCULAR: Regular rate and rhythm without murmurs. RESPIRATORY: anterior cuevas with occasional rhonchi. GASTROINTESTINAL: Abdomen soft, non-tender, nondistended. G-tube in place, clamped. EXTREMITIES: No cyanosis NEUROLOGICAL: No obvious focal deficit. Awake, alert, and oriented x3. Assessment/Plan Problem List: (1) Malnutrition Status: Acute Plan: 10/12/15: started on bolus tube feeds. Jevity 1.5 w/ the following schedule : 5 bolus feedings of 360mls each @ 0700, 1100, 1500, 1800, 2100. 10/01/16; tolerating Jevity 1.5 @ 75cc/hr. continue 09/27/16: receiving Jevity 1.5 @ 55cc/hour. will increase to 70cc/hr as was dietary recommendations and ask them to re-evaluate to make sure we are on the right track. 09/13/16: PEG tube placement today (2) Squamous cell carcinoma of larynx Status: Acute Plan: --plan for concurrent chemoradiotherapy outpatient History/Workup --pain in his throat and difficulty speaking for the past 4-5 months. --35 pound weight loss + difficulty swallowing --42 pack year tobacco history + heavy alcohol use --CT soft tissues neck-->near obstructing mass involving the larynx. The tumor appeared to be originating in the region of the false vocal cords and the bulk of the disease was on the right side. Necrotic and enlarged appearing lymph nodes appeared bilaterally on the neck which were concerning for metastatic adenopathy. --CT C/A/P: no definite metastatic disease, --s/p trach placement, PEG tube placement, port placement and mass biopsy by ENT. --Given the likely diagnosis of laryngeal malignancy and lack of evidence of distal metastatic disease-->patient will likely be a good candidate for concurrent chemoradiotherapy. --fs faxed to new patient referrals. --Pathology showed invasive, moderately differentiated squamous cell carcinoma. Assessment 55y/o with Stage AYSE squamous cell carcinoma of the larynx. Plan 1. start bolus tube feeds. 2. continue Lovenox prophylaxis 3. I spoke with case management--we are waiting on home care supplies to be set up bf d/c home. Just bf patient is d/c PET scan will be arranged, as well. Tata Hopper Oct 12, 2016 08:34
[2016-10-12] MEDS: LACTULOSE SYRUP 20 GM/30 ML CUP PEG SCH (09:00)
[2016-10-12] MEDS: PANTOPRAZOLE SODIUM 40 MG VIAL IV PUSH SCH (09:00)
[2016-10-12] MEDS: REMOVE OLD PATCH TD SCH (09:00)
[2016-10-12] MEDS: ENOXAPARIN SODIUM 40 MG/0.4 ML SYRINGE SQ SCH (09:00)
[2016-10-12] MEDS: NICOTINE 14 MG/24 HR PATCH TD SCH (09:01)
[2016-10-12] MEDS: DIAZEPAM 5 MG TAB PO SCH ×2 (09:01→20:52)
[2016-10-12] MEDS: CYCLOBENZAPRINE HCL 10 MG TAB PO PRN ×2 (09:02→18:51)
[2016-10-12] MEDS: TIOTROPIUM BROMIDE 18 MCG INH INH SCH (09:05)
[2016-10-12] MEDS: SODIUM CHLORIDE 0.9% FLUSH 5 ML FLUSH IVF SCH ×2 (09:06→20:52)
--- NOTE | 2016-10-12 17:49 | HHI.PR ---
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 Patient is feeling better today. Denies any chest pain, fever or chills. After discussing with oncology, I went over the overall plan with patient and his mom. Per RN patient has been having a lot of secretions. Objective Vitals Vital Signs Date Time Temp Pulse Resp B/P Pulse Ox O2 Delivery O2 Flow Rate FiO2 10/12/16 16:00 98.6 92 18 94/56 91 10/12/16 12:29 94 21 10/12/16 12:00 98.8 83 18 96/54 93 10/12/16 09:05 93 Room Air 21 10/12/16 08:00 98.9 80 18 95/55 93 10/12/16 06:27 97.0 76 16 92/52 96 10/12/16 00:00 97.0 78 18 95/51 94 10/11/16 22:03 96 21 10/11/16 20:20 93 Room Air 10/11/16 20:00 97.7 84 18 105/57 93 I/O 10/11/16 10/11/16 10/11/16 10/12/16 10/12/16 10/12/16 07:00 15:00 23:00 07:00 15:00 23:00 Intake Total 1000 ml 360 ml 2150 ml 610 ml 0 ml 480 ml Output Total 250 ml 300 ml 300 ml Balance 750 ml 60 ml 2150 ml 610 ml -300 ml 480 ml Intake Oral 240 ml 360 ml 0 ml Tube Feeding 640 ml 2050 ml 360 ml 360 ml Other 120 ml 100 ml 250 ml 120 ml Output Urine Total 250 ml 300 ml 300 ml # Voids 2 # Bowel Movements 0 Result Diagram: 10/11/16 1330 10/11/16 1330 Imaging Last Impressions Chest X-Ray 10/11/16 0000 Signed Impressions: Service Date/Time: Tuesday, October 11, 2016 12:07 - CONCLUSION: No acute disease. Bismark Root MD Lymph Node Biopsy CT 09/13/16 1209 Signed Impressions: Service Date/Time: Tuesday, September 13, 2016 12:30 - CONCLUSION: Uncomplicated CT guided biopsy. Hesham Mar MD Gastrostomy Tube Placement 09/13/16 0000 Signed Impressions: Service Date/Time: Tuesday, September 13, 2016 11:53 - CONCLUSION: Uncomplicated gastrostomy tube placement as above. Reginald Nolen MD Chest CT 09/10/16 0600 Signed Impressions: Service Date/Time: Saturday, September 10, 2016 05:36 - CONCLUSION: 1. Patchy areas of peripheral density in the upper lungs being more prominent right. These are nonspecific. 2. 4 mm noncalcified nodule in the left lower lung. 3. It is thought both these above findings should be followed up with a noncontrast CT examination in 3-6 months. 4. Calcified granuloma right lung base. 5. Hyperinflated lungs. Anjel Scanlon MD Abdomen/Pelvis CT 09/10/16 06 Signed Impressions: Service Date/Time: Saturday, September 10, 2016 05:36 - CONCLUSION: Suspected area of small bowel intussusception in the right lower quadrant. This is likely intermittent as there is no associated dilatation of the small bowel. Intussusception can frequently had a lead mass. Evaluation of the small bowel would be recommended. Anjel Scanlon MD Neck CT 09/08/16 0000 Signed Impressions: Service Date/Time: Thursday, September 08, 2016 22:53 - CONCLUSION: Large malignant appearing mass or in the region of the false vocal cord on the right side with necrotic lymph nodes in bilateral neck highly suspicious for metastatic adenopathy. Cielo Lassiter MD Objective Remarks GENERAL: Alert, oriented 3, NAD. Status post tracheostomy. SKIN: Warm and dry. HEAD: Normocephalic. EYES: No scleral icterus. No injection or drainage. NECK: Supple, trachea midline. No JVD or lymphadenopathy. CARDIOVASCULAR: Regular rate and rhythm without murmurs, gallops, or rubs. RESPIRATORY: Breath sounds equal bilaterally. No accessory muscle use. Status post tracheostomy, there is little drainage from the tracheostomy tube. GASTROINTESTINAL: Abdomen soft, non-tender, nondistended. MUSCULOSKELETAL: No cyanosis, or edema. BACK: Nontender without obvious deformity. No CVA tenderness. Procedures 09/10/2016 Placement of a 8 Shiley percutaneous tracheostomy, using the blue rhino kit 09/13/2016 gastrostomy tube placement by IR 09/21/2016 Placement of left side [id number] under fluoroscopic guidance. 09/21/2016 Direct laryngoscopy with biopsies. A/P Problem List: (1) Squamous cell carcinoma of larynx ICD Code: C32.9 Status: Acute (2) Acute tracheobronchitis ICD Code: J20.9 Status: Acute (3) Dysphagia ICD Code: R13.10 Status: Acute (4) Malnutrition ICD Code: E46 Status: Acute Assessment and Plan Mr. Guzman is a 55-year-old male with a history of long-term alcohol and tobacco use who presented to the emergency department on 09/09/2016 due to weight loss of about 35 pounds as well as worsening hoarseness and chest congestion. About 4 and half months prior to this admission patient started experiencing worsening S in his voice and pain in his throat. Additionally he had dysphagia as well. CT soft tissue of the neck revealed a near obstructing mass involving the larynx and necrotic and enlarged-appearing lymph nodes bilaterally in the neck region. Patient underwent tracheostomy, biopsy of the neck mass which revealed squamous cell carcinoma. Patient has been treated for purulent tracheobronchitis with Unasyn by infectious disease. Radiation oncology has been consulted. 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 Hematology oncology is planning concurrent chemoradiation. - Radiation oncologist on board - Dental consult placed. However, Dentist refused to see patient in the hospital. - Oral/facial surgery was consulted on 09/21/2016. - Generalized fatigue - no clear etiology. Advised patient to move around and sit in his chair by the window. - We obtained CBC, BMP and CXR on 10/11/2016 - no remarkable findings. - Acute purulent tracheobronchitis - status post treatment with Unasyn under the guidance of infectious disease. - Chronic respiratory failure - s/p trach. Lots of secretion. Will try low dose Levsin. - Dysphagia - due to laryngeal cancer - Malnutrition - Currently on bolus feed. Consulted radiologist chief of breast imaging to recommend appropriate tube feed in the hospital and on discharge. - History of alcohol and tobacco abuse. Continue Nicotine patch. - Discharge plan: [facility] is working on social security benefits/insurance. I discussed with Oncology PA who earlier discussed with the caser in. We are hoping to get insurance sorted out this week. If that happens, patient can be discharged home with home health and then follow up with Rad Onc and Medical Onc. Full code. Dorita Alegre DO Oct 12, 2016 5:49 pm
[2016-10-12] MEDS: HYOSCYAMINE 0.5 MG/ML AMP IVP PRN (18:19)
[2016-10-12] MEDS: TEMAZEPAM 7.5 MG CAP PO PRN (23:16)
[2016-10-13] VITALS (7 sets, daily range): BP systolic 93–155; BP diastolic 53–96; PULSE 75–100; RESP 16–18; TEMP 96.9–98.8; O2SAT 91–99
[2016-10-13] MEDS: REMOVE OLD PATCH TD SCH (09:00)
[2016-10-13] MEDS: LACTULOSE SYRUP 20 GM/30 ML CUP PEG SCH (09:00)
[2016-10-13] MEDS: ENOXAPARIN SODIUM 40 MG/0.4 ML SYRINGE SQ SCH (09:00)
--- NOTE | 2016-10-13 09:07 | HHI.PR ---
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 Mr. Guzman is currently doing well. Denies any acute chest pain, shortness of breath, fever or chills. Tolerating to feed okay. Objective Vitals Vital Signs Date Time Temp Pulse Resp B/P Pulse Ox O2 Delivery O2 Flow Rate FiO2 10/13/16 04:00 97.1 75 16 93/54 98 10/13/16 02:28 Trach Collar 5.00 10/13/16 00:00 91 Room Air 10/13/16 00:00 98.2 82 16 102/59 91 10/12/16 21:00 98 Room Air 10/12/16 20:00 99.0 82 18 105/60 98 10/12/16 16:00 98.6 92 18 94/56 91 10/12/16 12:29 94 21 10/12/16 12:00 98.8 83 18 96/54 93 I/O 10/12/16 10/12/16 10/12/16 10/13/16 10/13/16 10/13/16 07:00 15:00 23:00 07:00 15:00 23:00 Intake Total 610 ml 0 ml 480 ml 1020 ml Output Total 300 ml Balance 610 ml -300 ml 480 ml 1020 ml Intake Oral 0 ml Tube Feeding 360 ml 360 ml 720 ml Other 250 ml 120 ml 300 ml Output Urine Total 300 ml # Voids 2 Result Diagram: 10/11/16 1330 10/11/16 1330 Imaging Last Impressions Chest X-Ray 10/11/16 0000 Signed Impressions: Service Date/Time: Tuesday, October 11, 2016 12:07 - CONCLUSION: No acute disease. Bismark Root MD Lymph Node Biopsy CT 09/13/16 1209 Signed Impressions: Service Date/Time: Tuesday, September 13, 2016 12:30 - CONCLUSION: Uncomplicated CT guided biopsy. Hesham Mar MD Gastrostomy Tube Placement 09/13/16 0000 Signed Impressions: Service Date/Time: Tuesday, September 13, 2016 11:53 - CONCLUSION: Uncomplicated gastrostomy tube placement as above. Reginald Nolen MD Chest CT 09/10/16 0600 Signed Impressions: Service Date/Time: Saturday, September 10, 2016 05:36 - CONCLUSION: 1. Patchy areas of peripheral density in the upper lungs being more prominent right. These are nonspecific. 2. 4 mm noncalcified nodule in the left lower lung. 3. It is thought both these above findings should be followed up with a noncontrast CT examination in 3-6 months. 4. Calcified granuloma right lung base. 5. Hyperinflated lungs. Anjel Scanlon MD Abdomen/Pelvis CT 09/10/16 0600 Signed Impressions: Service Date/Time: Saturday, September 10, 2016 05:36 - CONCLUSION: Suspected area of small bowel intussusception in the right lower quadrant. This is likely intermittent as there is no associated dilatation of the small bowel. Intussusception can frequently had a lead mass. Evaluation of the small bowel would be recommended. Anjel Scanlon MD Neck CT 09/08/16 0000 Signed Impressions: Service Date/Time: Thursday, September 08, 2016 22:53 - CONCLUSION: Large malignant appearing mass or in the region of the false vocal cord on the right side with necrotic lymph nodes in bilateral neck highly suspicious for metastatic adenopathy. Cielo Lassiter MD Objective Remarks GENERAL: Alert, oriented 3, NAD. Status post tracheostomy. SKIN: Warm and dry. HEAD: Normocephalic. EYES: No scleral icterus. No injection or drainage. NECK: Supple, trachea midline. No JVD or lymphadenopathy. CARDIOVASCULAR: Regular rate and rhythm without murmurs, gallops, or rubs. RESPIRATORY: Breath sounds equal bilaterally. No accessory muscle use. Status post tracheostomy, there is little drainage from the tracheostomy tube. GASTROINTESTINAL: Abdomen soft, non-tender, nondistended. MUSCULOSKELETAL: No cyanosis, or edema. BACK: Nontender without obvious deformity. No CVA tenderness. Procedures 09/10/2016 Placement of a 8 Shiley percutaneous tracheostomy, using the blue rhino kit 09/13/2016 gastrostomy tube placement by IR 09/21/2016 Placement of left side [id number] under fluoroscopic guidance. 09/21/2016 Direct laryngoscopy with biopsies. A/P Problem List: (1) Squamous cell carcinoma of larynx ICD Code: C32.9 Status: Acute (2) Acute tracheobronchitis ICD Code: J20.9 Status: Acute (3) Dysphagia ICD Code: R13.10 Status: Acute (4) Malnutrition ICD Code: E46 Status: Acute Assessment and Plan Mr. Guzman is a 55-year-old male with a history of long-term alcohol and tobacco use who presented to the emergency department on 09/09/2016 due to weight loss of about 35 pounds as well as worsening hoarseness and chest congestion. About 4 and half months prior to this admission patient started experiencing worsening S in his voice and pain in his throat. Additionally he had dysphagia as well. CT soft tissue of the neck revealed a near obstructing mass involving the larynx and necrotic and enlarged-appearing lymph nodes bilaterally in the neck region. Patient underwent tracheostomy, biopsy of the neck mass which revealed squamous cell carcinoma. Patient has been treated for purulent tracheobronchitis with Unasyn by infectious disease. Radiation oncology has been consulted. 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 Hematology oncology is planning concurrent chemoradiation. - Radiation oncologist on board - Dental consult placed. However, Dentist refused to see patient in the hospital. - Oral/facial surgery was consulted on 09/21/2016. - Generalized fatigue - no clear etiology. Advised patient to move around and sit in his chair by the window. - We obtained CBC, BMP and CXR on 10/11/2016 - no remarkable findings. - Acute purulent tracheobronchitis - status post treatment with Unasyn under the guidance of infectious disease. - Chronic respiratory failure - s/p trach. Lots of secretion. Will try low dose Levsin. - Dysphagia - due to laryngeal cancer - Malnutrition - Currently on bolus feed. Consulted dental specialist to recommend appropriate tube feed in the hospital and on discharge. - History of alcohol and tobacco abuse. Continue Nicotine patch. - Discharge plan: [facility] is working on social security benefits/insurance. I discussed with Oncology PA who earlier discussed with the family caseworker. We are hoping to get insurance sorted out this week. If that happens, patient can be discharged home with home health and then follow up with Rad Onc and Medical Onc. - Discussed with CM - PET scan, dentist visit will be arranged. Hopefully discharge home with home health this week. Full code. Dorita Alegre DO Oct 13, 2016 9:07 am
[2016-10-13] MEDS ORDERED: buPROPion HCL 75 MG TAB PO SCH (09:15)
[2016-10-13] MEDS ORDERED: FLUoxetine HCL 10 MG CAP PO SCH (09:15)
[2016-10-13] MEDS: DIAZEPAM 5 MG TAB PO SCH ×2 (09:40→22:18)
[2016-10-13] MEDS: PANTOPRAZOLE SODIUM 40 MG VIAL IV PUSH SCH (09:43)
[2016-10-13] MEDS: NICOTINE 14 MG/24 HR PATCH TD SCH (09:43)
[2016-10-13] MEDS: SODIUM CHLORIDE 0.9% FLUSH 5 ML FLUSH IVF SCH ×2 (09:44→20:46)
[2016-10-13] MEDS: TIOTROPIUM BROMIDE 18 MCG INH INH SCH (09:44)
[2016-10-13] MEDS: CYCLOBENZAPRINE HCL 10 MG TAB PO PRN ×2 (09:53→20:46)
[2016-10-14] VITALS (8 sets, daily range): BP systolic 92–111; BP diastolic 56–65; PULSE 75–96; RESP 16–20; TEMP 96.1–98.8; O2SAT 91–96
[2016-10-14] MEDS: TEMAZEPAM 7.5 MG CAP PO PRN ×2 (00:13→22:01)
[2016-10-14] MEDS: ENOXAPARIN SODIUM 40 MG/0.4 ML SYRINGE SQ SCH (08:01)
[2016-10-14] MEDS: NICOTINE 14 MG/24 HR PATCH TD SCH (08:03)
[2016-10-14] MEDS: PANTOPRAZOLE SODIUM 40 MG VIAL IV PUSH SCH (08:03)
[2016-10-14] MEDS: REMOVE OLD PATCH TD SCH (08:03)
[2016-10-14] MEDS: SODIUM CHLORIDE 0.9% FLUSH 5 ML FLUSH IVF SCH ×2 (08:04→22:01)
[2016-10-14] MEDS: LACTULOSE SYRUP 20 GM/30 ML CUP PEG SCH (08:04)
[2016-10-14] MEDS: TIOTROPIUM BROMIDE 18 MCG INH INH SCH (08:04)
[2016-10-14] MEDS: DIAZEPAM 5 MG TAB PO SCH ×2 (08:04→22:01)
[2016-10-14] MEDS: CYCLOBENZAPRINE HCL 10 MG TAB PO PRN (08:16)
[2016-10-14] MEDS: BENEPROTEIN POWDER 1 PACK G-TUBE SCH (17:11)
--- NOTE | 2016-10-14 18:30 | HHI.PR ---
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 Mr. Guzman complains of being hungry and frustrated that he is not getting enough caloric intake and thus loosing weight. We assured him today that one of the dieticians will come to see him today. Within minutes after patient was seen today, one of the brush sander came and spent about an hour with the patient. We greatly appreciate efforts of patient's RN and brush sander. Objective Vitals Vital Signs Date Time Temp Pulse Resp B/P Pulse Ox O2 Delivery O2 Flow Rate FiO2 10/14/16 15:45 98.8 95 20 104/63 94 10/14/16 14:48 Room Air 10/14/16 11:30 98.1 86 20 100/58 10/14/16 08:40 Trach Collar 5.00 21 10/14/16 08:10 92 Trach Collar 21 10/14/16 07:27 96.1 80 20 97/62 91 10/14/16 04:00 75 16 92/56 96 10/14/16 00:00 97.5 83 16 100/57 94 10/13/16 20:46 Trach Collar 5.00 10/13/16 20:30 98.4 88 16 101/58 94 I/O 10/13/16 10/13/16 10/13/16 10/14/16 10/14/16 10/14/16 07:00 15:00 23:00 07:00 15:00 23:00 Intake Total 1020 ml 480 ml 1560 ml 700 ml 390 ml Output Total 600 ml Balance 1020 ml -120 ml 1560 ml 700 ml 390 ml Intake Oral 480 ml 240 ml Tube Feeding 720 ml 1080 ml 360 ml 290 ml Other 300 ml 480 ml 100 ml 100 ml Output Urine Total 600 ml # Voids 1 1 2 # Bowel Movements 1 Result Diagram: 10/11/16 1330 10/11/16 1330 Imaging Last Impressions Chest X-Ray 10/11/16 0000 Signed Impressions: Service Date/Time: Tuesday, October 11, 2016 12:07 - CONCLUSION: No acute disease. Bismark Root MD Lymph Node Biopsy CT 09/13/16 1209 Signed Impressions: Service Date/Time: Tuesday, September 13, 2016 12:30 - CONCLUSION: Uncomplicated CT guided biopsy. Hesham Mar MD Gastrostomy Tube Placement 09/13/16 0000 Signed Impressions: Service Date/Time: Tuesday, September 13, 2016 11:53 - CONCLUSION: Uncomplicated gastrostomy tube placement as above. Reginald Nolen MD Chest CT 09/10/16 0600 Signed Impressions: Service Date/Time: Saturday, September 10, 2016 05:36 - CONCLUSION: 1. Patchy areas of peripheral density in the upper lungs being more prominent right. These are nonspecific. 2. 4 mm noncalcified nodule in the left lower lung. 3. It is thought both these above findings should be followed up with a noncontrast CT examination in 3-6 months. 4. Calcified granuloma right lung base. 5. Hyperinflated lungs. Anjel Scanlon MD Abdomen/Pelvis CT 09/10/16 06 Signed Impressions: Service Date/Time: Saturday, September 10, 2016 05:36 - CONCLUSION: Suspected area of small bowel intussusception in the right lower quadrant. This is likely intermittent as there is no associated dilatation of the small bowel. Intussusception can frequently had a lead mass. Evaluation of the small bowel would be recommended. Anjel Scanlon MD Neck CT 09/08/16 0000 Signed Impressions: Service Date/Time: Thursday, September 08, 2016 22:53 - CONCLUSION: Large malignant appearing mass or in the region of the false vocal cord on the right side with necrotic lymph nodes in bilateral neck highly suspicious for metastatic adenopathy. Cielo Lassitre MD Objective Remarks GENERAL: Alert, oriented 3, NAD. Status post tracheostomy. SKIN: Warm and dry. HEAD: Normocephalic. EYES: No scleral icterus. No injection or drainage. NECK: Supple, trachea midline. No JVD or lymphadenopathy. CARDIOVASCULAR: Regular rate and rhythm without murmurs, gallops, or rubs. RESPIRATORY: Breath sounds equal bilaterally. No accessory muscle use. Status post tracheostomy, there is little drainage from the tracheostomy tube. GASTROINTESTINAL: Abdomen soft, non-tender, nondistended. MUSCULOSKELETAL: No cyanosis, or edema. BACK: Nontender without obvious deformity. No CVA tenderness. Procedures 09/10/2016 Placement of a 8 Shiley percutaneous tracheostomy, using the blue rhino kit 09/13/2016 gastrostomy tube placement by IR 09/21/2016 Placement of left side [id number] under fluoroscopic guidance. 09/21/2016 Direct laryngoscopy with biopsies. A/P Problem List: (1) Squamous cell carcinoma of larynx ICD Code: C32.9 Status: Acute (2) Acute tracheobronchitis ICD Code: J20.9 Status: Acute (3) Dysphagia ICD Code: R13.10 Status: Acute (4) Malnutrition ICD Code: E46 Status: Acute Assessment and Plan Mr. Guzman is a 55-year-old male with a history of long-term alcohol and tobacco use who presented to the emergency department on 09/09/2016 due to weight loss of about 35 pounds as well as worsening hoarseness and chest congestion. About 4 and half months prior to this admission patient started experiencing worsening S in his voice and pain in his throat. Additionally he had dysphagia as well. CT soft tissue of the neck revealed a near obstructing mass involving the larynx and necrotic and enlarged-appearing lymph nodes bilaterally in the neck region. Patient underwent tracheostomy, biopsy of the neck mass which revealed squamous cell carcinoma. Patient has been treated for purulent tracheobronchitis with Unasyn by infectious disease. Radiation oncology has been consulted. 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 Hematology oncology is planning concurrent chemoradiation. - Radiation oncologist on board - Dental consult placed. However, Dentist refused to see patient in the hospital. - Oral/facial surgery was consulted on 09/21/2016. - ELI is working on PET scan, dental visit after discharge. - Acute purulent tracheobronchitis - status post treatment with Unasyn under the guidance of infectious disease. - Chronic respiratory failure - s/p trach. Lots of secretion. Continue low dose Levsin. - Dysphagia - due to laryngeal cancer - Malnutrition - Currently on bolus feed. Tube feed per brush sander recommendations. - History of alcohol and tobacco abuse. Continue Nicotine patch. - Discharge plan: [facility]I is working on social security benefits/insurance. I discussed with Oncology PA who earlier discussed with the case aide. We are hoping to get insurance sorted out this week. If that happens, patient can be discharged home with home health and then follow up with Rad Onc and Medical Onc. Full code. Dorita Alegre DO Oct 14, 2016 18:30
[2016-10-15 05:00] VITALS: BP 101/61; PULSE 76; RESP 18; O2SAT 95
[2016-10-15 08:00] VITALS: BP 97/59; PULSE 82; RESP 18; TEMP 98.2; O2SAT 96
[2016-10-15] MEDS: TIOTROPIUM BROMIDE 18 MCG INH INH SCH ×2 (09:00→16:05)
[2016-10-15] MEDS: LACTULOSE SYRUP 20 GM/30 ML CUP PEG SCH (09:00)
[2016-10-15] MEDS: REMOVE OLD PATCH TD SCH (09:00)
[2016-10-15] MEDS: ENOXAPARIN SODIUM 40 MG/0.4 ML SYRINGE SQ SCH (09:00)
[2016-10-15] MEDS: PANTOPRAZOLE SODIUM 40 MG VIAL IV PUSH SCH (10:01)
[2016-10-15] MEDS: SODIUM CHLORIDE 0.9% FLUSH 5 ML FLUSH IVF SCH ×2 (10:02→21:00)
[2016-10-15] MEDS: NICOTINE 14 MG/24 HR PATCH TD SCH (10:02)
[2016-10-15] MEDS: DIAZEPAM 5 MG TAB PO SCH ×2 (10:02→21:00)
[2016-10-15] MEDS: BENEPROTEIN POWDER 1 PACK G-TUBE SCH ×3 (11:30→18:00)
[2016-10-15 12:00] VITALS: BP 100/57; PULSE 100; RESP 16; TEMP 98.3; O2SAT 90
[2016-10-15 16:00] VITALS: BP 102/48; PULSE 100; RESP 16; TEMP 98; O2SAT 91
[2016-10-15] MEDS: HYOSCYAMINE 0.5 MG/ML AMP IVP PRN (16:07)
--- NOTE | 2016-10-15 16:27 | HHI.PR ---
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 Dough Mixing Machine Operator changed tube feed formulation on 10/14/2016. Patient is tolerating this new formulation well. Denies any fever, chills. Denies any other acute concerns. Continues to have a lot of secretions. Objective Vitals Vital Signs Date Time Temp Pulse Resp B/P Pulse Ox O2 Delivery O2 Flow Rate FiO2 10/15/16 15:59 28 10/15/16 10:18 Room Air 10/15/16 08:00 98.2 82 18 97/59 96 10/15/16 05:00 76 18 101/61 95 10/14/16 21:25 94 21 10/14/16 20:00 96 Room Air 21 10/14/16 20:00 97.7 96 17 111/65 96 I/O 10/14/16 10/14/16 10/14/16 10/15/16 10/15/16 10/15/16 07:00 15:00 23:00 07:00 15:00 23:00 Intake Total 700 ml 390 ml 490 ml Output Total 0 ml Balance 700 ml 390 ml 490 ml Intake Oral 240 ml 0 ml Tube Feeding 360 ml 290 ml 290 ml Other 100 ml 100 ml 200 ml Gastric Drainage Total 0 ml # Voids 1 2 1 0 # Bowel Movements 1 0 0 Result Diagram: 10/11/16 1330 10/11/16 1330 Imaging Last Impressions Chest X-Ray 10/11/16 0000 Signed Impressions: Service Date/Time: Tuesday, October 11, 2016 12:07 - CONCLUSION: No acute disease. Bismark Root MD Lymph Node Biopsy CT 09/13/16 1209 Signed Impressions: Service Date/Time: Tuesday, September 13, 2016 12:30 - CONCLUSION: Uncomplicated CT guided biopsy. Hesham Mar MD Gastrostomy Tube Placement 09/13/16 0000 Signed Impressions: Service Date/Time: Tuesday, September 13, 2016 11:53 - CONCLUSION: Uncomplicated gastrostomy tube placement as above. Reginald Nolen MD Chest CT 09/10/16 0600 Signed Impressions: Service Date/Time: Saturday, September 10, 2016 05:36 - CONCLUSION: 1. Patchy areas of peripheral density in the upper lungs being more prominent right. These are nonspecific. 2. 4 mm noncalcified nodule in the left lower lung. 3. It is thought both these above findings should be followed up with a noncontrast CT examination in 3-6 months. 4. Calcified granuloma right lung base. 5. Hyperinflated lungs. Anjel Scanlon MD Abdomen/Pelvis CT 09/10/16 0600 Signed Impressions: Service Date/Time: Saturday, September 10, 2016 05:36 - CONCLUSION: Suspected area of small bowel intussusception in the right lower quadrant. This is likely intermittent as there is no associated dilatation of the small bowel. Intussusception can frequently had a lead mass. Evaluation of the small bowel would be recommended. Anjel Scanlon MD Neck CT 09/08/16 0000 Signed Impressions: Service Date/Time: Thursday, September 08, 2016 22:53 - CONCLUSION: Large malignant appearing mass or in the region of the false vocal cord on the right side with necrotic lymph nodes in bilateral neck highly suspicious for metastatic adenopathy. Cielo Lassiter MD Objective Remarks GENERAL: Alert, oriented 3, NAD. Status post tracheostomy. SKIN: Warm and dry. HEAD: Normocephalic. EYES: No scleral icterus. No injection or drainage. NECK: Supple, trachea midline. No JVD or lymphadenopathy. CARDIOVASCULAR: Regular rate and rhythm without murmurs, gallops, or rubs. RESPIRATORY: Breath sounds equal bilaterally. No accessory muscle use. Status post tracheostomy, there is little drainage from the tracheostomy tube. GASTROINTESTINAL: Abdomen soft, non-tender, nondistended. MUSCULOSKELETAL: No cyanosis, or edema. BACK: Nontender without obvious deformity. No CVA tenderness. Procedures 09/10/2016 Placement of a 8 Shiley percutaneous tracheostomy, using the blue rhino kit 09/13/2016 gastrostomy tube placement by IR 09/21/2016 Placement of left side [id number] under fluoroscopic guidance. 09/21/2016 Direct laryngoscopy with biopsies. A/P Problem List: (1) Squamous cell carcinoma of larynx ICD Code: C32.9 Status: Acute (2) Acute tracheobronchitis ICD Code: J20.9 Status: Acute (3) Dysphagia ICD Code: R13.10 Status: Acute (4) Malnutrition ICD Code: E46 Status: Acute Assessment and Plan Mr. Guzman is a 55-year-old male with a history of long-term alcohol and tobacco use who presented to the emergency department on 09/09/2016 due to weight loss of about 35 pounds as well as worsening hoarseness and chest congestion. About 4 and half months prior to this admission patient started experiencing worsening S in his voice and pain in his throat. Additionally he had dysphagia as well. CT soft tissue of the neck revealed a near obstructing mass involving the larynx and necrotic and enlarged-appearing lymph nodes bilaterally in the neck region. Patient underwent tracheostomy, biopsy of the neck mass which revealed squamous cell carcinoma. Patient has been treated for purulent tracheobronchitis with Unasyn by infectious disease. Radiation oncology has been consulted. 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 Hematology oncology is planning concurrent chemoradiation. - Radiation oncologist on board - Dental consult placed. However, Dentist refused to see patient in the hospital. - Oral/facial surgery was consulted on 09/21/2016. - CM is working on PET scan, dental visit after discharge. - Acute purulent tracheobronchitis - status post treatment with Unasyn under the guidance of infectious disease. - Chronic respiratory failure - s/p trach. Lots of secretion. Continue low dose Levsin. - Dysphagia - due to laryngeal cancer - Malnutrition - Currently on bolus feed. Appreciate granite countertop installer's recommendations. Continue Two cass HN. - History of alcohol and tobacco abuse. Continue Nicotine patch. - Discharge plan: ELI is working on social security benefits/insurance. Once insurance matters sorted and PET scan/dental appointments arranged, patient can be discharged home with home health and then follow up with Rad Onc and Medical Onc. Full code. Dorita Alegre DO Oct 15, 2016 16:27
[2016-10-15] MEDS: HYDROmorphone HCL PF 1 MG/ML VIAL IV PUSH PRN (17:18)
[2016-10-15] MEDS: CYCLOBENZAPRINE HCL 10 MG TAB PO PRN (19:54)
[2016-10-15 20:00] VITALS: BP 96/53; PULSE 89; RESP 15; TEMP 99.1; O2SAT 91
[2016-10-16] VITALS (7 sets, daily range): BP systolic 96–114; BP diastolic 59–76; PULSE 82–100; RESP 15–22; TEMP 96.9–98.6; O2SAT 90–98
[2016-10-16] MEDS: REMOVE OLD PATCH TD SCH (09:00)
[2016-10-16] MEDS: LACTULOSE SYRUP 20 GM/30 ML CUP PEG SCH (09:00)
[2016-10-16] MEDS: ENOXAPARIN SODIUM 40 MG/0.4 ML SYRINGE SQ SCH (09:00)
[2016-10-16] MEDS: BENEPROTEIN POWDER 1 PACK G-TUBE SCH ×3 (09:00→18:00)
[2016-10-16] MEDS: NICOTINE 14 MG/24 HR PATCH TD SCH (09:17)
[2016-10-16] MEDS: DIAZEPAM 5 MG TAB PO SCH ×2 (09:18→20:53)
[2016-10-16] MEDS: PANTOPRAZOLE SODIUM 40 MG VIAL IV PUSH SCH (09:18)
[2016-10-16] MEDS: SODIUM CHLORIDE 0.9% FLUSH 5 ML FLUSH IVF SCH ×2 (09:18→20:53)
--- NOTE | 2016-10-16 10:07 | HHI.PR ---
Subjective Remarks With secretions. No cp. sOB at times. + cough. No fever or chills. Objective Vitals Vital Signs Date Time Temp Pulse Resp B/P Pulse Ox O2 Delivery O2 Flow Rate FiO2 10/16/16 08:00 98.5 82 16 101/59 93 10/16/16 00:00 98.0 87 15 96/60 90 10/15/16 23:30 Trach Collar T-Piece 10/15/16 20:20 Room Air 10/15/16 20:00 99.1 89 15 96/53 91 10/15/16 16:00 98.0 100 16 102/48 91 10/15/16 15:59 28 10/15/16 12:00 98.3 100 16 100/57 90 10/15/16 10:18 Room Air I/O 10/15/16 10/15/16 10/15/16 10/16/16 10/16/16 10/16/16 07:00 15:00 23:00 07:00 15:00 23:00 Intake Total 490 ml 490 ml Output Total 0 ml Balance 490 ml 490 ml Tube Feeding 290 ml 290 ml Other 200 ml 200 ml Gastric Drainage Total 0 ml # Voids 0 4 2 2 # Bowel Movements 0 Imaging Last Impressions Chest X-Ray 10/11/16 0000 Signed Impressions: Service Date/Time: Tuesday, October 11, 2016 12:07 - CONCLUSION: No acute disease. Bismark Root MD Lymph Node Biopsy CT 09/13/16 1209 Signed Impressions: Service Date/Time: Tuesday, September 13, 2016 12:30 - CONCLUSION: Uncomplicated CT guided biopsy. Hesham Mar MD Gastrostomy Tube Placement 09/13/16 0000 Signed Impressions: Service Date/Time: Tuesday, September 13, 2016 11:53 - CONCLUSION: Uncomplicated gastrostomy tube placement as above. Reginald Nolen MD Chest CT 09/10/16 0600 Signed Impressions: Service Date/Time: Saturday, September 10, 2016 05:36 - CONCLUSION: 1. Patchy areas of peripheral density in the upper lungs being more prominent right. These are nonspecific. 2. 4 mm noncalcified nodule in the left lower lung. 3. It is thought both these above findings should be followed up with a noncontrast CT examination in 3-6 months. 4. Calcified granuloma right lung base. 5. Hyperinflated lungs. Anjel Scanlon MD Abdomen/Pelvis CT 09/10/16 0600 Signed Impressions: Service Date/Time: Saturday, September 10, 2016 05:36 - CONCLUSION: Suspected area of small bowel intussusception in the right lower quadrant. This is likely intermittent as there is no associated dilatation of the small bowel. Intussusception can frequently had a lead mass. Evaluation of the small bowel would be recommended. Anjel Scanlon MD Neck CT 09/08/16 0000 Signed Impressions: Service Date/Time: Thursday, September 08, 2016 22:53 - CONCLUSION: Large malignant appearing mass or in the region of the false vocal cord on the right side with necrotic lymph nodes in bilateral neck highly suspicious for metastatic adenopathy. Cielo Lassiter MD Objective Remarks GENERAL: Alert, oriented 3, NAD. Status post tracheostomy. SKIN: Warm and dry. HEAD: Normocephalic. EYES: No scleral icterus. No injection or drainage. NECK: Supple, trachea midline. No JVD or lymphadenopathy. CARDIOVASCULAR: Regular rate and rhythm without murmurs, gallops, or rubs. RESPIRATORY: Breath sounds equal bilaterally. No accessory muscle use. Status post tracheostomy, there is little drainage from the tracheostomy tube. GASTROINTESTINAL: Abdomen soft, non-tender, nondistended. MUSCULOSKELETAL: No cyanosis, or edema. BACK: Nontender without obvious deformity. No CVA tenderness. Procedures 09/10/2016 Placement of a 8 Shiley percutaneous tracheostomy, using the blue rhino kit 09/13/2016 gastrostomy tube placement by IR 09/21/2016 Placement of left side [id number] under fluoroscopic guidance. 09/21/2016 Direct laryngoscopy with biopsies. A/P Problem List: (1) Squamous cell carcinoma of larynx ICD Code: C32.9 Status: Acute (2) Acute tracheobronchitis ICD Code: J20.9 Status: Acute (3) Dysphagia ICD Code: R13.10 Status: Acute (4) Malnutrition ICD Code: E46 Status: Acute Assessment and Plan Mr. Guzman is a 55-year-old male with a history of long-term alcohol and tobacco use who presented to the emergency department on 09/09/2016 due to weight loss of about 35 pounds as well as worsening hoarseness and chest congestion. About 4 and half months prior to this admission patient started experiencing worsening S in his voice and pain in his throat. Additionally he had dysphagia as well. CT soft tissue of the neck revealed a near obstructing mass involving the larynx and necrotic and enlarged-appearing lymph nodes bilaterally in the neck region. Patient underwent tracheostomy, biopsy of the neck mass which revealed squamous cell carcinoma. Patient has been treated for purulent tracheobronchitis with Unasyn by infectious disease. Radiation oncology has been consulted. 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 Hematology oncology is planning concurrent chemoradiation. - Radiation oncologist on board - Dental consult placed. However, Dentist refused to see patient in the hospital. - Oral/facial surgery was consulted on 09/21/2016. - ELI is working on PET scan, dental visit after discharge. - Acute purulent tracheobronchitis - status post treatment with Unasyn under the guidance of infectious disease. - Chronic respiratory failure - s/p trach. Lots of secretion. Continue low dose Levsin. - Dysphagia - due to laryngeal cancer - Malnutrition - Currently on bolus feed. Appreciate dean of faculty's recommendations. Continue Two cass HN. - History of alcohol and tobacco abuse. Continue Nicotine patch. - Discharge plan: ELI is working on social security benefits/insurance. Once insurance matters sorted and PET scan/dental appointments arranged, patient can be discharged home with home health and then follow up with Rad Onc and Medical Onc. Full code. Odilon Discussed with the patient, nurse, family at bedside Annamaria Quesada MD Oct 16, 2016 10:07
[2016-10-16] MEDS: TIOTROPIUM BROMIDE 18 MCG INH INH SCH (11:30)
[2016-10-16] MEDS: LORazepam 0.5 MG TAB PO PRN (13:53)
[2016-10-17] VITALS (9 sets, daily range): BP systolic 94–128; BP diastolic 56–77; PULSE 72–101; RESP 16–22; TEMP 96.1–99.1; O2SAT 93–97
[2016-10-17] MEDS: BENEPROTEIN POWDER 1 PACK G-TUBE SCH ×3 (08:38→17:06)
[2016-10-17] MEDS: TIOTROPIUM BROMIDE 18 MCG INH INH SCH (08:39)
[2016-10-17] MEDS: PANTOPRAZOLE SODIUM 40 MG VIAL IV PUSH SCH (08:40)
[2016-10-17] MEDS: DIAZEPAM 5 MG TAB PO SCH ×2 (08:40→20:27)
[2016-10-17] MEDS: SODIUM CHLORIDE 0.9% FLUSH 5 ML FLUSH IVF SCH ×2 (08:40→20:27)
[2016-10-17] MEDS: LACTULOSE SYRUP 20 GM/30 ML CUP PEG SCH (08:41)
[2016-10-17] MEDS: REMOVE OLD PATCH TD SCH (08:42)
[2016-10-17] MEDS: NICOTINE 14 MG/24 HR PATCH TD SCH (08:42)
[2016-10-17] MEDS: ENOXAPARIN SODIUM 40 MG/0.4 ML SYRINGE SQ SCH (08:42)
--- NOTE | 2016-10-17 10:27 | HHI.FPPN ---
Subjective Remarks Patient seen and examined this am. Vitals are stable and he is saturating in the 90s on room air, trach collar in place. Patient is frustrated about being in the hospital. Desires to go home and get treatment and imaging initiated. Lots of secretions from trach. He feel self sufficient and does not want to be in hospital. Objective Vitals Vital Signs Date Time Temp Pulse Resp B/P Pulse Ox O2 Delivery O2 Flow Rate FiO2 10/17/16 10:11 96 Trach Collar 21 10/17/16 08:56 Room Air 10/17/16 08:00 96.1 72 16 128/77 96 10/17/16 04:00 98.2 77 16 95/56 93 10/17/16 00:00 98.4 85 18 127/76 93 10/16/16 20:00 98.6 98 18 114/76 93 10/16/16 20:00 Room Air 10/16/16 17:40 96 21 10/16/16 16:00 98.0 100 18 110/60 96 10/16/16 12:54 98 21 10/16/16 12:00 96.9 94 22 114/63 94 I/O 10/16/16 10/16/16 10/16/16 10/17/16 10/17/16 10/17/16 07:00 15:00 23:00 07:00 15:00 23:00 Intake Total 0 ml 0 ml Output Total 550 ml 200 ml Balance -550 ml 0 ml -200 ml Intake Oral 0 ml 0 ml Output Urine Total 550 ml 200 ml # Voids 2 2 1 # Bowel Movements 2 Imaging Last Impressions Chest X-Ray 10/11/16 0000 Signed Impressions: Service Date/Time: Tuesday, October 11, 2016 12:07 - CONCLUSION: No acute disease. Bismark Root MD Lymph Node Biopsy CT 09/13/16 1209 Signed Impressions: Service Date/Time: Tuesday, September 13, 2016 12:30 - CONCLUSION: Uncomplicated CT guided biopsy. Hesham Mar MD Gastrostomy Tube Placement 09/13/16 0000 Signed Impressions: Service Date/Time: Tuesday, September 13, 2016 11:53 - CONCLUSION: Uncomplicated gastrostomy tube placement as above. Reginald Nolen MD Chest CT 09/10/16 0600 Signed Impressions: Service Date/Time: Saturday, September 10, 2016 05:36 - CONCLUSION: 1. Patchy areas of peripheral density in the upper lungs being more prominent right. These are nonspecific. 2. 4 mm noncalcified nodule in the left lower lung. 3. It is thought both these above findings should be followed up with a noncontrast CT examination in 3-6 months. 4. Calcified granuloma right lung base. 5. Hyperinflated lungs. Anjel Scanlon MD Abdomen/Pelvis CT 09/10/16 0600 Signed Impressions: Service Date/Time: Saturday, September 10, 2016 05:36 - CONCLUSION: Suspected area of small bowel intussusception in the right lower quadrant. This is likely intermittent as there is no associated dilatation of the small bowel. Intussusception can frequently had a lead mass. Evaluation of the small bowel would be recommended. Anjel Scanlon MD Neck CT 09/08/16 0000 Signed Impressions: Service Date/Time: Thursday, September 08, 2016 22:53 - CONCLUSION: Large malignant appearing mass or in the region of the false vocal cord on the right side with necrotic lymph nodes in bilateral neck highly suspicious for metastatic adenopathy. Cielo Lassiter MD Objective Remarks GENERAL: Alert, oriented 3, NAD. Tracheostomy in place. SKIN: Warm and dry. HEAD: Normocephalic. EYES: No scleral icterus. No injection or drainage. NECK: Supple, trachea midline. No JVD or lymphadenopathy. CARDIOVASCULAR: Regular rate and rhythm without murmurs, gallops, or rubs. RESPIRATORY: Breath sounds equal bilaterally. Coarse breath sounds present at base bilat. No accessory muscle use. Status post tracheostomy, there is drainage from the tracheostomy tube. GASTROINTESTINAL: Abdomen soft, non-tender, nondistended. MUSCULOSKELETAL: No cyanosis, or edema. BACK: Nontender without obvious deformity. No CVA tenderness. A/P Assessment and Plan Mr. Guzman is a 55-year-old male with a history of long-term alcohol and tobacco use who presented to the emergency department on 09/09/2016 due to weight loss of about 35 pounds as well as worsening hoarseness and chest congestion. About 4 and half months prior to this admission patient started experiencing worsening S in his voice and pain in his throat. Additionally he had dysphagia as well. CT soft tissue of the neck revealed a near obstructing mass involving the larynx and necrotic and enlarged-appearing lymph nodes bilaterally in the neck region. Patient underwent tracheostomy, biopsy of the neck mass which revealed squamous cell carcinoma. Patient has been treated for purulent tracheobronchitis with Unasyn by infectious disease. Radiation oncology has been consulted. 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 Hematology oncology is planning concurrent chemoradiation. - Radiation oncologist on board - Dental consult placed. However, Dentist refused to see patient in the hospital. - Oral/facial surgery was consulted on 09/21/2016. - ELI is working on PET scan, dental visit after discharge. - Acute purulent tracheobronchitis - status post treatment with Unasyn under the guidance of infectious disease. - Chronic respiratory failure - s/p trach. Lots of secretion. Continue low dose Levsin. - Dysphagia - due to laryngeal cancer - Malnutrition - Currently on bolus feed. Appreciate deckhand clam dredge's recommendations. Continue Two cass HN. - History of alcohol and tobacco abuse. Continue Nicotine patch. - Discharge plan: ELI is working on social security benefits/insurance. Once insurance matters sorted and PET scan/dental appointments arranged, patient can be discharged home with home health and then follow up with Rad Onc and Medical Onc. From medical standpoint, the patient is ready fro discharge with the above recommendations. Full code. Laney Shine MD R3 Oct 17, 2016 10:27
[2016-10-17] MEDS: HYDROmorphone HCL PF 1 MG/ML VIAL IV PUSH PRN ×2 (13:52→18:21)
[2016-10-17] MEDS: TEMAZEPAM 7.5 MG CAP PO PRN (23:23)
[2016-10-18] VITALS (8 sets, daily range): BP systolic 101–129; BP diastolic 58–76; PULSE 84–101; RESP 16–20; TEMP 96.7–99.3; O2SAT 92–97
--- NOTE | 2016-10-18 08:18 | HHI.PR ---
Subjective Remarks Slleepy. Has no concerds. No events overnight. Has secretions form trach. No wheezing, sob. Objective Vitals Vital Signs Date Time Temp Pulse Resp B/P Pulse Ox O2 Delivery O2 Flow Rate FiO2 10/18/16 04:00 97.3 84 16 114/65 94 10/18/16 00:00 97.8 92 16 111/70 95 10/17/16 21:28 97 Trach Collar 10/17/16 20:00 97.7 94 18 103/65 95 10/17/16 20:00 Room Air 10/17/16 16:00 99.1 88 20 98/59 97 10/17/16 13:50 110/74 10/17/16 13:25 98.4 101 22 94/58 94 10/17/16 10:11 96 Trach Collar 21 10/17/16 08:56 Room Air I/O 10/17/16 10/17/16 10/17/16 10/18/16 10/18/16 10/18/16 07:00 15:00 23:00 07:00 15:00 23:00 Intake Total 0 ml 0 ml 700 ml 0 ml Output Total 200 ml Balance -200 ml 0 ml 700 ml 0 ml Intake Oral 0 ml 0 ml 0 ml 0 ml Tube Feeding 580 ml Tube Irrigant 120 ml Output Urine Total 200 ml # Voids 3 2 3 # Bowel Movements 2 1 Imaging Last Impressions Chest X-Ray 10/11/16 0000 Signed Impressions: Service Date/Time: Tuesday, October 11, 2016 12:07 - CONCLUSION: No acute disease. Bismark Root MD Lymph Node Biopsy CT 09/13/16 1209 Signed Impressions: Service Date/Time: Tuesday, September 13, 2016 12:30 - CONCLUSION: Uncomplicated CT guided biopsy. Hesham Mar MD Gastrostomy Tube Placement 09/13/16 0000 Signed Impressions: Service Date/Time: Tuesday, September 13, 2016 11:53 - CONCLUSION: Uncomplicated gastrostomy tube placement as above. Reginald Nolen MD Chest CT 09/10/16 0600 Signed Impressions: Service Date/Time: Saturday, September 10, 2016 05:36 - CONCLUSION: 1. Patchy areas of peripheral density in the upper lungs being more prominent right. These are nonspecific. 2. 4 mm noncalcified nodule in the left lower lung. 3. It is thought both these above findings should be followed up with a noncontrast CT examination in 3-6 months. 4. Calcified granuloma right lung base. 5. Hyperinflated lungs. Anjel Scanlon MD Abdomen/Pelvis CT 09/10/16 0600 Signed Impressions: Service Date/Time: Saturday, September 10, 2016 05:36 - CONCLUSION: Suspected area of small bowel intussusception in the right lower quadrant. This is likely intermittent as there is no associated dilatation of the small bowel. Intussusception can frequently had a lead mass. Evaluation of the small bowel would be recommended. Anjel Scanlon MD Neck CT 09/08/16 0000 Signed Impressions: Service Date/Time: Thursday, September 08, 2016 22:53 - CONCLUSION: Large malignant appearing mass or in the region of the false vocal cord on the right side with necrotic lymph nodes in bilateral neck highly suspicious for metastatic adenopathy. Cielo Lassiter MD Objective Remarks GENERAL: Alert, oriented 3, NAD. Status post tracheostomy. SKIN: Warm and dry. HEAD: Normocephalic. EYES: No scleral icterus. No injection or drainage. NECK: Supple, trachea midline. No JVD or lymphadenopathy. CARDIOVASCULAR: Regular rate and rhythm without murmurs, gallops, or rubs. RESPIRATORY: Breath sounds equal bilaterally. No accessory muscle use. Status post tracheostomy, there is little drainage from the tracheostomy tube. GASTROINTESTINAL: Abdomen soft, non-tender, nondistended. MUSCULOSKELETAL: No cyanosis, or edema. BACK: Nontender without obvious deformity. No CVA tenderness. Procedures 09/10/2016 Placement of a 8 Shiley percutaneous tracheostomy, using the blue rhino kit 09/13/2016 gastrostomy tube placement by IR 09/21/2016 Placement of left side Fckvyz-[id number]-Bguh under fluoroscopic guidance. 09/21/2016 Direct laryngoscopy with biopsies. A/P Problem List: (1) Squamous cell carcinoma of larynx ICD Code: C32.9 Status: Acute (2) Acute tracheobronchitis ICD Code: J20.9 Status: Acute (3) Dysphagia ICD Code: R13.10 Status: Acute (4) Malnutrition ICD Code: E46 Status: Acute Assessment and Plan Mr. Guzman is a 55-year-old male with a history of long-term alcohol and tobacco use who presented to the emergency department on 09/09/2016 due to weight loss of about 35 pounds as well as worsening hoarseness and chest congestion. About 4 and half months prior to this admission patient started experiencing worsening S in his voice and pain in his throat. Additionally he had dysphagia as well. CT soft tissue of the neck revealed a near obstructing mass involving the larynx and necrotic and enlarged-appearing lymph nodes bilaterally in the neck region. Patient underwent tracheostomy, biopsy of the neck mass which revealed squamous cell carcinoma. Patient has been treated for purulent tracheobronchitis with Unasyn by infectious disease. Radiation oncology has been consulted. 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 Hematology oncology is planning concurrent chemoradiation. - Radiation oncologist on board - Dental consult placed. However, Dentist refused to see patient in the hospital. - Oral/facial surgery was consulted on 09/21/2016. - CM is working on PET scan, dental visit after discharge. - Acute purulent tracheobronchitis - status post treatment with Unasyn under the guidance of infectious disease. - Chronic respiratory failure - s/p trach. Lots of secretion. Continue low dose Levsin. - Dysphagia - due to laryngeal cancer - Malnutrition - Currently on bolus feed. Appreciate seismograph helper's recommendations. Continue Two cass HN. - History of alcohol and tobacco abuse. Continue Nicotine patch. - Discharge plan: ELI is working on social security benefits/insurance. Once insurance matters sorted and PET scan/dental appointments arranged, patient can be discharged home with home health and then follow up with Rad Onc and Medical Onc. Full code. Lovenox Discussed with the patient, nurse, family at bedside Annamaria Quesada MD Oct 18, 2016 08:18
[2016-10-18] MEDS: BENEPROTEIN POWDER 1 PACK G-TUBE SCH ×3 (09:00→17:19)
[2016-10-18] MEDS: REMOVE OLD PATCH TD SCH (09:00)
[2016-10-18] MEDS: ENOXAPARIN SODIUM 40 MG/0.4 ML SYRINGE SQ SCH (09:00)
[2016-10-18] MEDS: LACTULOSE SYRUP 20 GM/30 ML CUP PEG SCH (09:00)
[2016-10-18] MEDS: DIAZEPAM 5 MG TAB PO SCH ×2 (09:06→19:35)
[2016-10-18] MEDS: NICOTINE 14 MG/24 HR PATCH TD SCH (09:06)
[2016-10-18] MEDS: SODIUM CHLORIDE 0.9% FLUSH 5 ML FLUSH IVF SCH ×2 (09:07→19:35)
[2016-10-18] MEDS: PANTOPRAZOLE SODIUM 40 MG VIAL IV PUSH SCH (09:07)
[2016-10-18] MEDS: TIOTROPIUM BROMIDE 18 MCG INH INH SCH (09:15)
[2016-10-18] MEDS: HYDROmorphone HCL PF 1 MG/ML VIAL IV PUSH PRN ×3 (09:37→19:35)
[2016-10-18] MEDS: TEMAZEPAM 7.5 MG CAP PO PRN (23:43)
[2016-10-19] VITALS (7 sets, daily range): BP systolic 98–128; BP diastolic 62–72; PULSE 83–93; RESP 16–20; TEMP 96.9–99; O2SAT 91–97
[2016-10-19] MEDS: TIOTROPIUM BROMIDE 18 MCG INH INH SCH (10:08)
[2016-10-19] MEDS: NICOTINE 14 MG/24 HR PATCH TD SCH (10:09)
[2016-10-19] MEDS: REMOVE OLD PATCH TD SCH (10:10)
[2016-10-19] MEDS: BENEPROTEIN POWDER 1 PACK G-TUBE SCH ×3 (10:13→18:55)
[2016-10-19] MEDS: LACTULOSE SYRUP 20 GM/30 ML CUP PEG SCH (10:14)
[2016-10-19] MEDS: SODIUM CHLORIDE 0.9% FLUSH 5 ML FLUSH IVF SCH ×2 (10:14→22:15)
[2016-10-19] MEDS: PANTOPRAZOLE SODIUM 40 MG VIAL IV PUSH SCH (10:14)
[2016-10-19] MEDS: ENOXAPARIN SODIUM 40 MG/0.4 ML SYRINGE SQ SCH (10:14)
[2016-10-19] MEDS: DIAZEPAM 5 MG TAB PO SCH ×2 (10:15→22:15)
--- NOTE | 2016-10-19 13:26 | HHI.PR ---
Subjective Remarks Seen sandwich hand today. No events overnight. Has secretions, he is suctioning regularly. Has no other complaints. Objective Vitals Vital Signs Date Time Temp Pulse Resp B/P Pulse Ox O2 Delivery O2 Flow Rate FiO2 10/19/16 10:35 92 21 10/19/16 08:00 96.9 86 20 98/64 91 10/19/16 04:00 97.8 83 16 110/65 94 10/19/16 00:00 97.6 93 16 111/66 97 10/18/16 21:39 97 21 10/18/16 21:00 97.4 100 18 128/76 95 10/18/16 20:00 Room Air 10/18/16 16:00 98.4 101 18 129/66 93 I/O 10/18/16 10/18/16 10/18/16 10/19/16 10/19/16 10/19/16 07:00 15:00 23:00 07:00 15:00 23:00 Intake Total 0 ml 1470 ml Balance 0 ml 1470 ml Intake Oral 0 ml 0 ml Tube Feeding 870 ml Tube Irrigant 600 ml # Voids 3 3 3 1 # Bowel Movements 3 Objective Remarks GENERAL: Alert, oriented 3, NAD. Status post tracheostomy. SKIN: Warm and dry. HEAD: Normocephalic. EYES: No scleral icterus. No injection or drainage. NECK: Supple, trachea midline. No JVD or lymphadenopathy. CARDIOVASCULAR: Regular rate and rhythm without murmurs, gallops, or rubs. RESPIRATORY: Breath sounds equal bilaterally. No accessory muscle use. Status post tracheostomy, there is little drainage from the tracheostomy tube. GASTROINTESTINAL: Abdomen soft, non-tender, nondistended. MUSCULOSKELETAL: No cyanosis, or edema. BACK: Nontender without obvious deformity. No CVA tenderness. Procedures 09/10/2016 Placement of a 8 Shiley percutaneous tracheostomy, using the blue rhino kit 09/13/2016 gastrostomy tube placement by IR 09/21/2016 Placement of left side [id number]-D-Vqgi under fluoroscopic guidance. 09/21/2016 Direct laryngoscopy with biopsies. A/P Problem List: (1) Squamous cell carcinoma of larynx ICD Code: C32.9 Status: Acute (2) Acute tracheobronchitis ICD Code: J20.9 Status: Acute (3) Dysphagia ICD Code: R13.10 Status: Acute (4) Malnutrition ICD Code: E46 Status: Acute Assessment and Plan Mr. Guzman is a 55-year-old male with a history of long-term alcohol and tobacco use who presented to the emergency department on 09/09/2016 due to weight loss of about 35 pounds as well as worsening hoarseness and chest congestion. About 4 and half months prior to this admission patient started experiencing worsening S in his voice and pain in his throat. Additionally he had dysphagia as well. CT soft tissue of the neck revealed a near obstructing mass involving the larynx and necrotic and enlarged-appearing lymph nodes bilaterally in the neck region. Patient underwent tracheostomy, biopsy of the neck mass which revealed squamous cell carcinoma. Patient has been treated for purulent tracheobronchitis with Unasyn by infectious disease. Radiation oncology has been consulted. 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 Hematology oncology is planning concurrent chemoradiation. - Radiation oncologist on board - Dental consult placed. However, Dentist refused to see patient in the hospital. - Oral/facial surgery was consulted on 09/21/2016. - CM is working on PET scan, dental visit after discharge. - Acute purulent tracheobronchitis - status post treatment with Unasyn under the guidance of infectious disease. - Chronic respiratory failure - s/p trach. Lots of secretion. Continue low dose Levsin. - Dysphagia - due to laryngeal cancer - Malnutrition - Currently on bolus feed. Appreciate rubbing bed operator's recommendations. Continue Two cass HN. - History of alcohol and tobacco abuse. Continue Nicotine patch. - Discharge plan: ELI is working on social security benefits/insurance. Once insurance matters sorted and PET scan/dental appointments arranged, patient can be discharged home with home health and then follow up with Rad Onc and Medical Onc. Full code. Lovenox Discussed with the patient, nurse, family at bedside CM for DC plan. Difficult DC. We are waiting on home care supplies to be set up bf d/c home. Needs PET scan as OP. Annamaria Quesada MD Oct 19, 2016 13:26
[2016-10-20] VITALS (8 sets, daily range): BP systolic 101–119; BP diastolic 59–66; PULSE 80–101; RESP 16–20; TEMP 96.8–98.5; O2SAT 92–96
--- NOTE | 2016-10-20 07:46 | HHI.PR ---
Subjective Remarks No events overnight No complaints at this time. Objective Vitals Vital Signs Date Time Temp Pulse Resp B/P Pulse Ox O2 Delivery O2 Flow Rate FiO2 10/20/16 06:00 98.0 82 16 101/59 94 10/20/16 04:00 92 Room Air 5.00 21 10/20/16 00:17 92 Room Air 10/20/16 00:00 97.2 91 18 114/63 92 10/19/16 22:55 92 Room Air 10/19/16 20:00 99.0 90 16 108/62 92 10/19/16 16:00 97.3 91 20 128/72 93 10/19/16 12:00 98.3 93 20 115/71 91 10/19/16 10:35 92 21 10/19/16 10:15 Room Air 10/19/16 08:00 96.9 86 20 98/64 91 I/O 10/19/16 10/19/16 10/19/16 10/20/16 10/20/16 10/20/16 07:00 15:00 23:00 07:00 15:00 23:00 Intake Total 240 ml 410 ml Balance 240 ml 410 ml Intake Oral 240 ml Tube Feeding 290 ml Other 120 ml # Voids 1 1 2 2 # Bowel Movements 0 Objective Remarks GENERAL: Alert, oriented 3, NAD. Status post tracheostomy. SKIN: Warm and dry. HEAD: Normocephalic. EYES: No scleral icterus. No injection or drainage. NECK: Supple, trachea midline. No JVD or lymphadenopathy. CARDIOVASCULAR: Regular rate and rhythm without murmurs, gallops, or rubs. RESPIRATORY: Breath sounds equal bilaterally. No accessory muscle use. Status post tracheostomy, there is little drainage from the tracheostomy tube. GASTROINTESTINAL: Abdomen soft, non-tender, nondistended. MUSCULOSKELETAL: No cyanosis, or edema. BACK: Nontender without obvious deformity. No CVA tenderness. Procedures 09/10/2016 Placement of a 8 Shiley percutaneous tracheostomy, using the blue rhino kit 09/13/2016 gastrostomy tube placement by IR 09/21/2016 Placement of left side [id number]-V-Hxtt under fluoroscopic guidance. 09/21/2016 Direct laryngoscopy with biopsies. A/P Problem List: (1) Squamous cell carcinoma of larynx ICD Code: C32.9 Status: Acute (2) Acute tracheobronchitis ICD Code: J20.9 Status: Acute (3) Dysphagia ICD Code: R13.10 Status: Acute (4) Malnutrition ICD Code: E46 Status: Acute Assessment and Plan Mr. Guzman is a 55-year-old male with a history of long-term alcohol and tobacco use who presented to the emergency department on 09/09/2016 due to weight loss of about 35 pounds as well as worsening hoarseness and chest congestion. About 4 and half months prior to this admission patient started experiencing worsening S in his voice and pain in his throat. Additionally he had dysphagia as well. CT soft tissue of the neck revealed a near obstructing mass involving the larynx and necrotic and enlarged-appearing lymph nodes bilaterally in the neck region. Patient underwent tracheostomy, biopsy of the neck mass which revealed squamous cell carcinoma. Patient has been treated for purulent tracheobronchitis with Unasyn by infectious disease. Radiation oncology has been consulted. 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 Hematology oncology is planning concurrent chemoradiation. - Radiation oncologist on board - Dental consult placed. However, Dentist refused to see patient in the hospital. - Oral/facial surgery was consulted on 09/21/2016. - CM is working on PET scan, dental visit after discharge. - Acute purulent tracheobronchitis - status post treatment with Unasyn under the guidance of infectious disease. - Chronic respiratory failure - s/p trach. Lots of secretion. Continue low dose Levsin. - Dysphagia - due to laryngeal cancer - Malnutrition - Currently on bolus feed. Appreciate general freight agent's recommendations. Continue Two cass HN. - History of alcohol and tobacco abuse. Continue Nicotine patch. - Discharge plan: ELI is working on social security benefits/insurance. Once insurance matters sorted and PET scan/dental appointments arranged, patient can be discharged home with home health and then follow up with Rad Onc and Medical Onc. Full code. Lovenox Discussed with the patient, nurse, family at bedside CM for DC plan. Difficult DC. We are waiting on home care supplies to be set up bf d/c home. Needs PET scan as OP. Annamaria Quesada MD Oct 20, 2016 07:46
[2016-10-20] MEDS: PANTOPRAZOLE SODIUM 40 MG VIAL IV PUSH SCH (10:49)
[2016-10-20] MEDS: TIOTROPIUM BROMIDE 18 MCG INH INH SCH (10:50)
[2016-10-20] MEDS: REMOVE OLD PATCH TD SCH (10:51)
[2016-10-20] MEDS: NICOTINE 14 MG/24 HR PATCH TD SCH (10:51)
[2016-10-20] MEDS: SODIUM CHLORIDE 0.9% FLUSH 5 ML FLUSH IVF SCH ×2 (10:55→22:10)
[2016-10-20] MEDS: DIAZEPAM 5 MG TAB PO SCH ×2 (10:56→22:10)
[2016-10-20] MEDS: ENOXAPARIN SODIUM 40 MG/0.4 ML SYRINGE SQ SCH (10:56)
[2016-10-20] MEDS: LACTULOSE SYRUP 20 GM/30 ML CUP PEG SCH (10:56)
[2016-10-20] MEDS: BENEPROTEIN POWDER 1 PACK G-TUBE SCH ×3 (10:56→17:05)
[2016-10-20] MEDS: LORazepam 0.5 MG TAB PO PRN (15:42)
[2016-10-20] MEDS: CYCLOBENZAPRINE HCL 10 MG TAB PO PRN (16:57)
[2016-10-21] VITALS (8 sets, daily range): BP systolic 107–125; BP diastolic 58–68; PULSE 82–106; RESP 16–18; TEMP 97.7–99.1; O2SAT 93–97
[2016-10-21] MEDS: TEMAZEPAM 7.5 MG CAP PO PRN (00:41)
[2016-10-21] MEDS: HYDROmorphone HCL PF 1 MG/ML VIAL IV PUSH PRN ×3 (00:41→16:37)
[2016-10-21] MEDS: LORazepam 0.5 MG TAB PO PRN ×2 (05:54→20:30)
[2016-10-21] MEDS: BENEPROTEIN POWDER 1 PACK G-TUBE SCH ×3 (09:00→18:00)
[2016-10-21] MEDS: TIOTROPIUM BROMIDE 18 MCG INH INH SCH (09:00)
[2016-10-21] MEDS: LACTULOSE SYRUP 20 GM/30 ML CUP PEG SCH (09:00)
[2016-10-21] MEDS: ENOXAPARIN SODIUM 40 MG/0.4 ML SYRINGE SQ SCH (09:00)
[2016-10-21] MEDS: REMOVE OLD PATCH TD SCH (09:00)
[2016-10-21] MEDS: SODIUM CHLORIDE 0.9% FLUSH 5 ML FLUSH IVF SCH ×2 (09:53→21:00)
[2016-10-21] MEDS: DIAZEPAM 5 MG TAB PO SCH ×2 (09:53→20:30)
[2016-10-21] MEDS: PANTOPRAZOLE SODIUM 40 MG VIAL IV PUSH SCH (09:53)
[2016-10-21] MEDS: NICOTINE 14 MG/24 HR PATCH TD SCH (09:54)
[2016-10-21] MEDS ORDERED: SPIRCAP INH (15:14)
[2016-10-21] MEDS ORDERED: HYOS.5P IVP (15:14)
[2016-10-21] MEDS ORDERED: NICO14DI TD (15:14)
[2016-10-21] MEDS ORDERED: VENTAER INH (15:14)
[2016-10-21] MEDS ORDERED: SYMB160A INH (15:14)
--- NOTE | 2016-10-21 15:15 | HHI.DS ---
Discharge Summary Admission Date Sep 09, 2016 at 23:30 Discharge Date: Oct 22, 2016 Admitting Diagnosis neck mass/malignancy; copd (1) Squamous cell carcinoma of larynx ICD Code: C32.9 Diagnosis: Principal (2) Acute tracheobronchitis ICD Code: J20.9 Diagnosis: Principal (3) Dysphagia ICD Code: R13.10 Diagnosis: Principal (4) Malnutrition ICD Code: E46 Diagnosis: Secondary Procedures 09/10/2016 Placement of a 8 Shiley percutaneous tracheostomy, using the blue rhino kit 09/13/2016 gastrostomy tube placement by IR 09/21/2016 Placement of left side Oqsrzz-I-Xrib under fluoroscopic guidance. 09/21/2016 Direct laryngoscopy with biopsies. Brief History - From Admission This patient is a 55-year-old gentleman with minimal past history who over the last 4 months has been having increased weight loss of about 45 pounds, increased hoarseness and chest congestion. Patient has not had any fevers or chills but did come to the emergency room several months ago for evaluation and was given a proton pump inhibitor for treatment of presumed dyspepsia. Patient' s symptoms never subsided and he became worse so he came to the hospital again. CT of the next was done and did show a rather large malignant-appearing mass on the right side with some necrotic lymph nodes. On my review it is quite suspicious for malignancy. Patient has not been hypoxemic, he has difficulty swallowing and has been quite dehydrated. For these reasons the patient was recommended for further evaluation and treatment in the hospital. Imaging Last Impressions Chest X-Ray 10/11/16 0000 Signed Impressions: Service Date/Time: Tuesday, October 11, 2016 12:07 - CONCLUSION: No acute disease. Bismark Root MD Lymph Node Biopsy CT 09/13/16 1209 Signed Impressions: Service Date/Time: Tuesday, September 13, 2016 12:30 - CONCLUSION: Uncomplicated CT guided biopsy. Hesham Mar MD Gastrostomy Tube Placement 09/13/16 0000 Signed Impressions: Service Date/Time: Tuesday, September 13, 2016 11:53 - CONCLUSION: Uncomplicated gastrostomy tube placement as above. Reginald Nolen MD Chest CT 09/10/16599 Signed Impressions: Service Date/Time: Saturday, September 10, 2016 05:36 - CONCLUSION: 1. Patchy areas of peripheral density in the upper lungs being more prominent right. These are nonspecific. 2. 4 mm noncalcified nodule in the left lower lung. 3. It is thought both these above findings should be followed up with a noncontrast CT examination in 3-6 months. 4. Calcified granuloma right lung base. 5. Hyperinflated lungs. Anjel Scanlon MD Abdomen/Pelvis CT 09/10/16599 Signed Impressions: Service Date/Time: Saturday, September 10, 2016 05:36 - CONCLUSION: Suspected area of small bowel intussusception in the right lower quadrant. This is likely intermittent as there is no associated dilatation of the small bowel. Intussusception can frequently had a lead mass. Evaluation of the small bowel would be recommended. Anjel Scanlon MD Neck CT 09/08/16 0000 Signed Impressions: Service Date/Time: Thursday, September 08, 2016 22:53 - CONCLUSION: Large malignant appearing mass or in the region of the false vocal cord on the right side with necrotic lymph nodes in bilateral neck highly suspicious for metastatic adenopathy. Cielo Lassiter MD PE at Discharge GENERAL: Alert, oriented 3, NAD. Status post tracheostomy. SKIN: Warm and dry. HEAD: Normocephalic. EYES: No scleral icterus. No injection or drainage. NECK: Supple, trachea midline. No JVD or lymphadenopathy. CARDIOVASCULAR: Regular rate and rhythm without murmurs, gallops, or rubs. RESPIRATORY: Breath sounds equal bilaterally. No accessory muscle use. Status post tracheostomy, there is little drainage from the tracheostomy tube. GASTROINTESTINAL: Abdomen soft, non-tender, nondistended. MUSCULOSKELETAL: No cyanosis, or edema. BACK: Nontender without obvious deformity. No CVA tenderness. Pt update on day of discharge Patient is ready to go home he is happy. Has no complaints. Hospital Course Mr. Guzman is a 55-year-old male with a history of long-term alcohol and tobacco use who presented to the emergency department on 09/09/2016 due to weight loss of about 35 pounds as well as worsening hoarseness and chest congestion. About 4 and half months prior to this admission patient started experiencing worsening S in his voice and pain in his throat. Additionally he had dysphagia as well. CT soft tissue of the neck revealed a near obstructing mass involving the larynx and necrotic and enlarged-appearing lymph nodes bilaterally in the neck region. Patient underwent tracheostomy, biopsy of the neck mass which revealed squamous cell carcinoma. Patient has been treated for purulent tracheobronchitis with Unasyn by infectious disease. Radiation oncology has been consulted. 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 Hematology oncology is planning concurrent chemoradiation. - Radiation oncologist on board - Dental consult placed. However, Dentist refused to see patient in the hospital. - Oral/facial surgery was consulted on 09/21/2016. - CM is working on PET scan, dental visit after discharge. - Acute purulent tracheobronchitis - status post treatment with Unasyn under the guidance of infectious disease. - Chronic respiratory failure - s/p trach. Lots of secretion. Continue low dose Levsin. - Dysphagia - due to laryngeal cancer - Malnutrition - Currently on bolus feed. Appreciate garde manager's recommendations. Continue Two cass HN. - History of alcohol and tobacco abuse. Continue Nicotine patch. - Discharge plan: CM is working on social security benefits/insurance. Once insurance matters sorted and PET scan/dental appointments arranged, patient can be discharged home with home health and then follow up with Rad Onc and Medical Onc. Full code. Lovenox Discussed with the patient, nurse, family at bedside CM for DC plan. Difficult DC. We are waiting on home care supplies to be set up before d/c home. Needs PET scan as OP. f/u appointment: DR. WELCH, [phone] FOR October, 1 PM, [address] [place] [address], COME EARLY TO FILL OUT PAPERWORK Patient improved, DC arrangements done per . Patient to follow up as OP with PCP and consultants. Pt Condition on Discharge: Fair Discharge Disposition: Disch w/ Home Health Serv Discharge Time: > 30 minutes Discharge Instructions DIET: Follow Instructions for: On Tube Feeding (TwoCal HN 5 bolus feedings of 290mls each w/ 1 packet of BeneProtein in EACH bolus. Flush tube before and after each bolus. Bolus Free Water 200ml each bolus feeding. {NOTE: PT NEEDS 5 PACKETS BENEPROTEIN ADAY}) Activities to Avoid: Driving for 24 hrs Follow up Referrals: Oncology - 3-5 Days with Miguel Angel So MD Oral Maxillary Surgery - 10/25/16 with French Welch DDS PCP Follow-up - 3-5 Days Pulmonology - 1 Week with Lori Sandoval MD New Orders: PET, WHOLE BODY - 2-3 Days New Medications: Albuterol 18 GM Inh (Ventolin Hfa 18 GM Inh) 90 Mcg/Act Aer 2 PUFF INH Q4-6H PRN SHORTNESS OF BREATH #1 Ref 0 INHALER [place] Open Suction Mini ([place] Open Suction Mini) 1 Mis Mis 1 EA .ROUTE DIRECTED #2 EA Budesonide-Formoterol Inh (Symbicort Inh) 160-4.5 Mcg/Act Aero 2 PUFF INH Q12HR #1 Ref 0 INHALER Hydromorphone (Dilaudid) 2 Mg Tab 2 MG PO Q8H PRN Pain Management #10 Ref 0 TAB Hyoscyamine Liq (Hyoscyamine Liq) 0.125 Mg/5 Ml Elix 0.125 MG PO Q8HR Gastrointestinal disorders #30 Ref 0 ML Cyclobenzaprine (Flexeril) 10 Mg Tab 5 MG PO HS PRN muscle spasm #10 TAB Diazepam (Valium) 5 Mg Tab 5 MG PO Q12HR Anxiety and/or Insomnia #30 TAB Hyoscyamine Inj (Levsin Inj) 0.5 Mg/Ml Inj 0.25 MG IVP Q6HR PRN SECRETIONS #30 INJECTION Nicotine Patch (Nicotine Patch) 14 Mg/24 Hr Patch 1 PATCH TD DAILY smoking cessation #30 PATCH Protein (Beneprotein) 6 Gm Pow 1 PACK G-TUBE TID nutrition #90 PACK Sennosides-Docusate Sodium (Senna Plus 8.6-50 mg) 1 Tab Tab 1 TAB PO BID PRN CONSTIPATION #60 TAB Temazepam (Restoril) 7.5 Mg Cap 15 MG PO HS PRN INSOMNIA #30 CAP Tiotropium Inh (Spiriva Handihaler) 18 Mcg Cap 18 MCG INH DAILY copd #30 CAP Annamaria Quesada MD Oct 21, 2016 15:15
--- NOTE | 2016-10-21 15:16 | HHI.FF ---
Face to Face Verification Diagnosis: (1) Neck malignant neoplasm (2) ETOHism (3) Laryngeal mass (4) Head and neck cancer (5) Acute tracheobronchitis (6) Dysphagia (7) Malnutrition (8) Squamous cell carcinoma of larynx Physical Therapy Order: Evaluate and Treat Home Health Nursing Order: Medical education Signs/symptoms of disease process Medication education-adverse effect Nursing assessment with vital signs I have seen patient Judah Guzman on 10/21/16. My clinical findings support the need for the requested home health care services because: Ltd mobility - disease progression I certify that my clinical findings support that this patient is homebound because: Post-op weakness Annamaria Quesada MD Oct 21, 2016 15:16
[2016-10-21] MEDS ORDERED: PROT6POW G-TUBE (15:27)
[2016-10-21] MEDS ORDERED: DIAZ5 PO (15:29)
--- NOTE | 2016-10-21 15:36 | HHI.PR ---
Subjective Remarks Seen earlier today. brushing his teeth. No events overnight. No complaints at this time. Objective Vitals Vital Signs Date Time Temp Pulse Resp B/P Pulse Ox O2 Delivery O2 Flow Rate FiO2 10/21/16 12:57 96 Trach Collar 21 10/21/16 12:53 99.1 103 16 115/62 97 10/21/16 09:52 Room Air 10/21/16 08:00 97.7 97 16 107/58 96 10/21/16 04:00 97.7 95 16 121/68 94 10/21/16 04:00 94 Room Air 5.00 21 10/21/16 00:00 97.7 82 18 116/65 93 10/21/16 00:00 93 Room Air 5.00 21 10/20/16 22:10 95 Room Air 5.00 21 10/20/16 20:00 98.5 96 16 114/62 95 10/20/16 18:08 95 21 10/20/16 16:00 98.1 101 20 119/66 95 I/O 10/20/16 10/20/16 10/20/16 10/21/16 10/21/16 10/21/16 07:00 15:00 23:00 07:00 15:00 23:00 Intake Total 0 ml 1770 ml 690 ml Balance 0 ml 1770 ml 690 ml Intake Oral 0 ml 150 ml Tube Feeding 870 ml 290 ml Other 900 ml 250 ml # Voids 2 3 2 2 # Bowel Movements 2 Imaging Last Impressions Chest X-Ray 10/11/16 0000 Signed Impressions: Service Date/Time: Tuesday, October 11, 2016 12:07 - CONCLUSION: No acute disease. Bismark Root MD Lymph Node Biopsy CT 09/13/16 1209 Signed Impressions: Service Date/Time: Tuesday, September 13, 2016 12:30 - CONCLUSION: Uncomplicated CT guided biopsy. Hesham Mar MD Gastrostomy Tube Placement 09/13/16 0000 Signed Impressions: Service Date/Time: Tuesday, September 13, 2016 11:53 - CONCLUSION: Uncomplicated gastrostomy tube placement as above. Reginald Nolen MD Chest CT 09/10/16 0600 Signed Impressions: Service Date/Time: Saturday, September 10, 2016 05:36 - CONCLUSION: 1. Patchy areas of peripheral density in the upper lungs being more prominent right. These are nonspecific. 2. 4 mm noncalcified nodule in the left lower lung. 3. It is thought both these above findings should be followed up with a noncontrast CT examination in 3-6 months. 4. Calcified granuloma right lung base. 5. Hyperinflated lungs. Anjel Scanlon MD Abdomen/Pelvis CT 09/10/16 0600 Signed Impressions: Service Date/Time: Saturday, September 10, 2016 05:36 - CONCLUSION: Suspected area of small bowel intussusception in the right lower quadrant. This is likely intermittent as there is no associated dilatation of the small bowel. Intussusception can frequently had a lead mass. Evaluation of the small bowel would be recommended. Anjel Scanlon MD Neck CT 09/08/16 0000 Signed Impressions: Service Date/Time: Thursday, September 08, 2016 22:53 - CONCLUSION: Large malignant appearing mass or in the region of the false vocal cord on the right side with necrotic lymph nodes in bilateral neck highly suspicious for metastatic adenopathy. Cielo Lassiter MD Objective Remarks GENERAL: Alert, oriented 3, NAD. Status post tracheostomy. SKIN: Warm and dry. HEAD: Normocephalic. EYES: No scleral icterus. No injection or drainage. NECK: Supple, trachea midline. No JVD or lymphadenopathy. CARDIOVASCULAR: Regular rate and rhythm without murmurs, gallops, or rubs. RESPIRATORY: Breath sounds equal bilaterally. No accessory muscle use. Status post tracheostomy, there is little drainage from the tracheostomy tube. GASTROINTESTINAL: Abdomen soft, non-tender, nondistended. MUSCULOSKELETAL: No cyanosis, or edema. BACK: Nontender without obvious deformity. No CVA tenderness. Procedures 09/10/2016 Placement of a 8 Shiley percutaneous tracheostomy, using the blue rhino kit 09/13/2016 gastrostomy tube placement by IR 09/21/2016 Placement of left side Fdesge-O-Pjov under fluoroscopic guidance. 09/21/2016 Direct laryngoscopy with biopsies. A/P Problem List: (1) Squamous cell carcinoma of larynx ICD Code: C32.9 Status: Acute (2) Acute tracheobronchitis ICD Code: J20.9 Status: Acute (3) Dysphagia ICD Code: R13.10 Status: Acute (4) Malnutrition ICD Code: E46 Status: Acute Assessment and Plan Mr. Guzman is a 55-year-old male with a history of long-term alcohol and tobacco use who presented to the emergency department on 09/09/2016 due to weight loss of about 35 pounds as well as worsening hoarseness and chest congestion. About 4 and half months prior to this admission patient started experiencing worsening S in his voice and pain in his throat. Additionally he had dysphagia as well. CT soft tissue of the neck revealed a near obstructing mass involving the larynx and necrotic and enlarged-appearing lymph nodes bilaterally in the neck region. Patient underwent tracheostomy, biopsy of the neck mass which revealed squamous cell carcinoma. Patient has been treated for purulent tracheobronchitis with Unasyn by infectious disease. Radiation oncology has been consulted. 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 Hematology oncology is planning concurrent chemoradiation. - Radiation oncologist on board - Dental consult placed. However, Dentist refused to see patient in the hospital. - Oral/facial surgery was consulted on 09/21/2016. - CM is working on PET scan, dental visit after discharge. - Acute purulent tracheobronchitis - status post treatment with Unasyn under the guidance of infectious disease. - Chronic respiratory failure - s/p trach. Lots of secretion. Continue low dose Levsin. - Dysphagia - due to laryngeal cancer - Malnutrition - Currently on bolus feed. Appreciate office worker's recommendations. Continue Two cass HN. - History of alcohol and tobacco abuse. Continue Nicotine patch. - Discharge plan: [facility] is working on social security benefits/insurance. Once insurance matters sorted and PET scan/dental appointments arranged, patient can be discharged home with home health and then follow up with Rad Onc and Medical Onc. Full code. Odilon Discussed with the patient, nurse, family at bedside CM for DC plan. Difficult DC. We are waiting on home care supplies to be set up before d/c home. Needs PET scan as OP. Annamaria Quesada MD Oct 21, 2016 15:36
[2016-10-21] MEDS ORDERED: [UNRECOGNIZED DRUG - CODE] (15:40)
[2016-10-21] MEDS: CYCLOBENZAPRINE HCL 10 MG TAB PO PRN (16:47)
[2016-10-21] MEDS ORDERED: SENN1TAB PO (16:58)
[2016-10-21] MEDS ORDERED: TEMA7.5C9 PO (16:58)
[2016-10-21] MEDS ORDERED: CYCL1TAB29 PO (16:58)
[2016-10-21] MEDS ORDERED: DILA2TAB2 PO (16:58)
[2016-10-21] MEDS ORDERED: HYOS0.1252 PO (17:15)
[2016-10-22 06:00] VITALS: BP 109/65; PULSE 82; RESP 16; TEMP 96.6; O2SAT 97
[2016-10-22] MEDS: CYCLOBENZAPRINE HCL 10 MG TAB PO PRN (06:30)
[2016-10-22 07:59] VITALS: BP 84/55; PULSE 96; RESP 18; TEMP 97.5; O2SAT 92
[2016-10-22] MEDS: LACTULOSE SYRUP 20 GM/30 ML CUP PEG SCH (07:59)
[2016-10-22] MEDS: ENOXAPARIN SODIUM 40 MG/0.4 ML SYRINGE SQ SCH (07:59)
[2016-10-22] MEDS: BENEPROTEIN POWDER 1 PACK G-TUBE SCH (08:29)
[2016-10-22] MEDS: PANTOPRAZOLE SODIUM 40 MG VIAL IV PUSH SCH (08:38)
[2016-10-22] MEDS: NICOTINE 14 MG/24 HR PATCH TD SCH (08:39)
[2016-10-22] MEDS: SODIUM CHLORIDE 0.9% FLUSH 5 ML FLUSH IVF SCH (08:39)
[2016-10-22] MEDS: TIOTROPIUM BROMIDE 18 MCG INH INH SCH (08:39)
[2016-10-22] MEDS: REMOVE OLD PATCH TD SCH (08:39)
[2016-10-22] MEDS: DIAZEPAM 5 MG TAB PO SCH (08:46)
[2017-03-30] MEDS ORDERED: TRAM50TA PO (08:41)
[2017-03-30] MEDS ORDERED: CODE5LIQ (08:41)
== END 2016-10-22 09:48 | disposition home health service (06) | DRG 12 ==
LOC: NEPC 17:23 → NEDA 09-09 01:29 → NEDH 09-09 05:29 → NEPGCP 09-09 13:23 → OBSVTOIN 09-09 23:30 → HIMN 09-10 00:15 → HOCB 09-21 17:14
PROVIDERS: ADMIT Hospitalist; ATTEND Hospitalist
PROC: 0CJS8ZZ Inspection of Larynx, Via Natural or Artificial Opening Endoscopic (ICD-10-PCS; 2016-09-09)
PROC: 0B113F4 Bypass Trachea to Cutaneous with Tracheostomy Device, Percutaneous Approach (ICD-10-PCS; principal; 2016-09-10 14:37)
PROC: 07B13ZX Excision of Right Neck Lymphatic, Percutaneous Approach, Diagnostic (ICD-10-PCS; 2016-09-13)
PROC: 0DH63UZ Insertion of Feeding Device into Stomach, Percutaneous Approach (ICD-10-PCS; 2016-09-13)
PROC: 0JH63WZ Insertion of Totally Implantable Vascular Access Device into Chest Subcutaneous Tissue and Fascia, Percutaneous Approach (ICD-10-PCS; 2016-09-21)
PROC: 02HV33Z Insertion of Infusion Device into Superior Vena Cava, Percutaneous Approach (ICD-10-PCS; 2016-09-21)
PROC: B518ZZA Fluoroscopy of Superior Vena Cava, Guidance (ICD-10-PCS; 2016-09-21)
PROC: 0CBS8ZX Excision of Larynx, Via Natural or Artificial Opening Endoscopic, Diagnostic (ICD-10-PCS; 2016-09-23)
DX: C32.8 Malignant neoplasm of overlapping sites of larynx (principal); C77.0 Secondary and unspecified malignant neoplasm of lymph nodes of head, face and neck; J96.10 Chronic respiratory failure, unspecified whether with hypoxia or hypercapnia; E46 Unspecified protein-calorie malnutrition; Z68.1 Body mass index [BMI] 19.9 or less, adult; J44.0 Chronic obstructive pulmonary disease with (acute) lower respiratory infection; J20.8 Acute bronchitis due to other specified organisms; E86.0 Dehydration; R49.0 Dysphonia; R13.10 Dysphagia, unspecified; F17.210 Nicotine dependence, cigarettes, uncomplicated; R47.02 Dysphasia; K59.00 Constipation, unspecified; G47.00 Insomnia, unspecified; M62.838 Other muscle spasm; F10.20 Alcohol dependence, uncomplicated; F41.9 Anxiety disorder, unspecified
CPT/HCPCS: 38505; 49440; 70491; 71010; 71260; 74177; 76942; 77001; 77012; 80048; 80053; 81001; 83735; 84100; 84443; 84484; 85025; 85027; 85610; 85730; 87040; 87070; 87086; 87185; 87205; 87641; 88305; 93005; 94620; 94664; 96374; 99144; 99222; C1788; C9113; G8996-GN; G8997-GN; G8998-GN; J0295; J0690; J1100; J1170; J1610; J1642; J1644; J1650; J1956; J1980; J2060; J2250; J2405; J2543; J2710; J3010; J3370; J3480; J7120; J8540; Q9967

== ENCOUNTER 2017-02-11 08:01 | Day surgery (SDC) | payer MEDICAID ==
[~2017-02-11 08:01] MED LIST: CYCL1TAB29 PO; DIAZ5 PO; DILA2TAB2 PO; HYOS.5P IVP; HYOS0.1252 PO; NICO14DI TD; PROT6POW G-TUBE; SENN1TAB PO; SPIRCAP INH; SYMB160A INH; TEMA7.5C9 PO; VENTAER INH; [UNRECOGNIZED DRUG - CODE]
[2017-02-11 08:35] VITALS: BP 121/64; PULSE 88; RESP 20; TEMP 98; O2SAT 98
[2017-03-30] MEDS ORDERED: CODE5LIQ (08:41)
[2017-03-30] MEDS ORDERED: TRAM50TA PO (08:41)
== END 2017-02-11 09:07 | disposition home or self-care (01) ==
LOC: HROP 08:01 → HRIP 08:02 → HROP 09:07
PROVIDERS: ATTEND Specialist
DX: Z43.1 Encounter for attention to gastrostomy (principal); C32.9 Malignant neoplasm of larynx, unspecified

== ENCOUNTER 2017-06-18 15:36 | Emergency (ER) | payer MEDICAID, OTHER ==
[~2017-06-18] VITALS: Ht 182.9 cm; Wt 75.0 kg
[~2017-06-18 15:36] MED LIST changes: +CODE5LIQ; -CYCL1TAB29 PO; -DILA2TAB2 PO; -HYOS.5P IVP; -HYOS0.1252 PO; +TRAM50TA PO; -[UNRECOGNIZED DRUG - CODE]
[2017-06-18 15:37] VITALS: BP 158/80; PULSE 98; RESP 24; TEMP 98.7; O2SAT 96
[2017-06-18] MEDS ORDERED: DIATRIZOATE MEGLUM/DIATRIZOATE SOD 120 ML BTL (for RAD DIAG) PEG ONE (15:37)
--- NOTE | 2017-06-18 16:30 | PD ---
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 The patient states that he got his in September due to throat cancer. It has been doing well until the G-tube started leaking today, it has a hole on it. He denies any other complaints at this time. PFSH Past Medical History Blood Disorders: No Cancer: Yes (POSSIBLE NEW LARANGYL CANCER 09/09/16) Cardiovascular Problems: No COPD: Yes Diabetes: No Endocrine: No Genitourinary: No Immune Disorder: No Musculoskeletal: No Neurologic: No Psychiatric: No Reproductive: No Respiratory: Yes Thyroid Disease: No Past Surgical History Tonsillectomy: Yes Social History Alcohol Use: Yes Tobacco Use: Yes (1PPD) Substance Use: No Allergies-Medications (Allergen,Severity, Reaction): Coded Allergies: No Known Allergies (Unverified , 06/18/17) Reported Meds & Prescriptions Reported Meds & Active Scripts Active Restoril (Temazepam) 7.5 Mg Cap 15 Mg PO HS PRN Valium (Diazepam) 5 Mg Tab 5 Mg PO Q12HR Symbicort Inh (Budesonide/Formoterol Fumarate) 160-4.5 Mcg/Act Aero 2 Puff INH Q12HR Ventolin Hfa 18 GM Inh (Albuterol Sulfate) 90 Mcg/Act Aer 2 Puff INH Q4-6H PRN Spiriva Handihaler (Tiotropium Inh) 18 Mcg Cap 18 Mcg INH DAILY Reported Tramadol (Tramadol HCl) 50 Mg Tab 50 Mg PO HS PRN Review of Systems Except as stated in HPI: all other systems reviewed are Neg Physical Exam Narrative GENERAL: Well-nourished, well-developed male patient, afebrile SKIN: Focused skin assessment warm/dry. HEAD: Normocephalic. Atraumatic. EYES: No scleral icterus. No injection or drainage. NECK: Supple, trachea midline. No JVD or lymphadenopathy. CARDIOVASCULAR: Regular rate and rhythm without murmurs, gallops, or rubs. RESPIRATORY: Breath sounds equal bilaterally. No accessory muscle use. Lungs sounds are clear to auscultation GASTROINTESTINAL: Abdomen soft, non-tender, nondistended. Patient has G-tube noted. The tube has a hole in his leaking contents. This is an 18 [place] tube. MUSCULOSKELETAL: No cyanosis, or edema. BACK: Nontender without obvious deformity. No CVA tenderness. Data Data Last Documented VS Vital Signs Date Time Temp Pulse Resp B/P (MAP) Pulse Ox O2 Delivery O2 Flow Rate FiO2 06/18/17 18:15 06/18/17 15:37 98.7 98 24 96 Room Air Orders Orders Abdomen, Single View (06/18/17 ) Abdomen, Single View (06/18/17 ) Diatrizoate Liq ( Gastropau Liq) (06/18/17 15:37) MDM Medical Decision Making Medical Screen Exam Complete: Yes Emergency Medical Condition: Yes Medical Record Reviewed: Yes Differential Diagnosis G-tube malfunction versus G-tube leakage versus medical clearance Narrative Course 56-year-old male presents to the emergency department for evaluation after his G -tube started leaking. He gives verbal consent for replacement of the G-tube. The G-tube is replaced with an 18 [place] G-tube. X-ray is ordered to confirm placement. Abdominal x-ray is pending. CECILIA Garcia will disposition patient after x-ray is resulted. Janae Vela Jun 18, 2017 16:30
--- NOTE | 2017-06-18 17:34 | RADRPT ---
EXAM DATE/TIME: 06/18/2017 16:46 [facility] COMPARISON: No previous studies available for comparison. INDICATIONS : PEG Tube. MEDICAL HISTORY : Chronic obstructive pulmonary disease. Neck mass. SURGICAL HISTORY : Tonsillectomy. Tracheostomy, Feeding tube. ENCOUNTER: Initial ACUITY: 1 day PAIN SCORE: 0/10 LOCATION: Abdomen. FINDINGS: 2 AP views of the abdomen. Gastrostomy tube is in place with the tip in the region of the gastric jessica ble. Bowel gas pattern is nonspecific with scattered gas in nondistended colon and small bowel. Moder ate bony degenerative findings of the lumbar spine. CONCLUSION: Gastrostomy tube in place with the tip in the region of the stomach. Sanju Pelletier MD on June 18, 2017 at 17:32 Board Certified Radiologist. This report was verified electronically.
--- NOTE | 2017-06-18 18:00 | RADRPT ---
EXAM DATE/TIME: 06/18/2017 17:26 [facility] COMPARISON: ABDOMEN SINGLE VIEW, June 18, 2017, 16:46. INDICATIONS : G-tube placement. MEDICAL HISTORY : Chronic obstructive pulmonary disease. Neck mass SURGICAL HISTORY : Tonsillectomy. Tracheostomy, Feeding tube. ENCOUNTER: Subsequent ACUITY: 1 day PAIN SCORE: 0/10 LOCATION: abdomen. FINDINGS: Single AP view the abdomen. Contrast injected through the gastrostomy tube is seen within the lumen o f the stomach. CONCLUSION: Contrast injection confirming intraluminal location of gastrostomy tube tip. Sanju Pelletier MD on June 18, 2017 at 17:58 Board Certified Radiologist. This report was verified electronically.
--- NOTE | 2017-06-18 18:13 | PD ---
Physical Exam Time Seen by Provider: 18:10 Narrative Pt was signed out to me with xray imaging pending; please refer to previous providers documentation of details surrounding the patient's current visit Data Data Last Documented VS Vital Signs Date Time Temp Pulse Resp B/P (MAP) Pulse Ox O2 Delivery O2 Flow Rate FiO2 06/18/17 15:37 98.7 98 24 158/80 (106) 96 Room Air Orders Orders Abdomen, Single View (06/18/17 ) Abdomen, Single View (06/18/17 ) Diatrizoate Liq ( Gastroview Lipedro luis) (06/18/17 15:37) MDM Medical Record Reviewed: Yes Supervised Visit with BAKARI: No Narrative Course Last Impressions Abdomen X-Ray 06/18/17 0000 Signed Impressions: Service Date/Time: Sunday, June 18, 2017 17:26 - CONCLUSION: Contrast injection confirming intraluminal location of gastrostomy tube tip. Sanju Pelletier MD Abdomen X-Ray 06/18/17 0000 Signed Impressions: Service Date/Time: Sunday, June 18, 2017 16:46 - CONCLUSION: Gastrostomy tube in place with the tip in the region of the stomach. Sanju Pelletier MD Findings are discussed with patient. He will be discharged at this time. Diagnosis Primary Impression: Complication of feeding tube Referrals: Primary Care Physician Patient Instructions: General Instructions, How to Use and Care for Your PEG Tube (ED) Additional Instruction: Follow up with your primary care provider Return to the ED with any acute worsening of symptoms Med/Other Pt SpecificInfo: No Change to Meds Disposition: 01 DISCHARGE HOME Condition: Stable GregorioLauraPearlneville BROOKS Jun 18, 2017 18:13
== END 2017-06-18 18:28 | disposition home or self-care (01) ==
LOC: NEPD 15:36
DX: K94.23 Gastrostomy malfunction (principal); Z85.21 Personal history of malignant neoplasm of larynx
CPT/HCPCS: 43760; 74000; 99284; Q9963

== ENCOUNTER 2018-02-24 09:10 | Day surgery (SDC) | payer MEDICAID ==
[~2018-02-24 09:10] MED LIST changes: -CODE5LIQ; -NICO14DI TD; -PROT6POW G-TUBE; -SENN1TAB PO
[2018-02-24 09:35] VITALS: BP 124/77; PULSE 77; RESP 20; TEMP 98.5; O2SAT 94
== END 2018-02-24 10:57 | disposition home or self-care (01) ==
LOC: HROP 09:10 → HRIP 09:11 → HROP 10:57
PROVIDERS: ATTEND Internal Medicine Hematology & Oncology
DX: C32.9 Malignant neoplasm of larynx, unspecified (principal)